=== PATIENT | female | born 2000 | race Caucasian/White ===

== ENCOUNTER 2025-03-28 11:48 | Outpatient (CLI) | payer OTHER, SELFPAY ==
[2025-03-28 14:30] LABS: HCG,Quantitative 22155 mIU/ml (0-5.42)
[2025-03-29 08:21] LABS: Progesterone 19.9 ng/mL (.)
== END 2025-03-28 23:59 | disposition home or self-care (01) ==
LOC: LAB 11:49
PROVIDERS: Visit Provider Obstetrics & Gynecology
DX: Z32.01 Encounter for pregnancy test, result positive (principal)
CPT/HCPCS: 84144; 84702

== ENCOUNTER 2025-03-28 18:33 | Emergency (ER) | payer OTHER, SELFPAY ==
--- NOTE | 2025-03-28 18:37 | US_ITS ---
PROCEDURE INFORMATION: Exam: US , Transvaginal and US Duplex Artery or Vein, Ovaries, Limited Exam date and time: 03/28/2025 6:58 PM Age: 24 years old Clinical indication: Pain; Other: Bleeding -- cramping; Gestational age or lmp: 6w2d; ; Additional info: 6 weeks bleeding and cramping LABS AND CLINICAL REPORTS: Last menstrual period start date: 02/12/2025 Gestational age (Established): 6 w 2 d Estimated due date (Established): 11/19/2025 TECHNIQUE: Imaging protocol: Real-time transvaginal obstetrical ultrasound of the maternal pelvis and a first trimester with image documentation. Transvaginal imaging was used for better evaluation of the fetus, adnexa, and/or cervix. Real-time duplex ultrasound scan of the arterial or venous flow of the ovaries with B-mode, color Doppler flow and spectral waveform analysis, Limited Duplex. Duplex exam was performed to evaluate for torsion and other vascular conditions. COMPARISON: No relevant prior studies available. FINDINGS: GESTATION: Gestation: Yolk sac measures 4.5 mm. heart rate: 121 bpm BIOMETRY: Gestational age (AUA): 6 w 2 d Estimated due date (AUA): 11/19/2025 [place] rump length (CRL): 4.79 mm. EGA (CRL) is 6 w 1 d MATERNAL: Right ovary/adnexa: Right ovary measures 2.32 cm x 1.48 cm x 2.28 cm. Right ovarian volume is 4.1 mL. The right ovary has normal color Doppler echoes. The right ovary has normal arterial spectral waveforms. Left ovary/adnexa: Left ovary measures 2.67 cm x 2.23 cm x 2.09 cm. Left ovarian volume is 6.52 mL. The left ovary has normal color Doppler echoes. The left ovary has normal arterial spectral waveforms. Left ovarian corpus luteum cyst documented. Intraperitoneal space: No intraperitoneal free fluid. IMPRESSION: Intrauterine at estimated gestational age of 6 weeks and 1 day with heart rate of 121 bpm.
--- NOTE | 2025-03-28 18:38 | ED_ITS ---
<Statement entered by Gabby Lambert DO - 03/28/25 23:47> I was consulted by the ABBEY, and we discussed the complexity of the problems being addressed. I approved the treatment and management plan for this patient's care in the emergency department, thus performing a substantive portion of the medical decision making. Gabby Lambert DO Discharge Plan Disposition Patient Disposition: Home, Self-Care Condition: Good Prescriptions Prescriptions: No Action cephalexin 500 mg capsule 500 mg PO TID 7 Days Qty: 21 0RF Referrals Follow up/Referrals: Provider,Referral, MD [Primary Care Provider] - See instructions Activity Restrictions/Add. Instructions Additional Instructions/Restrictions: As we discussed please follow-up with [facility]MENT [employer]ER as scheduled. If you have persistent new or worsening signs or symptoms follow-up sooner or return to the ER as needed. Clinical Impressions Clinical Impression: Bleeding in early Print Language Print Language: Kinyarwanda Discharge ED Provider: Gabby Lambert General Adult HPI General Chief complaint: Vaginal Bleeding Stated complaint: 6 weeks Antipartum Cramping Bleeding Time Seen by Provider: 03/28/25 18:38 History of Present Illness HPI narrative: Patient presents for abdominal cramping and vaginal bleeding. 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 She is scheduled for an ultrasound on Wednesday. However after seeing her FARM EQUIPMENT ASSEMBLER she began having some lower abdominal cramping and spotting. She denies any fever chills hemoptysis hematochezia melena nausea vomiting diarrhea dysuria hematuria. Related Data Previous Rx's ?Medication ?Instructions ?Recorded cephalexin 500 mg capsule 500 mg PO TID 7 days #21 caps 03/07/21 Allergies Allergy/AdvReac Type Severity Reaction Status Date / Time No Known Allergies Allergy Verified 03/07/21 08:55 [facility] Disclaimer: The information contained in this section may have been updated after the patient was seen, as this information can be updated by other users. Medical History (Updated 03/28/25 @ 20:03 by LIVAN Luna) Vaginal bleeding affecting early Social History Smoking Status: Never smoker alcohol intake: current alcohol intake frequency: holidays/special occasions only substance use type: marijuana current occupational status: unemployed Travel in the last 8 weeks?: None Have you lived/traveled outside US in past 30 days?: No Contact w/someone who lives/traveled outside US past 30 days?: No Exposure to someone with infectious disease in past 14 days?: No Do you have a fever (greater than 100.4 F or 38 C)?: No Have you tested positive for COVID-19?: No Exposed to someone with COVID-19 in past 14 days?: No Do you have a sore throat?: No Do you have a cough?: No Do you have any weakness?: No Do you have any diarrhea?: No Are you experiencing any unusual bleeding?: No Do you have any muscle aches/pain?: No Do you have any abdominal pain?: No Are you experiencing loss of taste or smell?: No Other Medical History Have you received the Pneumonia Vaccine: No ROS Obtained: Yes Systems reviewed as appropriate & no additional complaints except as documented Physical Exam General General appearance: alert and in no apparent distress Respiratory Respiratory exam: Present normal lung sounds bilaterally Cardiovascular Cardiovascular exam: Present regular rate Neurological Exam Neurological exam: Present alert and oriented X3 Medical Decision Making Medical Records Medical records reviewed: Yes I reviewed the patient's medical records. Screening: Per USPSTF and CDC recommendations, given the prevalence of disease in our region, it is our hospital?s policy to screen for HIV and viral Hepatitis for all patients aged 18 and over and those with ongoing risk factors. Artur Inquiry Pt receiving controlled substance: No Vital Signs: 03/28/25 18:49 03/28/25 19:00 03/28/25 20:22 Temperature 98.2 F 97.9 F Temperature Source Oral Temporal Artery Scan Pulse Rate 77 72 Pulse Rate [Right Radial] 107 H Respiratory Rate 16 20 Blood Pressure 119/79 119/79 Blood Pressure [Right Arm] 157/109 H Blood Pressure Mean [Right Arm] 125 Blood Pressure Source Automatic Cuff Blood Pressure Source [Right Arm] Automatic Cuff Blood Pressure Position Sitting Blood Pressure Position [Right Arm] Sitting 02 Sat by Pulse Oximetry 99 97 Oxygen Delivery Method Room Air Room Air Lab Data Lab results reviewed: Yes I reviewed the patient's lab results. Lab Results 03/28/25 18:47: WBC 11.6 H, RBC 4.74, Hgb 14.0, Hct 40.5, MCV 85.4, MCH 29.5, MCHC 34.6, RDW 11.4 L, Plt Count 311, MPV 8.8, Neut % (Auto) 51.9, Lymph % (Auto) 37.5, [place] % (Auto) 8.2, Eos % (Auto) 1.7, Baso % (Auto) 0.4, Neut # (Auto) 6.1, Lymph # (Auto) 4.4, [place] # (Auto) 1.0, Eos # (Auto) 0.2, Baso # (Auto) 0.1, Sodium 137, Potassium 3.7, Chloride 103, Carbon Dioxide 23, Anion Gap 14.7, BUN 7, Creatinine 0.60, Estimated Creat Clear 110, Estimated GFR 124, Est GFR ( Amer) 150, Glucose 93, Calcium 9.5, HCV Ab AMY w/Rflx PCR Qn Negative, HIV Ag/Ab Combo Qual Negative, Blood Type A Negative, Antibody Screen Negative 03/28/25 19:35: Urine Color Yellow, Urine Appearance Clear, Urine pH 6.0, Ur Specific [place] 1.020, Urine Protein Negative, Urine Glucose (UA) Negative, Urine Ketones Trace, Urine Blood Trace-i, Urine Nitrate Negative, Urine Bilirubin Negative, Urine Urobilinogen 0.2, Ur Leukocyte Esterase Negative, Urine WBC Occasional, Ur Squamous Epith Cells 3-5, Urine Bacteria 2+ 03/28/25 18:47 03/28/25 18:47 Orders (Tests/Meds): ED MEDICATIONS Discontinued Medications Generic Name Dose Route Start Last Admin Trade Name Freq PRN Reason Stop Dose Admin Rho Immune Globulin 300 mcg 03/28/25 20:02 03/28/25 20:17 Rho(D) Immune Globulin 1,500 Unit (300mcg) Syringe IM 03/28/25 20:03 300 mcg ONCE ONE Administration Sodium Chloride 10 ml 03/28/25 18:53 Sodium Chloride 0.9% 10ml Flush Syringe IV 04/27/25 18:52 NEEDED PRN Maintain IV Site ORDERS Category Date Time Status Type and Screen Stat BBK 03/28/25 18:47 Completed BMP [Basic Metabolic Panel] Stat Lab 03/28/25 18:47 Completed CBC w/Auto Diff [Complete Blood Count Auto Diff] Stat Lab 03/28/25 18:47 Completed HIV Combo Stat Lab 03/28/25 18:47 Completed Hepatitis C Ab Qual. W/ RFX Stat Lab 03/28/25 18:47 Completed UA [Urinalysis and Microscopic] Stat Lab 03/28/25 19:35 Completed Urine Culture Stat Micro 03/28/25 19:35 Received US OB transvaginal Stat Ultrasound 03/28/25 18:37 Completed Medical Decision Narrative: In summary patient is a 44-year-old female who presents to the emergency department for evaluation of lower abdominal cramping and spotting. Patient is hemodynamically stable upon arrival, afebrile. Patient is G1, P0 Ab0. Physical exam is remarkable for mild discomfort in the suprapubic area but there is no rebound or guarding or rigidity. Bowel sounds more normoactive.. Differential diagnosis includes spotting during versus threatened . Initial workup will be conducted with hematologic labs and transvaginal ultrasound urinalysis.. Initial interventions deferred for now as patient has no fever or systemic symptoms is not currently vomiting tolerating oral intake. Initial workup reviewed by me shows that her hematologic labs are nonactionable patient is a negative and transvaginal ultrasound shows viable intrauterine of approximately 6 weeks 1 day with a heart rate of 121. Given the intrauterine and her being a negative she was given RhoGAM. Patient is appropriate discharge with close follow-up with F[employer] EQU[employer]MENT ASSEMBLER as scheduled and if she has persistent new or worsening signs or symptoms follow-up PCP return to the ER as needed. Critical Care Critical Care Time Critical Care Time: Yes Attestation: On 03/28/25, the high probability of a clinically significant, sudden or life threatening deterioration of the following system(s) required my full and direct attention, intervention and personal management. The time I documented below is in addition to time spent performing reported procedures but includes the following listed in this critical care notation. Total Time Total Critical Care Time: 30
[2025-03-28 18:49] VITALS: BP 157/109; PULSE 107; RESP 16; TEMP 36.8; O2SAT 99; BMI 19.8
--- NOTE | 2025-03-28 18:53 | PC.NURSE ---
u/s called per radiology.
[2025-03-28 19:00] VITALS: BP 119/79; PULSE 77; O2SAT 97
[2025-03-28 19:00] LABS: Basophils # 0.1 K/mm3 (0-0.2); Basophils % 0.4 % (0.1-2.0); Eosinophils # 0.2 Kmm3 (0.0-0.4); Eosinophils % 1.7 % (0.1-12.0); Hematocrit 40.5 % (37.0-47.0); Immature Granulocytes # 0.03 10^3uL; Immature Granulocytes % 0.3 %; Lymphocytes # 4.4 K/mm3 (0.7-4.5); Lymphocytes % 37.5 % (10-50); Mean Corpuscular HGB Conc 34.6 g/dL (31.8-35.4); Mean Corpuscular Hemoglobin 29.5 pg (27.0-31.2); Mean Corpuscular Volume 85.4 fl (81-99); Mean Platelet Volume 8.8 fl (7.4-10.4); Monocytes % 8.2 % (1.7-9.3); Neutrophils # 6.1 K/mm3 (1.8-7.8); Neutrophils % 51.9 % (37.0-80.0); Nucleated Red Blood Cells # 0 10^3/uL; Nucleated Red Blood Cells % 0 %; Platelet Count 311 K/mm3 (142-424); Red Blood Count 4.74 M/mm3 (4.20-5.40); Red Cell Distribution Width 11.4 % (11.5-17.5); Red Cell Distribution Width-SD 35.4 fL; White Blood Count 11.6 K/mm3 (4.8-10.8)
[2025-03-28 19:11] LABS: Anion Gap 14.7 mEq/L (5-15); Blood Urea Nitrogen 7 mg/dl (7-17); Calcium 9.5 mg/dl (8.4-10.2); Carbon Dioxide 23 mmol/L (22.0-30.0); Chloride 103 mmol/L (98-107); Creatinine Clearance Estimated 110 mL/min (50-200); Estimated Glomerular Filt Rate 124 ml/min (>60); GFR (African American) 150 ML/MIN (>60); Glucose 93 mg/dl (74-100); Potassium 3.7 mmoL/L (3.5-5.1); Sodium 137 mmol/L (136-145)
[2025-03-28 19:41] LABS: Microscopic, Urine URINE MICROSCOPIC (MICROSCOPIC)
[2025-03-28 19:56] LABS: Appearance,Urine CLEAR (Clear); Bilirubin,Urine Negative (Negative); Blood, Urine TRACE-I (Negative); Color,Urine YELLOW (Yellow); Glucose,Urine (UA) Negative (Negative); Ketones,Urine TRACE (Negative); Leukocyte Esterase,Urine Negative (Negative); Nitrate,Urine Negative (Negative); Protein,Urine Negative (Negative); Urobilinogen,Urine 0.2 EU/dl (0.2)
[2025-03-28 19:59] LABS: HIV Combo NEGATIVE (Negative)
[2025-03-28 20:06] LABS: Hepatitis C Ab Qual. W/ RFX NEGATIVE (Negative)
[2025-03-28] MEDS: RHO(D) IMMUNE GLOBULIN 1,500 UNIT (300MCG) SYRINGE 300 MCG IM (20:17)
[2025-03-28 20:22] VITALS: BP 119/79; PULSE 72; RESP 20; TEMP 36.6; O2SAT 98
--- NOTE | 2025-03-28 20:22 | PC.NURSE ---
IV discontinued. Catheter tip intact. Bleeding controlled.
[2025-03-28 21:25] LABS: Bacteria,Urine 2+ /lpf; WBC,Urine Occasional #/hpf (0-3)
== END 2025-03-28 20:24 | disposition home or self-care (01) ==
PROVIDERS: Physician Assistant; Emergency Provider Emergency Medicine
DX: O20.9 Hemorrhage in early pregnancy, unspecified (principal); Z3A.01 Less than 8 weeks gestation of pregnancy
CPT/HCPCS: 76817; 80048; 81001; 85025; 86803; 86850; 87086; 87389; 96372; 99284; J2790

== ENCOUNTER 2025-07-02 13:00 | Outpatient (CLI) | payer OTHER, SELFPAY ==
--- NOTE | 2025-07-02 13:00 | US_ITS ---
PROCEDURE: US OB /MATERNAL DETAIL CLINICAL INDICATION: 20 week anatomy COMPARISON: US US OB TRANSVAGINAL from 03/28/2025 FINDINGS: Transabdominal sonographic images of the pelvis were obtained. From her established due date she is 20 weeks 0 days. Single viable intrauterine gestation. Cephalic position. Placenta: Posteriorplacenta grade 1. There is an average amount of fluid. The cervix appears satisfactory. Closed and measuring 2.73 cm in length. Complete survey performed and was unremarkable on the submitted images as in PACS. No discrete anomalies identified on survey imaging by technologist. Active fetus. Three-vessel cord with satisfactory umbilical cord insertion. 4- chamber heart noted. [place], aortic arch, LVOT, RVOT, three-vessel view appear normal. Survey of brain & ventricles Unremarkable. Cerebellum, thalamus, choroid plexus, cisterna magna appear normal. Face and neck survey unremarkable. Profile, nasion, lips and nose appeared normal. Diaphragm and chest views unremarkable. Abdomen: Both kidneys noted and unremarkable. Stomach and bladder noted and satisfactory. Spine: Survey of the spine satisfactory with no anomalies identified nor imaged. Cervical, thoracic, lower spine appear normal. Both arms and legs noted. Amniotic Fluid: Adequate. MVP 4.0 cm Measurements: Average ultrasound age 19weeks 1day. Estimated due date by ultrasound age 0111/25/2025. Estimated weight 298g BPD = 18weeks 0 days HC = 19weeks 1day AC = 19weeks 5days FL = 19weeks 5days Growth Percentile= 21 Heart Rate = 147bpm Cerebellum = 18weeks 5days Humerus = 19weeks 4days HC/AC is 1.14 FL/BPD is 0.8 FL/AC is 0.22 IMPRESSION: 1. Viable fetus in the cephalic presentation with a posterior placenta grade 1. 2. The fluid is within normal limits with an MVP 4.0 cm. 3. Anatomical scan appears normal. 4. biometry is consistent with the dates. Dictated by: Adrián Ross MD 07/02/2025 15:52 Adrián Ross MD in [facility] 07/02/2025 15:52
--- OUTSIDE RECORDS SUMMARY | 2025-07-02 13:07 | XMS_ITS | Clinical Summary ---
Author Organization [facility] Address [address] [place] [address] Phone Care Team Providers Care [facility] Nurse Staff Name Role Phone Unavailable Primary Care Provider Unavailabl e Allergies No known active allergies Medications naproxen (NAPROSYN) 500 mg Oral TabletIndication s:Pelvic pain Take 1 Tab by mouth 2 times daily as needed for Pain. 60 Tab 2 01/02/2021 Active Active Problems Problem Noted Date Diagnosed Date Menorrhagia with irregular cycle 08/04/2017 Overview (12/04/2020): Off meds Has been a little more regular Resolved Problems Problem Noted Date Diagnosed Date Resolved Date Acute intractable headache 12/04/2020 0 01/02/2021 Assessment & Plan (12/04/2020 2:44 PM EST): Normal exam Neg COVID Normal UA and neg Preg Will check labs, get updated eye exam, increase water intake Recommend alternating tylenol with ibuprofen for pain Immunizations Immunization Administration Dates Next Due DTaP 07/31/2005, 3,06/13/2002,11/24,2001 HPV 9 Valent 11/06/2016,06/10/2016 HPV Quadrivalent 04/24/2016 Hep B/HiB 01/30/2003,2001,2001 IPV 07/31/2005, 3,06/13/2002,09/23 Influenza Vaccine Quadrivalent 08/04/2017 LAST MANUFACTURED 2010-Pneum ococcal Conjugate 7 Valent 06/13/2002,02/28/2002,2001 MMR 07/31/2005,01/30/2003 Meningococcal Conjugate 08/04/2017,07/19/2013 Tdap 07/19/2013 Varicella 07/19/2013,08/22/2002 Medical History Medical History Date Comments Headache Family History Medical History Relation Name Comments No Known Problems Brother 1 No Known Problems Brother 2 No Known Problems Father No Known Problems Mother No Known Problems Sister 1 No Known Problems Sister 2 No Known Problems Sister 3 Relation Name Status Comments Brother 1 Alive Brother 2 Alive Father Alive Mother Alive Sister 1 Alive Sister 2 Alive Sister 3 Alive Social History Tobacco Use Types Packs/Day Years Used Date Smoking Tobacco: Never Smokeless Tobacco: Never Alcohol Use Standard Drinks/Week Comments No 0 (1 standard drink = 0.6 oz pur e alcohol) Overall Financial Resource Strain (CARDIA) Ans[place] r Date Recorded Difficulty of Paying Living Expenses Not hard at all 12/04/2020 PHQ-2 Answer Date Recorded PHQ-2 Total Score 0 12/04/2020 Hunger Vital Sign Answer Date Recorded Worried About Running Out of Food in the Last Ye ar Never true 12/04/2020 Ran Out of Food in the Last Year Never true 12/04/2020 PRAPARE - Transportation Answer Date Re corded Lack of Transportation (Medical) No 12/04/2020 Lack of Transportation (Non-Medical) No 12/04/2020 Comments No Sex and Gender Information Value Date Recorded Sex Assigned at Not on file Legal Sex Female 2:15 AM EDT Gender Identity Not on file Sexual Orientation Not on file Obstetrics History Last Filed Vital Signs Vital Sign Reading Time Taken Comments Blood Pressure 94/58 05/01/2021 9:10 AM EDT Pulse 62 05/01/2021 9:10 AM EDT Temperature 36.1 C (96.9 F) 05/01/2021 9:10 AM EDT Respiratory Rate 18 05/01/2021 9:10 AM EDT Oxygen Saturation 98% 05/01/2021 9:10 AM EDT Inhaled Oxygen Concentration - - Weight 43.1 kg (95 lb) 05/01/2021 9:10 AM EDT Height 154.9 cm (5' 1 ) 05/01/2021 9:10 AM EDT Body Mass Index 17.95 05/01/2021 9:10 AM EDT Plan of Treatment Health Maintenance Due Date Last Done Comments Annual Wellness Exam 2004 Meningococcal B Vaccine (1 of 2 - Standard) 2017 Cervical Cancer Screening 2022 Pap Smear 2022 DTaP/TDaP/Td (7 - Td or Tdap) 07/19/2023 07/19/2013, 07/31/2005, 01/30/2003, Additional history exists COVID-19 Vaccine ( season) 2024 Influenza Vaccine (#1) 2025 08/04/2017, 2016 Pneumococcal Vaccine 0-49 Aged Out 2001, 02/28/2002, 2001 No longer eligible based on patient's age to complete this topic Hepatitis B Vaccine Completed 01/30/2003, 01/30/2003, 2001, Additional history exists HPV Completed 11/06/2016, 01/2016, 04/24/2016 Goals Goal Patient Goal Type Associated Problems Recent Progress Patient-Stated? Author Maintain a healthy diet, exercise regularly and maintain an ideal body weight General No Agata Garnett APRN Insurance CHOICE CHOICE
== END 2025-07-02 23:59 ==
LOC: RAD 13:01
PROVIDERS: PCP Obstetrics & Gynecology; Visit Provider Obstetrics & Gynecology
DX: O20.9 Hemorrhage in early pregnancy, unspecified (principal); Z3A.20 20 weeks gestation of pregnancy
CPT/HCPCS: 76811

== ENCOUNTER 2025-08-30 11:08 | Outpatient (CLI) | payer OTHER, SELFPAY ==
--- OUTSIDE RECORDS SUMMARY | 2025-08-30 11:25 | XMS_ITS | Clinical Summary ---
Author Organization [facility] Address [address] [place] [address] Phone Care Team Providers Care Buyer Renter Name Role Phone Unavailable Primary Care Provider [...] on file Sexual Orientation Not on file Last Filed Vital Signs Vital Sign Reading [...] Last Done Comments Annual Wellness Exam 2004 Cervical Cancer Screening 2022 Pap Smear 2022 DTaP/TDaP/Td (7 - Td or Tdap) 07/19/2023 07/19/2013, 07/31/2005, 01/30/2003, Additional history exists COVID-19 Vaccine ( - 2024- season) 2025 Influenza Vaccine (#1) 2025 08/04/2017, 2016 Pneumococcal Vaccine 0-49 Aged Out 2001, 02/28/2002, 2001 No longer eligible based on patient's age to complete this topic Hepatitis B Vaccine Completed 01/30/2003, 01/30/2003, 2001, Additional history exists HPV Completed 11/06/2016, 01/2016, 04/24/2016 Meningococcal B Vaccine Aged Out No l onger eligible based on patient's age to complete this topic Goals Goal Patient Goal Type Associated Problems Recent Progress Patient-Stated? Author Maintain a healthy diet, exercise regularly and maintain an ideal body weight General No Agata Garnett APRN Insurance CHOICE CHOICE
[2025-08-30 12:22] LABS: Hematocrit 35.2 % (37.0-47.0); Hemoglobin 11.9 g/dL (12.2-16.2); Immature Granulocytes % 1.0 %; Mean Corpuscular HGB Conc 33.8 g/dL (31.8-35.4); Mean Corpuscular Hemoglobin 29.6 pg (27.0-31.2); Mean Corpuscular Volume 87.6 fl (81-99); Nucleated Red Blood Cells % 0 %; Platelet Count 260 K/mm3 (142-424); Red Blood Count 4.02 M/mm3 (4.20-5.40); Red Cell Distribution Width-SD 38.8 fL; White Blood Count 10.6 K/mm3 (4.8-10.8)
[2025-08-30 12:39] LABS: Glucose 1 Hour 83 mg/dL (74-100)
[2025-08-30] MEDS: RHO(D) IMMUNE GLOBULIN 1,500 UNIT (300MCG) SYRINGE 300 MCG IM (14:10)
[2025-08-30 14:20] VITALS: BP 135/74; PULSE 72; RESP 18; O2SAT 99
[2025-08-30 15:34] LABS: RPR W/RFX Titers Nonreactive (Nonreactive)
== END 2025-08-30 23:59 | disposition home or self-care (01) ==
LOC: LAB 11:09 → INF 14:05
PROVIDERS: PCP Nurse Practitioner; Visit Provider Obstetrics & Gynecology
DX: Z34.92 Encounter for supervision of normal pregnancy, unspecified, second trimester (principal)
CPT/HCPCS: 36415; 82947; 85025; 86592; 96372; J2790

== ENCOUNTER 2025-09-03 12:59 | Outpatient (CLI) | payer OTHER, SELFPAY ==
--- NOTE | 2025-09-03 13:00 | US_ITS ---
PROCEDURE: US OB BIOPHYSICAL PROFILE CLINICAL INDICATION: BPP and Growth COMPARISON: US US OB TRANSVAGINAL from 03/28/2025 US US OB /MATERNAL DETAIL from 07/02/2025 FINDINGS: Transabdominal sonographic images of the uterus were obtained. From her established due date she is 29weeks 0 days. The following parameters are obtained: Viable Fetus in the cephalic presentation with an anterior laterally wrapped placenta grade 1. Average ultrasound age is 26weeks 5days Estimated weight 975g, 2 lb 2 oz The cervix measures 2.96 cm in length. Measurements: heart Rate = 158bpm BPD = 26weeks 3days, <2 percentile HC = 26weeks 1day, < 2 percentile AC = 26weeks 4days, < 2 percentile FL = 27weeks 3days 5 percent HC/AC is 1.09 FL/BPD is 0.79 FL/AC is 0.23 <2 percentile Amniotic fluid index: 7.35cm MVP 3.51 cm Qualitative AFV:2 Breathing movements: 2 Gross Body Movements: 2 Tone: 2 Biophysical profile score: 8 Doppler evaluation of the umbilical artery: SD ratio: 3.4-3.5 (normal equals 2.92-4.19) Resistive index: 0.71 No obvious anomalies evident.Kidneys, profile, stomach, bladder, four-chamber heart, three-vessel cord appear normal. IMPRESSION: 1. Viable fetus in the cephalic presentation with an anterior laterally wrapped placenta grade 1. 2. The fluid is within normal limits with an amniotic fluid index 7.35 cm, MVP 3.51 cm. 3. Biophysical profile is 8/8 with good breathing movement and movement seen. 4. SD ratio is normal 3.4-3.5. 5. Fetus is currently globally small for gestational age. The abdominal circumference is less than the 2nd percentile and over 2 weeks behind. This is similarly seen in the head circumference and BPD. Suggest close follow-up. Consider a maternal medicine consult. 6. Limited anatomical scan appears normal. Dictated by: Adrián Ross MD 09/03/2025 15:38 Adrián Ross MD in [facility] 09/03/2025 15:38
== END 2025-09-03 23:59 | disposition home or self-care (01) ==
LOC: RAD 12:59
PROVIDERS: PCP Nurse Practitioner; Visit Provider Obstetrics & Gynecology
DX: O36.5930 Maternal care for other known or suspected poor fetal growth, third trimester, not applicable or unspecified (principal); Z3A.29 29 weeks gestation of pregnancy
CPT/HCPCS: 76816; 76819; 76820

== ENCOUNTER 2025-09-13 09:01 | Outpatient (CLI) | payer OTHER, SELFPAY ==
--- OUTSIDE RECORDS SUMMARY | 2025-09-07 06:58 | XMS_ITS | Encounter Summary ---
Author Organization [facility] Address [address] [place] [address] Care Team Providers Care Coat Examiner Name Role Phone Provider, No Known Primary Care Provider Unavail able Reason for Referral * Diagnostic Imaging (Routine) - Closed Specialty Diagnoses / Procedures Referred By Contac t Referred To Contact Radiology Diagnoses IUGR (intrauterine growth restriction) affecting care of mother, third trimester, fetus 1 , unspecified gestational age Procedures [facility] Diagnostic [place] Paty Flores DO [address] [place] [address] Phone: tel: fax: [facility] US PER DIAG CTR [address] [place] [address] Phone: tel: Referral ID Status Reason Start Date Expiration Date Visits Re quested Visits Authorized [id number] Closed 09/05/2025 12/05/2026 1 1 Reason for Visit * Diagnostic Imaging (Routine) - Closed Specialty Diagnoses / Procedures Referred By Contac t Referred To Contact Radiology Diagnoses IUGR (intrauterine growth restriction) affecting care of mother, third trimester, fetus 1 , unspecified gestational age Procedures [facility] Diagnostic [place] Paty Flores DO [address] [place] [address] Phone: tel: fax: [facility] US PER DIAG CTR [address] [address] Phone: tel: Referral ID Status Reason Start Date Expiration Date Visits Re quested Visits Authorized [id number] Closed 09/05/2025 12/05/2026 1 1 Encounter Details Date Type Department Care Team (Latest Contact Info) Description 09/07/2025 7:58 AM EDT - 09/07/2025 11:59 PM EDT Hospital Encounter [facility] US PER DIAG CTR [address] [place] [address] Paty Flores, DO [address] [facility] [address] [place] [id number] IUGR (intrauterine growth restriction) affecting care of [...] Care Team (Late st Contact Info) Description 09/21/2025 8:15 AM EST Office Visit [facility] MATERNAL MEDICINE [address] [place] [address] 09/21/2025 8:15 AM EST Appointment [facility] US PER DIAG CTR [address] [place] [address] 10/03/2025 9:15 AM EST Office Visit [facility] MATERNAL MEDICINE [address] [facility] [address] [place] [address] 10/03/2025 9:15 AM EST Appointment [facility] US PER DIAG CTR [address] [place] [address] 10/19/2025 8:15 AM EST Office Visit [facility] MATERNAL MEDICINE [address] [facility] [address] [place] [address] 10/19/2025 8:15 AM EST Appointment [facility] US PER DIAG CTR [address] [facility] [place] [address] documented as of this encounter Procedures Procedure Name Priority Date/Time Associated Diagnosis Comments [facility] Routine 09/07/2025 11:09 AM EDT IUGR (intrauterine growth restriction) affecting care of mother, third trimester, fetus 1 , unspecified gestational age documented in this encounter Results * [facility] (09/07/2025 11:09 AM EDT) Anatomical Region Laterality Modality Ultrasound 09/07/2025 8:18 AM EDT Narrative 09/07/2025 9:11 AM EDT PAT NAME: SHILPI ALATORRE MED REC#: [id number] DA: [id number] PAT GEND: F PAT TYPE: O EXAM CARLOS: [id number] REF PHYS PATY FLORES Comparison Studies There [...] EFW (oz) 5 oz EFW by: Hadlock ([id number]-WB-RZ-FL) Extended Tibia 47.0 mm 28w 4d 19% So Fibula 47.2 mm 29w 1d 40% So Foot 54.5 mm 8% Chitty Radius 38.3 mm 26w 5d 24% So Ulna 42.4 mm 27w 3d 2% So Cav. septi pel. tr 6.4 mm Sap Technical Architect 7.0 mm CM 4.6 mm 3% Nicolaides [...] normal IVC: normal 3-vessel view: Appears normal 9-kixwwp-dualvvu view: Appears normal Rt lung: Appears normal [...] with weekly UA Dopplers. Coding ======= Description: 12623-76 Detailed Ultrasound Description: 36369-08 BPP without NST Description: 58955-41 Doppler Umbilical Artery Body Designer: Shell Smith RDMS Physician: Marissa Hadley MD Electronically signed by: Marissa Hadley MD at: 09:11 Procedure Note Marissa Hadley MD - 09/07/2025 PAT NAME: SHILPI ALATORRE MED REC#: [id number] DA: [id number] PAT GEND: F PAT TYPE: O EXAM CARLOS: [id number] REF PHYS PATY FLORES Comparison Studies There are no relevant prior studies to which this study is beingcompared Patient Status Outpatient Indication ======== IUGR Maternal Assessment Rromjm274 cm Height (ft)5 ft Height (in)2 in Lpfobw02 kg Weight (lb)121 lb BMI22.03 kg/m Method ======= Transabdominal ultrasound examination. View: Adequate view ========= Whittaker . Number of fetuses: 1 Dating ====== Method of dating:based on stated CYNDI GA by prior uhpxgsyspr14 w + 4 d CYNDI by prior assessment:11/19/2025 Ultrasound examination on:09/07/2025 GA by U/S based upon:AC, BPD, Femur, HC GA by U/S27 w + 5 d CYNDI by U/S:12/02/2025 Assigned:based on stated CYNDI, selected on 09/07/2025 Assigned GA29 w + 4 d Assigned CYNDI:11/19/2025 sagcka370 d Biometry Standard BPD69.9 mm 28w 1d 6% Hadlock OFD93.2 mm 30w 0d 64% So HC258.5 mm 28w 1d 1% Hadlock Cerebellum tr33.9 mm 28w 4d 18% Hill AC222.2 mm 26w 5d <1% Hadlock Femur52.5 mm 28w 0d 5% Hadlock Bzkwzak17.3 mm 27w 2d 4% So HC / AC1.16 EFW1,060 g 27w 0d 2% Hadlock EFW (lb)2 lb EFW (oz)5 oz EFW by:Hadlock ([id number]-GL-FG-FL) Extended Tibia47.0 mm 28w 4d 19% So Fqhrec30.2 mm 29w 1d 40% So Foot54.5 mm 8% Chitty Kkpvqg43.3 mm 26w 5d 24% So Ulna42.4 mm 27w 3d 2% So Cav. septi pel. tr6.4 mm Vp7.0 mm CM4.6 mm 3% Nicolaides Nasal bone9.5 mm Head / Face / Neck Cephalic index0.75 11% Nicolaides Extremities / Bony Struc FL / BPD0.75 FL / HC0.20 FL / AC0.24 Other Structures IBM400 bpm General Evaluation Cardiac activity present. FHR [...] view:Appears normal SVC:normal IVC:normal 3-vessel view:Appears normal 1-sfiith-zlbeidw view:Appears normal Rt lung:Appears normal Lt lung:normal [...] weekly testing with weekly UADopplers. Coding ======= Description:64710-65 Detailed Ultrasound Description:27318-77 BPP without NST Description:67674-00 Doppler Umbilical Artery Body Designer: Shell Smith RDMS Physician: Marissa Hadley MD Electronically signed by: Marissa Hadley MD at: 09:11 us Paty Flores DO IMG US ORDERABLES Final Res ult documented in this encounter Visit Diagnoses Diagnosis IUGR (intrauterine growth restriction) affecting care of mother, third trimester, fetus 1 , unspecified gestational age documented in this encounter Care Teams Coat Examiner Relationship Specialty Start Date End Date Provider, [place] [address] PCP - General 09/05/25 documented as of this encounter
--- OUTSIDE RECORDS SUMMARY | 2025-09-07 07:00 | XMS_ITS | Encounter Summary ---
Author Organization [facility] Address [address] [place] [id number] Care Team Providers Care Concrete Tester Name Role Phone Provider, No Known Primary Care Provider Unavail able Reason for Referral * Diagnostic Imaging (Routine) - Authorized Specialty Diagnoses / Procedures Referred By Contac t Referred To Contact Radiology Diagnoses IUGR (intrauterine growth restriction) affecting care of mother, third trimester, fetus 1 Procedures [facility] Marissa Hadley MD [address] [address] Phone: tel: fax: Referral ID Status Reason Start Date Expiration Date V isits Requested Visits Authorized [id number] Authorized 09/07/2025 12/07/2026 1 1 Reason for Visit * Reason Comments IUGR Encounter Details Date Type Department Care Team (Late st Contact Info) Description 09/07/2025 8:00 AM EDT Office Visit [facility] MATERNAL MEDICINE 1700 [facility] [address] [place] [phone] Marissa Hadley MD 1700 [facility] [address] [place], [place] [phone] IUGR (intrauterine growth restriction) affecting care of [...] weekly assessment of BPP/SHAQUILLE/UA Dopplers Orders: - [facility]; Future 2. 29 weeks gestation [...] Description 09/21/2025 8:15 AM EST Office Visit [facility]NAL MEDICINE [address] [address] 09/21/2025 8:15 AM EST Appointment [facility] US PER DIAG CTR [address] [place] [address] 10/03/2025 9:15 AM EST Office Visit [facility] MATERNAL MEDICINE [address] [address] 10/03/2025 9:15 AM EST Appointment [facility] US PER DIAG [facility] [address] [place] [address] 10/19/2025 8:15 AM EST Office Visit [facility] MAT[facility]NAL MEDICINE [address] [address] 10/19/2025 8:15 AM EST Appointment [facility] US PER DIAG [facility] [address] [place] [address] Scheduled Orders Name Type Priority Associated Diagnoses Orde r Schedule [facility] Imaging Routine IUGR (intrauterine growth restriction) affecting care of mother, third trimester, fetus 1 Expected: 09/21/2025, Expires: 12/08/2026 documented as of this encounter Visit Diagnoses Diagnosis IUGR (intrauterine growth restriction) affecting care of mother, third trimester, fetus 1- Primary 29 weeks gestation of documented in this encounter Care Teams Concrete Tester Relationship Specialty Start Date End Date Provider, [place] [address] PCP - General 09/05/25 documented as of this encounter
--- OUTSIDE RECORDS SUMMARY | 2025-09-13 09:11 | XMS_ITS | Encounter Summary ---
Author Organization [facility] Address [address] [place] [address] Care Team Providers Care Lead Case Manager Name Role Phone Provider, No Known Primary Care Provider Unavail able Encounter Details Date Type Department Care Team (Latest Contact Info) Description 09/07/2025 Travel Social History Tobacco Use Types Packs/Day Years [...] on file documented as of this encounter Plan of Treatment Upcoming Encounters Date Type Department Care Team (Late st Contact Info) Description 09/21/2025 8:15 AM EST Office Visit [facility] MATERNAL MEDICINE [address] [address] 09/21/2025 8:15 AM EST Appointment [facility] [address] [place] [address] 10/03/2025 9:15 AM EST Office Visit [facility] 1700 [facility] [address] [place] [address] 10/03/2025 9:15 AM EST Appointment [facility] [address] [place] [address] 10/19/2025 8:15 AM EST Office Visit [facility] [address] [facility] [address] [place] [address] 10/19/2025 8:15 AM EST Appointment [facility] [address] [place] [address] documented as of this encounter Visit Diagnoses Not on filedocumented in this encounter Care Teams Lead Case Manager Relationship Specialty Start Date End Date Provider, [place] [address] PCP - General 09/05/25 documented as of this encounter
--- OUTSIDE RECORDS SUMMARY | 2025-09-13 09:11 | XMS_ITS | Clinical Summary ---
Author Organization [facility] Address [address] [place] [address] Care Team Providers Care Engine Lathe Operator Name Role Phone Provider, No Known Primary Care Provider Unavail able Allergies No known active allergies Medications Vit-Fe Fumarate-FA ( VITAMINS PO) 03/13/2025 Active Active Problems Problem Noted Date Diagnosed Date IUGR (intrauterine growth re striction) affecting care of mother, third trimester, fetus 1 09/07/2025 Assessment & Plan (09/07/2025 9:18 AM EDT): Poor growth is noted with overall EFW measuring at the 2nd percentile and AC <1st percentile. This is consistent with severe growth restriction. anatomy appears normal, there are no signs indicative/concerning for congenital infections. Pt is s/p low risk NIPT and all anatomy appears normal making is less concerning for possible genetic causes. Finally, there is normal amniotic fluid and very normal UA Dopplers indicative of a healthy placenta. Possible causes of suspected growth restriction (FGR) were reviewed and include ultrasound error, dating error, aneuploidy/genetic syndromes, congenital infections, uteroplacental insufficiency or a constitutionally small fetus. FGR is defined [...] testing with weekly assessment of BPP/SHAQUILLE/UA Dopplers Estimated Date of Delivery Comme nts Yes 11/19/2025 Date entered tyson or to episode creation Encounters Date Type Department Care Team Description 09/07/2025 8:00 AM EDT Office Visit [facility]ERNAL MEDICINE [address] [facility] [address] [place] [address] Marissa Hadley MD IUGR (intrauterine growth restriction) affecting care of mother, third trimester, fetus 1 (Primary Dx); 29 weeks gestation of 09/07/2025 7:58 AM EDT - 09/07/2025 11:59 PM EDT Hospital Encounter [facility] US PER DIAG CTR [address] [place] [address] Lula Flores DO IUGR (intrauterine growth restriction) affecting care of mother, third trimester, fetus 1; , unspecified gestational age Discharge Disposition: Home or Self Care 09/07/2025 Travel from Last 3 Months Social History Tobacco Use Types Packs/Day Years [...] Mass Index 22.03 09/07/2025 8:12 AM EDT Plan of Treatment Upcoming Encounters Date Type Department Care Team (Late st Contact Info) Description 09/21/2025 8:15 AM EST Office Visit [facility] MATERNAL MEDICINE [address] [place] [phone] 09/21/2025 8:15 AM EST Appointment [facility] US PER DIAG CTR [address] [place] [address] 10/03/2025 9:15 AM EST Office Visit [facility] MATERNAL MEDICINE [address] [place] [phone] 10/03/2025 9:15 AM EST Appointment [facility] US PER DIAG CTR [address] [place] [address] 10/19/2025 8:15 AM EST Office Visit [facility] MATERNAL MEDICINE [address] [phone] 10/19/2025 8:15 AM EST Appointment [facility] US PER DIAG CTR [address] [place] [address] Health Maintenance Due Date Last Done Comments Annual Gynecologic Pelvic an d Breast Exam 2001 PAP SMEAR 2022 INFLUENZA VACCINE 06/08/2025 08/24/2019, 08/04/2017 ANNUAL PHYSICAL 09/05/2025 HEPATITIS C SCREENING 09/05/2025 RSV Vaccine - Adults (1 - Ri sk 1-dose series) 09/24/2025 TDAP/TD VACCINES (3 - Td or Tdap) 08/30/2035 08/30/2025, 07/19/2013 Pneumococcal Vaccine 0-49 Aged Out 2001, 02/28/2002, 2001 No longer eligible based on patient's age to complete this topic HPV VACCINES Completed 11/06/2016, 06/10/2016, 04/24/2016 MENINGOCOCCAL B VACCINE Aged Out No l onger eligible based on patient's age to complete this topic Procedures Procedure Name Priority Date/Time Associated Diagnosis Comments [facility] Routine 09/07/2025 11:09 AM EDT IUGR (intrauterine growth restriction) affecting care of mother, third trimester, fetus 1 , unspecified gestational age from Last 3 Months Results * [facility] (09/07/2025 11:09 AM EDT) Anatomical Region Laterality Modality Ultrasound 09/07/2025 8:18 AM EDT Narrative 09/07/2025 9:11 AM EDT PAT NAME: SHILPI ALATORRE MED REC#: [id number] DA: 2000 PAT GEND: F PAT TYPE: O EXAM CARLOS: [id number] REF PHYS LULA FLORES Comparison Studies There [...] EFW (oz) 5 oz EFW by: Hadlock (LRU-GC-HH-FL) Extended Tibia 47.0 mm 28w 4d 19% So Fibula 47.2 mm 29w 1d 40% So Foot 54.5 mm 8% Chitty Radius 38.3 mm 26w 5d 24% So Ulna 42.4 mm 27w 3d 2% So Cav. septi pel. tr 6.4 mm Tearer 7.0 mm CM 4.6 mm 3% Nicolaides [...] normal IVC: normal 3-vessel view: Appears normal 6-bknnxq-lnvrdtf view: Appears normal Rt lung: Appears normal [...] with weekly UA Dopplers. Coding ======= Description: 10953-02 Detailed Ultrasound Description: 85227-49 BPP without NST Description: 75026-81 Doppler Umbilical Artery Mail Processing Clerk: Shell Smith RDMS Physician: Marissa Hadley MD Electronically signed by: Marissa Hadley MD at: 09:11 Procedure Note Marissa Hadley MD - 09/07/2025 PAT NAME: SHILPI ALATORRE MED REC#: [id number] DA: 2000 PAT GEND: F PAT TYPE: O EXAM CARLOS: [id number] REF PHYS LULA FLORES Comparison Studies There are no relevant prior studies to which this study is beingcompared Patient Status Outpatient Indication ======== IUGR Maternal Assessment Ymmygg852 cm Height (ft)5 ft Height (in)2 in Xtsruq50 kg Weight (lb)121 lb BMI22.03 kg/m Method ======= Transabdominal ultrasound examination. View: Adequate view ========= Whittaker . Number of fetuses: 1 Dating ====== Method of dating:based on stated CYNDI GA by prior [id number] w + 4 d CYNDI by prior assessment:11/19/2025 Ultrasound examination on:09/07/2025 GA by U/S based upon:AC, BPD, Femur, HC GA by U/S27 w + 5 d CYNDI by U/S:12/02/2025 Assigned:based on stated CYNDI, selected on 09/07/2025 Assigned GA29 w + 4 d Assigned CYNDI:11/19/2025 [id number] d Biometry Standard BPD69.9 mm 28w 1d 6% Hadlock OFD93.2 mm 30w 0d 64% So HC258.5 mm 28w 1d 1% Hadlock Cerebellum tr33.9 mm 28w 4d 18% Hill AC222.2 mm 26w 5d <1% Hadlock Femur52.5 mm 28w 0d 5% Hadlock Fszjupz77.3 mm 27w 2d 4% So HC / AC1.16 EFW1,060 g 27w 0d 2% Hadlock EFW (lb)2 lb EFW (oz)5 oz EFW by:Hadlock (YCE-IW-BN-FL) Extended Tibia47.0 mm 28w 4d 19% So Ofrwij51.2 mm 29w 1d 40% So Foot54.5 mm 8% Chitty Izgfvz01.3 mm 26w 5d 24% So Ulna42.4 mm 27w 3d 2% So Cav. septi pel. tr6.4 mm Vp7.0 mm CM4.6 mm 3% Nicolaides Nasal bone9.5 mm Head / Face / Neck Cephalic index0.75 11% Nicolaides Extremities / Bony Struc FL / BPD0.75 FL / HC0.20 FL / AC0.24 Other Structures DBW521 bpm General Evaluation Cardiac activity present. FHR [...] view:Appears normal SVC:normal IVC:normal 3-vessel view:Appears normal 0-wlhepc-nnauiyi view:Appears normal Rt lung:Appears normal Lt lung:normal [...] weekly testing with weekly UADopplers. Coding ======= Description:94870-87 Detailed Ultrasound Description:33839-51 BPP without NST Description:75457-42 Doppler Umbilical Artery Mail Processing Clerk: Shell Smith RDMS Physician: Marissa Hadley MD Electronically signed by: Marissa Hadley MD at: 09:11 us Lula Flores DO IMG US ORDERABLES Final Res ult from Last 3 Months Insurance [facility] Care Teams Engine Lathe Operator Relationship Specialty Start Date End Date Provider, No Known [facility] [place] [address] PCP - General 09/05/25
--- NOTE | 2025-09-13 09:15 | US_ITS ---
PROCEDURE: US OB BIOPHYSICAL PROFILE CLINICAL INDICATION: SGA COMPARISON: US US OB TRANSVAGINAL from 03/28/2025 US US OB /MATERNAL DETAIL from 07/02/2025 US US OB BIOPHYSICAL PROFILE from 09/03/2025 FINDINGS: Transabdominal sonographic images of the uterus were obtained. From her established due date she is 30weeks 3days. The following parameters are obtained: Viable Fetus in the cephalic presentation with a posterior placenta with an anterior wrap grade 2. Measurements: heart Rate = 161bpm Amniotic fluid index: 9.41cm, MVP 3.15 cm Qualitative AFV:2 Breathing movements: 2 Gross Body Movements: 2 Tone: 2 Biophysical profile score: 8 No obvious anomalies evident.Kidneys, stomach, bladder, four-chamber heart, three-vessel cord appear normal. IMPRESSION: 1. Viable fetus in the cephalic presentation with a posterior placenta with an anterior wrap grade 2. 2. The fluid is within normal limits with an amniotic fluid index 9.41 cm, MVP 3.15 cm. 3. Biophysical profile is 8/8 with good breathing movement and movement seen. 4. Limited anatomical scan appears normal. 5. Given the small size of the fetus at her last ultrasound, would suggest continued close follow-up and growth ultrasound at 33 weeks. Dictated by: Adrián Ross MD 09/13/2025 11:20 Adráin Ross MD in OV 09/13/2025 11:20
== END 2025-09-13 23:59 | disposition home or self-care (01) ==
LOC: RAD 09:01
PROVIDERS: PCP Nurse Practitioner; Visit Provider Obstetrics & Gynecology
DX: O36.5930 Maternal care for other known or suspected poor fetal growth, third trimester, not applicable or unspecified (principal); Z3A.30 30 weeks gestation of pregnancy
CPT/HCPCS: 76819

== ENCOUNTER 2025-09-28 13:21 | Outpatient (CLI) | payer OTHER, SELFPAY ==
--- OUTSIDE RECORDS SUMMARY | 2025-09-07 06:58 | XMS_ITS | Encounter Summary ---
[facility] Address [address] [place] [address] Care Team Providers Care Underground Mining Section Foreman Name Role Phone Provider, No Known Primary Care Provider Unavail able Reason for Referral * Diagnostic Imaging (Routine) - Closed Specialty Diagnoses / Procedures Referred By Contac t Referred To Contact Radiology Diagnoses IUGR (intrauterine growth restriction) affecting care of mother, third trimester, fetus 1 , unspecified gestational age Procedures [facility] [place] Paty Flores, [place] [address] Phone: tel: fax: [facility] [address] [place] [address] Phone: tel: Referral ID Status Reason Start Date Expiration Date Visits Re quested Visits Authorized [id number] Closed 09/05/2025 12/05/2026 1 1 Reason for Visit * Diagnostic Imaging (Routine) - Closed Specialty Diagnoses / Procedures Referred By Contac t Referred To Contact Radiology Diagnoses IUGR (intrauterine growth restriction) affecting care of mother, third trimester, fetus 1 , unspecified gestational age Procedures [facility] [place] Paty Flores DO [address] [place] [address] Phone: tel: fax: [facility] [address] [address] Phone: tel: Referral ID Status Reason Start Date Expiration Date Visits Re quested Visits Authorized [id number] Closed 09/05/2025 12/05/2026 1 1 Encounter Details Date Type Department Care Team (Latest Contact Info) Description 09/07/2025 7:58 AM EDT - 09/07/2025 11:59 PM EDT Hospital Encounter [facility] [address] [place] [id number] Paty Flores, DO [address] [facility] [address] [id number] IUGR (intrauterine growth restriction) affecting care of [...] Care Team (Late st Contact Info) Description 10/03/2025 9:15 AM EST Office Visit [facility] [address] [place] [address] 10/03/2025 9:15 AM EST Appointment [facility] [address] [place] [address] 10/19/2025 8:15 AM EST Office Visit [facility] [address] [facility] [address] [place] [address] 10/19/2025 8:15 AM EST Appointment [facility] [address] [place] [address] documented as of this encounter Procedures Procedure Name Priority Date/Time Associated Diagnosis Comments [facility] Routine 09/07/2025 11:09 AM EDT IUGR (intrauterine growth restriction) affecting care of mother, third trimester, fetus 1 , unspecified gestational age documented in this encounter Results * [facility] (09/07/2025 11:09 AM EDT) Anatomical Region Laterality Modality Ultrasound 09/07/2025 8:18 AM EDT Narrative 09/07/2025 9:11 AM EDT PAT NAME: SHILPI ALATORRE MED REC#: [id number] DA: [id number] PAT GEND: F PAT TYPE: O EXAM CARLOS: [id number] REF PHYS PATY FLORES Comparison Studies There [...] ====== Method of dating: based on stated CYNID GA by prior assessment 29 w + [...] EFW (oz) 5 oz EFW by: Hadlock ([id number]) Extended Tibia 47.0 mm 28w 4d 19% So Fibula 47.2 mm 29w 1d 40% So Foot 54.5 mm 8% Chitty Radius 38.3 mm 26w 5d 24% So Ulna 42.4 mm 27w 3d 2% So Cav. septi pel. tr 6.4 mm Senior C Software Engineer 7.0 mm CM 4.6 mm 3% Nicolaides [...] normal IVC: normal 3-vessel view: Appears normal 8-tavdiv-uxekltv view: Appears normal Rt lung: Appears normal [...] with weekly UA Dopplers. Coding ======= Description: 25822-22 Detailed Ultrasound Description: 75441-67 BPP without NST Description: 80055-79 Doppler Umbilical Artery Commercial Drone Pilot: Shell Smith RDMS Physician: Marissa Hadley MD Electronically signed by: Marissa Hadley MD at: 09:11 Procedure Note Marissa Hadley MD - 09/07/2025 PAT NAME: SHILPI ALATORRE MED REC#: [id number] DA: [id number] PAT GEND: F PAT TYPE: O EXAM CARLOS: [id number] REF PHYS PATY FLORES Comparison Studies There are no relevant prior studies to which this study is beingcompared Patient Status Outpatient Indication ======== IUGR Maternal Assessment Exqpbi638 cm Height (ft)5 ft Height (in)2 in Rvdful74 kg Weight (lb)121 lb BMI22.03 kg/m Method ======= Transabdominal ultrasound examination. View: Adequate view ========= Whittaker . Number of fetuses: 1 Dating ====== Method of dating:based on stated CYNDI GA by prior modznurunq59 w + 4 d CYNDI by prior assessment:11/19/2025 Ultrasound examination on:09/07/2025 GA by U/S based upon:AC, BPD, Femur, HC GA by U/S27 w + 5 d CYNDI by U/S:12/02/2025 Assigned:based on stated CYNDI, selected on 09/07/2025 Assigned GA29 w + 4 d Assigned CYNDI:11/19/2025 d Biometry Standard BPD69.9 mm 28w 1d 6% Hadlock OFD93.2 mm 30w 0d 64% So HC258.5 mm 28w 1d 1% Hadlock Cerebellum tr33.9 mm 28w 4d 18% Hill AC222.2 mm 26w 5d <1% Hadlock Femur52.5 mm 28w 0d 5% Hadlock Qrfaxbq45.3 mm 27w 2d 4% So HC / AC1.16 EFW1,060 g 27w 0d 2% Hadlock EFW (lb)2 lb EFW (oz)5 oz EFW by:Hadlock (RZA-YL-NQ-FL) Extended Tibia47.0 mm 28w 4d 19% So Wkbotg03.2 mm 29w 1d 40% So Foot54.5 mm 8% Chitty Fwdtfz45.3 mm 26w 5d 24% So Ulna42.4 mm 27w 3d 2% So Cav. septi pel. tr6.4 mm Vp7.0 mm CM4.6 mm 3% Nicolaides Nasal bone9.5 mm Head / Face / Neck Cephalic index0.75 11% Nicolaides Extremities / Bony Struc FL / BPD0.75 FL / HC0.20 FL / AC0.24 Other Structures FBN476 bpm General Evaluation Cardiac activity present. FHR [...] view:Appears normal SVC:normal IVC:normal 3-vessel view:Appears normal 6-sigdgj-tnxzlly view:Appears normal Rt lung:Appears normal Lt lung:normal [...] weekly testing with weekly UADopplers. Coding ======= Description:70046-64 Detailed Ultrasound Description:78582-87 BPP without NST Description:70394-69 Doppler Umbilical Artery Commercial Drone Pilot: Shell Smith RDMS Physician: Marissa Hadley MD Electronically signed by: Marissa Hadley MD at: 09:11 us Paty Flores DO IMG US ORDERABLES Final Res ult documented in this encounter Visit Diagnoses Diagnosis IUGR (intrauterine growth restriction) affecting care of mother, third trimester, fetus 1 , unspecified gestational age documented in this encounter Care Teams Underground Mining Section Foreman Relationship Specialty Start Date End Date Provider, [place] [address] PCP - General 09/05/25 documented as of this encounter
--- OUTSIDE RECORDS SUMMARY | 2025-09-07 07:00 | XMS_ITS | Encounter Summary ---
Author Organization [facility] Address [address] [place] [phone] Care Team Providers Care Electrician Third Name Role Phone Provider, No Known Primary Care Provider Unavail able Reason for Referral * Diagnostic Imaging (Routine) - Closed Specialty Diagnoses / Procedures Referred By Contac t Referred To Contact Radiology Diagnoses IUGR (intrauterine growth restriction) affecting care of mother, third trimester, fetus 1 Procedures [facility] Marissa Hadley MD [address] [facility] [address] [place] [address] Phone: tel: fax: Referral ID Status Reason Start Date Expiration Date Visits Re quested Visits Authorized [id number] Closed 09/07/2025 12/07/2026 1 1 Reason for Visit * Reason Comments IUGR Encounter Details Date Type Department Care Team (Late st Contact Info) Description 09/07/2025 8:00 AM EDT Office Visit [facility] 1700 [facility] [address] [place] [address] Marissa Hadley MD 1700 [facility] [address] [place], [place] [phone] IUGR (intrauterine growth restriction) affecting care of [...] Name: Shilpi Alatorre : 2000 Referring Provider: aPty Flores DO Chief Complaint IUGR Subjective History [...] weekly assessment of BPP/SHAQUILLE/UA Dopplers Orders: - [facility]; Future 2. 29 weeks gestation [...] Description 10/03/2025 9:15 AM EST Office Visit [facility] MATERNAL MEDICINE [address] [address] 10/03/2025 9:15 AM EST Appointment [facility] [address] [place] [address] 10/19/2025 8:15 AM EST Office Visit [facility] MATERNAL MEDICINE [address] [address] 10/19/2025 8:15 AM EST Appointment [facility] [address] [place] [address] documented as of this encounter Results * [facility] (09/21/2025 8:44 AM EST) Anatomical Region Laterality Modality Ultrasound 09/21/2025 8:30 AM EST Narrative 09/21/2025 9:21 AM EST PAT NAME: SHILPI ALATORRE MED REC#: [id number] DA: [id number] PAT GEND: F PAT TYPE: O EXAM CARLOS: [id number] REF PHYS SERGEY PATY Comparison Studies The findings of this study [...] EFW (oz) 1 oz EFW by: Hadlock (MKJ-KG-GV-FL) Extended Cav. septi pel. tr 6.3 mm [...] Normal Heart / Thorax 3-vessel view: Normal 3-cqxbqi-qebbqel view: normal Stomach: Appears normal Kidneys: Appears [...] Consultation / Office Visit Type: Consultation See [facility] for full consult note. Impression Single, [...] for growth assessment (PDC) Coding ======= Description: 98742-28 Follow Up Ultrasound Description: 28677-28 BPP without NST Description: 51173-97 Doppler Umbilical Artery Caster Helper: Zamzam Harris RDMS Physician: Napoleon Pak MD Electronically signed by: Napoleon Pak MD at: 09:22 Procedure Note Napoleon Pak MD - 09/21/2025 PAT NAME: SHILPI ALATORRE MED REC#: [id number] DA: 2000 PAT GEND: F PAT TYPE: O EXAM CARLOS: [id number] REF PHYS PATY FLORES Comparison Studies The findings of this study are compared to the prior ultrasound studydated 09/07/25 Patient Status Outpatient Indication ======== IUGR. Maternal Assessment Bcdjbl766 cm Height (ft)5 ft Height (in)2 in Wxepxh15 kg Weight (lb)126 lb BMI22.89 kg/m Method ======= Transabdominal ultrasound examination. View: Adequate view ========= Whittaker . Number of fetuses: 1 Dating ====== Method of dating:based on stated YCNDI GA by prior [id number] w + 4 d CYNDI by prior assessment:11/19/2025 Ultrasound examination on:09/21/2025 GA by U/S based upon:AC, BPD, Femur, HC GA by U/S29 w + 4 d CYNDI by U/S:12/03/2025 Previous dating:based on stated CYNDI, selected on 09/07/2025 Agreed CYNDI of previous datin11/19/2025 Assigned:based on stated CYNDI, selected on 09/21/2025 Assigned GA31 w + 4 d Assigned CYNDI:11/19/2025 ydxjmm570 d Biometry Standard BPD73.7 mm 29w 4d 3% Hadlock OFD96.3 mm 31w 1d 37% So HC271.4 mm 29w 4d <1% Hadlock Cerebellum tr37.7 mm 30w 6d 14% Hill AC245.2 mm 28w 5d 1% Hadlock Femur57.7 mm 30w 1d 8% Hadlock Rhfycqm19.1 mm 29w 2d 5% So HC / AC1.11 EFW1,384 g 29w 0d 3% Hadlock EFW (lb)3 lb EFW (oz)1 oz EFW by:Hadlock (SKI-NW-KS-FL) Extended Cav. septi pel. tr6.3 mm CM5.0 mm 4% Nicolaides Head / Face / Neck Cephalic index0.77 19% Nicolaides Extremities / Bony Struc FL / BPD0.78 FL / HC0.21 FL / AC0.24 Other Structures PNU042 bpm General Evaluation Cardiac activity present. FHR [...] LVOT view:Normal Heart / Thorax 3-vessel view:Normal 7-pgmjkq-btzgpqn view:normal Stomach:Appears normal Kidneys:Appears normal Bladder:Appears normal [...] Consultation / Office Visit Type: Consultation See [facility] for full consult note. Impression Single, [...] weeks for growth assessment (PDC) Coding ======= Description:70179-20 Follow Up Ultrasound Description:37468-65 BPP without NST Description:49973-97 Doppler Umbilical Artery Caster Helper: Zamzam Harris RDMS Physician: Napoleon Pak MD Electronically signed by: Napoleon Pak MD at: 09:22 us Marissa Hadley MD [facility] US ORDERABLES Edited Re sult - Final documented in this encounter Visit Diagnoses Diagnosis IUGR (intrauterine growth restriction) affecting care of mother, third trimester, fetus 1- Primary 29 weeks gestation of IUGR (intrauterine growth restriction) affecting care of mother, third trimester, fetus 1 documented in this encounter Care Teams Electrician Third Relationship Specialty Start Date End Date Provider, [place] [address] PCP - General 09/05/25 documented as of this encounter
--- OUTSIDE RECORDS SUMMARY | 2025-09-21 08:15 | XMS_ITS | Encounter Summary ---
Author Organization [facility] Address [address] [place] [phone] Care Team Providers Care Sales Development Specialist Name Role Phone Provider, No Known Primary Care Provider Unavail able Reason for Referral * Diagnostic Imaging (Routine) - Authorized Specialty Diagnoses / Procedures Referred By Contac t Referred To Contact Radiology Diagnoses IUGR (intrauterine growth restriction) affecting care of mother, third trimester, fetus 1 Procedures [facility] Napoleon Pak MD [address] [place] [address] Phone: tel: fax: Referral ID Status Reason Start Date Expiration Date V isits Requested Visits Authorized [id number] Authorized 09/21/2025 12/21/2026 3 3 Reason for Visit * Reason Comments IUGR Encounter Details Date Type Department Care Team (Late st Contact Info) Description 09/21/2025 8:15 AM EST Office Visit [facility] MATERNAL MEDICINE [address] [place] [phone] Napoleon Pak MD [address] [place] [address] IUGR (intrauterine growth restriction) affecting care of mother, third trimester, fetus 1 (Primary Dx); Placenta succenturiate lobe affecting fetus Social History Tobacco Use Types Packs/Day Years [...] Sign Reading Time Taken Comments Blood Pressure 133/81 09/21/2025 8:26 AM EST Pulse - - Temperature - - Respiratory Rate - - Oxygen Saturation - - Inhaled Oxygen Concentration - - Weight 57.2 kg (126 lb) 09/21/2025 8:26 AM EST Height - - Body Mass Index 22.68 09/07/2025 8:14 AM EDT documented in this encounter Progress Notes * Napoleon Pak MD - 09/21/2025 9:27 AM ESTAssociated Problem(s): Placenta succenturiate lobe affecting fetus - Discussed finding with patient today - Likely not contributing significantly to the above, but discussed need at time of delivery to ensure that all placental lobes are accounted for * Napoleon Pak MD - 09/21/2025 9:26 AM ESTAssociated Problem(s): IUGR (intrauterine growth restriction) affecting care of mother, third trimester, fetus 1 - US today with interval growth noted but consistent with prior growth assessment with EFW 3%, AC 1%, UA Dopplers WNL - Reviewed etiologies of FGR - Reports dating based on certain LMP c/w first trimester ultrasound - NIPS (Panorama) reviewed and low risk female - No sonographic evidence of infection - Could consider APLS testing as this meets OB criteria for screening and may impact future pregnancies - Reviewed increased risk for , section, and stillbirth - Reviewed movement awareness and when to be evaluated Recommendations: - Continue twice weekly NST's with weekly BPP/Doppler (your office) - Follow up in 2 weeks for growth assessment (PDC) - If continued interval growth appreciated, delivery would be indicated at 37w0d, though testing moving forward could alter than recommendation * Alise Bynum RN - 09/21/2025 8:15 AM EST Denies vaginal bleeding, leaking fluid, and contractions. Endorses normal movement. NIPT negative. Next OB follow-up appointment with Dr. Flores on 09/25/2025. * Napoleon Pak MD - 09/21/2025 8:15 AM EST Images from the original note were not included. Maternal Medicine Follow Up Note Date: 09/21/2025 Name: Shilpi Alatorre : 2000 CYNDI: Estimated Date of Delivery: 11/19/25 Referring Provider: Lula Flores DO Chief Complaint: IUGR Subjective History of Present Illness: Shilpi Alatorre is a 25 y.o. at 31w4d who presents today for follow up consultation given a that is complicated by severe FGR. Today, she is overall doing well and denies any vaginal bleeding, leakage of fluid, or regular contractions. She reports movement. ROS: Review of Systems Constitutional: Negative for chills and fever. Eyes: Negative for visual disturbance. Respiratory: Negative for cough and shortness of breath. Cardiovascular: Negative for chest pain. Gastrointestinal: Negative for abdominal pain, nausea and vomiting. Genitourinary: Negative for vaginal bleeding. Skin: Negative for rash. Neurological: Negative for headache. Psychiatric/Behavioral: The patient is not nervous/anxious. Objective Vital Signs: BP 133/81 Wt 57.2 kg (126 lb) Estimated body mass index is 22.68 kg/m?? as calculated from the following: Height as of 09/07/25: 158.8 cm (62.5 ). Weight as of this encounter: 57.2 kg (126 lb). Physical Exam Vitals and nursing note reviewed. Constitutional: General: She is not in acute distress. Appearance: Normal appearance. HENT: Head: Normocephalic. Pulmonary: Effort: Pulmonary effort is normal. No respiratory distress. Abdominal: Tenderness: There is no abdominal tenderness. Skin: General: Skin is warm and dry. Neurological: Mental Status: She is alert. Psychiatric: Mood and Affect: Mood normal. Behavior: Behavior normal. Ultrasound Impression: Single, viable intrauterine at 31w4d in cephalic [...] are appreciated within the limitations of ultrasound Assessment and Plan Shilpi Alatorre is a 25 y.o. at 31w4d with a that is complicated by the following: Diagnoses and all orders for this visit: 1. IUGR (intrauterine growth restriction) affecting care of mother, third trimester, fetus 1 (Primary) Assessment & Plan: - US today with interval growth noted but consistent with prior growth assessment with EFW 3%, AC 1%, UA Dopplers WNL - Reviewed etiologies of FGR - Reports dating based on certain LMP c/w first trimester ultrasound - NIPS (Panorama) reviewed and low risk female - No sonographic evidence of infection - Could consider APLS testing as this meets OB criteria for screening and may impact future pregnancies - Reviewed increased risk for , section, and stillbirth - Reviewed movement awareness and when to be evaluated Recommendations: - Continue twice weekly NST's with weekly BPP/Doppler (your office) - Follow up in 2 weeks for growth assessment (PDC) - If continued interval growth appreciated, delivery would be indicated at 37w0d, though testing moving forward could alter than recommendation Orders: - US [facility]; Standing 2. Placenta succenturiate lobe affecting fetus Assessment & Plan: - Discussed finding with patient today - Likely not contributing significantly to the above, but discussed need at time of delivery to ensure that all placental lobes are accounted for Follow Up: Return in about 2 weeks (around 10/05/2025) for growth ultrasound. I spent 27 minutes caring for the patient on the [...] other procedures such as amniocentesis or [facility]. Napoleon Pak MD, FACOG Maternal Medicine, [facility] documented in this encounter Plan of Treatment Upcoming Encounters Date Type Department Care Team (Late st Contact Info) Description 10/03/2025 9:15 AM EST Office Visit [facility] MATERNAL MEDICINE [address] [address] 10/03/2025 9:15 AM EST Appointment [facility] US PER DIAG CTR [address] [place] [address] 10/19/2025 8:15 AM EST Office Visit [facility] MATERNAL MEDICINE [address] [address] 10/19/2025 8:15 AM EST Appointment [facility] US PER DIAG CTR [address] [place] [address] Scheduled Orders Name Type Priority Associated Diagnoses Orde r Schedule [facility] Imaging Routine IUGR (intrauterine growth restriction) affecting care of mother, third trimester, fetus 1 Every 2 Weeks for 3 Occurrences starting 09/21/2025 until 09/21/2026 documented as of this encounter Visit Diagnoses Diagnosis IUGR (intrauterine growth restriction) affecting care of mother, third trimester, fetus 1- Primary Placenta succenturiate lobe affecting fetus Fetus or affected by other forms of other and unspecified morphological and functional abnormalities of placenta documented in this encounter Care Teams Sales Development Specialist Relationship Specialty Start Date End Date Provider, [place] [address] PCP - General 09/05/25 documented as of this encounter
--- OUTSIDE RECORDS SUMMARY | 2025-09-21 08:15 | XMS_ITS | Encounter Summary ---
Author Organization [facility] Address [address] [place] [phone] Care Team Providers Care Bond Underwriter Name Role Phone Provider, No Known Primary Care Provider Unavail able Reason for Referral * Diagnostic Imaging (Routine) - Closed Specialty Diagnoses / Procedures Referred By Contac t Referred To Contact Radiology Diagnoses IUGR (intrauterine growth restriction) affecting care of mother, third trimester, fetus 1 Procedures [facility] Marissa Hadley MD [address] [place] [address] Phone: tel: fax: Referral ID Status Reason Start Date Expiration Date Visits Re quested Visits Authorized [id number] Closed 09/07/2025 12/07/2026 1 1 Reason for Visit * Diagnostic Imaging (Routine) - Closed Specialty Diagnoses / Procedures Referred By Contac t Referred To Contact Radiology Diagnoses IUGR (intrauterine growth restriction) affecting care of mother, third trimester, fetus 1 Procedures [facility] [place] Marissa Hadley MD [address] [place] [address] Phone: tel: fax: Referral ID Status Reason Start Date Expiration Date Visits Re quested Visits Authorized [id number] Closed 09/07/2025 12/07/2026 1 1 Encounter Details Date Type Department Care Team (Late st Contact Info) Description 09/21/2025 8:15 AM EST - 09/21/2025 11:59 PM EST Hospital Encounter [facility] PER DI[facility] [address] [place] [phone] Marissa Hadley MD [address] [facility] [address] [place] [address] IUGR (intrauterine growth restriction) affecting care of [...] Description 10/03/2025 9:15 AM EST Office Visit [facility] MATERNAL MEDICINE [address] [address] 10/03/2025 9:15 AM EST Appointment [facility] PER DI[facility] [address] [place] [address] 10/19/2025 8:15 AM EST Office Visit [facility] MATERNAL MEDICINE [address] [address] 10/19/2025 8:15 AM EST Appointment [facility] PER DI[facility] [address] [place] [address] documented as of this encounter Procedures Procedure Name Priority Date/Time Associated Diagnosis Comments [facility] Routine 09/21/2025 8:44 AM EST IUGR (intrauterine growth restriction) affecting care of mother, third trimester, fetus 1 documented in this encounter Results * [facility] (09/21/2025 8:44 AM EST) Anatomical Region Laterality Modality Ultrasound 09/21/2025 8:30 AM EST Narrative 09/21/2025 9:21 AM EST PAT NAME: SHILPI ALATORRE MED REC#: [id number] DA: [id number] PAT GEND: F PAT TYPE: O EXAM CARLOS: [id number] REF PHYS PATY RINCON Comparison Studies The [...] EFW (oz) 1 oz EFW by: Hadlock (VSX-IC-UN-FL) Extended Cav. septi pel. tr 6.3 mm [...] Normal Heart / Thorax 3-vessel view: Normal 3-zummjx-oxyjlcx view: normal Stomach: Appears normal Kidneys: Appears [...] Consultation / Office Visit Type: Consultation See [facility] for full consult note. Impression [...] for growth assessment (PDC) Coding ======= Description: 61015-11 Follow Up Ultrasound Description: 23097-49 BPP without NST Description: 62788-14 Doppler Umbilical Artery Winding Department Supervisor: Zamzam Harris RDMS Physician: Napoleon Pak MD Electronically signed by: Napoleon Pak MD at: 09:22 Procedure Note Napoleon Pak MD - 09/21/2025 PAT NAME: SHILPI ALATORRE [facility] REC#: [id number] DA: [id number] PAT GEND: F PAT TYPE: O EXAM CARLOS: [id number] REF PHYS PATY RINCON Comparison Studies The findings of this study are compared to the prior ultrasound studydated 09/07/25 Patient Status Outpatient Indication ======== IUGR. Maternal Assessment Nctvjh321 cm Height (ft)5 ft Height (in)2 in Biktap59 kg Weight (lb)126 lb BMI22.89 kg/m Method ======= Transabdominal ultrasound examination. View: Adequate view ========= Whittaker . Number of fetuses: 1 Dating ====== Method of dating:based on stated CYNDI GA by prior qtlkrdkdus18 w + 4 d CYNDI by prior assessment:11/19/2025 Ultrasound examination on:09/21/2025 GA by U/S based upon:AC, BPD, Femur, HC GA by U/S29 w + 4 d CYNDI by U/S:12/03/2025 Previous dating:based on stated CYNDI, selected on 09/07/2025 Agreed CYNDI of previous datin11/19/2025 Assigned:based on stated CYNDI, selected on 09/21/2025 Assigned GA31 w + 4 d Assigned CYNDI:11/19/2025 sjzyxu030 d Biometry Standard BPD73.7 mm 29w 4d 3% Hadlock OFD96.3 mm 31w 1d 37% So HC271.4 mm 29w 4d <1% Hadlock Cerebellum tr37.7 mm 30w 6d 14% Hill AC245.2 mm 28w 5d 1% Hadlock Femur57.7 mm 30w 1d 8% Hadlock Fkebpam02.1 mm 29w 2d 5% So HC / AC1.11 EFW1,384 g 29w 0d 3% Hadlock EFW (lb)3 lb EFW (oz)1 oz EFW by:Hadlock (DZY-KJ-WE-FL) Extended Cav. septi pel. tr6.3 mm CM5.0 mm 4% Nicolaides Head / Face / Neck Cephalic index0.77 19% Nicolaides Extremities / Bony Struc FL / BPD0.78 FL / HC0.21 FL / AC0.24 Other Structures JNH617 bpm General Evaluation Cardiac activity present. FHR [...] LVOT view:Normal Heart / Thorax 3-vessel view:Normal 8-ublovq-dvlmnoi view:normal Stomach:Appears normal Kidneys:Appears normal Bladder:Appears normal [...] weeks for growth assessment (PDC) Coding ======= Description:78392-11 Follow Up Ultrasound Description:49464-66 BPP without NST Description:58337-60 Doppler Umbilical Artery Winding Department Supervisor: Zamzam Harris RDMS Physician: Napoleon Pak MD Electronically signed by: Napoleon Pak MD at: 09:22 us Marissa Hadley MD IMG US ORDERABLES Edited Re sult - Final documented in this encounter Visit Diagnoses Diagnosis IUGR (intrauterine growth restriction) affecting care of mother, third trimester, fetus 1 documented in this encounter Care Teams Bond Underwriter Relationship Specialty Start Date End Date Provider, [place] [address] PCP - General 09/05/25 documented as of this encounter
--- NOTE | 2025-09-28 13:00 | US_ITS ---
PROCEDURE: US OB BIOPHYSICAL PROFILE CLINICAL INDICATION: SGA COMPARISON: US US OB TRANSVAGINAL from 03/28/2025 US US OB /MATERNAL DETAIL from 07/02/2025 US US OB BIOPHYSICAL PROFILE from 09/03/2025 US US OB BIOPHYSICAL PROFILE from 09/13/2025 FINDINGS: Transabdominal sonographic images of the uterus were obtained. From her established due date she is 32weeks 4days. The following parameters are obtained: Viable Fetus in the cephalic presentation with a posterior placenta with an anterior accessory lobe grade 2. Cervix measures 2.90 cm in length. Measurements: heart Rate = visualized but rate not documented. Amniotic fluid index: 7.23cm, MVP 4.68 cm Qualitative AFV:2 Breathing movements: 2 Gross Body Movements: 2 Tone: 2 Biophysical profile score: 8 Doppler evaluation of the umbilical artery: SD ratio: 2.54-2.89 Resistive index: 0.65 No obvious anomalies evident.Stomach, bladder, four-chamber heart, three-vessel cord appear normal. IMPRESSION: 1. Viable fetus in the cephalic presentation with a posterior placenta that has an anterior accessory lobe grade 2. 2. The fluid is within normal limits with an amniotic fluid index 7.23 cm, MVP 4.68 cm. 3. Biophysical profile is 8/8 with good breathing movement and movement seen. 4. SD ratio is normal 2.54-2.89. 5. Limited anatomical scan appears normal. Dictated by: Adrián Ross MD 09/29/2025 08:22 Adrián Ross MD in OV 09/29/2025 08:22
--- OUTSIDE RECORDS SUMMARY | 2025-09-28 13:27 | XMS_ITS | Clinical Summary ---
Author Organization [facility] Address [address] [place] [address] Care Team Providers Care Medical Anthropologist Name Role Phone Provider, No Known Primary Care Provider Unavail able Allergies No known active allergies Medications Vit-Fe Fumarate-FA ( VITAMINS PO) 03/13/2025 Active Active Problems Problem Noted Date Diagnosed Date Placenta succenturiate lobe affecting fetus 09/08 Assessment & Plan (09/21/2025 9:27 AM EST): - Discussed finding with patient today - Likely not contributing significantly to the above, but discussed need at time of delivery to ensure that all placental lobes are accounted for IUGR (intrauterine growth re striction) affecting care of mother, third trimester, fetus 1 09/07/2025 Assessment & Plan (09/21/2025 9:28 AM EST): - US today with interval growth noted [...] testing moving forward could alter than recommendation Assessment & Plan (09/07/2025 9:18 AM EDT): [...] Encounters Date Type Department Care Team Description 09/21/2025 8:15 AM EST - 09/21/2025 11:59 PM EST Hospital Encounter [facility] US PER DIAG [facility] [address] [place] [phone] Marissa Hadley MD IUGR (intrauterine growth restriction) affecting care of mother, third trimester, fetus 1 Discharge Disposition: Home or Self Care 09/21/2025 8:15 AM EST Office Visit [facility]NAL MEDICINE [address] [facility] [address] [place] [phone] Napoleon Pak MD IUGR (intrauterine growth restriction) affecting care of mother, third trimester, fetus 1 (Primary Dx); Placenta succenturiate lobe affecting fetus 09/21/2025 Travel 09/07/2025 8:00 AM EDT Office Visit [facility] MATERNAL MEDICINE [address] [facility] [address] [place] [phone] Marissa Hadley MD IUGR (intrauterine growth restriction) affecting care of mother, third trimester, fetus 1 (Primary Dx); 29 weeks gestation of 09/07/2025 7:58 AM EDT - 09/07/2025 11:59 PM EDT Hospital Encounter [facility] US PER DIAG [facility] [address] [place] [address] Paty Flores DO IUGR (intrauterine growth restriction) affecting [...] (126 lb) 09/21/2025 8:26 AM EST Height 158.8 cm (5' 2.5 ) 09/07/2025 8:14 AM EDT Body Mass Index 22.68 09/07/2025 8:14 AM EDT Plan of Treatment Upcoming Encounters Date Type Department Care Team (Late st Contact Info) Description 10/03/2025 9:15 AM EST Office Visit [facility] MATERNAL MEDICINE [address] [facility] [address] [place] [address] 10/03/2025 9:15 AM EST Appointment [facility] US PER DIAG CTR [address] [place] [address] 10/19/2025 8:15 AM EST Office Visit [facility] MATERNAL MEDICINE [address] [place] [address] 10/19/2025 8:15 AM EST Appointment [facility] US PER DIAG CTR [address] [place] [address] Health Maintenance Due Date Last Done Comments [...] Procedure Name Priority Date/Time Associated Diagnosis Comments [facility] Routine 09/21/2025 8:44 AM EST IUGR (intrauterine growth restriction) affecting care of mother, third trimester, fetus 1 [facility] Routine 09/07/2025 11:09 AM EDT IUGR (intrauterine growth restriction) affecting care of mother, third trimester, fetus 1 , unspecified gestational age from Last 3 Months Results * [facility] [place] (09/21/2025 8:44 AM EST) Only the most recent of2 resultswithin the time period is included. Anatomical Region Laterality Modality Ultrasound 09/21/2025 8:30 AM EST Narrative 09/21/2025 9:21 AM EST PAT NAME: SHILPI ALATORRE [facility] REC#: [id number] DA: 2000 PAT GEND: F PAT TYPE: O EXAM CARLOS: [id number] REF PHYS PATY FLORES Comparison Studies The [...] EFW (oz) 1 oz EFW by: Hadlock (CZP-OV-HR-FL) Extended Cav. septi pel. tr 6.3 mm [...] Normal Heart / Thorax 3-vessel view: Normal 1-xoiqnv-rybluvr view: normal Stomach: Appears normal Kidneys: Appears [...] for growth assessment (PDC) Coding ======= Description: 33722-85 Follow Up Ultrasound Description: 66993-37 BPP without NST Description: 92222-78 Doppler Umbilical Artery Cream Hauler: Zamzam Harris RDMS Physician: Napoleon Pak MD Electronically signed by: Napoleon Pak MD at: 09:22 Procedure Note Napoleon Pak MD - 09/21/2025 PAT NAME: SHILPI ALATORRE [facility] REC#: [id number] DA: [id number] PAT GEND: F PAT TYPE: O EXAM CARLOS: [id number] REF PHYS PATY FLORES Comparison Studies The findings of this study are compared to the prior ultrasound studydated 09/07/25 Patient Status Outpatient Indication ======== IUGR. Maternal Assessment Rcpiwn908 cm Height (ft)5 ft Height (in)2 in Wlryqc11 kg Weight (lb)126 lb BMI22.89 kg/m Method ======= Transabdominal ultrasound examination. View: Adequate view ========= Whittaker . Number of fetuses: 1 Dating ====== Method of dating:based on stated CYNDI GA by prior kbvpkaysbw90 w + 4 d CYNDI by prior [...] Hadlock Femur57.7 mm 30w 1d 8% Hadlock Nwysfef57.1 mm 29w 2d 5% So HC / AC1.11 EFW1,384 g 29w 0d 3% Hadlock EFW (lb)3 lb EFW (oz)1 oz EFW by:Hadlock (AOB-AS-IJ-FL) Extended Cav. septi pel. tr6.3 mm CM5.0 mm 4% Nicolaides Head / Face / Neck Cephalic index0.77 19% Nicolaides Extremities / Bony Struc FL / BPD0.78 FL / HC0.21 FL / AC0.24 Other Structures GIZ090 bpm General Evaluation Cardiac activity present. FHR [...] LVOT view:Normal Heart / Thorax 3-vessel view:Normal 9-tkgqac-pnrmiol view:normal Stomach:Appears normal Kidneys:Appears normal Bladder:Appears normal [...] weeks for growth assessment (PDC) Coding ======= Description:51421-46 Follow Up Ultrasound Description:49988-69 BPP without NST Description:13165-29 Doppler Umbilical Artery Cream Hauler: Zamzam Harris RDMS Physician: Napoleon Pak MD Electronically signed by: Napoleon Pak MD at: 09:22 us Marissa Hadley MD [facility] US ORDERABLES Edited Re sult - Final from Last 3 Months Insurance [facility] Care Teams Medical Anthropologist Relationship Specialty Start Date End Date Provider, No Known [facility] [place] [address] PCP - General 09/05/25
--- OUTSIDE RECORDS SUMMARY | 2025-09-28 13:27 | XMS_ITS | Encounter Summary ---
Author Organization [facility] Address [address] [place] [address] Care Team Providers Care Ichthyologist Name Role Phone Provider, No Known Primary [...] Description 10/03/2025 9:15 AM EST Office Visit [facility] MATERNAL MEDICINE [address] [address] 10/03/2025 9:15 AM EST Appointment [facility] US PER DIAG CTR [address] [place] [address] 10/19/2025 8:15 AM EST Office Visit [facility] MATERNAL MEDICINE [address] [phone] 10/19/2025 8:15 AM EST Appointment [facility] US PER DIAG CTR [address] [place] [address] documented as of this encounter Visit Diagnoses Not on filedocumented in this encounter Care Teams Ichthyologist Relationship Specialty Start Date End Date Provider, [place] [address] PCP - General 09/05/25 documented as of this encounter
--- OUTSIDE RECORDS SUMMARY | 2025-09-28 13:27 | XMS_ITS | Clinical Summary ---
Author Organization [facility] Address [address] [place] [address] Phone Care Team Providers Care Sales Agent Financial Report Service Name Role Phone Unavailable Primary Care Provider [...] 3,06/13/2002,09/23 Influenza Vaccine Quadrivalent 08/04/2017 LAST MANUFACTURED 2011-Pneum ococcal Conjugate 7 Valent 06/13/2002,02/28/2002,2001 MMR 07/31/2005,01/30/2003 [...] 07/31/2005, 01/30/2003, Additional history exists COVID-19 Vaccine (2024- season) 2025 Influenza Vaccine (#1) 2025 08/04/2017, [...]
--- OUTSIDE RECORDS SUMMARY | 2025-09-28 13:27 | XMS_ITS | Encounter Summary ---
[facility] Organization [facility] Address [address] [place] [address] Care Team Providers Care Sales Representative Womens Health Name Role Phone Provider, No Known Primary Care Provider Unavail able Encounter Details Date Type Department Care Team (Latest Contact Info) Description 09/21/2025 Travel Social History Tobacco Use Types Packs/Day [...] Description 10/03/2025 9:15 AM EST Office Visit [facility] MATERNAL MEDICINE [address] [phone] 10/03/2025 9:15 AM EST Appointment [facility] US PER DIAG CTR [address] [place] [address] 10/19/2025 8:15 AM EST Office Visit [facility] MATERNAL MEDICINE [address] [phone] 10/19/2025 8:15 AM EST Appointment [facility] US PER DIAG [facility] [address] [place] [address] documented as of this encounter Visit Diagnoses Not on filedocumented in this encounter Care Teams Sales Representative Womens Health Relationship Specialty Start Date End Date Provider, [place] [address] PCP - General 09/05/25 documented as of this encounter
== END 2025-09-28 23:59 | disposition home or self-care (01) ==
LOC: RAD 13:21
PROVIDERS: PCP Nurse Practitioner; Visit Provider Obstetrics & Gynecology
DX: O43.193 Other malformation of placenta, third trimester (principal); O36.5930 Maternal care for other known or suspected poor fetal growth, third trimester, not applicable or unspecified; Z3A.32 32 weeks gestation of pregnancy
CPT/HCPCS: 76819; 76820

== ENCOUNTER 2025-10-12 12:47 | Outpatient (CLI) | payer OTHER, SELFPAY ==
--- OUTSIDE RECORDS SUMMARY | 2025-09-07 06:58 | XMS_ITS | Encounter Summary ---
[facility] Address [address] [place] [address] Care Team Providers Care Helpdesk Administrator Name Role Phone Provider, No Known Primary Care Provider Unavail able Reason for Referral * Diagnostic Imaging (Routine) - Closed Specialty Diagnoses / Procedures Referred By Contac t Referred To Contact Radiology Diagnoses IUGR (intrauterine growth restriction) affecting care of mother, third trimester, fetus 1 , unspecified gestational age Procedures On license of [facility] Diagnostic Debary Paty Flores, [place] [address] Phone: tel: fax: [facility] US PER DIAG [facility] [address] [place] [address] Phone: tel: Referral ID Status Reason Start Date Expiration Date Visits Re quested Visits Authorized [id number] Closed 09/05/2025 12/05/2026 1 1 Reason for Visit * Diagnostic Imaging (Routine) - Closed Specialty Diagnoses / Procedures Referred By Contac t Referred To Contact Radiology Diagnoses IUGR (intrauterine growth restriction) affecting care of mother, third trimester, fetus 1 , unspecified gestational age Procedures [facility] Diagnostic [place] Paty Flores DO [address] [place], [place] [address] Phone: tel: fax: [facility] US PER DIAG [facility] [address] [place] [address] Phone: tel: Referral ID Status Reason Start Date Expiration Date Visits Re quested Visits Authorized [id number] Closed 09/05/2025 12/05/2026 1 1 Encounter Details Date Type Department Care Team (Latest Contact Info) Description 09/07/2025 7:58 AM EDT - 09/07/2025 11:59 PM EDT Hospital Encounter [facility] DI[facility] [address] [address] Paty Flores, DO [address] [facility] [address] [place] [id number] IUGR (intrauterine growth restriction) affecting care of mother, third trimester, fetus 1; , unspecified gestational age Discharge Disposition: Home or Self Care Social History Tobacco Use Types Packs/Day Years Used Date Smoking Tobacco: Never Smokeless Tobacco: Never Alcohol Use Standard Drinks/Week Comments Not Currently 0 (1 standard drink = 0.6 oz pur e alcohol) Estimated Date of Delivery Comme nts Yes 11/19/2025 Date entered tyson or to episode creation Sex and Gender Information Value Date Recorded Sex Assigned at Not on file Legal Sex Female 8:12 AM EDT Gender Identity Not on file Sexual Orientation Not on file documented as of this encounter Medications at Time of Discharge Medication Sig Dispense Quantity Refills Last Filled Start D ate End Date Vit-Fe Fumarate-FA ( VITAMINS PO) 03/13/2025 documented as of this encounter Plan of Treatment Upcoming Encounters Date Type Department Care Team (Late st Contact Info) Description 10/19/2025 8:15 AM EST Office Visit [facility] MATERNAL MEDICINE [address] [place] [address] 10/19/2025 8:15 AM EST Appointment [facility] US PER DIAG [facility] [address] [place] [address] 10/26/2025 8:45 AM EST Office Visit [facility] [address] [facility] [address] [place] [address] 10/26/2025 8:45 AM EST Appointment [facility] US PER DI[facility] [address] [place] [address] documented as of this encounter Procedures Procedure Name Priority Date/Time Associated Diagnosis Comments [facility] Routine 09/07/2025 11:09 AM EDT IUGR (intrauterine growth restriction) affecting care of mother, third trimester, fetus 1 , unspecified gestational age documented in this encounter Results * [facility] (09/07/2025 11:09 AM EDT) Anatomical Region Laterality Modality Ultrasound 09/07/2025 8:18 AM EDT Narrative 09/07/2025 9:11 AM EDT PAT NAME: SHILPI ALATORRE MED REC#: [id number] DA: [id number] PAT GEND: F PAT TYPE: O EXAM CARLOS: [id number] REF PHYS PATY FLORES Comparison Studies There are no relevant prior studies to which this study is being compared Patient Status Outpatient Indication ======== IUGR Maternal Assessment Height 158 cm Height (ft) 5 ft Height (in) 2 in Weight 55 kg Weight (lb) 121 lb BMI 22.03 kg/m Method ======= Transabdominal ultrasound examination. View: Adequate view ========= Whittaker . Number of fetuses: 1 Dating ====== Method of dating: based on stated CYNDI GA by prior assessment 29 w + 4 d CYNDI by prior assessment: 11/19/2025 Ultrasound examination on: 09/07/2025 GA by U/S based upon: AC, BPD, Femur, HC GA by U/S 27 w + 5 d CYNDI by U/S: 12/02/2025 Assigned: based on stated CYNDI, selected on 09/07/2025 Assigned GA 29 w + 4 d Assigned CYNDI: 11/19/2025 length 280 d Biometry Standard BPD 69.9 mm 28w 1d 6% Hadlock OFD 93.2 mm 30w 0d 64% So HC 258.5 mm 28w 1d 1% Hadlock Cerebellum tr 33.9 mm 28w 4d 18% Hill AC 222.2 mm 26w 5d <1% Hadlock Femur 52.5 mm 28w 0d 5% Hadlock Humerus 46.3 mm 27w 2d 4% So HC / AC 1.16 EFW 1,060 g 27w 0d 2% Hadlock EFW (lb) 2 lb EFW (oz) 5 oz EFW by: Hadlock ([id number]) Extended Tibia 47.0 mm 28w 4d 19% So Fibula 47.2 mm 29w 1d 40% So Foot 54.5 mm 8% Chitty Radius 38.3 mm 26w 5d 24% So Ulna 42.4 mm 27w 3d 2% So Cav. septi pel. tr 6.4 mm Product Representative 7.0 mm CM 4.6 mm 3% Nicolaides Nasal bone 9.5 mm Head / Face / Neck Cephalic index 0.75 11% Nicolaides Extremities / Bony Struc FL / BPD 0.75 FL / HC 0.20 FL / AC 0.24 Other Structures FHR 148 bpm General Evaluation Cardiac activity present. FHR 148 bpm. movements present. Presentation cephalic. Placenta Placental site: posterior with anterior accessory lobe. Umbilical cord Cord vessels: 3 vessel cord. Insertion site: placental insertion: normal. Amniotic fluid Amount of AF: normal. MVP 4.1 cm. SHAQUILLE 11.5 cm. Q1 2.6 cm, Q2 1.5 cm, Q3 3.4 cm, Q4 4.1 cm. Anatomy Cranium: Appears normal Midline falx: Appears normal Cavum septi pellucidi: Appears normal Cerebellum: Appears normal Cisterna magna: Appears normal Head / Neck Rt lateral ventricle: Appears normal Lt lateral ventricle: Appears normal Rt choroid plexus: Appears normal Lt choroid plexus: Appears normal Vermis: Appears normal Neck: Appears normal Lips: Appear normal Profile: Appears normal Nose: Appears normal Face Nose: Nasal bone present Palate: Appears normal Orbits: Appears normal Lens: Normal 4-chamber view: Appears normal RVOT view: Appears normal LVOT view: Appears normal Heart / Thorax Aortic arch view: Appears normal Ductal arch view: Appears normal SVC: normal IVC: normal 3-vessel view: Appears normal 4-hsalud-xqgrave view: Appears normal Rt lung: Appears normal Lt lung: normal Diaphragm: Appears normal Diaphragm: Intact Cord insertion: Appears normal Stomach: Appears normal Bladder: Appears normal Abdomen Rt kidney: normal Lt kidney: normal Liver: normal Small bowel: normal Large bowel: normal Cervical spine: Appears normal Thoracic spine: Appears normal Lumbar spine: Appears normal Sacral spine: Appears normal Arms: Appears normal Legs: Appears normal Rt upper arm: Appears normal Rt forearm: Appears normal Rt hand: Appears normal Lt upper arm: Appears normal Lt forearm: Appears normal Lt hand: Appears normal Rt upper leg: Appears normal Rt lower leg: Appears normal Rt foot: Appears normal Lt upper leg: Appears normal Lt lower leg: Appears normal Lt foot: Appears normal Gender: female Wants to know gender: yes Doppler Arterial Umbilical A PI 0.89 32% Jessica Umbilical A RI 0.59 23% Jessica Umbilical A PS 44.11 cm/s 45% Ebbing Umbilical A ED 17.89 cm/s Umbilical A TAmax 30.06 cm/s 55% Ebbing Umbilical A MD 16.44 cm/s Umbilical A S / D 2.46 22% Jessica Umbilical A HR 157 bpm Biophysical Profile 2: breathing movements 2: Gross body movements 2: tone 2: Amniotic fluid volume 8/8 Biophysical profile score Interpretation: normal Maternal Structures Uterus / Cervix Cervix: Visualized Approach: Transabdominal Ovaries / Tubes / Adnexa Rt ovary: Visualized Lt ovary: Visualized Impression Shilpi presents for a anatomic survey and growth assessment. On today's exam, SIUP is noted in cephalic presentation with biometry demonstrating lagging growth. EFW overall measures at the 2nd percentile. AC measures <1st percentile. There is a normal amount of amniotic fluid. Placental is primarily posterior but there is a smaller anterior succenturiate lobe that is connected on the left lateral side. BPP is 8/8. UA Dopplers are normal. Normal appearing anatomy is visualized. No structural abnormalities are identified and no soft markers highly suggestive of aneuploidy are seen. No calcifications concerning for infection are noted. Recommendation Follow-up scheduled in 2wks. Recommend starting twice weekly testing with weekly UA Dopplers. Coding ======= Description: 80328-41 Detailed Ultrasound Description: 06930-39 BPP without NST Description: 01639-74 Doppler Umbilical Artery Enterprise Systems Architect: Shell Smith RDMS Physician: Marissa Hadley MD Electronically signed by: Marissa Hadley MD at: 09:11 Procedure Note Marissa Hadley MD - 09/07/2025 PAT NAME: SHILPI ALATORRE MED REC#: [id number] DA: [id number] PAT GEND: F PAT TYPE: O EXAM CARLOS: [id number] REF PHYS PATY FLORES Comparison Studies There are no relevant prior studies to which this study is beingcompared Patient Status Outpatient Indication ======== IUGR Maternal Assessment Tlxxlj708 cm Height (ft)5 ft Height (in)2 in Jboxtn35 kg Weight (lb)121 lb BMI22.03 kg/m Method ======= Transabdominal ultrasound examination. View: Adequate view ========= Whittaker . Number of fetuses: 1 Dating ====== Method of dating:based on stated CYNDI GA by prior [id number] w + 4 d CYNDI by prior assessment:11/19/2025 Ultrasound examination on:09/07/2025 GA by U/S based upon:AC, BPD, Femur, HC GA by U/S27 w + 5 d CYNDI by U/S:12/02/2025 Assigned:based on stated CYNDI, selected on 09/07/2025 Assigned GA29 w + 4 d Assigned CYNDI:11/19/2025 [id number] d Biometry Standard BPD69.9 mm 28w 1d 6% Hadlock OFD93.2 mm 30w 0d 64% So HC258.5 mm 28w 1d 1% Hadlock Cerebellum tr33.9 mm 28w 4d 18% Hill AC222.2 mm 26w 5d <1% Hadlock Femur52.5 mm 28w 0d 5% Hadlock Uwhapbf15.3 mm 27w 2d 4% So HC / AC1.16 EFW1,060 g 27w 0d 2% Hadlock EFW (lb)2 lb EFW (oz)5 oz EFW by:Hadlock (KLP-CS-OV-FL) Extended Tibia47.0 mm 28w 4d 19% So Rpbjrp98.2 mm 29w 1d 40% So Foot54.5 mm 8% Chitty Ixdzvq04.3 mm 26w 5d 24% So Ulna42.4 mm 27w 3d 2% So Cav. septi pel. tr6.4 mm Vp7.0 mm CM4.6 mm 3% Nicolaides Nasal bone9.5 mm Head / Face / Neck Cephalic index0.75 11% Nicolaides Extremities / Bony Struc FL / BPD0.75 FL / HC0.20 FL / AC0.24 Other Structures OZW433 bpm General Evaluation Cardiac activity present. FHR 148 bpm. movements present. Presentation cephalic. Placenta Placental site: posterior with anterior accessory lobe. Umbilical cord Cord vessels: 3 vessel cord. Insertion site: placentalinsertion: normal. Amniotic fluid Amount of AF: normal. MVP 4.1 cm. SHAQUILLE 11.5 cm. Q1 2.6 cm,Q2 1.5 cm, Q3 3.4 cm, Q4 4.1 cm. Anatomy Cranium:Appears normal Midline falx:Appears normal Cavum septi pellucidi:Appears normal Cerebellum:Appears normal Cisterna magna:Appears normal Head / Neck Rt lateral ventricle:Appears normal Lt lateral ventricle:Appears normal Rt choroid plexus:Appears normal Lt choroid plexus:Appears normal Vermis:Appears normal Neck:Appears normal Lips:Appear normal Profile:Appears normal Nose:Appears normal Face Nose:Nasal bone present Palate:Appears normal Orbits:Appears normal Lens:Normal 4-chamber view:Appears normal RVOT view:Appears normal LVOT view:Appears normal Heart / Thorax Aortic arch view:Appears normal Ductal arch view:Appears normal SVC:normal IVC:normal 3-vessel view:Appears normal 9-jpzpzi-ffsprwd view:Appears normal Rt lung:Appears normal Lt lung:normal Diaphragm:Appears normal Diaphragm:Intact Cord insertion:Appears normal Stomach:Appears normal Bladder:Appears normal Abdomen Rt kidney:normal Lt kidney:normal Liver:normal Small bowel:normal Large bowel:normal Cervical spine:Appears normal Thoracic spine:Appears normal Lumbar spine:Appears normal Sacral spine:Appears normal Arms:Appears normal Legs:Appears normal Rt upper arm:Appears normal Rt forearm:Appears normal Rt hand:Appears normal Lt upper arm:Appears normal Lt forearm:Appears normal Lt hand:Appears normal Rt upper leg:Appears normal Rt lower leg:Appears normal Rt foot:Appears normal Lt upper leg:Appears normal Lt lower leg:Appears normal Lt foot:Appears normal Gender:female Wants to know gender:yes Doppler Arterial Umbilical A PI0.89 32% Jessica Umbilical A RI0.59 23% Jessica Umbilical A PS44.11 cm/s 45% Ebbing Umbilical A ED17.89 cm/s Umbilical A TAmax30.06 cm/s 55% Ebbing Umbilical A MD16.44 cm/s Umbilical A S / D2.46 22% Jessica Umbilical A HR157 bpm Biophysical Profile 2: breathing movements 2: Gross body movements 2: tone 2: Amniotic fluid volume 8/8 Biophysical profile score Interpretation: normal Maternal Structures Uterus / Cervix Cervix:Visualized Approach:Transabdominal Ovaries / Tubes / Adnexa Rt ovary:Visualized Lt ovary:Visualized Impression Shilpi presents for a anatomic survey and growth assessment. On today's exam, SIUP is noted in cephalic presentation with biometrydemonstrating lagging growth. EFW overall measures at the 2nd percentile.AC measures <1st percentile. There is a normal amount of amniotic fluid. Placental isprimarily posterior but there is a smaller anterior succenturiate lobethat is connected on the left lateral side. BPP is 8/8. UA Dopplers are normal. Normal appearing anatomy is visualized. No structural abnormalities areidentified and no soft markers highly suggestive of aneuploidy areseen. No calcifications concerning for infection are noted. Recommendation Follow-up scheduled in 2wks. Recommend starting twice weekly testing with weekly UADopplers. Coding ======= Description:58401-10 Detailed Ultrasound Description:66944-47 BPP without NST Description:58675-58 Doppler Umbilical Artery Enterprise Systems Architect: Shell Smith RDMS Physician: Marissa Hadley MD Electronically signed by: Marissa Hadley MD at: 09:11 us Paty Flores DO IMG US ORDERABLES Final Res ult documented in this encounter Visit Diagnoses Diagnosis IUGR (intrauterine growth restriction) affecting care of mother, third trimester, fetus 1 , unspecified gestational age documented in this encounter Care Teams Helpdesk Administrator Relationship Specialty Start Date End Date Provider, [place] [address] PCP - General 09/05/25 documented as of this encounter
--- OUTSIDE RECORDS SUMMARY | 2025-09-07 07:00 | XMS_ITS | Encounter Summary ---
Author Organization [facility] Address [address] [place] [phone] Care Team Providers Care Marbleizing Machine Tender Name Role Phone Provider, No Known Primary Care Provider Unavail able Reason for Referral * Diagnostic Imaging (Routine) - Closed Specialty Diagnoses / Procedures Referred By Contac t Referred To Contact Radiology Diagnoses IUGR (intrauterine growth restriction) affecting care of mother, third trimester, fetus 1 Procedures [facility] Marissa Hadley MD 1700 [facility] [address] [place] [address] Phone: tel: fax: Referral ID Status Reason Start Date Expiration Date Visits Re quested Visits Authorized [id number] Closed 09/07/2025 12/07/2026 1 1 Reason for Visit * Reason Comments IUGR Encounter Details Date Type Department Care Team (Late st Contact Info) Description 09/07/2025 8:00 AM EDT Office Visit [facility] MATERNAL MEDICINE 1700 [facility] [address] [place] [address] Marissa Hadley MD 1700 [facility] [address] [place], [place] [phone] IUGR (intrauterine growth restriction) affecting care of [...] weekly assessment of BPP/SHAQUILLE/UA Dopplers Orders: - [facility]; Future 2. 29 weeks [...] Description 10/19/2025 8:15 AM EST Office Visit [facility] MATERNAL MEDICINE [address] [address] 10/19/2025 8:15 AM EST Appointment [facility] [address] [place] [address] 10/26/2025 8:45 AM EST Office Visit [facility] MATERNAL MEDICINE [address] [address] 10/26/2025 8:45 AM EST Appointment [facility] [address] [place] [address] documented as of this encounter Results * [facility] (09/21/2025 8:44 AM EST) Anatomical Region Laterality Modality Ultrasound 09/21/2025 8:30 AM EST Narrative 09/21/2025 9:21 AM EST PAT NAME: SHILPI ALATORRE MED REC#: [id number] DA: [id number] PAT GEND: F PAT TYPE: O EXAM CARLOS: [id number] REF PHYS SERGEY PATY Comparison Studies The [...] EFW (oz) 1 oz EFW by: Hadlock (MJZ-FD-QK-FL) Extended Cav. septi pel. tr 6.3 mm [...] Normal Heart / Thorax 3-vessel view: Normal 9-kzuvns-zdcitwb view: normal Stomach: Appears normal Kidneys: Appears [...] Consultation / Office Visit Type: Consultation See [facility] for full consult note. Impression Single, viable [...] for growth assessment (PDC) Coding ======= Description: 78985-72 Follow Up Ultrasound Description: 48346-21 BPP without NST Description: 60811-84 Doppler Umbilical Artery Compliance Administrator: Zamzam Harris RDMS Physician: Napoleon Pak MD Electronically signed by: Napoleon Pak MD at: 09:22 Procedure Note Napoleon Pak MD - 09/21/2025 PAT NAME: SHILPI ALATORRE MED REC#: [id number] DA: 2000 PAT GEND: F PAT TYPE: O EXAM CARLOS: [id number] REF PHYS PATY FLORES Comparison Studies The findings of this study are compared to the prior ultrasound studydated 09/07/25 Patient Status Outpatient Indication ======== IUGR. Maternal Assessment Bqayzj948 cm Height (ft)5 ft Height (in)2 in Juywho35 kg Weight (lb)126 lb BMI22.89 kg/m Method ======= Transabdominal ultrasound examination. View: Adequate view ========= Whittaker . Number of fetuses: 1 Dating ====== Method of dating:based on stated CYNDI GA by prior heytggnmng79 w + 4 d CYNDI by prior assessment:11/19/2025 Ultrasound examination on:09/21/2025 GA by U/S based upon:AC, BPD, Femur, HC GA by U/S29 w + 4 d CYNDI by U/S:12/03/2025 Previous dating:based on stated CYNDI, selected on 09/07/2025 Agreed CYNDI of previous datin11/19/2025 Assigned:based on stated CYNDI, selected on 09/21/2025 Assigned GA31 w + 4 d Assigned CYNDI:11/19/2025 d Biometry Standard BPD73.7 mm 29w 4d 3% Hadlock OFD96.3 mm 31w 1d 37% So HC271.4 mm 29w 4d <1% Hadlock Cerebellum tr37.7 mm 30w 6d 14% Hill AC245.2 mm 28w 5d 1% Hadlock Femur57.7 mm 30w 1d 8% Hadlock Zuwtwrn94.1 mm 29w 2d 5% So HC / AC1.11 EFW1,384 g 29w 0d 3% Hadlock EFW (lb)3 lb EFW (oz)1 oz EFW by:Hadlock (TQO-UO-IG-FL) Extended Cav. septi pel. tr6.3 mm CM5.0 mm 4% Nicolaides Head / Face / Neck Cephalic index0.77 19% Nicolaides Extremities / Bony Struc FL / BPD0.78 FL / HC0.21 FL / AC0.24 Other Structures SCC160 bpm General Evaluation Cardiac activity present. FHR [...] LVOT view:Normal Heart / Thorax 3-vessel view:Normal 9-udnuzf-cycpleb view:normal Stomach:Appears normal Kidneys:Appears normal Bladder:Appears normal [...] Consultation / Office Visit Type: Consultation See [facility] for full consult note. Impression Single, viable [...] weeks for growth assessment (PDC) Coding ======= Description:35324-09 Follow Up Ultrasound Description:84630-03 BPP without NST Description:35588-87 Doppler Umbilical Artery Compliance Administrator: Zamzam Harris RDMS Physician: Napoleon Pak MD Electronically signed by: Napoleon Pak MD at: 09:22 us Marissa Hadley MD [facility] US ORDERABLES Edited Re sult - Final documented in this encounter Visit Diagnoses Diagnosis IUGR (intrauterine growth restriction) affecting care of mother, third trimester, fetus 1- Primary 29 weeks gestation of IUGR (intrauterine growth restriction) affecting care of mother, third trimester, fetus 1 documented in this encounter Care Teams Marbleizing Machine Tender Relationship Specialty Start Date End Date Provider, [place] [address] PCP - General 09/05/25 documented as of this encounter
--- OUTSIDE RECORDS SUMMARY | 2025-09-21 08:15 | XMS_ITS | Encounter Summary ---
Author Organization [facility] Address [address] [place] [phone] Care Team Providers Care Bead Machine Operator Name Role Phone Provider, No Known Primary Care Provider Unavail able Reason for Referral * Diagnostic Imaging (Routine) - Authorized Specialty Diagnoses / Procedures Referred By Contac t Referred To Contact Radiology Diagnoses IUGR (intrauterine growth restriction) affecting care of mother, third trimester, fetus 1 Procedures [facility] Napoleon Pak MD [address] [place] [address] Phone: tel: fax: Referral ID Status Reason Start Date Expiration Date V isits Requested Visits Authorized [id number] Authorized 09/21/2025 12/21/2026 3 3 Reason for Visit * Reason Comments IUGR Encounter Details Date Type Department Care Team (Late st Contact Info) Description 09/21/2025 8:15 AM EST Office Visit [facility] MATERNAL MEDICINE [address] [place] [phone] Napoleon Pak MD [address] [place] [address] IUGR (intrauterine growth restriction) affecting care of [...] [facility]. Napoleon Pak MD, FACOG Maternal Medicine, [facility] documented in this encounter Plan of Treatment Upcoming Encounters Date Type Department Care Team (Late st Contact Info) Description 10/19/2025 8:15 AM EST Office Visit [facility] MATERNAL MEDICINE [address] [place] [phone] 10/19/2025 8:15 AM EST Appointment [facility] US PER DIAG CTR [address] [place] [address] 10/26/2025 8:45 AM EST Office Visit [facility] MATERNAL MEDICINE [address] [place] [phone] 10/26/2025 8:45 AM EST Appointment [facility] US PER DIAG CTR [address] [place] [address] Scheduled Orders Name Type Priority Associated Diagnoses Orde r Schedule [facility] Diagnostic [place] Imaging Routine IUGR (intrauterine growth restriction) affecting care of mother, third trimester, fetus 1 Every 2 Weeks for 3 Occurrences starting 09/21/2025 until 09/21/2026, 2 completed documented as of this encounter Results * [facility] Diagnostic [place] (10/10/2025 8:33 AM EST) Anatomical Region Laterality Modality Ultrasound 10/10/2025 8:11 AM EST Narrative 10/10/2025 8:35 AM EST PAT NAME: SHILPI ALATORRE [facility] REC#: [id number] DA: [id number] PAT GEND: F PAT TYPE: O EXAM CARLOS: [id number] REF PHYS PATY FLORES Comparison Studies The [...] here in 1 week. Coding ====== Description: 03185-08 BPP without NST Description: 68651-63 Doppler Umbilical Artery Clean Room Technician: Mine Pope RDMS Physician: Aman Otero MD, FACOG Electronically signed by: Aman Otero MD, FACOG at: 08:35 Procedure Note Dani Otero MD - 10/10/2025 PAT NAME: SHILPI ALATORRE MED REC#: [id number] DA: [id number] PAT GEND: F PAT TYPE: O EXAM CARLOS: [id number] REF PHYS SERGEY PATY Comparison Studies The findings of this study are compared to the prior ultrasound studydated Patient Status Outpatient Indication ======== IUGR. Maternal Assessment Fvbxpb451 cm Height (ft)5 ft Height (in)2 in Nygcmq34 kg Weight (lb)130 lb BMI23.62 kg/m Method ======= Transabdominal ultrasound examination. View: Good view ========= Whittaker . Number of fetuses: 1 Dating ====== Method of dating:based on stated CYNDI GA by prior xhikwhxbdj84 w + 2 d CYNDI by prior assessment:11/19/2025 Previous dating:based on stated CYNDI, selected on 09/21/2025 Agreed CYNDI of previous datin11/19/2025 Assigned:based on stated CYNDI, selected on 10/10/2025 Assigned GA34 w + 2 d Assigned CYNDI:11/19/2025 etjlky948 d General Evaluation Cardiac activity present. FHR [...] Amniotic fluid volume 8/8 Biophysical profile score Doppler Arterial Umbilical A [...] scheduled here in 1 week. Coding ====== Description:76004-24 BPP without NST Description:31383-29 Doppler Umbilical Artery Clean Room Technician: Mine Pope RDMS Physician: Aman Otero MD, FACOG Electronically signed by: Aman Otero MD, FACOG at: 08:35 us Napoleon Pak MD IMG US ORDERABLES Final Res ult * US [facility] (10/03/2025 9:37 AM EST) Anatomical Region Laterality Modality Ultrasound 10/03/2025 9:10 AM EST Narrative 10/03/2025 10:25 AM EST PAT NAME: SHILPI ALATORRE MED REC#: [id number] DA: 2000 PAT GEND: F PAT TYPE: O EXAM CARLOS: [id number] REF PHYS PATY FLORES Comparison Studies The [...] EFW (oz) 6 oz EFW by: Hadlock (RJP-LF-EN-FL) Extended Cav. septi pel. tr 6.2 mm Va 5.0 mm Base Loader 3.5 mm CM 6.7 mm 31% Nicolaides [...] Normal Heart / Thorax 3-vessel view: Normal 8-hionhp-hajmzfw view: normal Cord insertion: Normal Stomach: Appears [...] NST in your office. Coding ======= Description: 76430-02 Follow Up Ultrasound Description: 32727-29 BPP with NST Description: 64580-45 Doppler Umbilical Artery Clean Room Technician: Reba Richardson RDMS Physician: Nabil Robles MD, FACOG Electronically signed by: Nabil Robles MD, FACOG at: 10:25 Procedure Note Nabil Robles MD - 10/03/2025 PAT NAME: SHILPI ALATORRE MED REC#: [id number] DA: [id number] PAT GEND: F PAT TYPE: O EXAM CARLOS: [id number] REF PHYS PATY FLORES Comparison Studies The findings of this study are compared to the prior ultrasound studydated Patient Status Outpatient Indication ======== IUGR. Maternal Assessment Dwkxdw035 cm Height (ft)5 ft Height (in)2 in Tqiryu06 kg Weight (lb)128 lb BMI23.23 kg/m Method ======= Transabdominal ultrasound examination. View: Good view ========= Whittaker . Number of fetuses: 1 Dating ====== GA by prior sfxgebkqty40 w + 2 d CYNDI by prior [...] GA33 w + 2 d Assigned CYNDI:11/19/2025 onqwik008 d Biometry Standard BPD75.3 mm 30w 1d <1% Hadlock OFD95.4 mm 30w 6d 5% So HC272.1 mm 29w 5d <1% Hadlock Cerebellum tr42.8 mm 33w 4d 37% Hill AC257.0 mm 29w 6d <1% Hadlock Femur59.4 mm 31w 0d 2% Hadlock Fbqqfcz32.6 mm 31w 1d 11% So HC / AC1.06 EFW1,534 g 29w 6d <1% Hadlock EFW (lb)3 lb EFW (oz)6 oz EFW by:Hadlock (LSD-RA-FD-FL) Extended Cav. septi pel. tr6.2 mm Va5.0 mm Vp3.5 mm CM6.7 mm 31% Nicolaides Head / Face / Neck Cephalic index0.79 36% Nicolaides Extremities / Bony Struc FL / BPD0.79 FL / HC0.22 FL / AC0.23 Other Structures LRP736 bpm General Evaluation Cardiac activity present. FHR [...] LVOT view:Normal Heart / Thorax 3-vessel view:Normal 9-gvfzsi-ghgrvdv view:normal Cord insertion:Normal Stomach:Appears normal Kidneys:Appears normal Bladder:Appears normal Gender:female Wants to know gender:yes Maternal Structures Uterus / Cervix Cervical gswerx54.7 mm Doppler Arterial Umbilical A PI1.02 76% [...] Weekly NST in your office. Coding ======= Description:23012-70 Follow Up Ultrasound Description:57781-56 BPP with NST Description:43227-53 Doppler Umbilical Artery Clean Room Technician: Reba Richardson RDMS Physician: Nabil Robles MD, FACOG Electronically signed by: Nabil Robles MD, FACOG at: 10:25 us Napoleon Pak MD [facility] [place] ORDERABLES Final Res ult documented in [...] 1 documented in this encounter Care Teams Bead Machine Operator Relationship Specialty Start Date End Date Provider, No Known [facility] [place] [address] PCP - General 09/05/25 documented as of this encounter
--- OUTSIDE RECORDS SUMMARY | 2025-09-21 08:15 | XMS_ITS | Encounter Summary ---
Author Organization [facility] Address [address] [place] [phone] Care Team Providers Care Acid Purifier Name Role Phone Provider, No Known Primary Care Provider Unavail able Reason for Referral * Diagnostic Imaging (Routine) - Closed Specialty Diagnoses / Procedures Referred By Contac t Referred To Contact Radiology Diagnoses IUGR (intrauterine growth restriction) affecting care of mother, third trimester, fetus 1 Procedures [facility] Marissa Hadley MD [address] [place] [address] Phone: tel: fax: Referral ID Status Reason Start Date Expiration Date Visits Re quested Visits Authorized [id number] Closed 09/07/2025 12/07/2026 1 1 Reason for Visit * Diagnostic Imaging (Routine) - Closed Specialty Diagnoses / Procedures Referred By Contac t Referred To Contact Radiology Diagnoses IUGR (intrauterine growth restriction) affecting care of mother, third trimester, fetus 1 Procedures [facility] [place] Marissa Hadley MD [address] [place] [address] Phone: tel: fax: Referral ID Status Reason Start Date Expiration Date Visits Re quested Visits Authorized [id number] Closed 09/07/2025 12/07/2026 1 1 Encounter Details Date Type Department Care Team (Late st Contact Info) Description 09/21/2025 8:15 AM EST - 09/21/2025 11:59 PM EST Hospital Encounter [facility] [address] [place] [address] Marissa Hadley MD [address] [facility] [address] [place] [address] IUGR (intrauterine growth restriction) affecting care of [...] Description 10/19/2025 8:15 AM EST Office Visit [facility] MATERNAL MEDICINE [address] [phone] 10/19/2025 8:15 AM EST Appointment [facility] [address] [place] [address] 10/26/2025 8:45 AM EST Office Visit [facility] MEDICINE [address] [phone] 10/26/2025 8:45 AM EST Appointment [facility] [address] [place] [address] documented as of this encounter Procedures Procedure Name Priority Date/Time Associated Diagnosis Comments [facility] Routine 09/21/2025 8:44 AM EST IUGR (intrauterine growth restriction) affecting care of mother, third trimester, fetus 1 documented in this encounter Results * [facility] (09/21/2025 8:44 AM EST) Anatomical Region Laterality Modality Ultrasound 09/21/2025 8:30 AM EST Narrative 09/21/2025 9:21 AM EST PAT NAME: SHILPI ALATORRE MED REC#: [id number] DA: [id number] PAT GEND: F PAT TYPE: O EXAM CARLOS: [id number] REF PHYS PATY RINCON Comparison Studies The [...] EFW (oz) 1 oz EFW by: Hadlock (TYN-BM-MW-FL) Extended Cav. septi pel. tr 6.3 mm [...] Normal Heart / Thorax 3-vessel view: Normal 5-kugchy-tlyxxgs view: normal Stomach: Appears normal Kidneys: Appears [...] / Office Visit Type: Consultation See [facility] for full consult note. Impression Single, viable [...] for growth assessment (PDC) Coding ======= Description: 86192-75 Follow Up Ultrasound Description: 37041-92 BPP without NST Description: 75874-55 Doppler Umbilical Artery Studio Grip: Zamzam Harris RDMS Physician: Napoleon Pak MD Electronically signed by: Napoleon Pak MD at: 09:22 Procedure Note Napoleon Pak MD - 09/21/2025 PAT NAME: SHILPI ALATORRE [facility] REC#: [id number] DA: [id number] PAT GEND: F PAT TYPE: O EXAM CARLOS: [id number] REF PHYS PATY RINCON Comparison Studies The findings of this study are compared to the prior ultrasound studydated 09/07/25 Patient Status Outpatient Indication ======== IUGR. Maternal Assessment Qbmzpf944 cm Height (ft)5 ft Height (in)2 in Iwehwy41 kg Weight (lb)126 lb BMI22.89 kg/m Method ======= Transabdominal ultrasound examination. View: Adequate view ========= Whittaker . Number of fetuses: 1 Dating ====== Method of dating:based on stated CYNDI GA by prior simvfbidqg54 w + 4 d CYNDI by prior assessment:11/19/2025 Ultrasound examination on:09/21/2025 GA by U/S based upon:AC, BPD, Femur, HC GA by U/S29 w + 4 d CYNDI by U/S:12/03/2025 Previous dating:based on stated CYNDI, selected on 09/07/2025 Agreed CYNDI of previous datin11/19/2025 Assigned:based on stated CYNDI, selected on 09/21/2025 Assigned GA31 w + 4 d Assigned CYNDI:11/19/2025 qaqxnf172 d Biometry Standard BPD73.7 mm 29w 4d 3% Hadlock OFD96.3 mm 31w 1d 37% So HC271.4 mm 29w 4d <1% Hadlock Cerebellum tr37.7 mm 30w 6d 14% Hill AC245.2 mm 28w 5d 1% Hadlock Femur57.7 mm 30w 1d 8% Hadlock Yiabpab02.1 mm 29w 2d 5% So HC / AC1.11 EFW1,384 g 29w 0d 3% Hadlock EFW (lb)3 lb EFW (oz)1 oz EFW by:Hadlock (GAU-PF-VV-FL) Extended Cav. septi pel. tr6.3 mm CM5.0 mm 4% Nicolaides Head / Face / Neck Cephalic index0.77 19% Nicolaides Extremities / Bony Struc FL / BPD0.78 FL / HC0.21 FL / AC0.24 Other Structures UFF885 bpm General Evaluation Cardiac activity present. FHR [...] LVOT view:Normal Heart / Thorax 3-vessel view:Normal 9-isdvqh-yggjabx view:normal Stomach:Appears normal Kidneys:Appears normal Bladder:Appears normal [...] Consultation / Office Visit Type: Consultation See Epic for full consult note. Impression Single, viable [...] weeks for growth assessment (PDC) Coding ======= Description:98817-96 Follow Up Ultrasound Description:38017-64 BPP without NST Description:94762-87 Doppler Umbilical Artery Studio Grip: Zamzam Harris RDMS Physician: Napoleon Pak MD Electronically signed by: Napoleon Pak MD at: 09:22 us Marissa Hadley MD IMG US ORDERABLES Edited Re sult - Final documented in this encounter Visit Diagnoses Diagnosis IUGR (intrauterine growth restriction) affecting care of mother, third trimester, fetus 1 documented in this encounter Care Teams Acid Purifier Relationship Specialty Start Date End Date Provider, [place] [address] PCP - General 09/05/25 documented as of this encounter
--- OUTSIDE RECORDS SUMMARY | 2025-10-03 08:47 | XMS_ITS | Encounter Summary ---
Author Organization [facility] Address [address] [place] [id number] Care Team Providers Care Vocational Rehab Consultant Name Role Phone Provider, No Known Primary Care Provider Unavail able Reason for Referral * Diagnostic Imaging (Routine) - Authorized Specialty Diagnoses / Procedures Referred By Contac t Referred To Contact Radiology Diagnoses IUGR (intrauterine growth restriction) affecting care of mother, third trimester, fetus 1 Procedures US [facility] Napoleon Pak MD [address] [place] [address] Phone: tel: fax: Referral ID Status Reason Start Date Expiration Date V isits Requested Visits Authorized [id number] Authorized 09/21/2025 12/21/2026 3 3 Reason for Visit * Diagnostic Imaging (Routine) - Authorized Specialty Diagnoses / Procedures Referred By Contac t Referred To Contact Radiology Diagnoses IUGR (intrauterine growth restriction) affecting care of mother, third trimester, fetus 1 Procedures US [facility] Napoleon Pak MD [address] [place] [address] Phone: tel: fax: Referral ID Status Reason Start Date Expiration Date V isits Requested Visits Authorized [id number] Authorized 09/21/2025 12/21/2026 3 3 Encounter Details Date Type Department Care Team (Late st Contact Info) Description 10/03/2025 8:47 AM EST - 10/03/2025 11:59 PM EST Hospital Encounter [facility] US PER DIAG CTR [address] [place] [address] Napoleon Pak MD 1700 [facility] [address] [place], [place] [id number] IUGR (intrauterine growth restriction) affecting care of [...] [facility] [address] [facility] [address] 10/19/2025 8:15 AM EST Appointment [facility] US PER DIAG CTR [address] [place] [address] 10/26/2025 8:45 AM EST Office Visit [facility] MEDICINE [address] [address] 10/26/2025 8:45 AM EST Appointment [facility] US PER DIAG CTR [address] [place] [address] documented as of this encounter Procedures Procedure Name Priority Date/Time Associated Diagnosis Comments [facility] Routine 10/03/2025 9:37 AM EST IUGR (intrauterine growth restriction) affecting care of mother, third trimester, fetus 1 documented in this encounter Results * [facility] (10/03/2025 9:37 AM EST) Anatomical Region Laterality Modality Ultrasound 10/03/2025 9:10 AM EST Narrative 10/03/2025 10:25 AM EST PAT NAME: SHILPI ALATORRE [facility] REC#: [id number] DA: [id number] PAT GEND: F PAT TYPE: O EXAM CARLOS: [id number] REF PHYS PATY RINCON Comparison Studies The [...] EFW (oz) 6 oz EFW by: Hadlock (KDY-KJ-NW-FL) Extended Cav. septi pel. tr 6.2 mm Va 5.0 mm Architecture Internship 3.5 mm CM 6.7 mm 31% Nicolaides [...] Normal Heart / Thorax 3-vessel view: Normal 5-xfkgii-svpvxvv view: normal Cord insertion: Normal Stomach: Appears [...] NST in your office. Coding ======= Description: 91338-69 Follow Up Ultrasound Description: 78309-09 BPP with NST Description: 72950-77 Doppler Umbilical Artery Tank Setter Helper: Reba Richardson RDMS Physician: Nabil Robles MD, FACOG Electronically signed by: Nabil Robles MD, FACOG at: 10:25 Procedure Note Nabil Robles MD - 10/03/2025 PAT NAME: SHILPI ALATORRE MED REC#: [id number] DA: 2000 PAT GEND: F PAT TYPE: O EXAM CARLOS: [id number] REF PHYS PATY RINCON Comparison Studies The findings of this study are compared to the prior ultrasound studydated Patient Status Outpatient Indication ======== IUGR. Maternal Assessment Ojjjue315 cm Height (ft)5 ft Height (in)2 in Pgngyv42 kg Weight (lb)128 lb BMI23.23 kg/m Method ======= Transabdominal ultrasound examination. View: Good view ========= Whittaker . Number of fetuses: 1 Dating ====== GA by prior xcdfeqjlxw62 w + 2 d CYNDI by prior [...] Hadlock Femur59.4 mm 31w 0d 2% Hadlock Crkfbmp09.6 mm 31w 1d 11% So HC / AC1.06 EFW1,534 g 29w 6d <1% Hadlock EFW (lb)3 lb EFW (oz)6 oz EFW by:Hadlock (NYU-NU-XJ-FL) Extended Cav. septi pel. tr6.2 mm Va5.0 mm Vp3.5 mm CM6.7 mm 31% Nicolaides Head / Face / Neck Cephalic index0.79 36% Nicolaides Extremities / Bony Struc FL / BPD0.79 FL / HC0.22 FL / AC0.23 Other Structures QTE704 bpm General Evaluation Cardiac activity present. FHR [...] LVOT view:Normal Heart / Thorax 3-vessel view:Normal 6-rtandk-aservqg view:normal Cord insertion:Normal Stomach:Appears normal Kidneys:Appears normal Bladder:Appears normal Gender:female Wants to know gender:yes Maternal Structures Uterus / Cervix Cervical ghhlaq03.7 mm Doppler Arterial Umbilical A PI1.02 76% [...] Weekly NST in your office. Coding ======= Description:54309-79 Follow Up Ultrasound Description:78265-62 BPP with NST Description:78360-00 Doppler Umbilical Artery Tank Setter Helper: Reba Richardson RDMS Physician: Nabil Robles MD, FACOG Electronically signed by: Nabil Robles MD, FACOG at: 10:25 us Napoleon Pak MD IMG US ORDERABLES Final Res ult documented in this encounter Visit Diagnoses Diagnosis IUGR (intrauterine growth restriction) affecting care of mother, third trimester, fetus 1 documented in this encounter Care Teams Vocational Rehab Consultant Relationship Specialty Start Date End Date Provider, [place] [address] PCP - General 09/05/25 documented as of this encounter
--- OUTSIDE RECORDS SUMMARY | 2025-10-03 09:15 | XMS_ITS | Encounter Summary ---
Author Organization [facility] Address [address] [place] [address] Care Team Providers Care Road Freight Firer Name Role Phone Provider, No Known Primary Care Provider Unavail able Encounter Details Date Type Department Care Team (Late st Contact Info) Description 10/03/2025 9:15 AM EST Office Visit [facility] MATERNAL MEDICINE [address] [place] [phone] Nabil Robles MD 1700 [facility] [address] [place] [address] IUGR (intrauterine growth restriction) affecting care of [...] Test Patient: Shilpi Alatorre : 2000 CSN: [id number] Date: 10/03/2025 Estimated Date of Delivery: 11/19/25 [...] NSTs in your office. Orders: - Cancel: [facility]; Future Follow Up 1 week [...] CVS. Nabil Robles MD, FACOG Maternal Medicine, [facility] documented in this encounter Plan of Treatment Upcoming Encounters Date Type Department Care Team (Late st Contact Info) Description 10/19/2025 8:15 AM EST Office Visit [facility]ERNAL MEDICINE 1700 [facility] [address] [place] [phone] 10/19/2025 8:15 AM EST Appointment [facility] US PER DIAG CTR [address] [place] [address] 10/26/2025 8:45 AM EST Office Visit [facility] MEDICINE [address] [phone] 10/26/2025 8:45 AM EST Appointment [facility] US PER DIAG CTR [address] [place] [address] documented as of this encounter Visit Diagnoses Diagnosis IUGR (intrauterine growth restriction) affecting care of mother, third trimester, fetus 1- Primary documented in this encounter Care Teams Road Freight Firer Relationship Specialty Start Date End Date Provider, [place] [address] PCP - General 09/05/25 documented as of this encounter
--- OUTSIDE RECORDS SUMMARY | 2025-10-10 07:59 | XMS_ITS | Encounter Summary ---
Author Organization [facility] Address [address] [place] [phone] Care Team Providers Care Auto Glass Installer Name Role Phone Provider, No Known Primary Care Provider Unavail able Reason for Referral * Diagnostic Imaging (Routine) - Authorized Specialty Diagnoses / Procedures Referred By Contac t Referred To Contact Radiology Diagnoses IUGR (intrauterine growth restriction) affecting care of mother, third trimester, fetus 1 Procedures [facility] Napoleon Pak MD [address] [place] [address] Phone: tel: fax: Referral ID Status Reason Start Date Expiration Date V isits Requested Visits Authorized [id number] Authorized 09/21/2025 12/21/2026 3 3 Reason for Visit * Diagnostic Imaging (Routine) - Authorized Specialty Diagnoses / Procedures Referred By Contac t Referred To Contact Radiology Diagnoses IUGR (intrauterine growth restriction) affecting care of mother, third trimester, fetus 1 Procedures [facility] Napoleon Pak MD [address] [place] [address] Phone: tel: fax: Referral ID Status Reason Start Date Expiration Date V isits Requested Visits Authorized [id number] Authorized 09/21/2025 12/21/2026 3 3 Encounter Details Date Type Department Care Team (Latest Contact Info) Description 10/10/2025 7:59 AM EST - 10/10/2025 11:59 PM EST Hospital Encounter [facility] PER DIAG CTR [address] [place] [address] IUGR (intrauterine growth restriction) affecting care of [...] Description 10/19/2025 8:15 AM EST Office Visit [facility] [address] [phone] 10/19/2025 8:15 AM EST Appointment [facility] US PER DIAG CTR [address] [place] [address] 10/26/2025 8:45 AM EST Office Visit [facility] MAT[facility] MEDICINE [address] [phone] 10/26/2025 8:45 AM EST Appointment [facility] PER DIAG CTR [address] [place] [address] documented as of this encounter Procedures Procedure Name Priority Date/Time Associated Diagnosis Comments [facility] Routine 10/10/2025 8:33 AM EST IUGR (intrauterine growth restriction) affecting care of mother, third trimester, fetus 1 documented in this encounter Results * [facility] (10/10/2025 8:33 AM EST) Anatomical Region Laterality Modality Ultrasound 10/10/2025 8:11 AM EST Narrative 10/10/2025 8:35 AM EST PAT NAME: SHILPI ALATORRE MED REC#: [id number] DA: [id number] PAT GEND: F PAT TYPE: O EXAM CARLOS: [id number] REF PHYS PATY RINCON Comparison Studies The [...] here in 1 week. Coding ====== Description: 56415-75 BPP without NST Description: 57846-62 Doppler Umbilical Artery Craft Manager: Mine Pope RDMS Physician: Aman Otero MD, FACOG Electronically signed by: Aman Otero MD, FACOG at: 08:35 Procedure Note Dani Otero MD - 10/10/2025 PAT NAME: SHILPI ALATORRE MED REC#: [id number] DA: [id number] PAT GEND: F PAT TYPE: O EXAM CARLOS: [id number] REF PHYS RADHA RINCONLEY Comparison Studies The findings of this study are compared to the prior ultrasound studydated Patient Status Outpatient Indication ======== IUGR. Maternal Assessment Ydqewt582 cm Height (ft)5 ft Height (in)2 in Fhqgux44 kg Weight (lb)130 lb BMI23.62 kg/m Method ======= Transabdominal ultrasound examination. View: Good view ========= Whittaker . Number of fetuses: 1 Dating ====== Method of dating:based on stated CYNDI GA by prior agvcunevrn58 w + 2 d CYNDI by prior assessment:11/19/2025 Previous dating:based on stated CYNDI, selected on 09/21/2025 Agreed CYNID of previous datin11/19/2025 Assigned:based on stated CYDNI, selected on 10/10/2025 Assigned GA34 w + [...] movements 2: tone 2: Amniotic fluid volume 8 Biophysical profile score Doppler Arterial Umbilical A [...] scheduled here in 1 week. Coding ====== Description:66819-32 BPP without NST Description:12625-95 Doppler Umbilical Artery Craft Manager: Mine Pope RDMS Physician: Aman Otero MD, FACOG Electronically signed by: Aman Otero MD, FACOG at: 08:35 us Napoleon Pak MD IMG US ORDERABLES Final Res ult documented in this encounter Visit Diagnoses Diagnosis IUGR (intrauterine growth restriction) affecting care of mother, third trimester, fetus 1 documented in this encounter Care Teams Auto Glass Installer Relationship Specialty Start Date End Date Provider, [place] [address] PCP - General 09/05/25 documented as of this encounter
--- OUTSIDE RECORDS SUMMARY | 2025-10-10 08:15 | XMS_ITS | Encounter Summary ---
Author Organization [facility] Address [address] [place] [address] Care Team Providers Care Log Deckman Name Role Phone Provider, No Known Primary Care Provider Unavail able Reason for Referral * Diagnostic Imaging (Routine) - Authorized Specialty Diagnoses / Procedures Referred By Contac t Referred To Contact Radiology Diagnoses IUGR (intrauterine growth restriction) affecting care of mother, third trimester, fetus 1 Placenta succenturiate lobe affecting fetus 34 weeks gestation of Procedures [facility] Dani Otero MD [facility] [facility] [address] [place] [address] Phone: tel: fax: Referral ID Status Reason Start Date Expiration Date V isits Requested Visits Authorized [id number] Authorized 10/10/2025 01/09/2027 1 1 Reason for Visit * Reason Comments IUGR Encounter Details Date Type Department Care Team (Late st Contact Info) Description 10/10/2025 8:15 AM EST Office Visit [facility] MATERNAL MEDICINE 1700 [facility] [address] [place] [phone] Dani Otero MD [address] [facility] [address] [place] [address] IUGR (intrauterine growth restriction) affecting care of [...] Description 10/19/2025 8:15 AM EST Office Visit [facility] MATERNAL MEDICINE [address] [place] [address] 10/19/2025 8:15 AM EST Appointment [facility] DI[facility] [address] [place] [address] 10/26/2025 8:45 AM EST Office Visit [facility] MATERNAL MEDICINE [address] [place] [address] 10/26/2025 8:45 AM EST Appointment [facility] [address] [place] [address] Scheduled Orders Name Type Priority Associated Diagnoses Orde r Schedule [facility] Diagnostic Center Imaging Routine IUGR [...] of documented in this encounter Care Teams Log Deckman Relationship Specialty Start Date End Date Provider, [place] [address] PCP - General 09/05/25 documented as of this encounter
--- OUTSIDE RECORDS SUMMARY | 2025-10-12 12:50 | XMS_ITS | Encounter Summary ---
Author Organization [facility] Address [address] [place] [address] Care Team Providers Care Stacker Tender Name Role Phone Provider, No Known Primary Care Provider Unavail able Encounter Details Date Type Department Care Team (Latest Contact Info) Description 10/10/2025 Travel Social History Tobacco Use Types Packs/Day [...] Description 10/19/2025 8:15 AM EST Office Visit [facility] MATERNAL MEDICINE [address] [phone] 10/19/2025 8:15 AM EST Appointment [facility] DI[facility] [address] [place] [address] 10/26/2025 8:45 AM EST Office Visit [facility] MATERNAL MEDICINE [address] [address] 10/26/2025 8:45 AM EST Appointment [facility] [address] [place] [address] documented as of this encounter Visit Diagnoses Not on filedocumented in this encounter Care Teams Stacker Tender Relationship Specialty Start Date End Date Provider, [place] [address] PCP - General 09/05/25 documented as of this encounter
--- OUTSIDE RECORDS SUMMARY | 2025-10-12 12:50 | XMS_ITS | Encounter Summary ---
[facility] Address [address] [place] [address] Care Team Providers Care Miller Apprentice Name Role Phone Provider, No Known Primary Care Provider Unavail able Encounter Details Date Type Department Care Team (Latest Contact Info) Description 10/03/2025 Travel Social History Tobacco Use Types Packs/Day [...] 10/19/2025 8:15 AM EST Office Visit [facility] MATERNAL MEDICINE [address] [phone] 10/19/2025 8:15 AM EST Appointment [facility] PER DI[facility] [address] [place] [address] 10/26/2025 8:45 AM EST Office Visit [facility] MATERNAL MEDICINE [address] [address] 10/26/2025 8:45 AM EST Appointment [facility] [address] [place] [address] documented as of this encounter Visit Diagnoses Not on filedocumented in this encounter Care Teams Miller Apprentice Relationship Specialty Start Date End Date Provider, [place] [address] PCP - General 09/05/25 documented as of this encounter
--- OUTSIDE RECORDS SUMMARY | 2025-10-12 12:50 | XMS_ITS | Clinical Summary ---
Author Organization [facility] Address [address] [place] [address] Phone Care Team Providers Care Layout Designer Name Role Phone Unavailable Primary Care Provider [...]
--- OUTSIDE RECORDS SUMMARY | 2025-10-12 12:50 | XMS_ITS | Clinical Summary ---
Author Organization [facility] Address [address] [place] [address] Care Team Providers Care Guide Changer Name Role Phone Provider, No Known Primary Care Provider Unavail able Allergies No known active allergies Medications Vit-Fe Fumarate-FA ( VITAMINS PO) 03/13/2025 Active Active Problems Problem Noted Date Diagnosed Date 10/10/2025 Placenta succenturiate lobe affecting fetus 09/08 Assessment & Plan (09/21/2025 9:27 AM EST): - Discussed finding with patient today - Likely not contributing significantly to the above, but discussed need at time of delivery to ensure that all placental lobes are accounted for IUGR (intrauterine growth re striction) affecting care of mother, third trimester, fetus 1 09/07/2025 Assessment & Plan (10/03/2025 10:22 AM EST): Patient presents for follow-up growth ultrasound secondary [...] recommend continued weekly NSTs in your office. Assessment & Plan (09/21/2025 9:28 AM EST): [...] Encounters Date Type Department Care Team Description 10/10/2025 8:15 AM EST Office Visit [facility] MATERNAL MEDICINE [address] [facility] [address] [place] [phone] Dani Otero MD IUGR (intrauterine growth restriction) affecting care of mother, third trimester, fetus 1 (Primary Dx); Placenta succenturiate lobe affecting fetus; 34 weeks gestation of 10/10/2025 7:59 AM EST - 10/10/2025 11:59 PM EST Hospital Encounter [facility] US PER DIAG CTR [address] [place] [address] IUGR (intrauterine growth restriction) affecting care of mother, third trimester, fetus 1 Discharge Disposition: Home or Self Care 10/10/2025 Travel 10/03/2025 9:15 AM EST Office Visit [facility] MATERNAL MEDICINE [address] [facility] [address] [place] [phone] Nabil Robles MD IUGR (intrauterine growth restriction) affecting care of mother, third trimester, fetus 1 (Primary Dx) 10/03/2025 8:47 AM EST - 10/03/2025 11:59 PM EST Hospital Encounter [facility] PER DIAG [facility] [address] [place] [address] Napoleon Pak MD IUGR (intrauterine growth restriction) affecting care of mother, third trimester, fetus 1 Discharge Disposition: Home or Self Care 10/03/2025 Travel 09/21/2025 8:15 AM EST - 09/21/2025 11:59 PM EST Hospital Encounter [facility] PER DIAG [facility] [address] [place] [address] Marissa Hdaley MD IUGR (intrauterine growth restriction) affecting care of mother, third trimester, fetus 1 Discharge Disposition: Home or Self Care 09/21/2025 8:15 AM EST Office Visit [facility] MATERNAL MEDICINE [address] [facility] [address] [place] [phone] Napoleon Pak MD IUGR (intrauterine growth restriction) affecting care of mother, third trimester, fetus 1 (Primary Dx); Placenta succenturiate lobe affecting fetus 09/21/2025 Travel 09/07/2025 8:00 AM EDT Office Visit [facility] MATERNAL MEDICINE [address] [facility] [address] [place] [address] Marissa Hadley MD IUGR (intrauterine growth restriction) affecting care of mother, third trimester, fetus 1 (Primary Dx); 29 weeks gestation of 09/07/2025 7:58 AM EDT - 09/07/2025 11:59 PM EDT Hospital Encounter [facility] PER DIAG [facility] [address] [place] [address] Paty Flores DO IUGR (intrauterine growth restriction) affecting care of mother, third trimester, fetus 1; , unspecified gestational age Discharge Disposition: Home or Self Care 09/07/2025 Travel from Last 3 Months Family History Medical History Relation Name Comments No Known Problems Father No Known Problems Mother Relation Name Status Comments Father Alive Mother Alive Social History Tobacco Use Types Packs/Day [...] oz) 10/10/2025 8:03 A M EST Height 158.8 cm (5' 2.5 ) 09/07/2025 8:14 AM EDT Body Mass Index 23.51 09/07/2025 8:14 AM EDT Plan of Treatment Upcoming Encounters Date Type Department Care Team (Late st Contact Info) Description 10/19/2025 8:15 AM EST Office Visit [facility] MATERNAL MEDICINE [address] [place] [address] 10/19/2025 8:15 AM EST Appointment [facility] PER [facility] [address] [place] [address] 10/26/2025 8:45 AM EST Office Visit [facility] MATERNAL MEDICINE [address] [place] [phone] 10/26/2025 8:45 AM EST Appointment [facility] [address] [place] [address] Health Maintenance Due Date Last [...] Procedure Name Priority Date/Time Associated Diagnosis Comments [facility] Routine 10/10/2025 8:33 AM EST IUGR (intrauterine growth restriction) affecting care of mother, third trimester, fetus 1 [facility] Routine 10/03/2025 9:37 AM EST IUGR (intrauterine growth restriction) affecting care of mother, third trimester, fetus 1 [facility] Routine 09/21/2025 8:44 AM EST IUGR (intrauterine growth restriction) affecting care of mother, third trimester, fetus 1 [facility] Routine 09/07/2025 11:09 AM EDT IUGR (intrauterine growth restriction) affecting care of mother, third trimester, fetus 1 , unspecified gestational age from Last 3 Months Results * [facility] (10/10/2025 8:33 AM EST) Only the most recent of4 resultswithin the time period is included. Anatomical Region Laterality Modality Ultrasound 10/10/2025 8:11 AM EST Narrative 10/10/2025 8:35 AM EST PAT NAME: SHILPI ALATORRE MED REC#: [id number] DA: [id number] PAT GEND: F PAT TYPE: O EXAM CARLOS: [id number] REF PHYS PATY FLORES Comparison Studies The [...] here in 1 week. Coding ====== Description: 69343-06 BPP without NST Description: 03742-02 Doppler Umbilical Artery Eeo Officer: Mine Pope RDMS Physician: Aman Oteor MD, FACOG Electronically signed by: Aman Otero MD, FACOG at: 08:35 Procedure Note Dani Otero MD - 10/10/2025 PAT NAME: SHILPI ALATORRE MED REC#: [id number] DA: 2000 PAT GEND: F PAT TYPE: O EXAM CARLOS: [id number] REF PATY CHOI Comparison Studies The findings of this study are compared to the prior ultrasound studydated Patient Status Outpatient Indication ======== IUGR. Maternal Assessment Vwavkf015 cm Height (ft)5 ft Height (in)2 in Yfevat85 kg Weight (lb)130 lb BMI23.62 kg/m Method ======= Transabdominal ultrasound examination. View: Good view ========= Wihttaker . Number of fetuses: 1 Dating ====== Method of dating:based on stated CYNDI GA by prior [id number] w + 2 d CYNDI by prior assessment:11/19/2025 Previous dating:based on stated CYNDI, selected on 09/21/2025 Agreed CYNDI of previous datin11/19/2025 Assigned:based on stated CYNDI, selected on 10/10/2025 Assigned [id number] w + 2 d Assigned CYNDI:11/19/2025 [id number] d General Evaluation Cardiac activity present. FHR [...] scheduled here in 1 week. Coding ====== Description:90279-41 BPP without NST Description:93210-31 Doppler Umbilical Artery Eeo Officer: Mine Pope RDTN Physician: Aman Otero MD, FACOG Electronically signed by: Aman Otero MD, FACOG at: 08:35 us Napoleon Pak MD IMG US ORDERABLES Final Res ult from Last 3 Months Insurance [facility] Care Teams Guide Changer Relationship Specialty Start Date End Date Provider, [place] [address] PCP - General 09/05/25
--- OUTSIDE RECORDS SUMMARY | 2025-10-12 12:50 | XMS_ITS | Encounter Summary ---
Author Organization [facility] Address [address] [place] [address] Care Team Providers Care Flat Folding Machine Operator Name Role Phone Provider, No [...] Description 10/19/2025 8:15 AM EST Office Visit [facility] MATERNAL MEDICINE [address] [address] 10/19/2025 8:15 AM EST Appointment [facility] PER DIAG [facility] [address] [place] [address] 10/26/2025 8:45 AM EST Office Visit [facility] MATERNAL MEDICINE [address] [address] 10/26/2025 8:45 AM EST Appointment [facility] PER [facility] [address] [place] [address] documented as of this encounter Visit Diagnoses Not on filedocumented in this encounter Care Teams Flat Folding Machine Operator Relationship Specialty Start Date End Date Provider, [place] [address] PCP - General 09/05/25 documented as of this encounter
--- OUTSIDE RECORDS SUMMARY | 2025-10-12 12:51 | XMS_ITS | Encounter Summary ---
Author Organization [facility] Address [address] [place] [address] Care Team Providers Care Sprinkler Repair Technician Name Role Phone Provider, No Known Primary [...] Description 10/19/2025 8:15 AM EST Office Visit [facility] MATERNAL MEDICINE [address] [address] 10/19/2025 8:15 AM EST Appointment [facility] PER DI[facility] [address] [place] [address] 10/26/2025 8:45 AM EST Office Visit [facility] MATERNAL MEDICINE [address] [address] 10/26/2025 8:45 AM EST Appointment [facility] [address] [place] [address] documented as of this encounter Visit Diagnoses Not on filedocumented in this encounter Care Teams Sprinkler Repair Technician Relationship Specialty Start Date End Date Provider, [place] [address] PCP - General 09/05/25 documented as of this encounter
--- NOTE | 2025-10-12 13:00 | US_ITS ---
PROCEDURE: US OB BIOPHYSICAL PROFILE CLINICAL INDICATION: SGA COMPARISON: US US OB TRANSVAGINAL from 03/28/2025 US US OB /MATERNAL DETAIL from 07/02/2025 US US OB BIOPHYSICAL PROFILE from 09/03/2025 US US OB BIOPHYSICAL PROFILE from 09/13/2025 US US OB BIOPHYSICAL PROFILE from 09/28/2025 FINDINGS: Transabdominal sonographic images of the uterus were obtained. From her established due date she is 34weeks 4days. The following parameters are obtained: Viable Fetus in the cephalic presentation with an anterior/posterior wraps placenta grade 1-2. The cervix measures 2.2 cm in length Measurements: heart Rate = 153bpm Amniotic fluid index: 10.27cm, MVP 4.12 cm Qualitative AFV:2 Breathing movements: 2 Gross Body Movements: 2 Tone: 2 Biophysical profile score: 8 Doppler evaluation of the umbilical artery: SD ratio: 2.22-2.69 Resistive index: 0.63 No obvious anomalies evident.Kidneys, profile, stomach, bladder, four-chamber heart, three-vessel cord appear normal. IMPRESSION: 1. Viable fetus in the cephalic presentation with an anterior/posteriorly wrapped placenta grade 1-2. 2. The fluid is within normal limits with an amniotic fluid index 10.27 cm, MVP 4.12 cm. 3. Biophysical profile is 8/8 with good breathing movement and movement seen. 4. SD ratio is normal 2.22-2.69. 5. Limited anatomical scan appears normal. 6. If growth scan has not been done recently elsewhere, would suggest a growth ultrasound. Continued close follow-up is suggested. Dictated by: Adrián Ross MD 10/13/2025 06:40 Adrián Ross MD in OV 10/13/2025 06:40
== END 2025-10-12 23:59 | disposition home or self-care (01) ==
LOC: RAD 12:47
PROVIDERS: PCP Nurse Practitioner; Visit Provider Obstetrics & Gynecology
DX: O36.5930 Maternal care for other known or suspected poor fetal growth, third trimester, not applicable or unspecified (principal); Z3A.34 34 weeks gestation of pregnancy
CPT/HCPCS: 76819; 76820

== ENCOUNTER 2025-10-16 13:16 | Outpatient (CLI) | payer OTHER, SELFPAY | END 2025-10-16 23:59 | disposition home or self-care (01) | LOC: LAB.DROPOF 10-18 13:16 | PROVIDERS: PCP Nurse Practitioner; Visit Provider Obstetrics & Gynecology | DX: O36.5930 Maternal care for other known or suspected poor fetal growth, third trimester, not applicable or unspecified (principal); Z3A.00 Weeks of gestation of pregnancy not specified | CPT/HCPCS: 86403 ==

== ENCOUNTER 2025-10-19 13:26 | Outpatient (CLI) | payer OTHER, SELFPAY ==
--- NOTE | 2025-10-19 13:30 | US_ITS ---
PROCEDURE: US OB BIOPHYSICAL PROFILE CLINICAL INDICATION: BPP, [place], [place], SD Ratio COMPARISON: US US OB TRANSVAGINAL from 03/28/2025 US US OB /MATERNAL DETAIL from 07/02/2025 US US OB BIOPHYSICAL PROFILE from 09/03/2025 US US OB BIOPHYSICAL PROFILE from 09/13/2025 US OB BIOPHYSICAL PROFILE from 09/28/2025 US US OB BIOPHYSICAL PROFILE from 10/12/2025 FINDINGS: Transabdominal sonographic images of the uterus were obtained. From her established due date she is 35weeks 4days. The following parameters are obtained: Viable Fetus in the cephalic presentation with an anterior with a posterior laterally wrapped placenta grade 2. Average ultrasound age is 32weeks 2days Estimated weight 1,868g, 4 lb 2 oz Measurements: heart Rate = 163bpm BPD = 32weeks 2days, <2 percentile HC = 32weeks 0 days, <2 percentile AC = 31weeks 0 days, <2 percentile FL = 33weeks 5days, 6 percentile HC/AC is 1.08 FL/BPD is 0.81 FL/AC is 0.24 <2 percentile Amniotic fluid index: 9.17cm, MVP 3.55 cm Qualitative AFV:2 Breathing movements: 2 Gross Body Movements: 2 Tone: 2 Biophysical profile score: 8 Doppler evaluation of the umbilical artery: SD ratio: 2.9-3.3 Resistive index: 0.69 No obvious anomalies evident.Kidneys, profile, stomach, bladder, four-chamber heart, three-vessel cord appear normal. IMPRESSION: 1. Viable fetus in the cephalic presentation with anterior laterally lap posterior placenta grade 2. 2. The fluid is within normal limits with an amniotic fluid index 9.17 cm, MVP 3.55 cm. 3. Biophysical profile is 8/8 with good breathing movement and movement seen. 4. SD ratio is normal 2.9-3.3. 5. Fetus continues to be extremely small for gestational age less than the 2nd percentile. The fetus continues to be symmetrically small with the abdominal circumference 4 weeks behind. 6. Limited anatomical scan appears normal. Dictated by: Adrián Ross MD 10/20/2025 11:48 Adrián Ross MD in OV 10/20/2025 11:48
== END 2025-10-19 23:59 | disposition home or self-care (01) ==
LOC: RAD 13:26
PROVIDERS: PCP Nurse Practitioner; Visit Provider Obstetrics & Gynecology
DX: O36.5930 Maternal care for other known or suspected poor fetal growth, third trimester, not applicable or unspecified (principal); Z3A.35 35 weeks gestation of pregnancy
CPT/HCPCS: 76816; 76819; 76820

== ENCOUNTER 2025-10-23 12:49 | Outpatient (CLI) | payer OTHER, SELFPAY ==
--- OUTSIDE RECORDS SUMMARY | 2025-09-07 06:58 | XMS_ITS | Encounter Summary ---
[facility] Address [address] [place] [address] Care Team Providers Care Rn Case Mgr Name Role Phone Provider, No Known Primary Care Provider Unavail able Reason for Referral * Diagnostic Imaging (Routine) - Closed Specialty Diagnoses / Procedures Referred By Contac t Referred To Contact Radiology Diagnoses IUGR (intrauterine growth restriction) affecting care of mother, third trimester, fetus 1 , unspecified gestational age Procedures [facility] Diagnostic [place] Paty Flores, [place] [address] Phone: tel: fax: [facility] US PER DIAG CTR [address] [place] [address] Phone: tel: Referral ID Status Reason Start Date Expiration Date Visits Re quested Visits Authorized [id number] Closed 09/05/2025 12/05/2026 1 1 Reason for Visit * Diagnostic Imaging (Routine) - Closed Specialty Diagnoses / Procedures Referred By Contac t Referred To Contact Radiology Diagnoses IUGR (intrauterine growth restriction) affecting care of mother, third trimester, fetus 1 , unspecified gestational age Procedures [facility] Diagnostic [place] Paty Flores DO [address] [place], [place] [address] Phone: tel: fax: [facility] US PER DIAG CTR [address] [place] [address] Phone: tel: Referral ID Status Reason Start Date Expiration Date Visits Re quested Visits Authorized [id number] Closed 09/05/2025 12/05/2026 1 1 Encounter Details Date Type Department Care Team (Latest Contact Info) Description 09/07/2025 7:58 AM EDT - 09/07/2025 11:59 PM EDT Hospital Encounter [facility] US PER DIAG CTR [address] [place] [address] Paty Flores, DO [address] [place] [facility] [address] [id number] IUGR (intrauterine growth restriction) affecting care of [...] Description 10/26/2025 8:45 AM EST Office Visit [facility] [address] [facility] [address] [place] [address] 10/26/2025 8:45 AM EST Appointment [facility] US PER DIAG CTR [address] [place] [address] documented as of this encounter Procedures Procedure Name Priority Date/Time Associated Diagnosis Comments [facility] Routine 09/07/2025 11:09 AM EDT IUGR (intrauterine growth restriction) affecting care of mother, third trimester, fetus 1 , unspecified gestational age documented in this encounter Results * [facility] (09/07/2025 11:09 AM EDT) Anatomical Region Laterality Modality Ultrasound 09/07/2025 8:18 AM EDT Narrative 09/07/2025 9:11 AM EDT PAT NAME: SHILPI ALATORRE MED REC#: [id number] DA: [id number] PAT GEND: F PAT TYPE: O EXAM CARLOS: [id number] REF PHYS PATY FLORES Comparison Studies There [...] EFW (oz) 5 oz EFW by: Hadlock (RNU-HJ-GR-FL) Extended Tibia 47.0 mm 28w 4d 19% So Fibula 47.2 mm 29w 1d 40% So Foot 54.5 mm 8% Chitty Radius 38.3 mm 26w 5d 24% So Ulna 42.4 mm 27w 3d 2% So Cav. septi pel. tr 6.4 mm Project Manager/Design Manager 7.0 mm CM 4.6 mm 3% Nicolaides [...] normal IVC: normal 3-vessel view: Appears normal 0-fqochj-lsqysne view: Appears normal Rt lung: Appears normal [...] with weekly UA Dopplers. Coding ======= Description: 96845-38 Detailed Ultrasound Description: 79996-15 BPP without NST Description: 15403-01 Doppler Umbilical Artery Burlapper: Shell Smith RDMS Physician: Marissa Hadley MD Electronically signed by: Marissa Hadley MD at: 09:11 Procedure Note Marissa Hadley MD - 09/07/2025 PAT NAME: SHILPI ALATORRE MED REC#: [id number] DA: 2000 PAT GEND: F PAT TYPE: O EXAM CARLOS: [id number] REF PHYS PATY FLORES Comparison Studies There are no relevant prior studies to which this study is beingcompared Patient Status Outpatient Indication ======== IUGR Maternal Assessment Fvxjfu127 cm Height (ft)5 ft Height (in)2 in Tellqz30 kg Weight (lb)121 lb BMI22.03 kg/m Method ======= Transabdominal ultrasound examination. View: Adequate view ========= Whittaker . Number of fetuses: 1 Dating ====== Method of dating:based on stated CYNDI GA by prior sobxrknkpa14 w + 4 d CYNDI by prior assessment:11/19/2025 Ultrasound examination on:09/07/2025 GA by U/S based upon:AC, BPD, Femur, HC GA by U/S27 w + 5 d CYNDI by U/S:12/02/2025 Assigned:based on stated CYNDI, selected on 09/07/2025 Assigned GA29 w + 4 d Assigned CYNDI:11/19/2025 avdvgy313 d Biometry Standard BPD69.9 mm 28w 1d 6% Hadlock OFD93.2 mm 30w 0d 64% So HC258.5 mm 28w 1d 1% Hadlock Cerebellum tr33.9 mm 28w 4d 18% Hill AC222.2 mm 26w 5d <1% Hadlock Femur52.5 mm 28w 0d 5% Hadlock Rnzrtgw84.3 mm 27w 2d 4% So HC / AC1.16 EFW1,060 g 27w 0d 2% Hadlock EFW (lb)2 lb EFW (oz)5 oz EFW by:Hadlock (QDY-IM-WO-FL) Extended Tibia47.0 mm 28w 4d 19% So Ckeznc89.2 mm 29w 1d 40% So Foot54.5 mm 8% Chitty Vqdsmw96.3 mm 26w 5d 24% So Ulna42.4 mm 27w 3d 2% So Cav. septi pel. tr6.4 mm Vp7.0 mm CM4.6 mm 3% Nicolaides Nasal bone9.5 mm Head / Face / Neck Cephalic index0.75 11% Nicolaides Extremities / Bony Struc FL / BPD0.75 FL / HC0.20 FL / AC0.24 Other Structures DXT435 bpm General Evaluation Cardiac activity present. FHR [...] view:Appears normal SVC:normal IVC:normal 3-vessel view:Appears normal 0-spigsf-xxkpeqo view:Appears normal Rt lung:Appears normal Lt lung:normal [...] weekly testing with weekly UADopplers. Coding ======= Description:34452-57 Detailed Ultrasound Description:71542-33 BPP without NST Description:77167-13 Doppler Umbilical Artery Burlapper: Shell Smith RDMS Physician: Marissa Hadley MD Electronically signed by: Marissa Hadley MD at: 09:11 us Paty Flores DO IMG US ORDERABLES Final Res ult documented in this encounter Visit Diagnoses Diagnosis IUGR (intrauterine growth restriction) affecting care of mother, third trimester, fetus 1 , unspecified gestational age documented in this encounter Care Teams Rn Case Mgr Relationship Specialty Start Date End Date Provider, [place] [address] PCP - General 09/05/25 documented as of this encounter
--- OUTSIDE RECORDS SUMMARY | 2025-09-07 07:00 | XMS_ITS | Encounter Summary ---
Author Organization [facility] Address [address] [place] [id number] Care Team Providers Care Orchestra Leader Name Role Phone Provider, No Known Primary Care Provider Unavail able Reason for Referral * Diagnostic Imaging (Routine) - Closed Specialty Diagnoses / Procedures Referred By Contac t Referred To Contact Radiology Diagnoses IUGR (intrauterine growth restriction) affecting care of mother, third trimester, fetus 1 Procedures [facility] Marissa Hadley MD 1700 [facility] [address] [place] [address] Phone: tel: fax: Referral ID Status Reason Start Date Expiration Date Visits Re quested Visits Authorized [id number] Closed 09/07/2025 12/07/2026 1 1 Reason for Visit * Reason Comments IUGR Encounter Details Date Type Department Care Team (Late st Contact Info) Description 09/07/2025 8:00 AM EDT Office Visit [facility] MEDICINE 1700 [facility] [address] [place] [address] Marissa Hadley MD 1700 [facility] [address] [place], [place] [id number] IUGR (intrauterine growth restriction) affecting care of mother, third trimester, fetus 1 (Primary Dx); 29 weeks gestation of Social History Tobacco Use Types Packs/Day Years Used Date Smoking Tobacco: Never Smokeless Tobacco: Never Tobacco Cessation:Counseling Given: Not Answered Alcohol Use Standard Drinks/Week Comments Not Currently [...] on file documented as of this encounter Last Filed Vital Signs Vital Sign Reading Time Taken Comments Blood Pressure 121/80 09/07/2025 8:12 AM EDT Pulse - - Temperature - - Respiratory Rate - - Oxygen Saturation - - Inhaled Oxygen Concentration - - Weight 55.5 kg (122 lb 6.4 oz) 09/07/2025 8:12 A M EDT Height 158.8 cm (5' 2.5 ) 09/07/2025 8:14 AM EDT Body Mass Index 22.03 09/07/2025 8:12 AM EDT documented in this encounter Progress Notes * Marissa Hadley MD - 09/07/2025 9:18 AM EDTAssociated Problem(s): IUGR (intrauterine growth restriction) affecting care of mother, third trimester, fetus 1 Poor growth is noted with overall EFW measuring at the 2nd percentile and AC <1st percentile. This is consistent with severe growth restriction. anatomy appears normal, there are no signs indicative/concerning for congenital infections. Pt is s/p low risk NIPT and all anatomy appearsnormal making is less concerning for possible genetic causes. Finally, there is normal amniotic fluid and very normal UA Dopplers indicative of a healthy placenta. Possible causes of suspected growth restriction (FGR) were reviewed and include ultrasound error, dating error, aneuploidy/genetic syndromes, congenital infections, uteroplacental insufficiencyor a constitutionally small fetus. FGR is defined as overall growth OR abdominal circumference < 10th%ile. Management includes serial assessment including testing (ie NST) and serial assessment of amniotic fluid and UA Dopplers. In the setting of severe growth restriction (ie < 3rd%ile AC or overall growth), we recommend twice weekly testing and weekly evaluation of UA Dopplers/SHAQUILLE. Delivery timing is based on growth, maternal condition and testing. - Follow-up scheduled in 2wks - Recommend starting twice weekly testing with weekly assessment of BPP/SHAQUILLE/UA Dopplers * Alise Bynum RN - 09/07/2025 8:00 AM EDT Denies vaginal bleeding, leaking fluid, and contractions. Endorses normal movement. NIPT low risk. Next OB follow-up appointment with Dr. Flores on 09/14/2025. * Marissa Hadley MD - 09/07/2025 8:00 AM EDT Images from the original note were not included. Maternal/ Medicine Consult Note Name: Shilpi Alatorre : 2000 Referring Provider: Paty Flores DO Chief Complaint IUGR Subjective History of Present Illness: Shilpi Alatorre is a 25 y.o. 29w4d who presents today for a anatomic survey and growth assessment. She is s/p low risk NIPT. Pt denies LOF/VB/ctx's. +FM. CYNDI: Estimated Date of Delivery: 11/19/25 ROS: As noted in HPI. Past Medical History: Diagnosis Date Tilted uterus and uterine spasms, pt did PT History reviewed. No pertinent surgical history. OB History 1 Para 0 Term 0 0 AB 0 Living 0 SAB 0 IAB 0 Ectopic 0 Molar 0 Multiple 0 Live Births 0 Objective Vital Signs BP 121/80 Ht 158.8 cm (62.5 ) Wt 55.5 kg (122 lb 6.4 oz) Estimated body mass index is 22.03 kg/m?? as calculated from the following: Height as of this encounter: 158.8 cm (62.5 ). Weight as of this encounter: 55.5 kg (122 lb 6.4 oz). Physical Exam Constitutional: Appearance: Normal appearance. She is normal weight. HENT: Head: Normocephalic and atraumatic. Cardiovascular: Rate and Rhythm: Normal rate. Pulmonary: Effort: Pulmonary effort is normal. Musculoskeletal: General: Normal range of motion. Cervical back: Normal range of motion and neck supple. Neurological: General: No focal deficit present. Mental Status: She is alert and oriented to person, place, and time. Psychiatric: Mood and Affect: Mood normal. Behavior: Behavior normal. Thought Content: Thought content normal. Judgment: Judgment normal. Ultrasound Impression: Vtx, EFW 2nd%, AC <1st%, nl SHAQUILLE, posterior placenta with anterior/left lateral lobe, nl anatomy,BPP 8/8, UA Dopplers nl. Assessment and Plan Diagnoses and all orders for this visit: 1. IUGR (intrauterine growth restriction) affecting care of mother, third trimester, fetus 1 (Primary) Assessment & Plan: Poor growth is noted with overall EFW measuring at the 2nd percentile and AC <1st percentile. This is consistent with severe growth restriction. anatomy appears normal, there are no signs indicative/concerning for congenital infections. Pt is s/p low risk NIPT and all anatomy appearsnormal making is less concerning for possible genetic causes. Finally, there is normal amniotic fluid and very normal UA Dopplers indicative of a healthy placenta. Possible causes of suspected growth restriction (FGR) were reviewed and include ultrasound error, dating error, aneuploidy/genetic syndromes, congenital infections, uteroplacental insufficiencyor a constitutionally small fetus. FGR is defined as overall growth OR abdominal circumference < 10th%ile. Management includes serial assessment including testing (ie NST) and serial assessment of amniotic fluid and UA Dopplers. In the setting of severe growth restriction (ie < 3rd%ile AC or overall growth), we recommend twice weekly testing and weekly evaluation of UA Dopplers/SHAQUILLE. Delivery timing is based on growth, maternal condition and testing. - Follow-up scheduled in 2wks - Recommend starting twice weekly testing with weekly assessment of BPP/SHAQUILLE/UA Dopplers Orders: - [facility]; Future 2. 29 weeks gestation of Follow Up Return in about 2 weeks (around 09/21/2025). I spent 15 minutes caring for the patient on the day of service. This included: obtaining or reviewing a separately obtained medical history, reviewing patient records, performing a medically appropriate exam and/or evaluation, counseling or educating the patient/family/caregiver, ordering medications, labs, and/or procedures and documenting such in the medical record. This does not include time spent on review and interpretation of other tests such as ultrasound or the performance of other procedures such as amniocentesis or CVS. Marissa Hadley MD 09/07/2025 documented in this encounter Plan of Treatment Upcoming Encounters Date Type Department Care Team (Late st Contact Info) Description 10/26/2025 8:45 AM EST Office Visit [facility]ERNAL MEDICINE 1700 [facility] [address] [place] [address] 10/26/2025 8:45 AM EST Appointment [facility] PER DIAG [facility] [address] [place] [address] documented as of this encounter Results * [facility] (09/21/2025 8:44 AM EST) Anatomical Region Laterality Modality Ultrasound 09/21/2025 8:30 AM EST Narrative 09/21/2025 9:21 AM EST PAT NAME: SHILPI ALATORRE MED REC#: [id number] DA: [id number] PAT GEND: F PAT TYPE: O EXAM CARLOS: [id number] REF PHYS PATY FLORES Comparison Studies The findings of this study are compared to the prior ultrasound study dated 09/07/25 Patient Status Outpatient Indication ======== IUGR. Maternal Assessment Height 158 cm Height (ft) 5 ft Height (in) 2 in Weight 57 kg Weight (lb) 126 lb BMI 22.89 kg/m Method ======= Transabdominal ultrasound examination. View: Adequate view ========= Whittaker . Number of fetuses: 1 Dating ====== Method of dating: based on stated CYNDI GA by prior assessment 31 w + 4 d CYNDI by prior assessment: 11/19/2025 Ultrasound examination on: 09/21/2025 GA by U/S based upon: AC, BPD, Femur, HC GA by U/S 29 w + 4 d CYNDI by U/S: 12/03/2025 Previous dating: based on stated CYNDI, selected on 09/07/2025 Agreed CYNDI of previous datin11/19/2025 Assigned: based on stated CYNDI, selected on 09/21/2025 Assigned GA 31 w + 4 d Assigned CYNDI: 11/19/2025 length 280 d Biometry Standard BPD 73.7 mm 29w 4d 3% Hadlock OFD 96.3 mm 31w 1d 37% So HC 271.4 mm 29w 4d <1% Hadlock Cerebellum tr 37.7 mm 30w 6d 14% Hill AC 245.2 mm 28w 5d 1% Hadlock Femur 57.7 mm 30w 1d 8% Hadlock Humerus 50.1 mm 29w 2d 5% So HC / AC 1.11 EFW 1,384 g 29w 0d 3% Hadlock EFW (lb) 3 lb EFW (oz) 1 oz EFW by: Hadlock ([id number]-FL) Extended Cav. septi pel. tr 6.3 mm CM 5.0 mm 4% Nicolaides Head / Face / Neck Cephalic index 0.77 19% Nicolaides Extremities / Bony Struc FL / BPD 0.78 FL / HC 0.21 FL / AC 0.24 Other Structures FHR 160 bpm General Evaluation Cardiac activity present. FHR 160 bpm. movements present. Presentation cephalic. Placenta Placental site: posterior with anterior succenturiate lobe. Umbilical cord Cord vessels: 3 vessel cord. Amniotic fluid Amount of AF: normal. MVP 3.2 cm. SHAQUILLE 10.9 cm. Q1 2.4 cm, Q2 2.9 cm, Q3 2.5 cm, Q4 3.2 cm. Anatomy Cranium: Normal Cavum septi pellucidi: Normal Cerebellum: Normal Cisterna magna: Normal Head / Neck Rt lateral ventricle: Normal Lt lateral ventricle: Normal Lips: Normal Profile: Normal Nose: Normal 4-chamber view: Appears normal RVOT view: Normal LVOT view: Normal Heart / Thorax 3-vessel view: Normal 6-kcuxlo-nfholdm view: normal Stomach: Appears normal Kidneys: Appears normal Bladder: Appears normal Gender: female Wants to know gender: yes Doppler Arterial Umbilical A PI 1.14 86% Jessica Umbilical A RI 0.70 84% Jessica Umbilical A PS -57.33 cm/s Umbilical A ED -18.37 cm/s Umbilical A TAmax -36.24 cm/s Umbilical A MD -18.21 cm/s Umbilical A S / D 3.33 80% Jessica Umbilical A HR 146 bpm Biophysical Profile 2: breathing movements 2: Gross body movements 2: tone 2: Amniotic fluid volume 06/15 Biophysical profile score Consultation / Office Visit Type: Consultation See [facility] for full consult note. Impression Single, viable intrauterine at 31w4d in cephalic lie The placenta is posterior, with an anterior succenturiate lobe size is consistent with severe growth restriction for the established CYNDI (EFW 3%, AC 1%) with interval growth noted The amniotic fluid volume is normal The UA Doppler studies are normal and without increased evidence of placental resistance The visualized portions of the anatomy (see table) appear normal The BPP is reassuring (06/15) No additional abnormalities are appreciated within the limitations of ultrasound Recommendation Continue twice weekly NST's and once weekly BPP/Doppler studies (your office) Follow up in 2 weeks for growth assessment (PDC) Coding ======= Description: 43232-14 Follow Up Ultrasound Description: 16015-42 BPP without NST Description: 09556-02 Doppler Umbilical Artery Floral Specialist: Zamzam Harris RDMS Physician: Napoleon Pak MD Electronically signed by: Napoleon Pak MD at: 09:22 Procedure Note Napoleon Pak MD - 09/21/2025 PAT NAME: SHILPI ALATORRE MED REC#: [id number] DA: 2000 PAT GEND: F PAT TYPE: O EXAM CARLOS: [id number] REF PHYS PATY FLORES Comparison Studies The findings of this study are compared to the prior ultrasound studydated 09/07/25 Patient Status Outpatient Indication ======== IUGR. Maternal Assessment Nqlldk302 cm Height (ft)5 ft Height (in)2 in Pnsvqj40 kg Weight (lb)126 lb BMI22.89 kg/m Method ======= Transabdominal ultrasound examination. View: Adequate view ========= Whittaker . Number of fetuses: 1 Dating ====== Method of dating:based on stated CYNDI GA by prior [id number] w + 4 d CYNDI by prior assessment:11/19/2025 Ultrasound examination on:09/21/2025 GA by U/S based upon:AC, BPD, Femur, HC GA by U/S29 w + 4 d CYNDI by U/S:12/03/2025 Previous dating:based on stated CYNDI, selected on 09/07/2025 Agreed CYNDI of previous datin11/19/2025 Assigned:based on stated CYNDI, selected on 09/21/2025 Assigned GA31 w + 4 d Assigned CYNDI:11/19/2025 [id number] d Biometry Standard BPD73.7 mm 29w 4d 3% Hadlock OFD96.3 mm 31w 1d 37% So HC271.4 mm 29w 4d <1% Hadlock Cerebellum tr37.7 mm 30w 6d 14% Hill AC245.2 mm 28w 5d 1% Hadlock Femur57.7 mm 30w 1d 8% Hadlock Byttzse41.1 mm 29w 2d 5% So HC / AC1.11 EFW1,384 g 29w 0d 3% Hadlock EFW (lb)3 lb EFW (oz)1 oz EFW by:Hadlock (UDK-SI-BF-FL) Extended Cav. septi pel. tr6.3 mm CM5.0 mm 4% Nicolaides Head / Face / Neck Cephalic index0.77 19% Nicolaides Extremities / Bony Struc FL / BPD0.78 FL / HC0.21 FL / AC0.24 Other Structures PFD018 bpm General Evaluation Cardiac activity present. FHR 160 bpm. movements present. Presentation cephalic. Placenta Placental site: posterior with anterior succenturiate lobe. Umbilical cord Cord vessels: 3 vessel cord. Amniotic fluid Amount of AF: normal. MVP 3.2 cm. SHAQUILLE 10.9 cm. Q1 2.4 cm,Q2 2.9 cm, Q3 2.5 cm, Q4 3.2 cm. Anatomy Cranium:Normal Cavum septi pellucidi:Normal Cerebellum:Normal Cisterna magna:Normal Head / Neck Rt lateral ventricle:Normal Lt lateral ventricle:Normal Lips:Normal Profile:Normal Nose:Normal 4-chamber view:Appears normal RVOT view:Normal LVOT view:Normal Heart / Thorax 3-vessel view:Normal 4-kjybva-giativf view:normal Stomach:Appears normal Kidneys:Appears normal Bladder:Appears normal Gender:female Wants to know gender:yes Doppler Arterial Umbilical A PI1.14 86% Jessica Umbilical A RI0.70 84% Jessica Umbilical A PS-57.33 cm/s Umbilical A ED-18.37 cm/s Umbilical A TAmax-36.24 cm/s Umbilical A MD-18.21 cm/s Umbilical A S / D3.33 80% Jessica Umbilical A HR146 bpm Biophysical Profile 2: breathing movements 2: Gross body movements 2: tone 2: Amniotic fluid volume 06/15 Biophysical profile score Consultation / Office Visit Type: Consultation See [facility] for full consult note. Impression Single, viable intrauterine at 31w4d in cephalic lie The placenta is posterior, with an anterior succenturiate lobe size is consistent with severe growth restriction for theestablished CYNDI (EFW 3%, AC 1%) with interval growth noted The amniotic fluid volume is normal The UA Doppler studies are normal and without increased evidence ofplacental resistance The visualized portions of the anatomy (see table) appear normal The BPP is reassuring (8/8) No additional abnormalities are appreciated within the limitations ofultrasound Recommendation Continue twice weekly NST's and once weekly BPP/Doppler studies (youroffice) Follow up in 2 weeks for growth assessment (PDC) Coding ======= Description:89530-60 Follow Up Ultrasound Description:35958-44 BPP without NST Description:21540-10 Doppler Umbilical Artery Floral Specialist: Zamzam Harris RDMS Physician: Napoleon Pak MD Electronically signed by: Napoleon Pak MD at: 09:22 us Marissa Hadley MD IMG US ORDERABLES Edited Re sult - Final documented in this encounter Visit Diagnoses Diagnosis IUGR (intrauterine growth restriction) affecting care of mother, third trimester, fetus 1- Primary 29 weeks gestation of IUGR (intrauterine growth restriction) affecting care of mother, third trimester, fetus 1 documented in this encounter Care Teams Orchestra Leader Relationship Specialty Start Date End Date Provider, [place] [address] PCP - General 09/05/25 documented as of this encounter
--- OUTSIDE RECORDS SUMMARY | 2025-09-21 08:15 | XMS_ITS | Encounter Summary ---
Author Organization [facility] Address [address] [place] [id number] Care Team Providers Care Dog License Officer Supervisor Name Role Phone Provider, No Known Primary Care Provider Unavail able Reason for Referral * Diagnostic Imaging (Routine) - Closed Specialty Diagnoses / Procedures Referred By Contac t Referred To Contact Radiology Diagnoses IUGR (intrauterine growth restriction) affecting care of mother, third trimester, fetus 1 Procedures [facility] Marissa Hadley MD [address] [place] [address] Phone: tel: fax: Referral ID Status Reason Start Date Expiration Date Visits Re quested Visits Authorized [id number] Closed 09/07/2025 12/07/2026 1 1 Reason for Visit * Diagnostic Imaging (Routine) - Closed Specialty Diagnoses / Procedures Referred By Contac t Referred To Contact Radiology Diagnoses IUGR (intrauterine growth restriction) affecting care of mother, third trimester, fetus 1 Procedures [facility] Marissa Hadley MD [address] [place] [address] Phone: tel: fax: Referral ID Status Reason Start Date Expiration Date Visits Re quested Visits Authorized [id number] Closed 09/07/2025 12/07/2026 1 1 Encounter Details Date Type Department Care Team (Late st Contact Info) Description 09/21/2025 8:15 AM EST - 09/21/2025 11:59 PM EST Hospital Encounter [facility] US PER DIAG CTR [address] [place] [address] Marissa Hadley MD [address] [facility] [address] [place] [address] IUGR (intrauterine growth restriction) affecting care of mother, third trimester, fetus 1 Discharge Disposition: Home or Self Care Social [...] Description 10/26/2025 8:45 AM EST Office Visit [facility] MATERNAL MEDICINE [address] [facility] [address] [place] [address] 10/26/2025 8:45 AM EST Appointment [facility] US PER DIAG CTR [address] [place] [address] documented as of this encounter Procedures Procedure Name Priority Date/Time Associated Diagnosis Comments [facility] Routine 09/21/2025 8:44 AM EST IUGR (intrauterine growth restriction) affecting care of mother, third trimester, fetus 1 documented in this encounter Results * [facility] (09/21/2025 8:44 AM EST) Anatomical Region Laterality Modality Ultrasound 09/21/2025 8:30 AM EST Narrative 09/21/2025 9:21 AM EST PAT NAME: SHILPI ALATORRE MED REC#: [id number] DA: 2000 PAT GEND: F PAT TYPE: O EXAM CARLOS: [id number] REF PHYS PATY RINCNO Comparison Studies The findings of this study [...] EFW (oz) 1 oz EFW by: Hadlock (DCL-RH-NX-FL) Extended Cav. septi pel. tr 6.3 mm [...] Normal Heart / Thorax 3-vessel view: Normal 4-bzxtrn-tlbkikw view: normal Stomach: Appears normal Kidneys: Appears [...] Consultation / Office Visit Type: Consultation See [facility] for full consult note. Impression Single, [...] for growth assessment (PDC) Coding ======= Description: 67818-76 Follow Up Ultrasound Description: 44602-59 BPP without NST Description: 56931-73 Doppler Umbilical Artery Ship Engineer: Zamzam Harris RDMS Physician: Napoleon Pak MD Electronically signed by: Napoleon Pak MD at: 09:22 Procedure Note Napoleon Pak MD - 09/21/2025 PAT NAME: SHILPI ALATORRE MED REC#: [id number] DA: 2000 PAT GEND: F PAT TYPE: O EXAM CARLOS: [id number] REF PHYS PATY RINCON Comparison Studies The findings of this study are compared to the prior ultrasound studydated 09/07/25 Patient Status Outpatient Indication ======== IUGR. Maternal Assessment Hiqvlf300 cm Height (ft)5 ft Height (in)2 in Ymnxzl17 kg Weight (lb)126 lb BMI22.89 kg/m Method ======= Transabdominal ultrasound examination. View: Adequate view ========= Whittaker . Number of fetuses: 1 Dating ====== Method of dating:based on stated CYNDI GA by prior [id number] w + 4 d CYNDI by prior assessment:11/19/2025 Ultrasound examination on:09/21/2025 GA by U/S based upon:AC, BPD, Femur, HC GA by U/S29 w + 4 d CYNDI by U/S:12/03/2025 Previous dating:based on stated CYNDI, selected on 09/07/2025 Agreed CYNDI of previous datin11/19/2025 Assigned:based on stated CYNDI, selected on 09/21/2025 Assigned GA31 w + 4 d Assigned CYNDI:11/19/2025 uoqbhh592 d Biometry Standard BPD73.7 mm 29w 4d 3% Hadlock OFD96.3 mm 31w 1d 37% So HC271.4 mm 29w 4d <1% Hadlock Cerebellum tr37.7 mm 30w 6d 14% Hill AC245.2 mm 28w 5d 1% Hadlock Femur57.7 mm 30w 1d 8% Hadlock Kgchlne51.1 mm 29w 2d 5% So HC / AC1.11 EFW1,384 g 29w 0d 3% Hadlock EFW (lb)3 lb EFW (oz)1 oz EFW by:Hadlock (FKY-ST-FW-FL) Extended Cav. septi pel. tr6.3 mm CM5.0 mm 4% Nicolaides Head / Face / Neck Cephalic index0.77 19% Nicolaides Extremities / Bony Struc FL / BPD0.78 FL / HC0.21 FL / AC0.24 Other Structures BAL433 bpm General Evaluation Cardiac activity present. FHR [...] LVOT view:Normal Heart / Thorax 3-vessel view:Normal 3-rqmfxb-kwlccoo view:normal Stomach:Appears normal Kidneys:Appears normal Bladder:Appears normal [...] Consultation / Office Visit Type: Consultation See [facility] for full consult note. Impression Single, [...] weeks for growth assessment (PDC) Coding ======= Description:89332-22 Follow Up Ultrasound Description:78268-08 BPP without NST Description:56688-03 Doppler Umbilical Artery Ship Engineer: Zamzam Harris RDMS Physician: Napoleon Pak MD Electronically signed by: Napoleon Pak MD at: 09:22 us Marissa Hadley MD [facility] US ORDERABLES Edited Re sult - Final documented in this encounter Visit Diagnoses Diagnosis IUGR (intrauterine growth restriction) affecting care of mother, third trimester, fetus 1 documented in this encounter Care Teams Dog License Officer Supervisor Relationship Specialty Start Date End Date Provider, [place] [address] PCP - General 09/05/25 documented as of this encounter
--- OUTSIDE RECORDS SUMMARY | 2025-09-21 08:15 | XMS_ITS | Encounter Summary ---
Author Organization [facility] Address [address] [place] [phone] Care Team Providers Care Agronomy Professor Name Role Phone Provider, No Known Primary Care Provider Unavail able Reason for Referral * Diagnostic Imaging (Routine) - Authorized Specialty Diagnoses / Procedures Referred By Contac t Referred To Contact Radiology Diagnoses IUGR (intrauterine growth restriction) affecting care of mother, third trimester, fetus 1 Procedures Formerly [facility] Napoleon Pak MD [address] [place] [address] Phone: tel: fax: Referral ID Status Reason Start Date Expiration Date V isits Requested Visits Authorized [id number] Authorized 09/21/2025 12/21/2026 3 3 Reason for Visit * Reason Comments IUGR Encounter Details Date Type Department Care Team (Late st Contact Info) Description 09/21/2025 8:15 AM EST Office Visit [facility] MATERNAL MEDICINE [address] [place] [phone] Napoleon Pak MD [address] [place] [address] IUGR (intrauterine growth restriction) affecting care of [...] [facility]. Napoleon Pak MD, FACOG Maternal Medicine, [facility] [place] documented in this encounter Plan of Treatment Upcoming Encounters Date Type Department Care Team (Late st Contact Info) Description 10/26/2025 8:45 AM EST Office Visit [facility] [address] [facility] [address] [place] [address] 10/26/2025 8:45 AM EST Appointment [facility] [address] [place] [address] Scheduled Orders Name Type Priority Associated Diagnoses Orde r Schedule [facility] [place] Imaging Routine IUGR (intrauterine growth restriction) affecting care of mother, third trimester, fetus 1 Every 2 Weeks for 3 Occurrences starting 09/21/2025 until 09/21/2026, 2 completed documented as of this encounter Results * [facility] (10/10/2025 8:33 AM EST) Anatomical Region Laterality Modality Ultrasound 10/10/2025 8:11 AM EST Narrative 10/10/2025 8:35 AM EST PAT NAME: SHILPI ALATORRE MED REC#: [id number] DA: [id number] PAT GEND: F PAT TYPE: O EXAM CARLOS: [id number] REF PHYS PATY FLORES Comparison Studies The [...] here in 1 week. Coding ====== Description: 09680-76 BPP without NST Description: 03310-40 Doppler Umbilical Artery Chore Worker: Mine Pope RDMS Physician: Aman Otero MD, FACOG Electronically signed by: Aman Otero MD, FACOG at: 08:35 Procedure Note Dani Otero MD - 10/10/2025 PAT NAME: SHILPI ALATORRE MED REC#: [id number] DA: [id number] PAT GEND: F PAT TYPE: O EXAM CARLOS: [id number] REF PHYS PATY FLORES Comparison Studies The findings of this study are compared to the prior ultrasound studydated Patient Status Outpatient Indication ======== IUGR. Maternal Assessment Lsbicp079 cm Height (ft)5 ft Height (in)2 in Clqhei07 kg Weight (lb)130 lb BMI23.62 kg/m Method ======= Transabdominal ultrasound examination. View: Good view ========= Whittaker . Number of fetuses: 1 Dating ====== Method of dating:based on stated CYNDI GA by prior [id number] w + 2 d CYNDI by prior [...] scheduled here in 1 week. Coding ====== Description:30970-37 BPP without NST Description:86467-78 Doppler Umbilical Artery Chore Worker: Mine Pope RDMS Physician: Aman Otero MD, FACOG Electronically signed by: Aman Otero MD, FACOG at: 08:35 us Napoleon Pak MD IMG US ORDERABLES Final Res ult * US [facility] [place] (10/03/2025 9:37 AM EST) Anatomical Region Laterality Modality Ultrasound 10/03/2025 9:10 AM EST Narrative 10/03/2025 10:25 AM EST PAT NAME: SHILPI ALATORRE [facility] REC#: [id number] DA: [id number] PAT GEND: F PAT TYPE: O EXAM CARLOS: [id number] REF PHYS PATY FLORES Comparison Studies The [...] EFW (oz) 6 oz EFW by: Hadlock (GXB-ON-OI-FL) Extended Cav. septi pel. tr 6.2 mm Va 5.0 mm Pathology Manager 3.5 mm CM 6.7 mm 31% Nicolaides [...] Normal Heart / Thorax 3-vessel view: Normal 5-tzvdrz-trjscty view: normal Cord insertion: Normal Stomach: Appears [...] NST in your office. Coding ======= Description: 96504-15 Follow Up Ultrasound Description: 11207-36 BPP with NST Description: 05048-46 Doppler Umbilical Artery Chore Worker: Reba Richardson RDMS Physician: Nabil Robles MD, FACOG Electronically signed by: Nabil Robles MD, FACOG at: 10:25 Procedure Note Nabil Robles MD - 10/03/2025 PAT NAME: SHILPI ALATORRE MED REC#: [id number] DA: [id number] PAT GEND: F PAT TYPE: O EXAM CARLOS: [id number] REF PHYS RADHA FLORESLEY Comparison Studies The findings of this study are compared to the prior ultrasound studydated Patient Status Outpatient Indication ======== IUGR. Maternal Assessment Txhpvi462 cm Height (ft)5 ft Height (in)2 in Ypifte67 kg Weight (lb)128 lb BMI23.23 kg/m Method ======= Transabdominal ultrasound examination. View: Good view ========= Whittaker . Number of fetuses: 1 Dating ====== GA by prior yndqxhpicp17 w + 2 d CYNDI by prior [...] GA33 w + 2 d Assigned CYNDI:11/19/2025 dfmgoa991 d Biometry Standard BPD75.3 mm 30w 1d <1% Hadlock OFD95.4 mm 30w 6d 5% So HC272.1 mm 29w 5d <1% Hadlock Cerebellum tr42.8 mm 33w 4d 37% Hill AC257.0 mm 29w 6d <1% Hadlock Femur59.4 mm 31w 0d 2% Hadlock Qauflkm29.6 mm 31w 1d 11% So HC / AC1.06 EFW1,534 g 29w 6d <1% Hadlock EFW (lb)3 lb EFW (oz)6 oz EFW by:Hadlock (BDO-WO-VY-FL) Extended Cav. septi pel. tr6.2 mm Va5.0 mm Vp3.5 mm CM6.7 mm 31% Nicolaides Head / Face / Neck Cephalic index0.79 36% Nicolaides Extremities / Bony Struc FL / BPD0.79 FL / HC0.22 FL / AC0.23 Other Structures ENX740 bpm General Evaluation Cardiac activity present. FHR [...] LVOT view:Normal Heart / Thorax 3-vessel view:Normal 7-gdnvdc-casdmhr view:normal Cord insertion:Normal Stomach:Appears normal Kidneys:Appears normal Bladder:Appears normal Gender:female Wants to know gender:yes Maternal Structures Uterus / Cervix Cervical djyctw21.7 mm Doppler Arterial Umbilical A PI1.02 76% [...] Weekly NST in your office. Coding ======= Description:53643-14 Follow Up Ultrasound Description:80473-39 BPP with NST Description:00179-33 Doppler Umbilical Artery Chore Worker: Reba Richardson RDMS Physician: Nabil Robels MD, FACOG Electronically signed by: Nabil Robles [...] 1 documented in this encounter Care Teams Agronomy Professor Relationship Specialty Start Date End Date Provider, No Known [facility] [place] [address] PCP - General 09/05/25 documented as of this encounter
--- OUTSIDE RECORDS SUMMARY | 2025-10-03 08:47 | XMS_ITS | Encounter Summary ---
Author Organization [facility] Address [address] [place] [phone] Care Team Providers Care Beamster Name Role Phone Provider, No Known Primary Care Provider Unavail able Reason for Referral * Diagnostic Imaging (Routine) - Authorized Specialty Diagnoses / Procedures Referred By Contac t Referred To Contact Radiology Diagnoses IUGR (intrauterine growth restriction) affecting care of mother, third trimester, fetus 1 Procedures US [facility] Napoleon Pak MD [address] [place] [address] Phone: tel: fax: Referral ID Status Reason Start Date Expiration Date V isits Requested Visits Authorized [id number] Authorized 09/21/2025 12/21/2026 3 3 Reason for Visit * Diagnostic Imaging (Routine) - Authorized Specialty Diagnoses / Procedures Referred By Contac t Referred To Contact Radiology Diagnoses IUGR (intrauterine growth restriction) affecting care of mother, third trimester, fetus 1 Procedures US [facility] Napoleon Pak MD [address] [place] [address] Phone: tel: fax: Referral ID Status Reason Start Date Expiration Date V isits Requested Visits Authorized [id number] Authorized 09/21/2025 12/21/2026 3 3 Encounter Details Date Type Department Care Team (Late st Contact Info) Description 10/03/2025 8:47 AM EST - 10/03/2025 11:59 PM EST Hospital Encounter [facility] US PER DIAG CTR [address] [place] [address] Napoleon Pak MD 1700 [facility] [address] [place] [address] IUGR (intrauterine growth restriction) affecting care of [...] Description 10/26/2025 8:45 AM EST Office Visit [facility] [address] [facility] [address] [place] [address] 10/26/2025 8:45 AM EST Appointment [facility] US PER DIAG CTR [address] [place] [address] documented as of this encounter Procedures Procedure Name Priority Date/Time Associated Diagnosis Comments [facility] Routine 10/03/2025 9:37 AM EST IUGR (intrauterine growth restriction) affecting care of mother, third trimester, fetus 1 documented in this encounter Results * [facility] (10/03/2025 9:37 AM EST) Anatomical Region Laterality Modality Ultrasound 10/03/2025 9:10 AM EST Narrative 10/03/2025 10:25 AM EST PAT NAME: SHILPI ALATORRE MED REC#: [id number] DA: 2000 PAT GEND: F PAT TYPE: O EXAM CARLOS: [id number] REF PHYS PATY RINCON Comparison Studies The [...] EFW (oz) 6 oz EFW by: Hadlock (YUE-GY-CP-FL) Extended Cav. septi pel. tr 6.2 mm Va 5.0 mm Boot Turner 3.5 mm CM 6.7 mm 31% Nicolaides [...] Normal Heart / Thorax 3-vessel view: Normal 3-ddjkpu-qoyvahy view: normal Cord insertion: Normal Stomach: Appears [...] NST in your office. Coding ======= Description: 16910-54 Follow Up Ultrasound Description: 94713-93 BPP with NST Description: 15111-47 Doppler Umbilical Artery Field Marketing Director: Reba Richardson RDMS Physician: Nabil Robles MD, FACOG Electronically signed by: Nabil Robles MD, FACOG at: 10:25 Procedure Note Nabil Robles MD - 10/03/2025 PAT NAME: SHILPI ALATORRE MED REC#: [id number] DA: [id number] PAT GEND: F PAT TYPE: O EXAM CARLOS: [id number] REF PHYS PATY RINCON Comparison Studies The findings of this study are compared to the prior ultrasound studydated Patient Status Outpatient Indication ======== IUGR. Maternal Assessment Qybtuz296 cm Height (ft)5 ft Height (in)2 in Jyulvt61 kg Weight (lb)128 lb BMI23.23 kg/m Method ======= Transabdominal ultrasound examination. View: Good view ========= Whittaker . Number of fetuses: 1 Dating ====== GA by prior gmbzppgyoo35 w + 2 d CYNDI by prior [...] Hadlock Femur59.4 mm 31w 0d 2% Hadlock Izkxzgw43.6 mm 31w 1d 11% So HC / AC1.06 EFW1,534 g 29w 6d <1% Hadlock EFW (lb)3 lb EFW (oz)6 oz EFW by:Hadlock (VXZ-GK-XB-FL) Extended Cav. septi pel. tr6.2 mm Va5.0 mm Vp3.5 mm CM6.7 mm 31% Nicolaides Head / Face / Neck Cephalic index0.79 36% Nicolaides Extremities / Bony Struc FL / BPD0.79 FL / HC0.22 FL / AC0.23 Other Structures BET381 bpm General Evaluation Cardiac activity present. FHR [...] LVOT view:Normal Heart / Thorax 3-vessel view:Normal 6-nvhhlw-pffmveo view:normal Cord insertion:Normal Stomach:Appears normal Kidneys:Appears normal Bladder:Appears normal Gender:female Wants to know gender:yes Maternal Structures Uterus / Cervix Cervical bwzuyk44.7 mm Doppler Arterial Umbilical A PI1.02 76% [...] Weekly NST in your office. Coding ======= Description:36562-03 Follow Up Ultrasound Description:33928-38 BPP with NST Description:60709-59 Doppler Umbilical Artery Field Marketing Director: Reba Richardson RDMS Physician: Nabil Robles MD, FACOG Electronically signed by: Nabil Robles MD, FACOG at: 10:25 us Napoleon Pak MD IMG US ORDERABLES Final Res ult documented in this encounter Visit Diagnoses Diagnosis IUGR (intrauterine growth restriction) affecting care of mother, third trimester, fetus 1 documented in this encounter Care Teams Beamster Relationship Specialty Start Date End Date Provider, No Known [place] [id number] PCP - General 09/05/25 documented as of this encounter
--- OUTSIDE RECORDS SUMMARY | 2025-10-03 09:15 | XMS_ITS | Encounter Summary ---
Author Organization [facility] Address [address] [place] [address] Care Team Providers Care Weaver Tire Cord Name Role Phone Provider, No Known Primary Care Provider Unavail able Encounter Details Date Type Department Care Team (Late st Contact Info) Description 10/03/2025 9:15 AM EST Office Visit [facility] [address] [place] [phone] Nabil Robles MD [address] [facility] [address] [place] [address] IUGR (intrauterine growth restriction) affecting care of [...] Test Patient: Shilpi Alatorre : 2000 CSN: [id number] Date: 10/03/2025 Estimated Date of Delivery: 11/19/25 [...] NSTs in your office. Orders: - Cancel: [facility]; Future Follow Up 1 week [...] CVS. Nabil Robles MD, FACOG Maternal Medicine, [facility] documented in this encounter Plan of Treatment Upcoming Encounters Date Type Department Care Team (Late st Contact Info) Description 10/26/2025 8:45 AM EST Office Visit [facility] [address] [facility] [address] [place] [phone] 10/26/2025 8:45 AM EST Appointment [facility] US PER DIAG CTR [address] [place] [phone] documented as of this encounter Visit Diagnoses Diagnosis IUGR (intrauterine growth restriction) affecting care of mother, third trimester, fetus 1- Primary documented in this encounter Care Teams Weaver Tire Cord Relationship Specialty Start Date End Date Provider, No Known [facility] [place] [address] PCP - General 09/05/25 documented as of this encounter
--- OUTSIDE RECORDS SUMMARY | 2025-10-10 07:59 | XMS_ITS | Encounter Summary ---
Author Organization [facility] Address [address] [place] [phone] Care Team Providers Care Sludge Filtration Attendant Name Role Phone Provider, No Known Primary Care Provider Unavail able Reason for Referral * Diagnostic Imaging (Routine) - Authorized Specialty Diagnoses / Procedures Referred By Contac t Referred To Contact Radiology Diagnoses IUGR (intrauterine growth restriction) affecting care of mother, third trimester, fetus 1 Procedures US [facility] Napoleon Pak MD [address] [place] [address] Phone: tel: fax: Referral ID Status Reason Start Date Expiration Date V isits Requested Visits Authorized [id number] Authorized 09/21/2025 12/21/2026 3 3 Reason for Visit * Diagnostic Imaging (Routine) - Authorized Specialty Diagnoses / Procedures Referred By Contac t Referred To Contact Radiology Diagnoses IUGR (intrauterine growth restriction) affecting care of mother, third trimester, fetus 1 Procedures [facility] Napoleon Pak MD [address] [place] [address] Phone: tel: fax: Referral ID Status Reason Start Date Expiration Date V isits Requested Visits Authorized [id number] Authorized 09/21/2025 12/21/2026 3 3 Encounter Details Date Type Department Care Team (Late st Contact Info) Description 10/10/2025 7:59 AM EST - 10/10/2025 11:59 PM EST Hospital Encounter [facility] US PER DIAG CTR [address] [place] [address] Napoleon Pak MD 1700 [facility] [address] [place] [address] IUGR (intrauterine growth restriction) affecting care of [...] Description 10/26/2025 8:45 AM EST Office Visit [facility] [facility] [address] [place] [address] 10/26/2025 8:45 AM EST Appointment [facility] US PER DIAG CTR [address] [place] [address] documented as of this encounter Procedures Procedure Name Priority Date/Time Associated Diagnosis Comments [facility] Routine 10/10/2025 8:33 AM EST IUGR (intrauterine growth restriction) affecting care of mother, third trimester, fetus 1 documented in this encounter Results * [facility] (10/10/2025 8:33 AM EST) Anatomical Region Laterality Modality Ultrasound 10/10/2025 8:11 AM EST Narrative 10/10/2025 8:35 AM EST PAT NAME: SHILPI ALATORRE MED REC#: [id number] DA: 2000 PAT GEND: F PAT TYPE: O EXAM CARLOS: [id number] REF PHYS PATY RINCON Comparison Studies The [...] here in 1 week. Coding ====== Description: 82542-72 BPP without NST Description: 22727-18 Doppler Umbilical Artery Plant And Equipment Worker: Mine Pope RDMS Physician: Aman Otero MD, FACOG Electronically signed by: Aman Otero MD, FACOG at: 08:35 Procedure Note Dani Otero MD - 10/10/2025 PAT NAME: SHILPI ALATORRE MED REC#: [id number] DA: [id number] PAT GEND: F PAT TYPE: O EXAM CARLOS: [id number] REF PHYS SERGEY PATY Comparison Studies The findings of this study are compared to the prior ultrasound studydated Patient Status Outpatient Indication ======== IUGR. Maternal Assessment Fgbtrf625 cm Height (ft)5 ft Height (in)2 in Iqreyo26 kg Weight (lb)130 lb BMI23.62 kg/m Method ======= Transabdominal ultrasound examination. View: Good view ========= [place]aker . Number of fetuses: 1 Dating ====== Method of dating:based on stated CYNDI GA by prior wekswpwfrs53 w + 2 d CYNDI by prior assessment:11/19/2025 Previous dating:based on stated CYNDI, selected on 09/21/2025 Agreed CYNDI of previous datin11/19/2025 Assigned:based on stated CYNDI, selected on 10/10/2025 Assigned GA34 w + 2 d Assigned CYNDI:11/19/2025 [id number] d General Evaluation Cardiac activity present. FHR [...] scheduled here in 1 week. Coding ====== Description:07447-59 BPP without NST Description:85024-21 Doppler Umbilical Artery Plant And Equipment Worker: Mine Pope RDMS Physician: Aman Otero MD, FACOG Electronically signed by: Aman Otero MD, FACOG at: 08:35 us Napoleon Pak MD [facility] [place] [place] US ORDERABLES Final Res ult documented in this encounter Visit Diagnoses Diagnosis IUGR (intrauterine growth restriction) affecting care of mother, third trimester, fetus 1 documented in this encounter Care Teams Sludge Filtration Attendant Relationship Specialty Start Date End Date Provider, [place] [address] PCP - General 09/05/25 documented as of this encounter
--- OUTSIDE RECORDS SUMMARY | 2025-10-10 08:15 | XMS_ITS | Encounter Summary ---
Author Organization [facility] Address [address] [place] [address] Care Team Providers Care [employer] Forces Weapons Sergeant Name Role Phone Provider, No Known Primary Care Provider Unavail able Reason for Referral * Diagnostic Imaging (Routine) - Authorized Specialty Diagnoses / Procedures Referred By Contac t Referred To Contact Radiology Diagnoses IUGR (intrauterine growth restriction) affecting care of mother, third trimester, fetus 1 Placenta succenturiate lobe affecting fetus 34 weeks gestation of Procedures [facility] Dani Otero MD [address] [facility] [address] [place] [address] Phone: tel: fax: Referral ID Status Reason Start Date Expiration Date V isits Requested Visits Authorized [id number] Authorized 10/10/2025 01/09/2027 1 1 Reason for Visit * Reason Comments IUGR Encounter Details Date Type Department Care Team (Late st Contact Info) Description 10/10/2025 8:15 AM EST Office Visit [facility] MATERNAL MEDICINE [address] [facility] [address] [place] [phone] Dani Otero MD [address] [facility] [address] [place] [address] IUGR (intrauterine growth restriction) affecting care of mother, third trimester, fetus 1 (Primary Dx); Placenta succenturiate lobe affecting fetus; 34 weeks gestation of Social History Tobacco Use [...] Sign Reading Time Taken Comments Blood Pressure 134/75 10/10/2025 8:03 AM EST Pulse - - Temperature - - Respiratory Rate - - Oxygen Saturation - - Inhaled Oxygen Concentration - - Weight 59.2 kg (130 lb 9.6 oz) 10/10/2025 8:03 A M EST Height - - Body Mass Index 23.51 09/07/2025 8:14 AM EDT documented in this encounter Progress Notes * Alise Bynum RN - 10/10/2025 8:15 AM EST Denies vaginal bleeding, leaking fluid, and contractions. Endorses normal movement. NIPT negative. Next OB follow-up appointment with Dr. Flores on 10/16/2025. * Dani Otero MD - 10/10/2025 8:15 AM EST Documentation of the ultrasound findings, images, and interpretations will be available in the patient's Viewpoint report which is located in the imaging tab in chart review. documented in this encounter Plan of Treatment Upcoming Encounters Date Type Department Care Team (Late st Contact Info) Description 10/26/2025 8:45 AM EST Office Visit [facility] MEDIC[facility] [address] [place] [address] 10/26/2025 8:45 AM EST Appointment [facility] US PER DIAG CTR [address] [place] [address] Scheduled Orders Name Type Priority Associated Diagnoses Orde r Schedule [facility] Imaging Routine IUGR (intrauterine growth restriction) affecting care of mother, third trimester, fetus 1 Placenta succenturiate lobe affecting fetus 34 weeks gestation of Expected: 10/17/2025, Expires: 01/08/2027 documented as of this encounter Visit Diagnoses Diagnosis IUGR (intrauterine growth restriction) affecting care of mother, third trimester, fetus 1- Primary Placenta succenturiate lobe affecting fetus Fetus or affected by other forms of other and unspecified morphological and functional abnormalities of placenta 34 weeks gestation of documented in this encounter Care Teams Special Forces Weapons Sergeant Relationship Specialty Start Date End Date Provider, [place] [address] PCP - General 09/05/25 documented as of this encounter
--- OUTSIDE RECORDS SUMMARY | 2025-10-23 12:51 | XMS_ITS | Clinical Summary ---
Author Organization [facility] Address [address] [place] [address] Care Team Providers Care Insurance Consultant Name Role Phone Provider, No Known [...] Encounters Date Type Department Care Team Description 10/18/2025 Telephone [facility] [address] [place] [address] Dani Otero MD 10/10/2025 8:15 AM EST Office Visit [facility] [address] [facility] [address] [place] [address] Dani Otero MD IUGR (intrauterine growth restriction) affecting care of mother, third trimester, fetus 1 (Primary Dx); Placenta succenturiate lobe affecting fetus; 34 weeks gestation of 10/10/2025 7:59 AM EST - 10/10/2025 11:59 PM EST Hospital Encounter [facility] US PER DIAG CTR [address] [place] [address] Napoleon Pak MD IUGR (intrauterine growth restriction) affecting care of mother, third trimester, fetus 1 Discharge Disposition: Home or Self Care 10/10/2025 Travel 10/03/2025 9:15 AM EST Office Visit [facility] MATERNAL MEDICINE [address] [facility] [address] [place] [address] Nabil Robles MD IUGR (intrauterine growth restriction) affecting care of mother, third trimester, fetus 1 (Primary Dx) 10/03/2025 8:47 AM EST - 10/03/2025 11:59 PM EST Hospital Encounter [facility] US PER DIAG CTR [address] [place] [address] Napoleon Pak MD IUGR (intrauterine growth restriction) affecting care of mother, third trimester, fetus 1 Discharge Disposition: Home or Self Care 10/03/2025 Travel 09/21/2025 8:15 AM EST - 09/21/2025 11:59 PM EST Hospital Encounter [facility] US PER DIAG CTR [address] [place] [address] Marissa Hadley MD IUGR (intrauterine growth restriction) affecting care of mother, third trimester, fetus 1 Discharge Disposition: Home or Self Care 09/21/2025 8:15 AM EST Office Visit [facility] MATERNAL MEDICINE [address] [facility] [address] [place] [address] Napoleon Pak MD IUGR (intrauterine growth restriction) affecting care of mother, third trimester, fetus 1 (Primary Dx); Placenta succenturiate lobe affecting fetus 09/21/2025 Travel 09/07/2025 8:00 AM EDT Office Visit [facility] MATERNAL MEDICINE [address] [facility] [address] [place] [address] Marissa Hadley MD IUGR (intrauterine growth restriction) affecting care of mother, third trimester, fetus 1 (Primary Dx); 29 weeks gestation of 09/07/2025 7:58 AM EDT - 09/07/2025 11:59 PM EDT Hospital Encounter [facility] US PER DIAG CTR [address] [place] [address] Paty Flores DO IUGR (intrauterine [...] Description 10/26/2025 8:45 AM EST Office Visit [facility]INE [address] [place] [address] 10/26/2025 8:45 AM EST Appointment [facility] US PER DIAG CTR [address] [place] [address] Health Maintenance Due Date Last [...] Priority Date/Time Associated Diagnosis Comments [facility] Routine 10/10/2025 8:33 AM EST IUGR (intrauterine growth restriction) affecting care of mother, third trimester, fetus 1 [facility] Routine 10/03/2025 9:37 AM EST IUGR (intrauterine growth restriction) affecting care of mother, third trimester, fetus 1 [facility] Routine 09/21/2025 8:44 AM EST IUGR (intrauterine growth restriction) affecting care of mother, third trimester, fetus 1 [facility] Routine 09/07/2025 11:09 AM EDT IUGR (intrauterine growth restriction) affecting care of mother, third trimester, fetus 1 , unspecified gestational age from Last 3 Months Results * [facility] (10/10/2025 8:33 AM EST) Only the most recent of4 resultswithin the time period is included. Anatomical Region Laterality Modality Ultrasound 10/10/2025 8:11 AM EST Narrative 10/10/2025 8:35 AM EST PAT NAME: SHILPI ALATORRE MED REC#: [id number] DA: 2000 PAT GEND: F PAT TYPE: O EXAM CARLOS: [id number] REF PHYS PATY FLORES Comparison Studies The [...] here in 1 week. Coding ====== Description: 34698-24 BPP without NST Description: 75127-31 Doppler Umbilical Artery Systems Administration Analyst: Mine Pope RDMS Physician: Aman Otero MD, FACOG Electronically signed by: Aman Otero MD, FACOG at: 08:35 Procedure Note Dani Otero MD - 10/10/2025 PAT NAME: SHILPI ALATORRE MED REC#: [id number] DA: [id number] PAT GEND: F PAT TYPE: O EXAM CARLOS: [id number] REF PHYS PATY FLORES Comparison Studies The findings of this study are compared to the prior ultrasound studydated Patient Status Outpatient Indication ======== IUGR. Maternal Assessment Kyvccu072 cm Height (ft)5 ft Height (in)2 in Iykgya27 kg Weight (lb)130 lb BMI23.62 kg/m Method ======= Transabdominal ultrasound examination. View: Good view ========= Whittaker . Number of fetuses: 1 Dating ====== Method of dating:based on stated CYNDI GA by prior [id number] w + 2 d CYNDI by prior assessment:11/19/2025 Previous dating:based on stated CYNDI, selected on 09/21/2025 Agreed CYNDI of previous datin11/19/2025 Assigned:based on stated CYNDI, selected on 10/10/2025 Assigned [id number] w + 2 d Assigned CYNDI:11/19/2025 [id number] d General Evaluation Cardiac activity present. FHR [...] scheduled here in 1 week. Coding ====== Description:46244-32 BPP without NST Description:74956-25 Doppler Umbilical Artery Systems Administration Analyst: Mine Pope RDMS Physician: Aman Otero MD, FACOG Electronically signed by: Aman Otero MD, FACOG at: 08:35 us Napoleon Pak MD [facility] US ORDERABLES Final Res ult from Last 3 Months Insurance [facility] PLAN [facility] Care Teams Insurance Consultant Relationship Specialty Start Date End Date Provider, No Known [facility] [place] [address] PCP - General 09/05/25
--- OUTSIDE RECORDS SUMMARY | 2025-10-23 12:51 | XMS_ITS | Encounter Summary ---
Author Organization [facility] Address [address] [place] [address] Care Team Providers Care Master Technician Name Role Phone Provider, No Known [...] Description 10/26/2025 8:45 AM EST Office Visit [facility]NAL MEDICINE [address] [place] [address] 10/26/2025 8:45 AM EST Appointment [facility] US PER DIAG CTR [address] [place] [address] documented as of this encounter Visit Diagnoses Not on filedocumented in this encounter Care Teams Master Technician Relationship Specialty Start Date End Date Provider, No Known [facility] [place] [address] PCP - General 09/05/25 documented as of this encounter
--- OUTSIDE RECORDS SUMMARY | 2025-10-23 12:52 | XMS_ITS | Encounter Summary ---
Author Organization [facility] Address [address] [place] [address] Care Team Providers Care Switch Inspector Name Role Phone Provider, No Known Primary Care Provider Unavail able Encounter Details Date Type Department Care Team (Late st Contact Info) Description 10/18/[address] [facility] MATERNAL MEDICINE [address] [facility] [address] [place] [phone] Dani Otero MD [address] [facility] [address] [place] [address] Social History Tobacco Use Types Packs/Day Years [...] on file documented as of this encounter Miscellaneous Notes * Telephone Encounter - Tequila Medina - 10/18/2025 11:41 AM EST Pt cannot make it tomorrow due to weather. She is going to have scan with local OB tomorrow and seeus next week as planned. documented in this encounter Plan of Treatment Upcoming Encounters Date Type Department Care Team (Late st Contact Info) Description 10/26/2025 8:45 AM EST Office Visit [facility] MATERNAL MEDICINE [address] [place] [address] 10/26/2025 8:45 AM EST Appointment [facility] US PER DIAG CTR [address] [place] [address] documented as of this encounter Visit Diagnoses Not on filedocumented in this encounter Care Teams Switch Inspector Relationship Specialty Start Date End Date Provider, [place] [address] PCP - General 09/05/25 documented as of this encounter
--- OUTSIDE RECORDS SUMMARY | 2025-10-23 12:52 | XMS_ITS | Encounter Summary ---
Author Organization [facility] Address [address] [place] [address] Care Team Providers Care Visual Presentation Manager Name Role Phone Provider, No Known [...] Description 10/26/2025 8:45 AM EST Office Visit [facility] MEDICINE [address] [facility] [address] [place] [address] 10/26/2025 8:45 AM EST Appointment [facility] US PER DIAG CTR [address] [place] [address] documented as of this encounter Visit Diagnoses Not on filedocumented in this encounter Care Teams Visual Presentation Manager Relationship Specialty Start Date End Date Provider, No Known [facility] [place] [address] PCP - General 09/05/25 documented as of this encounter
--- OUTSIDE RECORDS SUMMARY | 2025-10-23 12:52 | XMS_ITS | Clinical Summary ---
Author Organization [facility] Address [address] [place] [address] Phone Care Team Providers Care Yarder Name Role Phone Unavailable Primary Care Provider [...]
--- OUTSIDE RECORDS SUMMARY | 2025-10-23 12:52 | XMS_ITS | Encounter Summary ---
Author Organization [facility] Address [address] [place] [address] Care Team Providers Care Flow Machine Operator Name Role Phone Provider, No [...] Description 10/26/2025 8:45 AM EST Office Visit [facility] MATERNAL MEDICINE [address] [place] [address] 10/26/2025 8:45 AM EST Appointment [facility] US PER DIAG CTR [address] [place] [address] documented as of this encounter Visit Diagnoses Not on filedocumented in this encounter Care Teams Flow Machine Operator Relationship Specialty Start Date End Date Provider, No Known [facility] [place] [address] PCP - General 09/05/25 documented as of this encounter
--- OUTSIDE RECORDS SUMMARY | 2025-10-23 12:52 | XMS_ITS | Encounter Summary ---
Author Organization [facility] Address [address] [place] [address] Care Team Providers Care Earring Maker Name Role Phone Provider, No Known Primary [...] Description 10/26/2025 8:45 AM EST Office Visit [facility] MAT[facility]NAL MEDICINE [address] [place] [address] 10/26/2025 8:45 AM EST [facility]ointment [facility] [address] [place] [address] documented as of this encounter Visit Diagnoses Not on filedocumented in this encounter Care Teams Earring Maker Relationship Specialty Start Date End Date Provider, No Known [facility] [place] [address] PCP - General 09/05/25 documented as of this encounter
[2025-10-23 13:08] VITALS: BP 131/84; PULSE 92; RESP 18; TEMP 36.7; O2SAT 98; BMI 24.7
== END 2025-10-23 13:43 | disposition home or self-care (01) ==
LOC: OBOUT 12:50 → OB 12:50
PROVIDERS: PCP Nurse Practitioner; Visit Provider Obstetrics & Gynecology
DX: Z34.03 Encounter for supervision of normal first pregnancy, third trimester (principal); Z3A.36 36 weeks gestation of pregnancy
CPT/HCPCS: 99212

== ENCOUNTER 2025-10-24 16:34 | Outpatient (CLI) | payer OTHER, SELFPAY ==
--- OUTSIDE RECORDS SUMMARY | 2025-09-07 06:58 | XMS_ITS | Encounter Summary ---
[facility] Address [address] [place] [address] Care Team Providers Care Water Filterer Helper Name Role Phone Provider, No Known Primary Care Provider Unavail able Reason for Referral * Diagnostic Imaging (Routine) - Closed Specialty Diagnoses / Procedures Referred By Contac t Referred To Contact Radiology Diagnoses IUGR (intrauterine growth restriction) affecting care of mother, third trimester, fetus 1 , unspecified gestational age Procedures [facility] Diagnostic [place] Paty Flores, [place] [address] Phone: tel: fax: [facility] US PER DIAG CTR [address] [place] [address] Phone: tel: Referral ID Status Reason Start Date Expiration Date Visits Re quested Visits Authorized [id number] Closed 09/05/2025 12/05/2026 1 1 Reason for Visit * Diagnostic Imaging (Routine) - Closed Specialty Diagnoses / Procedures Referred By Contac t Referred To Contact Radiology Diagnoses IUGR (intrauterine growth restriction) affecting care of mother, third trimester, fetus 1 , unspecified gestational age Procedures [facility] Diagnostic [place] Paty Flores DO [address] [place], [place] [address] Phone: tel: fax: [facility] US PER DIAG CTR [address] [place] [address] Phone: tel: Referral ID Status Reason Start Date Expiration Date Visits Re quested Visits Authorized [id number] Closed 09/05/2025 12/05/2026 1 1 Encounter Details Date Type Department Care Team (Latest Contact Info) Description 09/07/2025 7:58 AM EDT - 09/07/2025 11:59 PM EDT Hospital Encounter [facility] US PER DIAG CTR [address] [place] [address] Paty Flores, DO [address] [place] [facility] [address] [phone] IUGR (intrauterine growth restriction) affecting care of [...] Care Team (Late st Contact Info) Description 10/26/2025 8:45 AM EST Office Visit [facility] [address] [facility] [address] [place] [address] 10/26/2025 8:45 AM EST Appointment [facility] US PER DIAG CTR [address] [place] [address] documented as of this encounter Procedures Procedure Name Priority Date/Time Associated Diagnosis Comments [facility] Routine 09/07/2025 11:09 AM EDT IUGR (intrauterine growth restriction) affecting care of mother, third trimester, fetus 1 , unspecified gestational age documented in this encounter Results * [facility] (09/07/2025 11:09 AM EDT) Anatomical Region Laterality Modality Ultrasound 09/07/2025 8:18 AM EDT Narrative 09/07/2025 9:11 AM EDT PAT NAME: SHILPI ALATORRE MED REC#: [id number] DA: [id number] PAT GEND: F PAT TYPE: O EXAM CARLOS: [id number] REF PHYS PATY FLORES Comparison Studies There [...] EFW (oz) 5 oz EFW by: Hadlock (RMW-ZD-QP-FL) Extended Tibia 47.0 mm 28w 4d 19% So Fibula 47.2 mm 29w 1d 40% So Foot 54.5 mm 8% Chitty Radius 38.3 mm 26w 5d 24% Os Ulna 42.4 mm 27w 3d 2% So Cav. septi pel. tr 6.4 mm Management Sme 7.0 mm CM 4.6 mm 3% Nicolaides [...] normal IVC: normal 3-vessel view: Appears normal 0-vpurmz-fpsvwal view: Appears normal Rt lung: Appears normal [...] with weekly UA Dopplers. Coding ======= Description: 49651-99 Detailed Ultrasound Description: 62336-84 BPP without NST Description: 92703-44 Doppler Umbilical Artery Check Clerk: Shell Smith RDMS Physician: Marissa Hadley MD Electronically signed by: Marissa Hadley MD at: 09:11 Procedure Note Marissa Hadley MD - 09/07/2025 PAT NAME: SHILPI ALATORRE MED REC#: [id number] DA: 2000 PAT GEND: F PAT TYPE: O EXAM CARLOS: [id number] REF PHYS PATY FLORES Comparison Studies There are no relevant prior studies to which this study is beingcompared Patient Status Outpatient Indication ======== IUGR Maternal Assessment Pgjapi701 cm Height (ft)5 ft Height (in)2 in Dsxpdz51 kg Weight (lb)121 lb BMI22.03 kg/m Method ======= Transabdominal ultrasound examination. View: Adequate view ========= Whittaker . Number of fetuses: 1 Dating ====== Method of dating:based on stated CYNDI GA by prior gnruhrjfby16 w + 4 d CYNDI by prior assessment:11/19/2025 Ultrasound examination on:09/07/2025 GA by U/S based upon:AC, BPD, Femur, HC GA by U/S27 w + 5 d CYNDI by U/S:12/02/2025 Assigned:based on stated CYNDI, selected on 09/07/2025 Assigned GA29 w + 4 d Assigned CYNDI:11/19/2025 edtwva608 d Biometry Standard BPD69.9 mm 28w 1d 6% Hadlock OFD93.2 mm 30w 0d 64% So HC258.5 mm 28w 1d 1% Hadlock Cerebellum tr33.9 mm 28w 4d 18% Hill AC222.2 mm 26w 5d <1% Hadlock Femur52.5 mm 28w 0d 5% Hadlock Hyqmhsz93.3 mm 27w 2d 4% So HC / AC1.16 EFW1,060 g 27w 0d 2% Hadlock EFW (lb)2 lb EFW (oz)5 oz EFW by:Hadlock (DXE-NI-NP-FL) Extended Tibia47.0 mm 28w 4d 19% So Qldcrm82.2 mm 29w 1d 40% So Foot54.5 mm 8% Chitty Qyqtmn44.3 mm 26w 5d 24% So Ulna42.4 mm 27w 3d 2% So Cav. septi pel. tr6.4 mm Vp7.0 mm CM4.6 mm 3% Nicolaides Nasal bone9.5 mm Head / Face / Neck Cephalic index0.75 11% Nicolaides Extremities / Bony Struc FL / BPD0.75 FL / HC0.20 FL / AC0.24 Other Structures TDZ333 bpm General Evaluation Cardiac activity present. FHR [...] view:Appears normal SVC:normal IVC:normal 3-vessel view:Appears normal 3-wtimbk-zqzzhcv view:Appears normal Rt lung:Appears normal Lt lung:normal [...] weekly testing with weekly UADopplers. Coding ======= Description:42051-15 Detailed Ultrasound Description:97462-84 BPP without NST Description:93262-92 Doppler Umbilical Artery Check Clerk: Shell Smith RDMS Physician: Marissa Hadley MD Electronically signed by: Marissa Hadley MD at: 09:11 us Paty Flores DO IMG US ORDERABLES Final Res ult documented in this encounter Visit Diagnoses Diagnosis IUGR (intrauterine growth restriction) affecting care of mother, third trimester, fetus 1 , unspecified gestational age documented in this encounter Care Teams Water Filterer Helper Relationship Specialty Start Date End Date Provider, [place] [address] PCP - General 09/05/25 documented as of this encounter
--- OUTSIDE RECORDS SUMMARY | 2025-09-07 07:00 | XMS_ITS | Encounter Summary ---
Author Organization [facility] Address [address] [place] [address] Care Team Providers Care General Manager Food Name Role Phone Provider, No Known Primary Care Provider Unavail able Reason for Referral * Diagnostic Imaging (Routine) - Closed Specialty Diagnoses / Procedures Referred By Contac t Referred To Contact Radiology Diagnoses IUGR (intrauterine growth restriction) affecting care of mother, third trimester, fetus 1 Procedures [facility] Marissa Hadley MD 1700 [facility] [address] [place] [address] Phone: tel: fax: Referral ID Status Reason Start Date Expiration Date Visits Re quested Visits Authorized [id number] Closed 09/07/2025 12/07/2026 1 1 Reason for Visit * Reason Comments IUGR Encounter Details Date Type Department Care Team (Late st Contact Info) Description 09/07/2025 8:00 AM EDT Office Visit [facility] MATERNAL MEDICINE 1700 [facility] [address] [place] [address] Marissa Hadley MD 1700 [facility] [address] [place], [place] [address] IUGR (intrauterine growth restriction) affecting care of [...] weekly assessment of BPP/SHAQUILLE/UA Dopplers Orders: - [facility]; Future 2. 29 weeks [...] Description 10/26/2025 8:45 AM EST Office Visit [facility] MATERNAL MEDICINE 1700 [facility] [address] [place] [address] 10/26/2025 8:45 AM EST Appointment [facility] [address] [place] [address] documented as of this encounter Results * [facility] (09/21/2025 8:44 AM EST) Anatomical Region Laterality Modality Ultrasound 09/21/2025 8:30 AM EST Narrative 09/21/2025 9:21 AM EST PAT NAME: SHILPI ALATORRE MED REC#: [id number] DA: [id number] PAT GEND: F PAT TYPE: O EXAM CARLOS: [id number] REF PHYS PATY FLORES Comparison Studies The [...] EFW (oz) 1 oz EFW by: Hadlock (WQD-OC-KL-FL) Extended Cav. septi pel. tr 6.3 mm [...] Normal Heart / Thorax 3-vessel view: Normal 2-jerbaa-qnkadad view: normal Stomach: Appears normal Kidneys: Appears [...] Consultation / Office Visit Type: Consultation See [facility] for full consult note. Impression Single, [...] for growth assessment (PDC) Coding ======= Description: 49326-89 Follow Up Ultrasound Description: 28242-48 BPP without NST Description: 19121-28 Doppler Umbilical Artery Tool Hardener: Zamzam Harris RDMS Physician: Napoleon Pak MD Electronically signed by: Napoleon Pak MD at: 09:22 Procedure Note Napoleon Pak MD - 09/21/2025 PAT NAME: SHILPI ALATORRE MED REC#: [id number] DA: 2000 PAT GEND: F PAT TYPE: O EXAM CARLOS: [id number] REF PHYS PATY FLORES Comparison Studies The findings of this study are compared to the prior ultrasound studydated 09/07/25 Patient Status Outpatient Indication ======== IUGR. Maternal Assessment Ebnota807 cm Height (ft)5 ft Height (in)2 in Lsdjny01 kg Weight (lb)126 lb BMI22.89 kg/m Method ======= Transabdominal ultrasound examination. View: Adequate view ========= Whittaker . Number of fetuses: 1 Dating ====== Method of dating:based on stated CYNDI GA by prior chufvdwwuj82 w + 4 d CYNDI by prior assessment:11/19/2025 Ultrasound examination on:09/21/2025 GA by U/S based upon:AC, BPD, Femur, HC GA by U/S29 w + 4 d CYNDI by U/S:12/03/2025 Previous dating:based on stated CYNDI, selected on 09/07/2025 Agreed CYNDI of previous datin11/19/2025 Assigned:based on stated CYNDI, selected on 09/21/2025 Assigned GA31 w + 4 d Assigned CYNDI:11/19/2025 idpzgl076 d Biometry Standard BPD73.7 mm 29w 4d 3% Hadlock OFD96.3 mm 31w 1d 37% So HC271.4 mm 29w 4d <1% Hadlock Cerebellum tr37.7 mm 30w 6d 14% Hill AC245.2 mm 28w 5d 1% Hadlock Femur57.7 mm 30w 1d 8% Hadlock Afmbsuk25.1 mm 29w 2d 5% So HC / AC1.11 EFW1,384 g 29w 0d 3% Hadlock EFW (lb)3 lb EFW (oz)1 oz EFW by:Hadlock (CKI-NH-EH-FL) Extended Cav. septi pel. tr6.3 mm CM5.0 mm 4% Nicolaides Head / Face / Neck Cephalic index0.77 19% Nicolaides Extremities / Bony Struc FL / BPD0.78 FL / HC0.21 FL / AC0.24 Other Structures YOJ610 bpm General Evaluation Cardiac activity present. FHR [...] LVOT view:Normal Heart / Thorax 3-vessel view:Normal 4-nifjjp-bierqbf view:normal Stomach:Appears normal Kidneys:Appears normal Bladder:Appears normal [...] Consultation / Office Visit Type: Consultation See [facility] for full consult note. Impression Single, [...] weeks for growth assessment (PDC) Coding ======= Description:01773-70 Follow Up Ultrasound Description:74778-92 BPP without NST Description:30994-39 Doppler Umbilical Artery Tool Hardener: Zamzam Harris RDMS Physician: Napoleon Pak MD [...] 1 documented in this encounter Care Teams General Manager Food Relationship Specialty Start Date End Date Provider, [place] [address] PCP - General 09/05/25 documented as of this encounter
--- OUTSIDE RECORDS SUMMARY | 2025-09-21 08:15 | XMS_ITS | Encounter Summary ---
Author Organization [facility] Address [address] [place] [id number] Care Team Providers Care Right Of Way Agent Name Role Phone Provider, No Known Primary Care Provider Unavail able Reason for Referral * Diagnostic Imaging (Routine) - Authorized Specialty Diagnoses / Procedures Referred By Contac t Referred To Contact Radiology Diagnoses IUGR (intrauterine growth restriction) affecting care of mother, third trimester, fetus 1 Procedures [facility] Napoleon Pak MD [address] [place] [address] Phone: tel: fax: Referral ID Status Reason Start Date Expiration Date V isits Requested Visits Authorized [id number] Authorized 09/21/2025 12/21/2026 3 3 Reason for Visit * Reason Comments IUGR Encounter Details Date Type Department Care Team (Late st Contact Info) Description 09/21/2025 8:15 AM EST Office Visit [facility] MATERNAL MEDICINE [address] [place] [phone] Napoleon Pak MD [address] [place] [address] IUGR (intrauterine growth restriction) affecting care of [...] [facility]. Napoleon Pak MD, FACOG Maternal Medicine, [facility] [place] documented in this encounter Plan of Treatment Upcoming Encounters Date Type Department Care Team (Late st Contact Info) Description 10/26/2025 8:45 AM EST Office Visit [facility] MATERNAL MEDICINE [address] [facility] [address] [place] [address] 10/26/2025 8:45 AM EST Appointment [facility] US PER DIAG CTR [address] [place] [address] Scheduled Orders Name Type Priority Associated Diagnoses Orde r Schedule [facility] [place] Imaging Routine IUGR (intrauterine growth restriction) affecting care of mother, third trimester, fetus 1 Every 2 Weeks for 3 Occurrences starting 09/21/2025 until 09/21/2026, 2 completed documented as of this encounter Results * [facility] (10/10/2025 8:33 AM EST) Anatomical Region Laterality Modality Ultrasound 10/10/2025 8:11 AM EST Narrative 10/10/2025 8:35 AM EST PAT NAME: SHILPI ALATORRE MED REC#: [id number] DA: [id number] PAT GEND: F PAT TYPE: O EXAM CARLOS: [id number] REF PHYS PATY FLORES Comparison Studies The [...] here in 1 week. Coding ====== Description: 75825-06 BPP without NST Description: 00147-24 Doppler Umbilical Artery Meeting Specialist: Mine Pope RDMS Physician: Aman Otero MD, FACOG Electronically signed by: Aman Otero MD, FACOG at: 08:35 Procedure Note Dani Otero MD - 10/10/2025 PAT NAME: SHILPI ALATORRE MED REC#: [id number] DA: [id number] PAT GEND: F PAT TYPE: O EXAM CARLOS: [id number] REF PHYS PATY FLORES Comparison Studies The findings of this study are compared to the prior ultrasound studydated Patient Status Outpatient Indication ======== IUGR. Maternal Assessment Acrdks264 cm Height (ft)5 ft Height (in)2 in Ehnixs65 kg Weight (lb)130 lb BMI23.62 kg/m Method ======= Transabdominal ultrasound examination. View: Good view ========= Whittaker . Number of fetuses: 1 Dating ====== Method of dating:based on stated CYNDI GA by prior w + 2 d CYNDI by prior assessment:11/19/2025 Previous dating:based on stated CYNDI, selected on 09/21/2025 Agreed CYNDI of previous datin11/19/2025 Assigned:based on stated CYNDI, selected on 10/10/2025 Assigned GA34 w + 2 d Assigned CYNDI:11/19/2025 d General Evaluation Cardiac activity present. FHR [...] scheduled here in 1 week. Coding ====== Description:35359-79 BPP without NST Description:24791-24 Doppler Umbilical Artery Meeting Specialist: Mine Pope RDMS Physician: Aman Otero MD, FACOG Electronically signed by: Aman Otero MD, FACOG at: 08:35 us Napoleon Pak MD IMG US ORDERABLES Final Res ult * US [facility] [place] (10/03/2025 9:37 AM EST) Anatomical Region Laterality Modality Ultrasound 10/03/2025 9:10 AM EST Narrative 10/03/2025 10:25 AM EST PAT NAME: SHILPI ALATORRE [facility] REC#: [id number] DA: [id number] PAT GEND: F PAT TYPE: O EXAM CARLOS: [id number] REF PHYS PATY FLORES Comparison Studies The [...] EFW (oz) 6 oz EFW by: Hadlock (GSK-GK-SE-FL) Extended Cav. septi pel. tr 6.2 mm Va 5.0 mm Learning Specialist 3.5 mm CM 6.7 mm 31% Nicolaides [...] Normal Heart / Thorax 3-vessel view: Normal 6-ckwauo-nlirjkx view: normal Cord insertion: Normal Stomach: Appears [...] NST in your office. Coding ======= Description: 67700-64 Follow Up Ultrasound Description: 29051-59 BPP with NST Description: 27576-34 Doppler Umbilical Artery Meeting Specialist: Reba Richardson RDMS Physician: Nabil Robles MD, FACOG Electronically signed by: Nabil Robles MD, FACOG at: 10:25 Procedure Note Nabil Robles MD - 10/03/2025 PAT NAME: SHILPI ALATORRE MED REC#: [id number] DA: [id number] PAT GEND: F PAT TYPE: O EXAM CARLOS: [id number] REF PHYS RADHA FLORESLEY Comparison Studies The findings of this study are compared to the prior ultrasound studydated Patient Status Outpatient Indication ======== IUGR. Maternal Assessment Nbvwkp942 cm Height (ft)5 ft Height (in)2 in Vijgxt54 kg Weight (lb)128 lb BMI23.23 kg/m Method ======= Transabdominal ultrasound examination. View: Good view ========= Whittaker . Number of fetuses: 1 Dating ====== GA by prior gikrpjgtgw46 w + 2 d CYNDI by prior [...] GA33 w + 2 d Assigned CYNDI:11/19/2025 [id number] d Biometry Standard BPD75.3 mm 30w 1d <1% Hadlock OFD95.4 mm 30w 6d 5% So HC272.1 mm 29w 5d <1% Hadlock Cerebellum tr42.8 mm 33w 4d 37% Hill AC257.0 mm 29w 6d <1% Hadlock Femur59.4 mm 31w 0d 2% Hadlock Zeymrwt56.6 mm 31w 1d 11% So HC / AC1.06 EFW1,534 g 29w 6d <1% Hadlock EFW (lb)3 lb EFW (oz)6 oz EFW by:Hadlock (CVP-VW-FM-FL) Extended Cav. septi pel. tr6.2 mm Va5.0 mm Vp3.5 mm CM6.7 mm 31% Nicolaides Head / Face / Neck Cephalic index0.79 36% Nicolaides Extremities / Bony Struc FL / BPD0.79 FL / HC0.22 FL / AC0.23 Other Structures HFB832 bpm General Evaluation Cardiac activity present. FHR [...] LVOT view:Normal Heart / Thorax 3-vessel view:Normal 3-umpjiv-zpqzkjc view:normal Cord insertion:Normal Stomach:Appears normal Kidneys:Appears normal Bladder:Appears normal Gender:female Wants to know gender:yes Maternal Structures Uterus / Cervix Cervical xupfcr23.7 mm Doppler Arterial Umbilical A PI1.02 76% Jessica Umbilical A RI0.65 73% Jessica Umbilical A PS50.45 cm/s 60% Ebbing Umbilical A ED18.19 cm/s Umbilical A TAmax33.55 cm/s 59% Ebbing Umbilical A MD18.12 cm/s Umbilical A S / D2.90 67% Jessica Umbilical A HR146 bpm Biophysical Profile 2: breathing movements 2: Gross body movements 2: tone 2: Amniotic fluid volume NST: reactive /10 Biophysical profile score Consultation / Office Visit Office note to follow Impression Today's exam reveals a SIUP in cephalic presentation with biometryinconsistent with dates, EFW <1%ile and AC<1%ile, 150 gms of intervalgrowth noted. Limited anatomic survey appears normal. The SHAQUILLE, UA dopplers and BPP are normal. Recommendation Follow up here in 1 week. Weekly NST in your office. Coding ======= Description:14778-07 Follow Up Ultrasound Description:11277-61 BPP with NST Description:45543-19 Doppler Umbilical Artery Meeting Specialist: Reba Richardson RDMS Physician: Nabil Robles MD, FACOG Electronically signed by: Nabil Robles MD, FACOG at: 10:25 Napoleon Pak MD IMG US ORDERABLES Final [...] 1 documented in this encounter Care Teams Right Of Way Agent Relationship Specialty Start Date End Date Provider, No Known [place] [address] PCP - General 09/05/25 documented as of this encounter
--- OUTSIDE RECORDS SUMMARY | 2025-09-21 08:15 | XMS_ITS | Encounter Summary ---
Author Organization [facility] Address [address] [place] [phone] Care Team Providers Care Production Tester Name Role Phone Provider, No Known Primary Care Provider Unavail able Reason for Referral * Diagnostic Imaging (Routine) - Closed Specialty Diagnoses / Procedures Referred By Contac t Referred To Contact Radiology Diagnoses IUGR (intrauterine growth restriction) affecting care of mother, third trimester, fetus 1 Procedures [facility] Marissa Hadley MD [address] [place] [address] Phone: tel: fax: Referral ID Status Reason Start Date Expiration Date Visits Re quested Visits Authorized [id number] Closed 09/07/2025 12/07/2026 1 1 Reason for Visit * Diagnostic Imaging (Routine) - Closed Specialty Diagnoses / Procedures Referred By Contac t Referred To Contact Radiology Diagnoses IUGR (intrauterine growth restriction) affecting care of mother, third trimester, fetus 1 Procedures [facility] [place] Marissa Hadley MD [address] [place] [address] Phone: tel: fax: Referral ID Status Reason Start Date Expiration Date Visits Re quested Visits Authorized [id number] Closed 09/07/2025 12/07/2026 1 1 Encounter Details Date Type Department Care Team (Late st Contact Info) Description 09/21/2025 8:15 AM EST - 09/21/2025 11:59 PM EST Hospital Encounter [facility] [address] [place] [address] Marissa Hadley MD [address] [facility] [address] [place] [address] IUGR (intrauterine growth restriction) affecting care of [...] Description 10/26/2025 8:45 AM EST Office Visit [facility]ICINE [address] [facility] [address] [place] [address] 10/26/2025 8:45 AM EST Appointment [facility] [address] [place] [address] documented as of this encounter Procedures Procedure Name Priority Date/Time Associated Diagnosis Comments [facility] Routine 09/21/2025 8:44 AM EST IUGR (intrauterine growth restriction) affecting care of mother, third trimester, fetus 1 documented in this encounter Results * [facility] (09/21/2025 8:44 AM EST) Anatomical Region Laterality Modality Ultrasound 09/21/2025 8:30 AM EST Narrative 09/21/2025 9:21 AM EST PAT NAME: SHILPI ALATORRE MED REC#: [id number] DA: 2000 PAT GEND: F PAT TYPE: O EXAM CARLOS: [id number] REF PHYS PATY RINCON Comparison Studies The [...] EFW (oz) 1 oz EFW by: Hadlock (CLI-CN-BO-FL) Extended Cav. septi pel. tr 6.3 mm [...] Normal Heart / Thorax 3-vessel view: Normal 3-yhkibf-rdwuhzb view: normal Stomach: Appears normal Kidneys: Appears [...] Consultation / Office Visit Type: Consultation See [facility] for full consult note. Impression Single, viable [...] for growth assessment (PDC) Coding ======= Description: 53431-55 Follow Up Ultrasound Description: 22662-56 BPP without NST Description: 05026-24 Doppler Umbilical Artery Cigar Brander: Zamzam Harris RDMS Physician: Napoleon Pak MD Electronically signed by: Napoleon Pak MD at: 09:22 Procedure Note Napoleon Pak MD - 09/21/2025 PAT NAME: SHILPI ALATORRE MED REC#: [id number] DA: 2000 PAT GEND: F PAT TYPE: O EXAM CARLOS: [id number] REF PHYS PATY RINCON Comparison Studies The findings of this study are compared to the prior ultrasound studydated 09/07/25 Patient Status Outpatient Indication ======== IUGR. Maternal Assessment Szzqzv177 cm Height (ft)5 ft Height (in)2 in Neidiy93 kg Weight (lb)126 lb BMI22.89 kg/m Method ======= Transabdominal ultrasound examination. View: Adequate view ========= Whittaker . Number of fetuses: 1 Dating ====== Method of dating:based on stated CYNDI GA by prior w + 4 d CYNDI by prior assessment:11/19/2025 Ultrasound examination on:09/21/2025 GA by U/S based upon:AC, BPD, Femur, HC GA by U/S29 w + 4 d CYNDI by U/S:12/03/2025 Previous dating:based on stated CYNDI, selected on 09/07/2025 Agreed CYNDI of previous datin11/19/2025 Assigned:based on stated CYNDI, selected on 09/21/2025 Assigned GA31 w + 4 d Assigned CYNDI:11/19/2025 gzjpam307 d Biometry Standard BPD73.7 mm 29w 4d 3% Hadlock OFD96.3 mm 31w 1d 37% So HC271.4 mm 29w 4d <1% Hadlock Cerebellum tr37.7 mm 30w 6d 14% Hill AC245.2 mm 28w 5d 1% Hadlock Femur57.7 mm 30w 1d 8% Hadlock Fuchpja01.1 mm 29w 2d 5% So HC / AC1.11 EFW1,384 g 29w 0d 3% Hadlock EFW (lb)3 lb EFW (oz)1 oz EFW by:Hadlock (HEV-EU-LC-FL) Extended Cav. septi pel. tr6.3 mm CM5.0 mm 4% Nicolaides Head / Face / Neck Cephalic index0.77 19% Nicolaides Extremities / Bony Struc FL / BPD0.78 FL / HC0.21 FL / AC0.24 Other Structures BAN952 bpm General Evaluation Cardiac activity present. FHR [...] LVOT view:Normal Heart / Thorax 3-vessel view:Normal 8-yfyjne-hvnanqx view:normal Stomach:Appears normal Kidneys:Appears normal Bladder:Appears normal [...] Consultation / Office Visit Type: Consultation See [facility] for full consult note. Impression Single, viable [...] weeks for growth assessment (PDC) Coding ======= Description:77439-07 Follow Up Ultrasound Description:46449-78 BPP without NST Description:15831-85 Doppler Umbilical Artery Cigar Brander: Zamzam Harris RDMS Physician: Napoleon Pak MD Electronically signed by: Napoleon Pak MD at: 09:22 us Marissa Hadley MD [facility] US ORDERABLES Edited Re sult - Final documented in this encounter Visit Diagnoses Diagnosis IUGR (intrauterine growth restriction) affecting care of mother, third trimester, fetus 1 documented in this encounter Care Teams Production Tester Relationship Specialty Start Date End Date Provider, [place] [address] PCP - General 09/05/25 documented as of this encounter
--- OUTSIDE RECORDS SUMMARY | 2025-10-03 08:47 | XMS_ITS | Encounter Summary ---
Author Organization [facility] Address [address] [place] [phone] Care Team Providers Care Coverstitch Elastic Attacher Name Role Phone Provider, No Known Primary Care Provider Unavail able Reason for Referral * Diagnostic Imaging (Routine) - Authorized Specialty Diagnoses / Procedures Referred By Contac t Referred To Contact Radiology Diagnoses IUGR (intrauterine growth restriction) affecting care of mother, third trimester, fetus 1 Procedures US [facility] Napoleon Pak MD [address] [place] [address] Phone: tel: fax: Referral ID Status Reason Start Date Expiration Date V isits Requested Visits Authorized [id number] Authorized 09/21/2025 12/21/2026 3 3 Reason for Visit * Diagnostic Imaging (Routine) - Authorized Specialty Diagnoses / Procedures Referred By Contac t Referred To Contact Radiology Diagnoses IUGR (intrauterine growth restriction) affecting care of mother, third trimester, fetus 1 Procedures [facility] Napoleon Pak MD [address] [place] [address] Phone: tel: fax: Referral ID Status Reason Start Date Expiration Date V isits Requested Visits Authorized [id number] Authorized 09/21/2025 12/21/2026 3 3 Encounter Details Date Type Department Care Team (Late st Contact Info) Description 10/03/2025 8:47 AM EST - 10/03/2025 11:59 PM EST Hospital Encounter [facility] US PER DIAG CTR [address] [place] [address] Napoleon Pak MD [address] [facility] [address] [place] [address] IUGR (intrauterine growth restriction) affecting care of [...] Description 10/26/2025 8:45 AM EST Office Visit [facility] [address] [facility] [address] [place] [address] 10/26/2025 8:45 AM EST Appointment [facility] US PER DIAG CTR [address] [place] [address] documented as of this encounter Procedures Procedure Name Priority Date/Time Associated Diagnosis Comments [facility] Routine 10/03/2025 9:37 AM EST IUGR (intrauterine growth restriction) affecting care of mother, third trimester, fetus 1 documented in this encounter Results * [facility] (10/03/2025 9:37 AM EST) Anatomical Region Laterality Modality Ultrasound 10/03/2025 9:10 AM EST Narrative 10/03/2025 10:25 AM EST PAT NAME: SHILPI ALATORRE MED REC#: [id number] DA: 2000 PAT GEND: F PAT TYPE: O EXAM CARLOS: [id number] REF PHYS PATY RINCON Comparison Studies The [...] EFW (oz) 6 oz EFW by: Hadlock (JNY-HZ-TS-FL) Extended Cav. septi pel. tr 6.2 mm Va 5.0 mm Grain Cleaner 3.5 mm CM 6.7 mm 31% Nicolaides [...] Normal Heart / Thorax 3-vessel view: Normal 3-wbrqdq-hbtuwiv view: normal Cord insertion: Normal Stomach: Appears [...] NST in your office. Coding ======= Description: 63126-74 Follow Up Ultrasound Description: 68774-16 BPP with NST Description: 62914-95 Doppler Umbilical Artery Director Voice: Reba Richardson RDMS Physician: Nabil Robles MD, FACOG Electronically signed by: Nabil Robles MD, FACOG at: 10:25 Procedure Note Nabil Robles MD - 10/03/2025 PAT NAME: SHILPI ALATORRE MED REC#: [id number] DA: [id number] PAT GEND: F PAT TYPE: O EXAM CARLOS: [id number] REF PHYS PATY RINCON Comparison Studies The findings of this study are compared to the prior ultrasound studydated Patient Status Outpatient Indication ======== IUGR. Maternal Assessment Dbfqza833 cm Height (ft)5 ft Height (in)2 in Byxlbe08 kg Weight (lb)128 lb BMI23.23 kg/m Method ======= Transabdominal ultrasound examination. View: Good view ========= Whittaker . Number of fetuses: 1 Dating ====== GA by prior dlmdsxqybn73 w + 2 d CYNDI by prior [...] GA33 w + 2 d Assigned CYNDI:11/19/2025 thlifx839 d Biometry Standard BPD75.3 mm 30w 1d <1% Hadlock OFD95.4 mm 30w 6d 5% So HC272.1 mm 29w 5d <1% Hadlock Cerebellum tr42.8 mm 33w 4d 37% Hill AC257.0 mm 29w 6d <1% Hadlock Femur59.4 mm 31w 0d 2% Hadlock Mritwsq08.6 mm 31w 1d 11% So HC / AC1.06 EFW1,534 g 29w 6d <1% Hadlock EFW (lb)3 lb EFW (oz)6 oz EFW by:Hadlock (WQM-GZ-MG-FL) Extended Cav. septi pel. tr6.2 mm Va5.0 mm Vp3.5 mm CM6.7 mm 31% Nicolaides Head / Face / Neck Cephalic index0.79 36% Nicolaides Extremities / Bony Struc FL / BPD0.79 FL / HC0.22 FL / AC0.23 Other Structures DYC733 bpm General Evaluation Cardiac activity present. FHR [...] LVOT view:Normal Heart / Thorax 3-vessel view:Normal 9-pwqwxe-mguduwh view:normal Cord insertion:Normal Stomach:Appears normal Kidneys:Appears normal Bladder:Appears normal Gender:female Wants to know gender:yes Maternal Structures Uterus / Cervix Cervical kozkrc76.7 mm Doppler Arterial Umbilical A PI1.02 76% [...] Weekly NST in your office. Coding ======= Description:25183-39 Follow Up Ultrasound Description:20111-67 BPP with NST Description:39666-02 Doppler Umbilical Artery Director Voice: Reba Richardson RDMS Physician: Nabil Robles MD, FACOG Electronically signed by: Nabil Robles MD, FACOG at: 10:25 us Napoleon Pak MD IMG US ORDERABLES Final Res ult documented in this encounter Visit Diagnoses Diagnosis IUGR (intrauterine growth restriction) affecting care of mother, third trimester, fetus 1 documented in this encounter Care Teams Coverstitch Elastic Attacher Relationship Specialty Start Date End Date Provider, No Known [place] [id number] PCP - General 09/05/25 documented as of this encounter
--- OUTSIDE RECORDS SUMMARY | 2025-10-03 09:15 | XMS_ITS | Encounter Summary ---
Author Organization [facility] Address [address] [place] [address] Care Team Providers Care Aerophysics Engineer Name Role Phone Provider, No Known Primary Care Provider Unavail able Encounter Details Date Type Department Care Team (Late st Contact Info) Description 10/03/2025 9:15 AM EST Office Visit [facility] [address] [place] [phone] Nabil Robles MD [address] [facility] [address] [place] [address] IUGR (intrauterine growth restriction) affecting care of mother, third trimester, fetus 1 (Primary Dx) Social History Tobacco Use Types Packs/Day Years [...] Sign Reading Time Taken Comments Blood Pressure 111/72 10/03/2025 8:58 AM EST Pulse - - Temperature - - Respiratory Rate - - Oxygen Saturation - - Inhaled Oxygen Concentration - - Weight 58.5 kg (129 lb) 10/03/2025 8:58 AM EST Height - - Body Mass Index 23.22 09/07/2025 8:14 AM EDT documented in this encounter Progress Notes * Nabil Robles MD - 10/03/2025 9:26 AM ESTAssociated Problem(s): IUGR (intrauterine growth restriction) affecting care of mother, third trimester, fetus 1 Patient presents for follow-up growth ultrasound secondary to IUGR. Last ultrasound showed overall growth at the 3rd percentile and AC at the 1st percentile. Today's ultrasound shows continued IUGR with EFW<1%ile and AC<1%ile, there was some interval growth noted 150 gms. Given somewhat poor interval growth patient was added on for NST and was reactive and reassuring. SHAQUILLE, BPP, UA dopplers are reassuring. We discussed strict return precautions regarding decreased movement. Plan for follow up SHAQUILLE, BPP, UA dopplers here next week out of abundance of cautions, recommend continued weekly NSTs in your office. * Georgie Redding RN - 10/03/2025 9:15 AM EST F/U with Dr. Flores 10/09/25. NIPT negative. Reports +FM. Denies contractions, cramping, leaking of fluid, vaginal bleeding. * Nabil Robles MD - 10/03/2025 9:15 AM EST Images from the original note were not included. Maternal/ Medicine Consult Note Date: 10/03/2025 Name: Shilpi Alatorre : 2000 Referring Provider: Lula Flores DO Chief Complaint IUGR Subjective History of Present Illness: Shilpi Alatorre is a 25 y.o. 33w2d who presents today for IUGR CYNDI: Estimated Date of Delivery: 11/19/25 ROS: Otherwise Noted in HPI Current Outpatient Medications: Vit-Fe Fumarate-FA ( VITAMINS PO), , Disp: , Rfl: Objective Vital Signs BP 111/72 Wt 58.5 kg (129 lb) Estimated body mass index is 23.22 kg/m?? as calculated from the following: Height as of 09/07/25: 158.8 cm (62.5 ). Weight as of this encounter: 58.5 kg (129 lb). Ultrasound Impression: See Viewpoint Non Stress Test Patient: Shilpi Alatorre : 2000 CSN: [id number] Date: 10/03/2025 Estimated Date of Delivery: 11/19/25 Gestational Age: 33w2d Indication for NST intrauterine growth restriction Time On 9:49 am Time Off 10:13 am Interpretation Baseline FHR 145 beats per minute Variability Moderate (6-25bpm) Accelerations Yes Decelerations Absent Category 1 Assessment and Plan Shilpi Alatorre is a 25 y.o. 33w2d who presents today for IUGR Diagnoses and all orders for this visit: 1. IUGR (intrauterine growth restriction) affecting care of mother, third trimester, fetus 1 (Primary) Assessment & Plan: Patient presents for follow-up growth ultrasound secondary to IUGR. Last ultrasound showed overall growth at the 3rd percentile and AC at the 1st percentile. Today's ultrasound shows continued IUGR with EFW<1%ile and AC<1%ile, there was some interval growth noted 150 gms. Given somewhat poor interval growth patient was added on for NST and was reactive and reassuring. SHAQUILLE, BPP, UA dopplers are reassuring. We discussed strict return precautions regarding decreased movement. Plan for follow up SHAQUILLE, BPP, UA dopplers here next week out of abundance of cautions, recommend continued weekly NSTs in your office. Orders: - Cancel: [facility]; Future Follow Up 1 week I spent 10 minutes caring for the patient on the [...] other procedures such as amniocentesis or CVS. Nabil Robles MD, FACOG Maternal Medicine, [facility] documented in this encounter Plan of Treatment Upcoming Encounters Date Type Department Care Team (Late st Contact Info) Description 10/26/2025 8:45 AM EST Office Visit [facility] [address] [facility] [address] [place] [phone] 10/26/2025 8:45 AM EST Appointment [facility] US PER DIAG CTR [address] [place] [phone] documented as of this encounter Visit Diagnoses Diagnosis IUGR (intrauterine growth restriction) affecting care of mother, third trimester, fetus 1- Primary documented in this encounter Care Teams Aerophysics Engineer Relationship Specialty Start Date End Date Provider, No Known [place] [address] PCP - General 09/05/25 documented as of this encounter
--- OUTSIDE RECORDS SUMMARY | 2025-10-10 07:59 | XMS_ITS | Encounter Summary ---
Author Organization [facility] Address [address] [place] [phone] Care Team Providers Care Audience Coordinator Name Role Phone Provider, No Known Primary Care Provider Unavail able Reason for Referral * Diagnostic Imaging (Routine) - Authorized Specialty Diagnoses / Procedures Referred By Contac t Referred To Contact Radiology Diagnoses IUGR (intrauterine growth restriction) affecting care of mother, third trimester, fetus 1 Procedures US [facility] Napoleon Pak MD [address] [place] [address] Phone: tel: fax: Referral ID Status Reason Start Date Expiration Date V isits Requested Visits Authorized [id number] Authorized 09/21/2025 12/21/2026 3 3 Reason for Visit * Diagnostic Imaging (Routine) - Authorized Specialty Diagnoses / Procedures Referred By Contac t Referred To Contact Radiology Diagnoses IUGR (intrauterine growth restriction) affecting care of mother, third trimester, fetus 1 Procedures US [facility] Napoleon Pak MD [address] [place] [address] Phone: tel: fax: Referral ID Status Reason Start Date Expiration Date V isits Requested Visits Authorized [id number] Authorized 09/21/2025 12/21/2026 3 3 Encounter Details Date Type Department Care Team (Late st Contact Info) Description 10/10/2025 7:59 AM EST - 10/10/2025 11:59 PM EST Hospital Encounter [facility] US PER DIAG CTR [address] [place] [address] Napoleon Pak MD [address] [facility] [address] [place] [address] IUGR (intrauterine growth restriction) affecting care of [...] 8:45 AM EST Office Visit [facility] [address] [place] [address] 10/26/2025 8:45 AM EST Appointment [facility] US PER DIAG CTR [address] [place] [address] documented as of this encounter Procedures Procedure Name Priority Date/Time Associated Diagnosis Comments [facility] Routine 10/10/2025 8:33 AM EST IUGR (intrauterine growth restriction) affecting care of mother, third trimester, fetus 1 documented in this encounter Results * [facility] (10/10/2025 8:33 AM EST) Anatomical Region Laterality Modality Ultrasound 10/10/2025 8:11 AM EST Narrative 10/10/2025 8:35 AM EST PAT NAME: SHILPI ALATORRE MED REC#: [id number] DA: 2000 PAT GEND: F PAT TYPE: O EXAM CARLOS: [id number] REF PHYS PATY RINCON Comparison Studies The [...] here in 1 week. Coding ====== Description: 84598-68 BPP without NST Description: 12163-00 Doppler Umbilical Artery Operations Clerk: Mine Pope RDMS Physician: Aman Otero MD, FACOG Electronically signed by: Aman Otero MD, FACOG at: 08:35 Procedure Note Dani Otero MD - 10/10/2025 PAT NAME: SHILPI ALATORRE MED REC#: [id number] DA: [id number] PAT GEND: F PAT TYPE: O EXAM CARLOS: [id number] REF PHYS SERGEY PATY Comparison Studies The findings of this study are compared to the prior ultrasound studydated Patient Status Outpatient Indication ======== IUGR. Maternal Assessment Nwtsvx814 cm Height (ft)5 ft Height (in)2 in Kovvcc14 kg Weight (lb)130 lb BMI23.62 kg/m Method ======= Transabdominal ultrasound examination. View: Good view ========= Wh[place]aker . Number of fetuses: 1 Dating ====== Method of dating:based on stated CYNDI GA by prior [id number] w + 2 d CYNDI by prior [...] scheduled here in 1 week. Coding ====== Description:51818-62 BPP without NST Description:90609-85 Doppler Umbilical Artery Operations Clerk: Mine Pope RDMS Physician: Aman Otero MD, FACOG Electronically signed by: Aman Otero MD, FACOG at: 08:35 us Napoleon Pak MD [facility] US ORDERABLES Final Res ult documented in this encounter Visit Diagnoses Diagnosis IUGR (intrauterine growth restriction) affecting care of mother, third trimester, fetus 1 documented in this encounter Care Teams Audience Coordinator Relationship Specialty Start Date End Date Provider, [place] [address] PCP - General 09/05/25 documented as of this encounter
--- OUTSIDE RECORDS SUMMARY | 2025-10-10 08:15 | XMS_ITS | Encounter Summary ---
Author Organization [facility] Address [address] [place] [address] Care Team Providers Care Court Deputy Name Role Phone Provider, No Known Primary Care Provider Unavail able Reason for Referral * Diagnostic Imaging (Routine) - Authorized Specialty Diagnoses / Procedures Referred By Contac t Referred To Contact Radiology Diagnoses IUGR (intrauterine growth restriction) affecting care of mother, third trimester, fetus 1 Placenta succenturiate lobe affecting fetus 34 weeks gestation of Procedures [facility] Dani Otero MD [facility] [facility] [address] [place] [address] Phone: tel: fax: Referral ID Status Reason Start Date Expiration Date V isits Requested Visits Authorized [id number] Authorized 10/10/2025 01/09/2027 1 1 Reason for Visit * Reason Comments IUGR Encounter Details Date Type Department Care Team (Late st Contact Info) Description 10/10/2025 8:15 AM EST Office Visit [facility] MATERNAL MEDICINE [address]00 [facility] [address] [place] [phone] Dani Otero MD [address] [facility] [address] [place] [phone] IUGR (intrauterine growth restriction) affecting care of [...] Description 10/26/2025 8:45 AM EST Office Visit [facility] MATERNAL MEDICINE [address] [place] [address] 10/26/2025 8:45 AM EST Appointment [facility] US PER DIAG CTR [address] [place] [address] Scheduled Orders Name Type Priority Associated Diagnoses Orde r Schedule [facility] Imaging Routine IUGR (intrauterine growth [...] of documented in this encounter Care Teams Court Deputy Relationship Specialty Start Date End Date Provider, [place] [address] PCP - General 09/05/25 documented as of this encounter
[2025-10-24 16:57] LABS: Microscopic, Urine URINE MICROSCOPIC (MICROSCOPIC)
[2025-10-24 17:00] LABS: Bilirubin,Urine Negative (Negative); Color,Urine YELLOW (Yellow); Glucose,Urine (UA) Negative (Negative); Ketones,Urine Negative (Negative); Leukocyte Esterase,Urine 1+ (Negative); PH,Urine 6.5 (5.0-8.5); Protein,Urine Negative (Negative); Specific Gravity, Urine 1.020 (1.005-1.030); Urobilinogen,Urine 1.0 EU/dl (0.2)
[2025-10-24 17:15] VITALS: BP 133/80; PULSE 81; RESP 18; TEMP 36.8; O2SAT 99; BMI 24.7
--- OUTSIDE RECORDS SUMMARY | 2025-10-24 17:18 | XMS_ITS | Encounter Summary ---
Author Organization [facility] Address [address] [place] [address] Care Team Providers Care Lease Analyst Name Role Phone Provider, No Known Primary [...] Description 10/26/2025 8:45 AM EST Office Visit [facility] MAT[facility]NAL MEDICINE [address] [place] [address] 10/26/2025 8:45 AM EST Appointment [facility] US PER DIAG CTR [address] [place] [address] documented as of this encounter Visit Diagnoses Not on filedocumented in this encounter Care Teams Lease Analyst Relationship Specialty Start Date End Date Provider, No Known [facility] [place] [address] PCP - General 09/05/25 documented as of this encounter
--- OUTSIDE RECORDS SUMMARY | 2025-10-24 17:18 | XMS_ITS | Encounter Summary ---
Author Organization [facility] Address [address] [place] [address] Care Team Providers Care Enterprise Engineer Name Role Phone Provider, No Known [...] 8:45 AM EST Office Visit [facility] MATERNAL MEDICINE [address] [place] [address] 10/26/2025 8:45 AM EST Appointment [facility] US PER DIAG CTR [address] [place] [address] documented as of this encounter Visit Diagnoses Not on filedocumented in this encounter Care Teams Enterprise Engineer Relationship Specialty Start Date End Date Provider, No Known [facility] [place] [address] PCP - General 09/05/25 documented as of this encounter
--- OUTSIDE RECORDS SUMMARY | 2025-10-24 17:18 | XMS_ITS | Encounter Summary ---
Author Organization [facility] Address [address] [place] [address] Care Team Providers Care Deposit Refund Clerk Name Role Phone Provider, No Known Primary Care Provider Unavail able Encounter Details Date Type Department Care Team (Late st Contact Info) Description 10/18/2025 Telephone [facility] MATERNAL MEDICINE [address] [facility] [address] [place] [phone] Dani Otero MD [address] [facility] [address] [place] [address] Social History Tobacco Use Types Packs/Day Years [...] Description 10/26/2025 8:45 AM EST Office Visit [facility] MATERNAL MEDICINE [address] [place] [address] 10/26/2025 8:45 AM EST Appointment [facility] US PER DIAG CTR [address] [place] [address] documented as of this encounter Visit Diagnoses Not on filedocumented in this encounter Care Teams Deposit Refund Clerk Relationship Specialty Start Date End Date Provider, [place] [address] PCP - General 09/05/25 documented as of this encounter
--- OUTSIDE RECORDS SUMMARY | 2025-10-24 17:18 | XMS_ITS | Encounter Summary ---
Author Organization [facility] Address [address] [place] [address] Care Team Providers Care Pad Extraction Tender Name Role Phone Provider, No Known [...] Description 10/26/2025 8:45 AM EST Office Visit [facility] [address] [facility] [address] [place] [address] 10/26/2025 8:45 AM EST Appointment [facility] US PER DIAG CTR [address] [place] [address] documented as of this encounter Visit Diagnoses Not on filedocumented in this encounter Care Teams Pad Extraction Tender Relationship Specialty Start Date End Date Provider, No Known [facility] [place] [address] PCP - General 09/05/25 documented as of this encounter
--- OUTSIDE RECORDS SUMMARY | 2025-10-24 17:18 | XMS_ITS | Clinical Summary ---
Author Organization [facility] Address [address] [place] [address] Phone Care Team Providers Care Land Leasing Examiner Name Role Phone Unavailable Primary Care Provider [...]
--- OUTSIDE RECORDS SUMMARY | 2025-10-24 17:18 | XMS_ITS | Clinical Summary ---
Author Organization [facility] Address [address] [place] [address] Care Team Providers Care Rn Sane Name Role Phone Provider, No Known Primary [...] Type Department Care Team Description 10/18/2025 Telephone [facility]NAL MEDICINE [address] [facility] [address] [place] [address] Dani Otero MD 10/10/2025 8:15 AM EST Office Visit [facility]NAL MEDICINE [address] [facility] [address] [place] [address] Dani Otero MD IUGR (intrauterine growth restriction) affecting care of mother, third trimester, fetus 1 (Primary Dx); Placenta succenturiate lobe affecting fetus; 34 weeks gestation of 10/10/2025 7:59 AM EST - 10/10/2025 11:59 PM EST Hospital Encounter [facility] US PER DIAG CTR [address] [place] [address] Napoleon Pak MD IUGR (intrauterine growth restriction) affecting care of mother, third trimester, fetus 1 Discharge Disposition: Home or Self Care 10/10/2025 Travel 10/03/2025 9:15 AM EST Office Visit [facility] MATERNAL MEDICINE [address] [facility] [address] [place] [address] Nabil Robles MD IUGR (intrauterine growth restriction) affecting care of mother, third trimester, fetus 1 (Primary Dx) 10/03/2025 8:47 AM EST - 10/03/2025 11:59 PM EST Hospital Encounter [facility] US PER DIAG CTR [address] [place] [address] Napoleon Pak MD IUGR (intrauterine growth restriction) affecting care of mother, third trimester, fetus 1 Discharge Disposition: Home or Self Care 10/03/2025 Travel 09/21/2025 8:15 AM EST - 09/21/2025 11:59 PM EST Hospital Encounter [facility] US PER DIAG CTR [address] [place] [address] Marissa Hadley MD IUGR (intrauterine growth restriction) affecting care of mother, third trimester, fetus 1 Discharge Disposition: Home or Self Care 09/21/2025 8:15 AM EST Office Visit [facility] MATERNAL MEDICINE [address] [facility] [address] [place] [address] Napoleon Pak MD IUGR (intrauterine growth restriction) affecting care of mother, third trimester, fetus 1 (Primary Dx); Placenta succenturiate lobe affecting fetus 09/21/2025 Travel 09/07/2025 8:00 AM EDT Office Visit [facility] MATERNAL MEDICINE [address] [facility] [address] [place] [address] Marissa Hadley MD IUGR (intrauterine growth restriction) affecting care of mother, third trimester, fetus 1 (Primary Dx); 29 weeks gestation of 09/07/2025 7:58 AM EDT - 09/07/2025 11:59 PM EDT Hospital Encounter [facility] US PER DIAG CTR [address] [place] [address] Paty Flores DO IUGR (intrauterine [...] 10/26/2025 8:45 AM EST Office Visit [facility]NAL MEDICINE [address] [facility] [facility] [address] [place] [address] 10/26/2025 8:45 AM EST Appointment [facility] US PER DIAG CTR [address] [place] [address] Health Maintenance Due Date Last [...] Procedure Name Priority Date/Time Associated Diagnosis Comments COUNTS INCLUDE 234 BEDS AT [facility] Routine 10/10/2025 8:33 AM EST IUGR (intrauterine growth restriction) affecting care of mother, third trimester, fetus 1 [facility] Routine 10/03/2025 9:37 AM EST IUGR (intrauterine growth restriction) affecting care of mother, third trimester, fetus 1 [facility] Routine 09/21/2025 8:44 AM EST IUGR (intrauterine growth restriction) affecting care of mother, third trimester, fetus 1 COUNTS INCLUDE 234 BEDS AT [facility] Routine 09/07/2025 11:09 AM EDT IUGR (intrauterine growth restriction) affecting care of mother, third trimester, fetus 1 , unspecified gestational age from Last 3 Months Results * [facility] (10/10/2025 8:33 AM EST) Only the most recent of4 resultswithin the time period is included. Anatomical Region Laterality Modality Ultrasound 10/10/2025 8:11 AM EST Narrative 10/10/2025 8:35 AM EST PAT NAME: SHILPI ALATORRE MED REC#: [id number] DA: 2000 PAT GEND: F PAT TYPE: O EXAM CARLOS: [id number] REF PHYS PATY FLORES Comparison Studies The [...] here in 1 week. Coding ====== Description: 41941-05 BPP without NST Description: 93845-13 Doppler Umbilical Artery Biscuit Machine Operator: Mine Pope RDMS Physician: Aman Otero MD, FACOG Electronically signed by: Aman Otero MD, FACOG at: 08:35 Procedure Note Dani Otero MD - 10/10/2025 PAT NAME: SHILPI ALATORRE MED REC#: [id number] DA: [id number] PAT GEND: F PAT TYPE: O EXAM CARLOS: [id number] REF PHYS PATY FLORES Comparison Studies The findings of this study are compared to the prior ultrasound studydated Patient Status Outpatient Indication ======== IUGR. Maternal Assessment [id number] cm Height (ft)5 ft Height (in)2 in Xhxwnq17 kg Weight (lb)130 lb BMI23.62 kg/m Method ======= Transabdominal ultrasound examination. View: Good view ========= Whittaker . Number of fetuses: 1 Dating ====== Method of dating:based on stated CYNDI GA by prior [id number] w + 2 d CYNDI by prior assessment:11/19/2025 Previous dating:based on stated CYNDI, selected on 09/21/2025 Agreed CYNDI of previous datin11/19/2025 Assigned:based on stated CYNDI, selected on 10/10/2025 Assigned GA34 w + 2 d Assigned CYNDI:11/19/2025 [id number] d General Evaluation Cardiac activity present. FHR [...] scheduled here in 1 week. Coding ====== Description:47858-67 BPP without NST Description:55445-65 Doppler Umbilical Artery Biscuit Machine Operator: Mine Pope RDMS Physician: Aman Otero MD, FACOG Electronically signed by: Aman Otero MD, FACOG at: 08:35 us Napoleon Pak MD [facility] US ORDERABLES Final Res ult from Last 3 Months Insurance [facility] Care Teams Rn Sane Relationship Specialty Start Date End Date Provider, No Known [facility] [place] [address] PCP - General 09/05/25
[2025-10-24 17:19] LABS: Bacteria,Urine 3+ /lpf
--- OUTSIDE RECORDS SUMMARY | 2025-10-24 17:19 | XMS_ITS | Encounter Summary ---
Author Organization [facility] Address [address] [place] [address] Care Team Providers Care Supervisor Blueprinting And Photocopy Name Role Phone Provider, No Known Primary [...] Description 10/26/2025 8:45 AM EST Office Visit [facility]INE [address] [place] [address] 10/26/2025 8:45 AM EST Appointment [facility] US PER DIAG CTR [address] [place] [address] documented as of this encounter Visit Diagnoses Not on filedocumented in this encounter Care Teams Supervisor Blueprinting And Photocopy Relationship Specialty Start Date End Date Provider, No Known [facility] [place] [address] PCP - General 09/05/25 documented as of this encounter
== END 2025-10-24 17:58 | disposition home or self-care (01) ==
LOC: OBOUT 16:37 → OB 16:38
PROVIDERS: PCP Nurse Practitioner; Visit Provider Obstetrics & Gynecology
DX: O36.8130 Decreased fetal movements, third trimester, not applicable or unspecified (principal); O99.891 Other specified diseases and conditions complicating pregnancy; R10.20 Pelvic and perineal pain unspecified side; Z3A.36 36 weeks gestation of pregnancy
CPT/HCPCS: 81001; 87086; 99212

== ENCOUNTER 2025-10-26 14:26 | Outpatient (CLI) | payer OTHER, SELFPAY ==
--- OUTSIDE RECORDS SUMMARY | 2025-09-07 06:58 | XMS_ITS | Encounter Summary ---
[facility] Address [address] [place] [address] Care Team Providers Care Comp Field Case Manager Name Role Phone Provider, No Known Primary Care Provider Unavail able Reason for Referral * Diagnostic Imaging (Routine) - Closed Specialty Diagnoses / Procedures Referred By Contac t Referred To Contact Radiology Diagnoses IUGR (intrauterine growth restriction) affecting care of mother, third trimester, fetus 1 , unspecified gestational age Procedures [facility] [place] Lula Flores, [place] [address] Phone: tel: fax: [facility] [address] [place] [address] Phone: tel: Referral ID Status Reason Start Date Expiration Date Visits Re quested Visits Authorized [id number] Closed 09/05/2025 12/05/2026 1 1 Reason for Visit * Diagnostic Imaging (Routine) - Closed Specialty Diagnoses / Procedures Referred By Contac t Referred To Contact Radiology Diagnoses IUGR (intrauterine growth restriction) affecting care of mother, third trimester, fetus 1 , unspecified gestational age Procedures [facility] [place] Lula Flores DO [address] [place], [place] [address] Phone: tel: fax: [facility] [address] [place] [address] Phone: tel: Referral ID Status Reason Start Date Expiration Date Visits Re quested Visits Authorized [id number] Closed 09/05/2025 12/05/2026 1 1 Encounter Details Date Type Department Care Team (Latest Contact Info) Description 09/07/2025 7:58 AM EDT - 09/07/2025 11:59 PM EDT Hospital Encounter [facility] [address] [place] [address] Lula Flores, [address] [facility] [address] [phone] IUGR (intrauterine growth restriction) affecting care of [...] Procedure Name Priority Date/Time Associated Diagnosis Comments [facility] Routine 09/07/2025 11:09 AM EDT IUGR (intrauterine growth restriction) affecting care of mother, third trimester, fetus 1 , unspecified gestational age documented in this encounter Results * [facility] (09/07/2025 11:09 AM EDT) Anatomical Region Laterality Modality Ultrasound 09/07/2025 8:18 AM EDT Narrative 09/07/2025 9:11 AM EDT PAT NAME: SHILPI ALATORRE MED REC#: [id number] DA: 2000 PAT GEND: F PAT TYPE: O EXAM CARLOS: [id number] REF PHYS LULA FLORES Comparison Studies There [...] EFW (oz) 5 oz EFW by: Hadlock ([id number]-FL) Extended Tibia 47.0 mm 28w 4d 19% So Fibula 47.2 mm 29w 1d 40% So Foot 54.5 mm 8% Chitty Radius 38.3 mm 26w 5d 24% So Ulna 42.4 mm 27w 3d 2% So Cav. septi pel. tr 6.4 mm Federal Mediator 7.0 mm CM 4.6 mm 3% Nicolaides [...] normal IVC: normal 3-vessel view: Appears normal 2-osxqfl-qeomtdv view: Appears normal Rt lung: Appears normal [...] with weekly UA Dopplers. Coding ======= Description: 68047-37 Detailed Ultrasound Description: 53535-86 BPP without NST Description: 70301-24 Doppler [facility] Supervisor: Shell Smith RDMS Physician: Marissa Hadley MD Electronically signed by: Marissa Hadley MD at: 09:11 Procedure Note Marissa Hadley MD - 09/07/2025 PAT NAME: SHILPI ALATORRE MED REC#: [id number] DA: 2000 PAT GEND: F PAT TYPE: O EXAM CARLOS: [id number] REF PHYS LULA FLORES Comparison Studies There are no relevant prior studies to which this study is beingcompared Patient Status Outpatient Indication ======== IUGR Maternal Assessment Gepmik257 cm Height (ft)5 ft Height (in)2 in Hedace03 kg Weight (lb)121 lb BMI22.03 kg/m Method ======= Transabdominal ultrasound examination. View: Adequate view ========= Whittaker . Number of fetuses: 1 Dating ====== Method of dating:based on stated CYNDI GA by prior xltpnomnob23 w + 4 d CYNDI by prior assessment:11/19/2025 Ultrasound examination on:09/07/2025 GA by U/S based upon:AC, BPD, Femur, HC GA by U/S27 w + 5 d CYNDI by U/S:12/02/2025 Assigned:based on stated CYNDI, selected on 09/07/2025 Assigned GA29 w + 4 d Assigned CYNDI:11/19/2025 [id number] d Biometry Standard BPD69.9 mm 28w 1d 6% Hadlock OFD93.2 mm 30w 0d 64% So HC258.5 mm 28w 1d 1% Hadlock Cerebellum tr33.9 mm 28w 4d 18% Hill AC222.2 mm 26w 5d <1% Hadlock Femur52.5 mm 28w 0d 5% Hadlock Pfkkbce95.3 mm 27w 2d 4% So HC / AC1.16 EFW1,060 g 27w 0d 2% Hadlock EFW (lb)2 lb EFW (oz)5 oz EFW by:Hadlock (CFY-QF-VP-FL) Extended Tibia47.0 mm 28w 4d 19% So Bkvbfy98.2 mm 29w 1d 40% So Foot54.5 mm 8% Chitty Fjrnbr47.3 mm 26w 5d 24% So Ulna42.4 mm 27w 3d 2% So Cav. septi pel. tr6.4 mm Vp7.0 mm CM4.6 mm 3% Nicolaides Nasal bone9.5 mm Head / Face / Neck Cephalic index0.75 11% Nicolaides Extremities / Bony Struc FL / BPD0.75 FL / HC0.20 FL / AC0.24 Other Structures XEW759 bpm General Evaluation Cardiac activity present. FHR [...] view:Appears normal SVC:normal IVC:normal 3-vessel view:Appears normal 9-vikvlo-jvaugwz view:Appears normal Rt lung:Appears normal Lt lung:normal [...] weekly testing with weekly UADopplers. Coding ======= Description:99454-16 Detailed Ultrasound Description:43349-52 BPP without NST Description:10418-05 Doppler [facility] Supervisor: Shell Smith RDMS Physician: Marissa Hadley MD Electronically signed by: Marissa Hadley MD at: 09:11 us Lula Flores DO IMG US ORDERABLES Final Res ult documented in this encounter Visit Diagnoses Diagnosis IUGR (intrauterine growth restriction) affecting care of mother, third trimester, fetus 1 , unspecified gestational age documented in this encounter Care Teams Comp Field Case Manager Relationship Specialty Start Date End Date Provider, [place] [address] PCP - General 09/05/25 documented as of this encounter
--- OUTSIDE RECORDS SUMMARY | 2025-09-07 07:00 | XMS_ITS | Encounter Summary ---
Author Organization [facility] Address [address] [place] [phone] Care Team Providers Care Cutting Machine Offbearer Name Role Phone Provider, No Known Primary Care Provider Unavail able Reason for Referral * Diagnostic Imaging (Routine) - Closed Specialty Diagnoses / Procedures Referred By Contac t Referred To Contact Radiology Diagnoses IUGR (intrauterine growth restriction) affecting care of mother, third trimester, fetus 1 Procedures [facility] Marissa Hadley MD 1700 [facility] [address] [place] [address] Phone: tel: fax: Referral ID Status Reason Start Date Expiration Date Visits Re quested Visits Authorized [id number] Closed 09/07/2025 12/07/2026 1 1 Reason for Visit * Reason Comments IUGR Encounter Details Date Type Department Care Team (Late st Contact Info) Description 09/07/2025 8:00 AM EDT Office Visit [facility] MATERNAL MEDICINE 1700 [facility] [address] [place] [address] Marissa Hadley MD 1700 [facility] [address] [place], [place] [phone] IUGR (intrauterine growth restriction) affecting care of [...] documented as of this encounter Results * [facility] (09/21/2025 8:44 AM EST) Anatomical Region Laterality Modality Ultrasound 09/21/2025 8:30 AM EST Narrative 09/21/2025 9:21 AM EST PAT NAME: SHILPI ALATORRE MED REC#: [id number] DA: [id number] PAT GEND: F PAT TYPE: O EXAM CARLOS: [id number] REF PHYS LULA FLORES Comparison Studies The [...] EFW (oz) 1 oz EFW by: Hadlock (BWZ-VG-MX-FL) Extended Cav. septi pel. tr 6.3 mm [...] Normal Heart / Thorax 3-vessel view: Normal 2-vfqsqh-lnqrqbs view: normal Stomach: Appears normal Kidneys: Appears [...] Consultation / Office Visit Type: Consultation See [facility] for full consult note. Impression [...] for growth assessment (PDC) Coding ======= Description: 66376-11 Follow Up Ultrasound Description: 98235-85 BPP without NST Description: 49296-65 Doppler Umbilical Artery Storekeeper Engineering: Zamzam Harris RDMS Physician: Napoleon Pak MD Electronically signed by: Napoleon Pak MD at: 09:22 Procedure Note Napoleon Pak MD - 09/21/2025 PAT NAME: SHILPI ALATORRE MED REC#: [id number] DA: 2000 PAT GEND: F PAT TYPE: O EXAM CARLOS: [id number] REF PHYS LULA FLORES Comparison Studies The findings of this study are compared to the prior ultrasound studydated 09/07/25 Patient Status Outpatient Indication ======== IUGR. Maternal Assessment Tbvrbc816 cm Height (ft)5 ft Height (in)2 in Ksgrij15 kg Weight (lb)126 lb BMI22.89 kg/m Method ======= Transabdominal ultrasound examination. View: Adequate view ========= Whittaker . Number of fetuses: 1 Dating ====== Method of dating:based on stated CYNDI GA by prior odhfpkjbqm51 w + 4 d CYNDI by prior assessment:11/19/2025 Ultrasound examination on:09/21/2025 GA by U/S based upon:AC, BPD, Femur, HC GA by U/S29 w + 4 d CYNDI by U/S:12/03/2025 Previous dating:based on stated CYNDI, selected on 09/07/2025 Agreed CYNDI of previous datin11/19/2025 Assigned:based on stated CYNDI, selected on 09/21/2025 Assigned GA31 w + 4 d Assigned CYNDI:11/19/2025 grpecf509 d Biometry Standard BPD73.7 mm 29w 4d 3% Hadlock OFD96.3 mm 31w 1d 37% So HC271.4 mm 29w 4d <1% Hadlock Cerebellum tr37.7 mm 30w 6d 14% Hill AC245.2 mm 28w 5d 1% Hadlock Femur57.7 mm 30w 1d 8% Hadlock Jmhzjrf89.1 mm 29w 2d 5% So HC / AC1.11 EFW1,384 g 29w 0d 3% Hadlock EFW (lb)3 lb EFW (oz)1 oz EFW by:Hadlock (LUC-VB-DF-FL) Extended Cav. septi pel. tr6.3 mm CM5.0 mm 4% Nicolaides Head / Face / Neck Cephalic index0.77 19% Nicolaides Extremities / Bony Struc FL / BPD0.78 FL / HC0.21 FL / AC0.24 Other Structures HDF137 bpm General Evaluation Cardiac activity present. FHR [...] LVOT view:Normal Heart / Thorax 3-vessel view:Normal 0-ubazdy-zlydhhc view:normal Stomach:Appears normal Kidneys:Appears normal Bladder:Appears normal [...] Consultation / Office Visit Type: Consultation See [facility] for full consult note. Impression [...] weeks for growth assessment (PDC) Coding ======= Description:03084-47 Follow Up Ultrasound Description:13722-78 BPP without NST Description:17847-22 Doppler Umbilical Artery Storekeeper Engineering: Zamzam Harris RDMS Physician: Napoleon Pak MD [...] 1 documented in this encounter Care Teams Cutting Machine Offbearer Relationship Specialty Start Date End Date Provider, [place] [address] PCP - General 09/05/25 documented as of this encounter
--- OUTSIDE RECORDS SUMMARY | 2025-09-21 08:15 | XMS_ITS | Encounter Summary ---
Author Organization [facility] Address [address] [place] [id number] Care Team Providers Care Program Coordinator Name Role Phone Provider, No Known Primary Care Provider Unavail able Reason for Referral * Diagnostic Imaging (Routine) - Closed Specialty Diagnoses / Procedures Referred By Contac t Referred To Contact Radiology Diagnoses IUGR (intrauterine growth restriction) affecting care of mother, third trimester, fetus 1 Procedures [facility] Marissa Hadley MD [address] [place] [address] Phone: tel: fax: Referral ID Status Reason Start Date Expiration Date Visits Re quested Visits Authorized [id number] Closed 09/07/2025 12/07/2026 1 1 Reason for Visit * Diagnostic Imaging (Routine) - Closed Specialty Diagnoses / Procedures Referred By Contac t Referred To Contact Radiology Diagnoses IUGR (intrauterine growth restriction) affecting care of mother, third trimester, fetus 1 Procedures [facility] [place] Marissa Hadley MD [address] [place] [address] Phone: tel: fax: Referral ID Status Reason Start Date Expiration Date Visits Re quested Visits Authorized [id number] Closed 09/07/2025 12/07/2026 1 1 Encounter Details Date Type Department Care Team (Late st Contact Info) Description 09/21/2025 8:15 AM EST - 09/21/2025 11:59 PM EST Hospital Encounter [facility] [address] [place] [address] Marissa Hadley MD [address] [place] [address] IUGR (intrauterine growth restriction) affecting care of [...] Associated Diagnosis Comments [facility] Routine 09/21/2025 8:44 AM EST IUGR (intrauterine growth restriction) affecting care of mother, third trimester, fetus 1 documented in this encounter Results * [facility] (09/21/2025 8:44 AM EST) Anatomical Region Laterality Modality Ultrasound 09/21/2025 8:30 AM EST Narrative 09/21/2025 9:21 AM EST PAT NAME: SHILPI ALATORRE MED REC#: [id number] DA: [id number] PAT GEND: F PAT TYPE: O EXAM CARLOS: [id number] REF PHYS PATY RINCON Comparison Studies The [...] EFW (oz) 1 oz EFW by: Hadlock ([id number]-MT-[id number]-FL) Extended Cav. septi pel. tr 6.3 mm [...] Normal Heart / Thorax 3-vessel view: Normal 4-rhlwxy-nsyaufo view: normal Stomach: Appears normal Kidneys: Appears [...] Consultation / Office Visit Type: Consultation See [facility] for full consult note. Impression Single, [...] for growth assessment (PDC) Coding ======= Description: 91237-17 Follow Up Ultrasound Description: 75075-36 BPP without NST Description: 35989-26 Doppler Umbilical Artery Carbon Paper Machine Operator: Zamzam Harris RDMS Physician: Napoleon Pak MD Electronically signed by: Napoleon Pak MD at: 09:22 Procedure Note Napoleon Pak MD - 09/21/2025 PAT NAME: SHILPI ALATORRE MED REC#: [id number] DA: [id number] PAT GEND: F PAT TYPE: O EXAM CARLOS: [id number] REF PHYS PATY RINCON Comparison Studies The findings of this study are compared to the prior ultrasound studydated 09/07/25 Patient Status Outpatient Indication ======== IUGR. Maternal Assessment Ezjwvk603 cm Height (ft)5 ft Height (in)2 in Wufgrr53 kg Weight (lb)126 lb BMI22.89 kg/m Method ======= Transabdominal ultrasound examination. View: Adequate view ========= Whittaker . Number of fetuses: 1 Dating ====== Method of dating:based on stated CYNDI GA by prior [id number] w + 4 d CYNDI by prior assessment:11/19/2025 Ultrasound examination on:09/21/2025 GA by U/S based upon:AC, BPD, Femur, HC GA by U/S29 w + 4 d CYNDI by U/S:12/03/2025 Previous dating:based on stated CYNDI, selected on 09/07/2025 Agreed CYNDI of previous datin11/19/2025 Assigned:based on stated CYNDI, selected on 09/21/2025 Assigned GA31 w + 4 d Assigned CYNDI:11/19/2025 [id number] d Biometry Standard BPD73.7 mm 29w 4d 3% Hadlock OFD96.3 mm 31w 1d 37% So HC271.4 mm 29w 4d <1% Hadlock Cerebellum tr37.7 mm 30w 6d 14% Hill AC245.2 mm 28w 5d 1% Hadlock Femur57.7 mm 30w 1d 8% Hadlock Tnfdpfs25.1 mm 29w 2d 5% So HC / AC1.11 EFW1,384 g 29w 0d 3% Hadlock EFW (lb)3 lb EFW (oz)1 oz EFW by:Hadlock (VKF-QM-BL-FL) Extended Cav. septi pel. tr6.3 mm CM5.0 mm 4% Nicolaides Head / Face / Neck Cephalic index0.77 19% Nicolaides Extremities / Bony Struc FL / BPD0.78 FL / HC0.21 FL / AC0.24 Other Structures BWW448 bpm General Evaluation Cardiac activity present. FHR [...] LVOT view:Normal Heart / Thorax 3-vessel view:Normal 3-egndmq-oaooyxh view:normal Stomach:Appears normal Kidneys:Appears normal Bladder:Appears normal [...] Consultation / Office Visit Type: Consultation See [facility] for full consult note. Impression Single, [...] weeks for growth assessment (PDC) Coding ======= Description:75382-59 Follow Up Ultrasound Description:05122-44 BPP without NST Description:38269-63 Doppler Umbilical Artery Carbon Paper Machine Operator: Zamzam Harris RDMS Physician: Napoleon Pak MD Electronically signed by: Napoleon Pak MD at: 09:22 us Marissa Hadley MD IMG US ORDERABLES Edited Re sult - Final documented in this encounter Visit Diagnoses Diagnosis IUGR (intrauterine growth restriction) affecting care of mother, third trimester, fetus 1 documented in this encounter Care Teams Program Coordinator Relationship Specialty Start Date End Date Provider, No Known [facility] [place] [place] [address] PCP - General 09/05/25 documented as of this encounter
--- OUTSIDE RECORDS SUMMARY | 2025-09-21 08:15 | XMS_ITS | Encounter Summary ---
Author Organization [facility] Address [address] [place] [id number] Care Team Providers Care Director [place] Name Role Phone Provider, No Known Primary Care Provider Unavail able Reason for Referral * Diagnostic Imaging (Routine) - Authorized Specialty Diagnoses / Procedures Referred By Contac t Referred To Contact Radiology Diagnoses IUGR (intrauterine growth restriction) affecting care of mother, third trimester, fetus 1 Procedures [facility] Napoleon Pak MD [address] [place] [address] Phone: tel: fax: Referral ID Status Reason Start Date Expiration Date V isits Requested Visits Authorized [id number] Authorized 09/21/2025 12/21/2026 3 3 Reason for Visit * Reason Comments IUGR Encounter Details Date Type Department Care Team (Late st Contact Info) Description 09/21/2025 8:15 AM EST Office Visit [facility] [address] [place] [phone] Napoleon Pak MD [address] [place] [address] IUGR (intrauterine growth restriction) affecting care of [...] Estimated Date of Delivery: 11/19/25 Referring Provider: Paty Flores DO Chief Complaint: IUGR Subjective History [...] [facility]. Napoleon Pak MD, FACOG Maternal Medicine, [facility] [place] documented in this encounter Plan of Treatment Scheduled Orders Name Type Priority Associated Diagnoses Orde r Schedule [facility] [place] Imaging Routine IUGR (intrauterine growth restriction) affecting care of mother, third trimester, fetus 1 Every 2 Weeks for 3 Occurrences starting 09/21/2025 until 09/21/2026, 2 completed documented as of this encounter Results * [facility] (10/10/2025 8:33 AM EST) Anatomical Region Laterality Modality Ultrasound 10/10/2025 8:11 AM EST Narrative 10/10/2025 8:35 AM EST PAT NAME: SHILPI ALATORRE [facility] REC#: [id number] DA: [id number] PAT GEND: F PAT TYPE: O EXAM CARLOS: [id number] REF PHYS PATY FLORES Comparison Studies The findings of this study are compared to the prior ultrasound study dated Patient Status Outpatient Indication ======== IUGR. Maternal Assessment Height 158 cm Height (ft) 5 ft Height (in) 2 in Weight 59 kg Weight (lb) 130 lb BMI 23.62 kg/m Method ======= Transabdominal ultrasound examination. View: Good view ========= Whittaker . Number of fetuses: 1 Dating ====== Method of dating: based on stated CYNDI GA by prior assessment 34 w + 2 d CYNDI by prior assessment: 11/19/2025 Previous dating: based on stated CYNDI, selected on 09/21/2025 Agreed CYNDI of previous datin11/19/2025 Assigned: based on stated CYNDI, selected on 10/10/2025 Assigned GA 34 w + 2 d Assigned CYNDI: 11/19/2025 length 280 d General Evaluation Cardiac activity present. FHR 138 bpm. movements present. Presentation cephalic. Placenta Placental site: left lateral. Amniotic fluid Amount of AF: normal. MVP 4.5 cm. SHAQUILLE 13.0 cm. Q1 3.1 cm, Q2 3.0 cm, Q3 4.5 cm, Q4 2.4 cm. Anatomy 4-chamber view: Normal Heart / Thorax 4-chamber view: patent foramen ovale Stomach: Normal Bladder: Normal Gender: female Wants to know gender: yes Biophysical Profile 2: breathing movements 2: Gross body movements 2: tone 2: Amniotic fluid volume 06/15 Biophysical profile score Doppler Arterial Umbilical A PI 1.15 92% Jessica Umbilical A RI 0.70 91% Jessica Umbilical A PS 42.34 cm/s 20% Ebbing Umbilical A ED 12.71 cm/s Umbilical A TAmax 26.55 cm/s 14% Ebbing Umbilical A MD 12.25 cm/s Umbilical A S / D 3.29 87% Jessica Umbilical A HR 140 bpm Impression ========= testing is reassuring. Amniotic fluid volume is normal. Umbilical artery S/D ratio is normal. Patient counseled re movement. Recommendation Continue testing. We recommend repeat evaluation for growth and Doppler exam in 1 week. Follow up appointment scheduled here in 1 week. Coding ====== Description: 54163-57 BPP without NST Description: 43777-43 Doppler Umbilical Artery Tv Host: Mine Pope RDMS Physician: Aman Otero MD, FACOG Electronically signed by: Aman Otero MD, FACOG at: 08:35 Procedure Note Dani Otero MD - 10/10/2025 PAT NAME: SHILPI ALATORRE MED REC#: [id number] DA: 2000 PAT GEND: F PAT TYPE: O EXAM CARLOS: [id number] REF PHYS PATY FLORES Comparison Studies The findings of this study are compared to the prior ultrasound studydated Patient Status Outpatient Indication ======== IUGR. Maternal Assessment Wogwbr438 cm Height (ft)5 ft Height (in)2 in Djlamg19 kg Weight (lb)130 lb BMI23.62 kg/m Method ======= Transabdominal ultrasound examination. View: Good view ========= Whittaker . Number of fetuses: 1 Dating ====== Method of dating:based on stated CYNDI GA by prior [id number] w + 2 d CYNDI by prior assessment:11/19/2025 Previous dating:based on stated CYNDI, selected on 09/21/2025 Agreed CYNDI of previous datin11/19/2025 Assigned:based on stated CYNDI, selected on 10/10/2025 Assigned GA34 w + 2 d Assigned CYNDI:11/19/2025 [id number] d General Evaluation Cardiac activity present. FHR 138 bpm. movements present. Presentation cephalic. Placenta Placental site: left lateral. Amniotic fluid Amount of AF: normal. MVP 4.5 cm. SHAQUILLE 13.0 cm. Q1 3.1 cm,Q2 3.0 cm, Q3 4.5 cm, Q4 2.4 cm. Anatomy 4-chamber view:Normal Heart / Thorax 4-chamber view:patent foramen ovale Stomach:Normal Bladder:Normal Gender:female Wants to know gender:yes Biophysical Profile 2: breathing movements 2: Gross body movements 2: tone 2: Amniotic fluid volume 06/15 Biophysical profile score Doppler Arterial Umbilical A PI1.15 92% Jessica Umbilical A RI0.70 91% Jessica Umbilical A PS42.34 cm/s 20% Ebbing Umbilical A ED12.71 cm/s Umbilical A TAmax26.55 cm/s 14% Ebbing Umbilical A MD12.25 cm/s Umbilical A S / D3.29 87% Jessica Umbilical A HR140 bpm Impression ========= testing is reassuring. Amniotic fluid volume is normal. Umbilical artery S/D ratio is normal. Patient counseled re movement. Recommendation Continue testing. We recommend repeat evaluation for growth and Doppler exam in 1week. Follow up appointment scheduled here in 1 week. Coding ====== Description:06583-44 BPP without NST Description:27137-48 Doppler Umbilical Artery Tv Host: Mine Pope RDMS Physician: Aman Otero MD, FACOG Electronically signed by: Aman Otero MD, FACOG at: 08:35 Napoleon Pak MD IMG US ORDERABLES Final Res ult * [facility] (10/03/2025 9:37 AM EST) Anatomical Region Laterality Modality Ultrasound 10/03/2025 9:10 AM EST Narrative 10/03/2025 10:25 AM EST PAT NAME: SHILPI ALATORRE MED REC#: [id number] DA: 2000 PAT GEND: F PAT TYPE: O EXAM CARLOS: [id number] REF PHYS PATY FLORES Comparison Studies The findings of this study are compared to the prior ultrasound study dated Patient Status Outpatient Indication ======== IUGR. Maternal Assessment Height 158 cm Height (ft) 5 ft Height (in) 2 in Weight 58 kg Weight (lb) 128 lb BMI 23.23 kg/m Method ======= Transabdominal ultrasound examination. View: Good view ========= Whittaker . Number of fetuses: 1 Dating ====== GA by prior assessment 33 w + 2 d CYNDI by prior assessment: 11/19/2025 Ultrasound examination on: 10/03/2025 GA by U/S based upon: AC, BPD, Femur, HC GA by U/S 30 w + 1 d CYNDI by U/S: 12/11/2025 Method of dating: Restore dating from previous exam Previous dating: based on stated CYNDI, selected on 09/21/2025 Agreed CYNDI of previous datin11/19/2025 Assigned: based on stated CYNDI, selected on 09/21/2025 Assigned GA 33 w + 2 d Assigned CYNDI: 11/19/2025 length 280 d Biometry Standard BPD 75.3 mm 30w 1d <1% Hadlock OFD 95.4 mm 30w 6d 5% So HC 272.1 mm 29w 5d <1% Hadlock Cerebellum tr 42.8 mm 33w 4d 37% Hill AC 257.0 mm 29w 6d <1% Hadlock Femur 59.4 mm 31w 0d 2% Hadlock Humerus 53.6 mm 31w 1d 11% So HC / AC 1.06 EFW 1,534 g 29w 6d <1% Hadlock EFW (lb) 3 lb EFW (oz) 6 oz EFW by: Hadlock ([id number]-EV-[id number]-FL) Extended Cav. septi pel. tr 6.2 mm Va 5.0 mm Surveillance Systems Engineer 3.5 mm CM 6.7 mm 31% Nicolaides Head / Face / Neck Cephalic index 0.79 36% Nicolaides Extremities / Bony Struc FL / BPD 0.79 FL / HC 0.22 FL / AC 0.23 Other Structures FHR 148 bpm General Evaluation Cardiac activity present. FHR 148 bpm. movements present. Presentation cephalic. Placenta Placental site: left lateral. Umbilical cord Cord vessels: 3 vessel cord. Insertion site: normal insertion. Amniotic fluid Amount of AF: normal. MVP 4.2 cm. SHAQUILLE 11.4 cm. Q1 4.2 cm, Q2 1.8 cm, Q3 2.4 cm, Q4 3.0 cm. Anatomy Cranium: Normal Cavum septi pellucidi: Normal Cerebellum: Normal Cisterna magna: Normal Head / Neck Rt lateral ventricle: Normal Lt lateral ventricle: Normal Lips: Normal Profile: suboptimal Nose: Normal 4-chamber view: Appears normal RVOT view: Normal LVOT view: Normal Heart / Thorax 3-vessel view: Normal 0-piyjfe-ixhafrg view: normal Cord insertion: Normal Stomach: Appears normal Kidneys: Appears normal Bladder: Appears normal Gender: female Wants to know gender: yes Maternal Structures Uterus / Cervix Cervical length 35.7 mm Doppler Arterial Umbilical A PI 1.02 76% Jessica Umbilical A RI 0.65 73% Jessica Umbilical A PS 50.45 cm/s 60% Ebbing Umbilical A ED 18.19 cm/s Umbilical A TAmax 33.55 cm/s 59% Ebbing Umbilical A MD 18.12 cm/s Umbilical A S / D 2.90 67% Jessica Umbilical A HR 146 bpm Biophysical Profile 2: breathing movements 2: Gross body movements 2: tone 2: Amniotic fluid volume NST: reactive 10/10 Biophysical profile score Consultation / Office Visit Office note to follow Impression Today's exam reveals a SIUP in cephalic presentation with biometry inconsistent with dates, EFW <1%ile and AC<1%ile, 150 gms of interval growth noted. Limited anatomic survey appears normal. The SHAQUILLE, UA dopplers and BPP are normal. Recommendation Follow up here in 1 week. Weekly NST in your office. Coding ======= Description: 18222-21 Follow Up Ultrasound Description: 54468-21 BPP with NST Description: 96133-40 Doppler Umbilical Artery Tv Host: Reba Richardson RDMS Physician: Nabil Robles MD, FACOG Electronically signed by: Nabil Robles MD, FACOG at: 10:25 Procedure Note Nabil Robles MD - 10/03/2025 PAT NAME: SHILPI ALATORRE MED REC#: [id number] DA: [id number] PAT GEND: F PAT TYPE: O EXAM CARLOS: [id number] REF PHYS RADHA FLORESLEY Comparison Studies The findings of this study are compared to the prior ultrasound studydated Patient Status Outpatient Indication ======== IUGR. Maternal Assessment Cmweff304 cm Height (ft)5 ft Height (in)2 in Idjvik97 kg Weight (lb)128 lb BMI23.23 kg/m Method ======= Transabdominal ultrasound examination. View: Good view ========= Whittaker . Number of fetuses: 1 Dating ====== GA by prior aealtrborm80 w + 2 d CYNDI by prior assessment:11/19/2025 Ultrasound examination on:10/03/2025 GA by U/S based upon:AC, BPD, Femur, HC GA by U/S30 w + 1 d CYNDI by U/S:12/11/2025 Method of dating:Restore dating from previous exam Previous dating:based on stated CYNDI, selected on 09/21/2025 Agreed CYNDI of previous datin11/19/2025 Assigned:based on stated CYNDI, selected on 09/21/2025 Assigned GA33 w + 2 d Assigned CYNDI:11/19/2025 ofulnk270 d Biometry Standard BPD75.3 mm 30w 1d <1% Hadlock OFD95.4 mm 30w 6d 5% So HC272.1 mm 29w 5d <1% Hadlock Cerebellum tr42.8 mm 33w 4d 37% Hill AC257.0 mm 29w 6d <1% Hadlock Femur59.4 mm 31w 0d 2% Hadlock Uprstoe00.6 mm 31w 1d 11% So HC / AC1.06 EFW1,534 g 29w 6d <1% Hadlock EFW (lb)3 lb EFW (oz)6 oz EFW by:Hadlock (GPP-MP-EA-FL) Extended Cav. septi pel. tr6.2 mm Va5.0 mm Vp3.5 mm CM6.7 mm 31% Nicolaides Head / Face / Neck Cephalic index0.79 36% Nicolaides Extremities / Bony Struc FL / BPD0.79 FL / HC0.22 FL / AC0.23 Other Structures UJV560 bpm General Evaluation Cardiac activity present. FHR 148 bpm. movements present. Presentation cephalic. Placenta Placental site: left lateral. Umbilical cord Cord vessels: 3 vessel cord. Insertion site: normalinsertion. Amniotic fluid Amount of AF: normal. MVP 4.2 cm. SHAQUILLE 11.4 cm. Q1 4.2 cm,Q2 1.8 cm, Q3 2.4 cm, Q4 3.0 cm. Anatomy Cranium:Normal Cavum septi pellucidi:Normal Cerebellum:Normal Cisterna magna:Normal Head / Neck Rt lateral ventricle:Normal Lt lateral ventricle:Normal Lips:Normal Profile:suboptimal Nose:Normal 4-chamber view:Appears normal RVOT view:Normal LVOT view:Normal Heart / Thorax 3-vessel view:Normal 5-prqdou-erzbfjs view:normal Cord insertion:Normal Stomach:Appears normal Kidneys:Appears normal Bladder:Appears normal Gender:female Wants to know gender:yes Maternal Structures Uterus / Cervix Cervical .7 mm Doppler Arterial Umbilical A PI1.02 76% Jessica Umbilical A RI0.65 73% Jessica Umbilical A PS50.45 cm/s 60% Ebbing Umbilical A ED18.19 cm/s Umbilical A TAmax33.55 cm/s 59% Ebbing Umbilical A MD18.12 cm/s Umbilical A S / D2.90 67% Jessica Umbilical A HR146 bpm Biophysical Profile 2: breathing movements 2: Gross body movements 2: tone 2: Amniotic fluid volume NST: reactive 08/17 Biophysical profile score Consultation / Office Visit Office note to follow Impression Today's exam reveals a SIUP in cephalic presentation with biometryinconsistent with dates, EFW <1%ile and AC<1%ile, 150 gms of intervalgrowth noted. Limited anatomic survey appears normal. The SHAQUILLE, UA dopplers and BPP are normal. Recommendation Follow up here in 1 week. Weekly NST in your office. Coding ======= Description:40614-14 Follow Up Ultrasound Description:04401-73 BPP with NST Description:72774-53 Doppler Umbilical Artery Tv Host: Reba Richardson RDMS Physician: Nabil Robles MD, FACOG Electronically signed by: Nabil Robles MD, FACOG at: 10:25 us Napoleon Pak MD IMG US ORDERABLES Final Res ult documented in this encounter Visit Diagnoses Diagnosis IUGR (intrauterine growth restriction) affecting care of mother, third trimester, fetus 1- Primary Placenta succenturiate lobe affecting fetus Fetus or affected by other forms of other and unspecified morphological and functional abnormalities of placenta IUGR (intrauterine growth restriction) affecting care of mother, third trimester, fetus 1 IUGR (intrauterine growth restriction) affecting care of mother, third trimester, fetus 1 documented in this encounter Care Teams Director [place] Relationship Specialty Start Date End Date Provider, No Known [facility] [place] [address] PCP - General 09/05/25 documented as of this encounter
--- OUTSIDE RECORDS SUMMARY | 2025-10-03 08:47 | XMS_ITS | Encounter Summary ---
Author Organization [facility] Address [address] [place] [phone] Care Team Providers Care Tack Driller Name Role Phone Provider, No Known Primary Care Provider Unavail able Reason for Referral * Diagnostic Imaging (Routine) - Authorized Specialty Diagnoses / Procedures Referred By Contac t Referred To Contact Radiology Diagnoses IUGR (intrauterine growth restriction) affecting care of mother, third trimester, fetus 1 Procedures US [facility] Napoleon Pak MD [address] [place] [address] Phone: tel: fax: Referral ID Status Reason Start Date Expiration Date V isits Requested Visits Authorized [id number] Authorized 09/21/2025 12/21/2026 3 3 Reason for Visit * Diagnostic Imaging (Routine) - Authorized Specialty Diagnoses / Procedures Referred By Contac t Referred To Contact Radiology Diagnoses IUGR (intrauterine growth restriction) affecting care of mother, third trimester, fetus 1 Procedures US [facility] Napoleon Pak MD [address] [place] [address] Phone: tel: fax: Referral ID Status Reason Start Date Expiration Date V isits Requested Visits Authorized [id number] Authorized 09/21/2025 12/21/2026 3 3 Encounter Details Date Type Department Care Team (Late st Contact Info) Description 10/03/2025 8:47 AM EST - 10/03/2025 11:59 PM EST Hospital Encounter [facility] US PER DIAG CTR [address] [place] [phone] Napoleon Pak MD 1700 [facility] [address] [place] [address] IUGR (intrauterine growth restriction) affecting care of [...] Procedure Name Priority Date/Time Associated Diagnosis Comments [facility] Routine 10/03/2025 9:37 AM EST IUGR (intrauterine growth restriction) affecting care of mother, third trimester, fetus 1 documented in this encounter Results * Pending sale to [facility] (10/03/2025 9:37 AM EST) Anatomical Region Laterality Modality Ultrasound 10/03/2025 9:10 AM EST Narrative 10/03/2025 10:25 AM EST PAT NAME: SHILPI ALATORRE MED REC#: [id number] DA: 2000 PAT GEND: F PAT TYPE: O EXAM CARLOS: [id number] REF PHYS PATY RINCON Comparison Studies The [...] EFW (oz) 6 oz EFW by: Hadlock ([id number]) Extended Cav. septi pel. tr 6.2 mm Va 5.0 mm De Icer Finisher 3.5 mm CM 6.7 mm 31% [...] Normal Heart / Thorax 3-vessel view: Normal 5-xzabfv-xcrrjpj view: normal Cord insertion: Normal Stomach: Appears [...] NST in your office. Coding ======= Description: 31286-56 Follow Up Ultrasound Description: 40266-16 BPP with NST Description: 81306-21 Doppler Umbilical Artery Sales Effectiveness Manager: Reba Richardson RDMS Physician: Nabil Robles MD, FACOG Electronically signed by: Nabil Robles MD, FACOG at: 10:25 Procedure Note Nabil Robles MD - 10/03/2025 PAT NAME: SHILPI ALATORRE MED REC#: [id number] DA: 2000 PAT GEND: F PAT TYPE: O EXAM CARLOS: [id number] REF PHYS PATY RINCON Comparison Studies The findings of this study are compared to the prior ultrasound studydated Patient Status Outpatient Indication ======== IUGR. Maternal Assessment Upojyr172 cm Height (ft)5 ft Height (in)2 in Spvmzc62 kg Weight (lb)128 lb BMI23.23 kg/m Method ======= Transabdominal ultrasound examination. View: Good view ========= Whittaker . Number of fetuses: 1 Dating ====== GA by prior ynnvyfipyw26 w + 2 d CYNDI by prior [...] GA33 w + 2 d Assigned CYNDI:11/19/2025 hufxqx294 d Biometry Standard BPD75.3 mm 30w 1d <1% Hadlock OFD95.4 mm 30w 6d 5% So HC272.1 mm 29w 5d <1% Hadlock Cerebellum tr42.8 mm 33w 4d 37% Hill AC257.0 mm 29w 6d <1% Hadlock Femur59.4 mm 31w 0d 2% Hadlock Zyhecwr24.6 mm 31w 1d 11% So HC / AC1.06 EFW1,534 g 29w 6d <1% Hadlock EFW (lb)3 lb EFW (oz)6 oz EFW by:Hadlock ([id number]-FL) Extended Cav. septi pel. tr6.2 mm Va5.0 mm Vp3.5 mm CM6.7 mm 31% Nicolaides Head / Face / Neck Cephalic index0.79 36% Nicolaides Extremities / Bony Struc FL / BPD0.79 FL / HC0.22 FL / AC0.23 Other Structures DEM796 bpm General Evaluation Cardiac activity present. FHR [...] LVOT view:Normal Heart / Thorax 3-vessel view:Normal 9-werauo-sbyuumn view:normal Cord insertion:Normal Stomach:Appears normal Kidneys:Appears normal [...] Weekly NST in your office. Coding ======= Description:61384-62 Follow Up Ultrasound Description:87364-39 BPP with NST Description:67258-83 Doppler Umbilical Artery Sales Effectiveness Manager: Reba Richardson RDMS Physician: Nabil Robles MD, FACOG Electronically signed by: Nabil Robles MD, FACOG at: 10:25 us Napoleon Pak MD IMG US ORDERABLES Final Res ult documented in this encounter Visit Diagnoses Diagnosis IUGR (intrauterine growth restriction) affecting care of mother, third trimester, fetus 1 documented in this encounter Care Teams Tack Driller Relationship Specialty Start Date End Date Provider, No Known [facility] [place] [address] PCP - General 09/05/25 documented as of this encounter
--- OUTSIDE RECORDS SUMMARY | 2025-10-03 09:15 | XMS_ITS | Encounter Summary ---
Author Organization [facility] Address [address] [place] [address] Care Team Providers Care Business Mail Entry Clerk Name Role Phone Provider, No Known Primary Care Provider Unavail able Encounter Details Date Type Department Care Team (Late st Contact Info) Description 10/03/2025 9:15 AM EST Office Visit [facility] MATERNAL MEDICINE [address] [place] [phone] Nabil Robles MD [address] [facility] [address] [place] [address] IUGR (intrauterine growth restriction) affecting care of [...] Test Patient: Shilpi Alatorre : 2000 CSN: [id number] Date: 10/03/2025 Estimated Date of Delivery: 11/19/25 [...] NSTs in your office. Orders: - Cancel: [facility]; Future Follow Up 1 week [...] CVS. Nabil Robles MD, FACOG Maternal Medicine, [facility] documented in this encounter Plan of Treatment Not on file documented as of this encounter Visit Diagnoses Diagnosis IUGR (intrauterine growth restriction) affecting care of mother, third trimester, fetus 1- Primary documented in this encounter Care Teams Business Mail Entry Clerk Relationship Specialty Start Date End Date Provider, No Known [facility] [place] [address] PCP - General 09/05/25 documented as of this encounter
--- OUTSIDE RECORDS SUMMARY | 2025-10-10 07:59 | XMS_ITS | Encounter Summary ---
Author Organization [facility] Address [address] [place] [address] Care Team Providers Care Health Sciences Manager Name Role Phone Provider, No Known Primary Care Provider Unavail able Reason for Referral * Diagnostic Imaging (Routine) - Authorized Specialty Diagnoses / Procedures Referred By Contac t Referred To Contact Radiology Diagnoses IUGR (intrauterine growth restriction) affecting care of mother, third trimester, fetus 1 Procedures US [facility] Napoleon Pak MD [address] [place] [address] Phone: tel: fax: Referral ID Status Reason Start Date Expiration Date V isits Requested Visits Authorized [id number] Authorized 09/21/2025 12/21/2026 3 3 Reason for Visit * Diagnostic Imaging (Routine) - Authorized Specialty Diagnoses / Procedures Referred By Contac t Referred To Contact Radiology Diagnoses IUGR (intrauterine growth restriction) affecting care of mother, third trimester, fetus 1 Procedures US [facility] Napoleon Pak MD [address] [place] [address] Phone: tel: fax: Referral ID Status Reason Start Date Expiration Date V isits Requested Visits Authorized [id number] Authorized 09/21/2025 12/21/2026 3 3 Encounter Details Date Type Department Care Team (Late st Contact Info) Description 10/10/2025 7:59 AM EST - 10/10/2025 11:59 PM EST Hospital Encounter [facility] US PER DIAG CTR [address] [place] [id number] Napoleon Pak MD 1700 [facility] [address] [place] [address] IUGR (intrauterine growth restriction) affecting care of [...] Procedure Name Priority Date/Time Associated Diagnosis Comments [facility] Routine 10/10/2025 8:33 AM EST IUGR (intrauterine growth restriction) affecting care of mother, third trimester, fetus 1 documented in this encounter Results * [facility] (10/10/2025 8:33 AM EST) Anatomical Region Laterality Modality Ultrasound 10/10/2025 8:11 AM EST Narrative 10/10/2025 8:35 AM EST PAT NAME: SHILPI ALATORRE MED REC#: [id number] DA: 2000 PAT GEND: F PAT TYPE: O EXAM CARLOS: [id number] REF PHYS PATY RINCON Comparison Studies The [...] here in 1 week. Coding ====== Description: 71874-96 BPP without NST Description: 05391-78 Doppler Umbilical Artery Retail Maintenance Technician: Mine Pope RDSC Physician: Aman Otero MD, FACOG Electronically signed by: Aman Otero MD, FACOG at: 08:35 Procedure Note Dani Otero MD - 10/10/2025 PAT NAME: SHILPI ALATORRE MED REC#: [id number] DA: [id number] PAT GEND: F PAT TYPE: O EXAM CARLOS: [id number] REF PHYS PATY RINCON Comparison Studies The findings of this study are compared to the prior ultrasound studydated Patient Status Outpatient Indication ======== IUGR. Maternal Assessment Sasskt074 cm Height (ft)5 ft Height (in)2 in Qtpqwf62 kg Weight (lb)130 lb BMI23.62 kg/m Method ======= Transabdominal ultrasound examination. View: Good view ========= Whittaker . Number of fetuses: 1 Dating ====== Method of dating:based on stated CYNDI GA by prior [id number] w + 2 d CYNDI by prior assessment:11/19/2025 Previous dating:based on stated CYNDI, selected on 09/21/2025 Agreed CYNDI of previous datin11/19/2025 Assigned:based on stated CYNDI, selected on 10/10/2025 Assigned GA34 w + 2 d Assigned CYNDI:11/19/2025 [id number] d General Evaluation Cardiac activity present. FHR [...] scheduled here in 1 week. Coding ====== Description:13222-28 BPP without NST Description:12988-05 Doppler Umbilical Artery Retail Maintenance Technician: Mine Pope RDMS Physician: Aman Otero MD, FACOG Electronically signed by: Aman Otero MD, FACOG at: 08:35 Napoleon Pak MD IMG US ORDERABLES Final Res ult documented in this encounter Visit Diagnoses Diagnosis IUGR (intrauterine growth restriction) affecting care of mother, third trimester, fetus 1 documented in this encounter Care Teams Health Sciences Manager Relationship Specialty Start Date End Date Provider, [place] [address] PCP - General 09/05/25 documented as of this encounter
--- OUTSIDE RECORDS SUMMARY | 2025-10-10 08:15 | XMS_ITS | Encounter Summary ---
Author Organization [facility] Address [address] [place] [id number] Care Team Providers Care Fisher Lampara Net Name Role Phone Provider, No Known Primary Care Provider Unavail able Reason for Referral * Diagnostic Imaging (Routine) - Authorized Specialty Diagnoses / Procedures Referred By Contac t Referred To Contact Radiology Diagnoses IUGR (intrauterine growth restriction) affecting care of mother, third trimester, fetus 1 Placenta succenturiate lobe affecting fetus 34 weeks gestation of Procedures [facility] Dani Otero MD [facility] [address] [place] [address] Phone: tel: fax: Referral ID Status Reason Start Date Expiration Date V isits Requested Visits Authorized [id number] Authorized 10/10/2025 01/09/2027 1 1 Reason for Visit * Reason Comments IUGR Encounter Details Date Type Department Care Team (Late st Contact Info) Description 10/10/2025 8:15 AM EST Office Visit [facility] MATERNAL MEDICINE 17[address] [facility] [address] [place] [phone] Dani Otero MD [address] [facility] [address] [place] [address] IUGR (intrauterine growth restriction) affecting care of [...] Type Priority Associated Diagnoses Orde r Schedule [facility] Center Imaging Routine IUGR (intrauterine [...] of documented in this encounter Care Teams Fisher Lampara Net Relationship Specialty Start Date End Date Provider, [place] [address] PCP - General 09/05/25 documented as of this encounter
--- OUTSIDE RECORDS SUMMARY | 2025-10-26 14:29 | XMS_ITS | Encounter Summary ---
Author Organization [facility] Address [address] [place] [address] Care Team Providers Care Nuisance Wildlife Specialist Name Role Phone Provider, No Known Primary Care Provider Unavail able Encounter Details Date Type Department Care Team (Late st Contact Info) Description 10/18/2025 Telephone [facility] MATERNAL MEDICINE [address] [facility] [address] [place] [phone] Dani Otero MD [address] [facility] [address] [place] [address] Social History Tobacco Use Types Packs/Day Years [...] on filedocumented in this encounter Care Teams Nuisance Wildlife Specialist Relationship Specialty Start Date End Date Provider, [place] [address] PCP - General 09/05/25 documented as of this encounter
--- OUTSIDE RECORDS SUMMARY | 2025-10-26 14:29 | XMS_ITS | Clinical Summary ---
Author Organization [facility] Address [address] [place] [address] Phone Care Team Providers Care Magnetic Tape Winder Name Role Phone Unavailable Primary Care Provider [...]
--- OUTSIDE RECORDS SUMMARY | 2025-10-26 14:29 | XMS_ITS | Encounter Summary ---
Author Organization [facility] Address [address] [place] [address] Care Team Providers Care Compliance Specialist Name Role Phone Provider, No Known [...] on filedocumented in this encounter Care Teams Compliance Specialist Relationship Specialty Start Date End Date Provider, [place] [address] PCP - General 09/05/25 documented as of this encounter
--- OUTSIDE RECORDS SUMMARY | 2025-10-26 14:29 | XMS_ITS | Clinical Summary ---
Author Organization [facility] Address [address] [place] [address] Care Team Providers Care Driver Recruiter Name Role Phone Provider, No Known Primary [...] Type Department Care Team Description 10/18/2025 Telephone [facility] [address] [facility] [address] [place] [address] Dani Otero MD 10/10/2025 8:15 AM EST Office Visit [facility] [address] [facility] [address] [place] [address] Dani Otero MD IUGR (intrauterine growth restriction) affecting care of mother, third trimester, fetus 1 (Primary Dx); Placenta succenturiate lobe affecting fetus; 34 weeks gestation of 10/10/2025 7:59 AM EST - 10/10/2025 11:59 PM EST Hospital Encounter [facility] US PER DIAG CTR [address] [place] [address] Napoleon Pak MD IUGR (intrauterine growth restriction) affecting care of mother, third trimester, fetus 1 Discharge Disposition: Home or Self Care 10/10/2025 Travel 10/03/2025 9:15 AM EST Office Visit [facility] MATERNAL MEDICINE [address] [facility] [address] [place] [address] Nabil Robles MD IUGR (intrauterine growth restriction) affecting care of mother, third trimester, fetus 1 (Primary Dx) 10/03/2025 8:47 AM EST - 10/03/2025 11:59 PM EST Hospital Encounter [facility] US PER DI[facility] [address] [place] [id number] Napoleon Pak MD IUGR (intrauterine growth restriction) affecting care of mother, third trimester, fetus 1 Discharge Disposition: Home or Self Care 10/03/2025 Travel 09/21/2025 8:15 AM EST - 09/21/2025 11:59 PM EST Hospital Encounter [facility] PER [facility] [address] [place] [address] Marissa Hadley MD IUGR (intrauterine growth restriction) affecting care of mother, third trimester, fetus 1 Discharge Disposition: Home or Self Care 09/21/2025 8:15 AM EST Office Visit [facility] MATERNAL MEDICINE [address] [facility] [address] [place] [address] Napoleon Pak MD IUGR (intrauterine growth restriction) affecting care of mother, third trimester, fetus 1 (Primary Dx); Placenta succenturiate lobe affecting fetus 09/21/2025 Travel 09/07/2025 8:00 AM EDT Office Visit [facility]NAL MEDICINE [address] [facility] [address] [place] [address] Marissa Hadley MD IUGR (intrauterine growth restriction) affecting care of mother, third trimester, fetus 1 (Primary Dx); 29 weeks gestation of 09/07/2025 7:58 AM EDT - 09/07/2025 11:59 PM EDT Hospital Encounter [facility] PER [facility] [address] [place] [address] Paty Flores DO IUGR (intrauterine [...] 09/07/2025 8:14 AM EDT Plan of Treatment Health Maintenance [...] Comments [facility] Routine 10/10/2025 8:33 AM EST IUGR (intrauterine growth restriction) affecting care of mother, third trimester, fetus 1 [facility] Routine 10/03/2025 9:37 AM EST IUGR (intrauterine growth restriction) affecting care of mother, third trimester, fetus 1 [facility] Routine 09/21/2025 8:44 AM EST IUGR (intrauterine growth restriction) affecting care of mother, third trimester, fetus 1 [facility] Routine 09/07/2025 11:09 AM EDT IUGR (intrauterine growth restriction) affecting care of mother, third trimester, fetus 1 , unspecified gestational age from Last 3 Months Results * Count includes the [facility] (10/10/2025 8:33 AM EST) Only the most recent of4 resultswithin the time period is included. Anatomical Region Laterality Modality Ultrasound 10/10/2025 8:11 AM EST Narrative 10/10/2025 8:35 AM EST PAT NAME: SHILPI ALATORRE MED REC#: [id number] DA: [id number] PAT GEND: F PAT TYPE: O EXAM CARLOS: [id number] REF PHYS PATY FLORES Comparison Studies The [...] here in 1 week. Coding ====== Description: 85292-37 BPP without NST Description: 52671-45 Doppler Umbilical Artery Oil Field Worker: Mine Pope RDMS Physician: Aman Otero MD, FACOG Electronically signed by: Aman Otero MD, FACOG at: 08:35 Procedure Note Dani Otero MD - 10/10/2025 PAT NAME: SHILPI ALATORRE MED REC#: [id number] DA: [id number] PAT GEND: F PAT TYPE: O EXAM CARLOS: [id number] REF PHYS PATY FLORES Comparison Studies The findings of this study are compared to the prior ultrasound studydated Patient Status Outpatient Indication ======== IUGR. Maternal Assessment [id number] cm Height (ft)5 ft Height (in)2 in Vstmeg03 kg Weight (lb)130 lb BMI23.62 kg/m Method ======= Transabdominal ultrasound examination. View: Good view ========= Whittaker . Number of fetuses: 1 Dating ====== Method of dating:based on stated CYNDI GA by prior [id number] w + 2 d CYNDI by prior [...] scheduled here in 1 week. Coding ====== Description:42974-65 BPP without NST Description:32960-83 Doppler Umbilical Artery Oil Field Worker: Mine Pope RDMS Physician: Amna Otero MD, FACOG Electronically signed by: Aman Otero MD, FACOG at: 08:35 Napoleon Pak MD [facility] [place] Final Res ult from Last 3 Months Insurance [facility] [place] [facility] Care Teams Driver Recruiter Relationship Specialty Start Date End Date Provider, No Known [facility] [place] [address] PCP - General 09/05/25
--- NOTE | 2025-10-26 14:30 | US_ITS ---
PROCEDURE: US OB BIOPHYSICAL PROFILE CLINICAL INDICATION: BPP COMPARISON: Multiple exams were available for comparison FINDINGS: Transabdominal sonographic images of the uterus were obtained. From her established due date she is 36weeks 4days. The following parameters are obtained: Viable Fetus in the cephalic presentation with an anterior/posterior wrapped placenta grade 2. Measurements: heart Rate = 130bpm Amniotic fluid index: 11.03cm, MVP 4.95 cm Qualitative AFV:2 Breathing movements: 2 Gross Body Movements: 2 Tone: 2 Biophysical profile score: 8 No obvious anomalies evident.Kidneys, stomach, bladder, four-chamber heart, three-vessel cord appear normal. IMPRESSION: 1. Viable fetus in the cephalic presentation with an anterior/posteriorly wrapped placenta grade 2. 2. The fluid is within normal limits with an amniotic fluid index 11.03 cm, MVP 4.95 cm. 3. Biophysical profile is 8/8 with good breathing movement and movement seen. 4. Limited anatomical scan appears normal. Dictated by: Adrián Ross MD 10/27/2025 12:57 Adrián Ross MD in OV 10/27/2025 12:57
--- OUTSIDE RECORDS SUMMARY | 2025-10-26 14:30 | XMS_ITS | Encounter Summary ---
Author Organization [facility] Address [address] [place] [address] Care Team Providers Care Set Decorator Name Role Phone Provider, No Known Primary [...] on filedocumented in this encounter Care Teams Set Decorator Relationship Specialty Start Date End Date Provider, [place] [address] PCP - General 09/05/25 documented as of this encounter
--- OUTSIDE RECORDS SUMMARY | 2025-10-26 14:30 | XMS_ITS | Encounter Summary ---
Author Organization [facility] Address [address] [place] [address] Care Team Providers Care Employment Service Specialist Name Role Phone Provider, No Known [...] on filedocumented in this encounter Care Teams Employment Service Specialist Relationship Specialty Start Date End Date Provider, [place] [address] PCP - General 09/05/25 documented as of this encounter
--- OUTSIDE RECORDS SUMMARY | 2025-10-26 14:30 | XMS_ITS | Encounter Summary ---
Author Organization [facility] Address [address] [place] [address] Care Team Providers Care Olericulturist Name Role Phone Provider, No Known Primary [...] on filedocumented in this encounter Care Teams Olericulturist Relationship Specialty Start Date End Date Provider, [place] [address] PCP - General 09/05/25 documented as of this encounter
== END 2025-10-26 23:59 | disposition home or self-care (01) ==
LOC: RAD 14:26
PROVIDERS: PCP Nurse Practitioner; Visit Provider Obstetrics & Gynecology
DX: O36.5930 Maternal care for other known or suspected poor fetal growth, third trimester, not applicable or unspecified (principal); Z3A.36 36 weeks gestation of pregnancy
CPT/HCPCS: 76819

== ENCOUNTER 2025-10-29 19:08 | Inpatient (IN) | payer OTHER, SELFPAY ==
--- OUTSIDE RECORDS SUMMARY | 2025-09-07 06:58 | XMS_ITS | Encounter Summary ---
[facility] Address [address] [place] [address] Care Team Providers Care Lead Solutions Architect Name Role Phone Provider, No Known Primary Care Provider Unavail able Reason for Referral * Diagnostic Imaging (Routine) - Closed Specialty Diagnoses / Procedures Referred By Contac t Referred To Contact Radiology Diagnoses IUGR (intrauterine growth restriction) affecting care of mother, third trimester, fetus 1 , unspecified gestational age Procedures [facility] Diagnostic [place] Lula Flores, [place] [address] Phone: tel: fax: [facility] US PER DIAG CTR [address] [place] [address] Phone: tel: Referral ID Status Reason Start Date Expiration Date Visits Re quested Visits Authorized [id number] Closed 09/05/2025 12/05/2026 1 1 Reason for Visit * Diagnostic Imaging (Routine) - Closed Specialty Diagnoses / Procedures Referred By Contac t Referred To Contact Radiology Diagnoses IUGR (intrauterine growth restriction) affecting care of mother, third trimester, fetus 1 , unspecified gestational age Procedures [facility] Diagnostic [place] Lula Flores DO [address] [place], [place] [address] Phone: tel: fax: [facility] US PER DIAG CTR [address] [place] [address] Phone: tel: Referral ID Status Reason Start Date Expiration Date Visits Re quested Visits Authorized [id number] Closed 09/05/2025 12/05/2026 1 1 Encounter Details Date Type Department Care Team (Latest Contact Info) Description 09/07/2025 7:58 AM EDT - 09/07/2025 11:59 PM EDT Hospital Encounter [facility] US PER DIAG CTR [address] [place] [address] Lula Flores, [address] [place] [facility] [address] [id number] IUGR (intrauterine growth restriction) affecting care of [...] as of this encounter Plan of Treatment Not on file documented as of this encounter Procedures Procedure Name Priority Date/Time Associated Diagnosis Comments [facility] Routine 09/07/2025 11:09 AM EDT IUGR (intrauterine growth restriction) affecting care of mother, third trimester, fetus 1 , unspecified gestational age documented in this encounter Results * [facility] (09/07/2025 11:09 AM EDT) Anatomical Region Laterality Modality Ultrasound 09/07/2025 8:18 AM EDT Narrative 09/07/2025 9:11 AM EDT PAT NAME: SHILPI ALATORRE MED REC#: [id number] DA: 2000 PAT GEND: F PAT TYPE: O EXAM CARLOS: [id number] REF PHYS LULA FLORES Comparison Studies There are no relevant [...] EFW (oz) 5 oz EFW by: Hadlock (GRA-BU-XG-FL) Extended Tibia 47.0 mm 28w 4d 19% So Fibula 47.2 mm 29w 1d 40% So Foot 54.5 mm 8% Chitty Radius 38.3 mm 26w 5d 24% So Ulna 42.4 mm 27w 3d 2% So Cav. septi pel. tr 6.4 mm Power Reactor Operator 7.0 mm CM 4.6 mm 3% Nicolaides [...] normal IVC: normal 3-vessel view: Appears normal 6-oilgtv-uazrwde view: Appears normal Rt lung: Appears normal [...] with weekly UA Dopplers. Coding ======= Description: 92701-03 Detailed Ultrasound Description: 82005-08 BPP without NST Description: 21564-68 Doppler Umbilical Artery Asian Studies Program Chair: Shell Smith RDMS Physician: Marissa Hadley MD Electronically signed by: Marissa Hadley MD at: 09:11 Procedure Note Marissa Hadley MD - 09/07/2025 PAT NAME: SHILPI ALATORRE MED REC#: [id number] DA: 2000 PAT GEND: F PAT TYPE: O EXAM CARLOS: [id number] REF PHYS LULA FLORES Comparison Studies There are no relevant prior studies to which this study is beingcompared Patient Status Outpatient Indication ======== IUGR Maternal Assessment Qrprry918 cm Height (ft)5 ft Height (in)2 in Wyxyvc32 kg Weight (lb)121 lb BMI22.03 kg/m Method ======= Transabdominal ultrasound examination. View: Adequate view ========= Whittaker . Number of fetuses: 1 Dating ====== Method of dating:based on stated CYNDI GA by prior itzdrqredr65 w + 4 d CYNDI by prior assessment:11/19/2025 Ultrasound examination on:09/07/2025 GA by U/S based upon:AC, BPD, Femur, HC GA by U/S27 w + 5 d CYNDI by U/S:12/02/2025 Assigned:based on stated CYNDI, selected on 09/07/2025 Assigned GA29 w + 4 d Assigned CYNDI:11/19/2025 [id number] d Biometry Standard BPD69.9 mm 28w 1d 6% Hadlock OFD93.2 mm 30w 0d 64% So HC258.5 mm 28w 1d 1% Hadlock Cerebellum tr33.9 mm 28w 4d 18% Hill AC222.2 mm 26w 5d <1% Hadlock Femur52.5 mm 28w 0d 5% Hadlock Rdwhoys05.3 mm 27w 2d 4% So HC / AC1.16 EFW1,060 g 27w 0d 2% Hadlock EFW (lb)2 lb EFW (oz)5 oz EFW by:Hadlock (JSH-CD-PY-FL) Extended Tibia47.0 mm 28w 4d 19% So Ctwwqb39.2 mm 29w 1d 40% So Foot54.5 mm 8% Chitty Cgqlek65.3 mm 26w 5d 24% So Ulna42.4 mm 27w 3d 2% So Cav. septi pel. tr6.4 mm Vp7.0 mm CM4.6 mm 3% Nicolaides Nasal bone9.5 mm Head / Face / Neck Cephalic index0.75 11% Nicolaides Extremities / Bony Struc FL / BPD0.75 FL / HC0.20 FL / AC0.24 Other Structures OYQ052 bpm General Evaluation Cardiac activity present. FHR [...] view:Appears normal SVC:normal IVC:normal 3-vessel view:Appears normal 1-yutwun-unnaimz view:Appears normal Rt lung:Appears normal Lt lung:normal [...] weekly testing with weekly UADopplers. Coding ======= Description:69539-90 Detailed Ultrasound Description:37839-58 BPP without NST Description:39765-49 Doppler Umbilical Artery Asian Studies Program Chair: Shell Smith RDMS Physician: Marissa Hadley MD Electronically signed by: Marissa Hadley MD at: 09:11 us Lula Flores DO IMG US ORDERABLES Final Res ult documented in this encounter Visit Diagnoses Diagnosis IUGR (intrauterine growth restriction) affecting care of mother, third trimester, fetus 1 , unspecified gestational age documented in this encounter Care Teams Lead Solutions Architect Relationship Specialty Start Date End Date Provider, [place] [address] PCP - General 09/05/25 documented as of this encounter
--- OUTSIDE RECORDS SUMMARY | 2025-09-07 07:00 | XMS_ITS | Encounter Summary ---
Author Organization [facility] Address [address] [place] [id number] Care Team Providers Care Towel Folder Name Role Phone Provider, No Known Primary Care Provider Unavail able Reason for Referral * Diagnostic Imaging (Routine) - Closed Specialty Diagnoses / Procedures Referred By Contac t Referred To Contact Radiology Diagnoses IUGR (intrauterine growth restriction) affecting care of mother, third trimester, fetus 1 Procedures Replaced by [facility] Marissa Hadley MD 1700 [facility] [address] [place] [address] Phone: tel: fax: Referral ID Status Reason Start Date Expiration Date Visits Re quested Visits Authorized [id number] Closed 09/07/2025 12/07/2026 1 1 Reason for Visit * Reason Comments IUGR Encounter Details Date Type Department Care Team (Late st Contact Info) Description 09/07/2025 8:00 AM EDT Office Visit [facility] MATERNAL MEDICINE 1700 [facility] [address] [place] [address] Marissa Hadley MD 1700 [facility] [address] [place], [place] [id number] IUGR (intrauterine growth restriction) affecting care of [...] Name: Shilpi Alatorre : 2000 Referring Provider: Lula Flores DO Chief Complaint IUGR Subjective History [...] weekly assessment of BPP/SHAQUILLE/UA Dopplers Orders: - Replaced by [facility]; Future 2. 29 weeks gestation [...] documented in this encounter Plan of Treatment Not on file documented as of this encounter Results * Replaced by [facility] (09/21/2025 8:44 AM EST) Anatomical Region Laterality Modality Ultrasound 09/21/2025 8:30 AM EST Narrative 09/21/2025 9:21 AM EST PAT NAME: SHILPI ALATORRE MED REC#: [id number] DA: [id number] PAT GEND: F PAT TYPE: O EXAM CARLOS: [id number] REF PHYS LULA FLORES Comparison Studies The findings of this [...] Hadlock Humerus 50.1 mm 29w 2d 5% Os HC / AC 1.11 EFW 1,384 g 29w 0d 3% Hadlock EFW (lb) 3 lb EFW (oz) 1 oz EFW by: Hadlock (OGG-GD-FB-FL) Extended Cav. septi pel. tr 6.3 mm [...] Normal Heart / Thorax 3-vessel view: Normal 9-anuiac-sxwonwh view: normal Stomach: Appears normal Kidneys: Appears [...] Consultation / Office Visit Type: Consultation See [facility] for full consult note. Impression Single, [...] for growth assessment (PDC) Coding ======= Description: 38947-00 Follow Up Ultrasound Description: 02380-19 BPP without NST Description: 50775-27 Doppler Umbilical Artery Sail Cutter: Zamzam Harris RDMS Physician: Napoleon Pak MD Electronically signed by: Napoleon Pak MD at: 09:22 Procedure Note Napoleon Pak MD - 09/21/2025 PAT NAME: SHILPI ALATORRE MED REC#: [id number] DA: 2000 PAT GEND: F PAT TYPE: O EXAM CARLOS: [id number] REF PHYS LULA FLORES Comparison Studies The findings of this study are compared to the prior ultrasound studydated 09/07/25 Patient Status Outpatient Indication ======== IUGR. Maternal Assessment Nflnxd222 cm Height (ft)5 ft Height (in)2 in Bozvcn01 kg Weight (lb)126 lb BMI22.89 kg/m Method ======= Transabdominal ultrasound examination. View: Adequate view ========= Whittaker . Number of fetuses: 1 Dating ====== Method of dating:based on stated CYNDI GA by prior [id number] w + 4 d CYNDI by prior assessment:11/19/2025 Ultrasound examination on:09/21/2025 GA by U/S based upon:AC, BPD, Femur, HC GA by U/S29 w + 4 d CYNDI by U/S:12/03/2025 Previous dating:based on stated CYNDI, selected on 09/07/2025 Agreed CYNDI of previous datin11/19/2025 Assigned:based on stated CYNDI, selected on 09/21/2025 Assigned GA31 w + 4 d Assigned CYNDI:11/19/2025 [id number] d Biometry Standard BPD73.7 mm 29w 4d 3% Hadlock OFD96.3 mm 31w 1d 37% So HC271.4 mm 29w 4d <1% Hadlock Cerebellum tr37.7 mm 30w 6d 14% Hill AC245.2 mm 28w 5d 1% Hadlock Femur57.7 mm 30w 1d 8% Hadlock Zqppnmi66.1 mm 29w 2d 5% So HC / AC1.11 EFW1,384 g 29w 0d 3% Hadlock EFW (lb)3 lb EFW (oz)1 oz EFW by:Hadlock (BEA-HL-QH-FL) Extended Cav. septi pel. tr6.3 mm CM5.0 mm 4% Nicolaides Head / Face / Neck Cephalic index0.77 19% Nicolaides Extremities / Bony Struc FL / BPD0.78 FL / HC0.21 FL / AC0.24 Other Structures GHA229 bpm General Evaluation Cardiac activity present. FHR [...] LVOT view:Normal Heart / Thorax 3-vessel view:Normal 4-ivjjdj-agmbwio view:normal Stomach:Appears normal Kidneys:Appears normal Bladder:Appears normal [...] Amniotic fluid volume 8/8 Biophysical profile score Consultation / Office Visit Type: Consultation See [facility] for full consult note. Impression Single, [...] weeks for growth assessment (PDC) Coding ======= Description:49846-69 Follow Up Ultrasound Description:04818-68 BPP without NST Description:25362-17 Doppler Umbilical Artery Sail Cutter: Zamzam Harris RDMS Physician: Napoleon Pak MD [...] 1 documented in this encounter Care Teams Towel Folder Relationship Specialty Start Date End Date Provider, [place] [address] PCP - General 09/05/25 documented as of this encounter
--- OUTSIDE RECORDS SUMMARY | 2025-09-21 08:15 | XMS_ITS | Encounter Summary ---
Author Organization [facility] Address [address] [place] [phone] Care Team Providers Care Railway Station Manager Name Role Phone Provider, No Known Primary Care Provider Unavail able Reason for Referral * Diagnostic Imaging (Routine) - Closed Specialty Diagnoses / Procedures Referred By Contac t Referred To Contact Radiology Diagnoses IUGR (intrauterine growth restriction) affecting care of mother, third trimester, fetus 1 Procedures [facility] Marissa Hadley MD [address] [place] [address] Phone: tel: fax: Referral ID Status Reason Start Date Expiration Date Visits Re quested Visits Authorized [id number] Closed 09/07/2025 12/07/2026 1 1 Reason for Visit * Diagnostic Imaging (Routine) - Closed Specialty Diagnoses / Procedures Referred By Contac t Referred To Contact Radiology Diagnoses IUGR (intrauterine growth restriction) affecting care of mother, third trimester, fetus 1 Procedures [facility] [place] Marissa Hadley MD [address] [place] [address] Phone: tel: fax: Referral ID Status Reason Start Date Expiration Date Visits Re quested Visits Authorized [id number] Closed 09/07/2025 12/07/2026 1 1 Encounter Details Date Type Department Care Team (Late st Contact Info) Description 09/21/2025 8:15 AM EST - 09/21/2025 11:59 PM EST Hospital Encounter [facility] US PER DIAG CTR [address] [place] [address] Marissa Hadley MD [address] [place] [address] IUGR (intrauterine growth restriction) affecting care of [...] Procedure Name Priority Date/Time Associated Diagnosis Comments [facility] Routine 09/21/2025 8:44 AM EST IUGR (intrauterine growth restriction) affecting care of mother, third trimester, fetus 1 documented in this encounter Results * [facility] (09/21/2025 8:44 AM EST) Anatomical Region Laterality Modality Ultrasound 09/21/2025 8:30 AM EST Narrative 09/21/2025 9:21 AM EST PAT NAME: SHILPI ALATORRE MED REC#: [id number] DA: [id number] PAT GEND: F PAT TYPE: O EXAM CARLOS: [id number] REF PHYS PATY RINCON Comparison Studies The [...] EFW (oz) 1 oz EFW by: Hadlock (DWV-JU-WI-FL) Extended Cav. septi pel. tr 6.3 mm [...] Normal Heart / Thorax 3-vessel view: Normal 0-lwidre-dijssmw view: normal Stomach: Appears normal Kidneys: Appears [...] Consultation / Office Visit Type: Consultation See [facility] for full consult note. Impression Single, viable [...] for growth assessment (PDC) Coding ======= Description: 33910-33 Follow Up Ultrasound Description: 09908-88 BPP without NST Description: 76047-84 Doppler Umbilical Artery Stock Handler: Zamzam Harris RDMS Physician: Napoleon Pak MD Electronically signed by: Napoleon Pak MD at: 09:22 Procedure Note Napoleon Pak MD - 09/21/2025 PAT NAME: SHILPI ALATORRE MED REC#: [id number] DA: [id number] PAT GEND: F PAT TYPE: O EXAM CARLOS: [id number] REF PHYS PATY RINCON Comparison Studies The findings of this study are compared to the prior ultrasound studydated 09/07/25 Patient Status Outpatient Indication ======== IUGR. Maternal Assessment Uytirv301 cm Height (ft)5 ft Height (in)2 in Ugqblu80 kg Weight (lb)126 lb BMI22.89 kg/m Method ======= Transabdominal ultrasound examination. View: Adequate view ========= Whittaker . Number of fetuses: 1 Dating ====== Method of dating:based on stated CYNDI GA by prior uwyvmgqjas24 w + 4 d CYNDI by prior assessment:11/19/2025 Ultrasound examination on:09/21/2025 GA by U/S based upon:AC, BPD, Femur, HC GA by U/S29 w + 4 d CYNDI by U/S:12/03/2025 Previous dating:based on stated CYNDI, selected on 09/07/2025 Agreed CYNDI of previous datin11/19/2025 Assigned:based on stated CYNDI, selected on 09/21/2025 Assigned GA31 w + 4 d Assigned CYNDI:11/19/2025 eguaoq212 d Biometry Standard BPD73.7 mm 29w 4d 3% Hadlock OFD96.3 mm 31w 1d 37% So HC271.4 mm 29w 4d <1% Hadlock Cerebellum tr37.7 mm 30w 6d 14% Hill AC245.2 mm 28w 5d 1% Hadlock Femur57.7 mm 30w 1d 8% Hadlock Clnykfk04.1 mm 29w 2d 5% So HC / AC1.11 EFW1,384 g 29w 0d 3% Hadlock EFW (lb)3 lb EFW (oz)1 oz EFW by:Hadlock (DMZ-YE-GC-FL) Extended Cav. septi pel. tr6.3 mm CM5.0 mm 4% Nicolaides Head / Face / Neck Cephalic index0.77 19% Nicolaides Extremities / Bony Struc FL / BPD0.78 FL / HC0.21 FL / AC0.24 Other Structures AED856 bpm General Evaluation Cardiac activity present. FHR [...] LVOT view:Normal Heart / Thorax 3-vessel view:Normal 0-niawve-foidhgm view:normal Stomach:Appears normal Kidneys:Appears normal Bladder:Appears normal [...] Consultation / Office Visit Type: Consultation See [facility] for full consult note. Impression Single, viable [...] weeks for growth assessment (PDC) Coding ======= Description:28361-54 Follow Up Ultrasound Description:76284-45 BPP without NST Description:93698-04 Doppler Umbilical Artery Stock Handler: Zamzam Harris RDMS Physician: Napoleon Pak MD Electronically signed by: Napoleon Pak MD at: 09:22 us Marissa Hadley MD IMG US ORDERABLES Edited Re sult - Final documented in this encounter Visit Diagnoses Diagnosis IUGR (intrauterine growth restriction) affecting care of mother, third trimester, fetus 1 documented in this encounter Care Teams Railway Station Manager Relationship Specialty Start Date End Date Provider, No Known [facility] [place] [address] PCP - General 09/05/25 documented as of this encounter
--- OUTSIDE RECORDS SUMMARY | 2025-09-21 08:15 | XMS_ITS | Encounter Summary ---
Author Organization [facility] Address [address] [place] [id number] Care Team Providers Care Firer Electric Locomotive Name Role Phone Provider, No Known Primary Care Provider Unavail able Reason for Referral * Diagnostic Imaging (Routine) - Authorized Specialty Diagnoses / Procedures Referred By Contac t Referred To Contact Radiology Diagnoses IUGR (intrauterine growth restriction) affecting care of mother, third trimester, fetus 1 Procedures [facility] Napoleon Pak MD [address] [place] [address] Phone: tel: fax: Referral ID Status Reason Start Date Expiration Date V isits Requested Visits Authorized [id number] Authorized 09/21/2025 12/21/2026 3 3 Reason for Visit * Reason Comments IUGR Encounter Details Date Type Department Care Team (Late st Contact Info) Description 09/21/2025 8:15 AM EST Office Visit [facility] MEDICINE [address] [place] [phone] Napoleon Pak MD [address] [place] [address] IUGR (intrauterine growth restriction) affecting care of [...] Date: 09/21/2025 Name: Shilpi Alatorre : 2000 YCNDI: Estimated Date of Delivery: 11/19/25 Referring Provider: [...] [facility]. Napoleon Pak MD, FACOG Maternal Medicine, [facility] [place] documented in this encounter Plan of Treatment Scheduled Orders Name Type Priority Associated Diagnoses Orde r Schedule [facility] [place] Imaging Routine IUGR (intrauterine growth restriction) affecting care of mother, third trimester, fetus 1 Every 2 Weeks for 3 Occurrences starting 09/21/2025 until 09/21/2026, 2 completed documented as of this encounter Results * [facility] (10/10/2025 8:33 AM EST) Anatomical Region Laterality Modality Ultrasound 10/10/2025 8:11 AM EST Narrative 10/10/2025 8:35 AM EST PAT NAME: SHILPI ALATORRE [facility] REC#: [id number] DA: [id number] PAT GEND: F PAT TYPE: O EXAM CARLOS: [id number] REF PHYS PATY FLORES Comparison Studies The [...] here in 1 week. Coding ====== Description: 75263-53 BPP without NST Description: 92597-22 Doppler Umbilical Artery Assistant Coach: Mine Pope RDMS Physician: Aman Otero MD, FACOG Electronically signed by: Aman Otero MD, FACOG at: 08:35 Procedure Note Dani Otreo MD - 10/10/2025 PAT NAME: SHILPI ALATORRE MED REC#: [id number] DA: 2000 PAT GEND: F PAT TYPE: O EXAM CARLOS: [id number] REF PHYS PATY FLOERS Comparison Studies The findings of this study are compared to the prior ultrasound studydated Patient Status Outpatient Indication ======== IUGR. Maternal Assessment Hilkyc253 cm Height (ft)5 ft Height (in)2 in Ydtzxk04 kg Weight (lb)130 lb BMI23.62 kg/m Method ======= Transabdominal ultrasound examination. View: Good view ========= Whittaker . Number of fetuses: 1 Dating ====== Method of dating:based on stated CYNDI GA by prior sjoyhyxcbb53 w + 2 d CYNDI by prior assessment:11/19/2025 Previous dating:based on stated CYNDI, selected on 09/21/2025 Agreed CYNDI of previous datin11/19/2025 Assigned:based on stated CYNDI, selected on 10/10/2025 Assigned GA34 w + 2 d Assigned CYNDI:11/19/2025 fericw135 d General Evaluation Cardiac activity present. FHR [...] scheduled here in 1 week. Coding ====== Description:42433-24 BPP without NST Description:95673-97 Doppler Umbilical Artery Assistant Coach: Mine Pope RDMS Physician: Aman Otero MD, FACOG Electronically signed by: Aman Otero MD, FACOG at: 08:35 Napoleon Pak MD IMG US ORDERABLES Final Res ult * [facility] (10/03/2025 9:37 AM EST) Anatomical Region Laterality Modality Ultrasound 10/03/2025 9:10 AM EST Narrative 10/03/2025 10:25 AM EST PAT NAME: SHILPI ALATORRE MED REC#: [id number] DA: 2000 PAT GEND: F PAT TYPE: O EXAM CARLOS: [id number] REF PHYS PATY FLORES Comparison Studies The [...] EFW (oz) 6 oz EFW by: Hadlock (CXQ-DR-XV-FL) Extended Cav. septi pel. tr 6.2 mm Va 5.0 mm Order Puller 3.5 mm CM 6.7 mm 31% Nicolaides [...] Normal Heart / Thorax 3-vessel view: Normal 1-lzhdpg-craxgce view: normal Cord insertion: Normal Stomach: Appears [...] NST in your office. Coding ======= Description: 05029-65 Follow Up Ultrasound Description: 12577-23 BPP with NST Description: 29509-85 Doppler Umbilical Artery Assistant Coach: Reba Richardson RDMS Physician: Nabil Robles MD, FACOG Electronically signed by: Nabil Robles MD, FACOG at: 10:25 Procedure Note Nabil Robles MD - 10/03/2025 PAT NAME: SHILPI ALATORRE MED REC#: [id number] DA: [id number] PAT GEND: F PAT TYPE: O EXAM CARLOS: [id number] REF PHYS RADHA FLORESLEY Comparison Studies The findings of this study are compared to the prior ultrasound studydated Patient Status Outpatient Indication ======== IUGR. Maternal Assessment Envtvl055 cm Height (ft)5 ft Height (in)2 in Cxzbtx33 kg Weight (lb)128 lb BMI23.23 kg/m Method ======= Transabdominal ultrasound examination. View: Good view ========= Whittaker . Number of fetuses: 1 Dating ====== GA by prior [id number] w + 2 d CYNDI by prior [...] GA33 w + 2 d Assigned CYNDI:11/19/2025 jytrno694 d Biometry Standard BPD75.3 mm 30w 1d <1% Hadlock OFD95.4 mm 30w 6d 5% So HC272.1 mm 29w 5d <1% Hadlock Cerebellum tr42.8 mm 33w 4d 37% Hill AC257.0 mm 29w 6d <1% Hadlock Femur59.4 mm 31w 0d 2% Hadlock Vouyewh67.6 mm 31w 1d 11% So HC / AC1.06 EFW1,534 g 29w 6d <1% Hadlock EFW (lb)3 lb EFW (oz)6 oz EFW by:Hadlock (LWI-VD-WT-FL) Extended Cav. septi pel. tr6.2 mm Va5.0 mm Vp3.5 mm CM6.7 mm 31% Nicolaides Head / Face / Neck Cephalic index0.79 36% Nicolaides Extremities / Bony Struc FL / BPD0.79 FL / HC0.22 FL / AC0.23 Other Structures CHK451 bpm General Evaluation Cardiac activity present. FHR [...] LVOT view:Normal Heart / Thorax 3-vessel view:Normal 7-zgjlil-pnhycki view:normal Cord insertion:Normal Stomach:Appears normal Kidneys:Appears normal [...] Weekly NST in your office. Coding ======= Description:07439-31 Follow Up Ultrasound Description:31282-70 BPP with NST Description:68407-60 Doppler Umbilical Artery Assistant Coach: Reba Richardson RDMS Physician: Nabil Robles MD, [...] 1 documented in this encounter Care Teams Fire[employer] Electric Locomotive Relationship Specialty Start Date End Date Provider, No Known [facility] [place] [address] PCP - General 09/05/25 documented as of this encounter
--- OUTSIDE RECORDS SUMMARY | 2025-10-03 08:47 | XMS_ITS | Encounter Summary ---
Author Organization [facility] Address [address] [place] [id number] Care Team Providers Care Map Editor Name Role Phone Provider, No Known Primary Care Provider Unavail able Reason for Referral * Diagnostic Imaging (Routine) - Authorized Specialty Diagnoses / Procedures Referred By Contac t Referred To Contact Radiology Diagnoses IUGR (intrauterine growth restriction) affecting care of mother, third trimester, fetus 1 Procedures US [facility] Napoleon Pak MD [address] [place] [address] Phone: tel: fax: Referral ID Status Reason Start Date Expiration Date V isits Requested Visits Authorized [id number] Authorized 09/21/2025 12/21/2026 3 3 Reason for Visit * Diagnostic Imaging (Routine) - Authorized Specialty Diagnoses / Procedures Referred By Contac t Referred To Contact Radiology Diagnoses IUGR (intrauterine growth restriction) affecting care of mother, third trimester, fetus 1 Procedures US [facility] Napoleon Pak MD [address] [place] [address] Phone: tel: fax: Referral ID Status Reason Start Date Expiration Date V isits Requested Visits Authorized [id number] Authorized 09/21/2025 12/21/2026 3 3 Encounter Details Date Type Department Care Team (Late st Contact Info) Description 10/03/2025 8:47 AM EST - 10/03/2025 11:59 PM EST Hospital Encounter [facility] US PER DIAG CTR [address] [place] [phone] Napoleon Pak MD 1700 [facility] [address] [place] [address] IUGR (intrauterine growth restriction) affecting care of [...] Comments [facility] Routine 10/03/2025 9:37 AM EST IUGR (intrauterine growth restriction) affecting care of mother, third trimester, fetus 1 documented in this encounter Results * [facility] (10/03/2025 9:37 AM EST) Anatomical Region Laterality Modality Ultrasound 10/03/2025 9:10 AM EST Narrative 10/03/2025 10:25 AM EST PAT NAME: SHILPI ALATORRE MED REC#: [id number] DA: 2000 PAT GEND: F PAT TYPE: O EXAM CARLOS: [id number] REF PHYS PATY RINCON Comparison Studies The [...] EFW (oz) 6 oz EFW by: Hadlock (VDQ-CH-YK-FL) Extended Cav. septi pel. tr 6.2 mm Va 5.0 mm Underwear Finisher 3.5 mm CM 6.7 mm 31% Nicolaides [...] Normal Heart / Thorax 3-vessel view: Normal 7-eeikup-kolabvh view: normal Cord insertion: Normal Stomach: Appears [...] NST in your office. Coding ======= Description: 53543-53 Follow Up Ultrasound Description: 12195-13 BPP with NST Description: 15712-56 Doppler Umbilical Artery Application Lead: Reba Richardson RDMS Physician: Nabil Robles MD, FACOG Electronically signed by: Nabil Robles MD, FACOG at: 10:25 Procedure Note Nabil Robles MD - 10/03/2025 PAT NAME: SHILPI ALATORRE MED REC#: [id number] DA: 2000 PAT GEND: F PAT TYPE: O EXAM CARLOS: [id number] REF PHYS PATY RINCON Comparison Studies The findings of this study are compared to the prior ultrasound studydated Patient Status Outpatient Indication ======== IUGR. Maternal Assessment Oqvlfz608 cm Height (ft)5 ft Height (in)2 in Jvnllm11 kg Weight (lb)128 lb BMI23.23 kg/m Method ======= Transabdominal ultrasound examination. View: Good view ========= Whittaker . Number of fetuses: 1 Dating ====== GA by prior ycpccrwhox30 w + 2 d CYNDI by prior [...] GA33 w + 2 d Assigned CYNDI:11/19/2025 d Biometry Standard BPD75.3 mm 30w 1d <1% Hadlock OFD95.4 mm 30w 6d 5% So HC272.1 mm 29w 5d <1% Hadlock Cerebellum tr42.8 mm 33w 4d 37% Hill AC257.0 mm 29w 6d <1% Hadlock Femur59.4 mm 31w 0d 2% Hadlock Temmahg32.6 mm 31w 1d 11% So HC / AC1.06 EFW1,534 g 29w 6d <1% Hadlock EFW (lb)3 lb EFW (oz)6 oz EFW by:Hadlock (YQU-WY-ET-FL) Extended Cav. septi pel. tr6.2 mm Va5.0 mm Vp3.5 mm CM6.7 mm 31% Nicolaides Head / Face / Neck Cephalic index0.79 36% Nicolaides Extremities / Bony Struc FL / BPD0.79 FL / HC0.22 FL / AC0.23 Other Structures SHE340 bpm General Evaluation Cardiac activity present. FHR [...] LVOT view:Normal Heart / Thorax 3-vessel view:Normal 1-anbsow-ilvcjto view:normal Cord insertion:Normal Stomach:Appears normal Kidneys:Appears normal Bladder:Appears normal Gender:female Wants to know gender:yes Maternal Structures Uterus / Cervix Cervical jyuahm33.7 mm Doppler Arterial Umbilical A PI1.02 76% [...] Weekly NST in your office. Coding ======= Description:69675-07 Follow Up Ultrasound Description:88940-19 BPP with NST Description:22328-95 Doppler Umbilical Artery Application Lead: Reba Richardson RDMS Physician: Nabil Robles MD, FACOG Electronically signed by: Nabil Robles MD, FACOG at: 10:25 us Napoleon Pak MD IMG US ORDERABLES Final Res ult documented in this encounter Visit Diagnoses Diagnosis IUGR (intrauterine growth restriction) affecting care of mother, third trimester, fetus 1 documented in this encounter Care Teams Map Editor Relationship Specialty Start Date End Date Provider, No Known [facility] [place] [address] PCP - General 09/05/25 documented as of this encounter
--- OUTSIDE RECORDS SUMMARY | 2025-10-03 09:15 | XMS_ITS | Encounter Summary ---
Author Organization [facility] Address [address] [place] [address] Care Team Providers Care Customer Management Specialist Name Role Phone Provider, No Known Primary Care Provider Unavail able Encounter Details Date Type Department Care Team (Late st Contact Info) Description 10/03/2025 9:15 AM EST Office Visit [facility] MATERNAL MEDICINE [address] [place] [phone] Nabil Robles MD [address] [facility] [address] [place] [address] IUGR (intrauterine growth restriction) affecting care of [...] Test Patient: Shilpi Alatorre : 2000 CSN: [id number] Date: 10/03/2025 Estimated Date of Delivery: 11/19/25 [...] CVS. Nabil Robles MD, FACOG Maternal Medicine, [facility] documented in this encounter Plan of Treatment Not on file documented as of this encounter Visit Diagnoses Diagnosis IUGR (intrauterine growth restriction) affecting care of mother, third trimester, fetus 1- Primary documented in this encounter Care Teams Customer Management Specialist Relationship Specialty Start Date End Date Provider, No Known [facility] [address] PCP - General 09/05/25 documented as of this encounter
--- OUTSIDE RECORDS SUMMARY | 2025-10-10 07:59 | XMS_ITS | Encounter Summary ---
Author Organization [facility] Address [address] [place] [id number] Care Team Providers Care Animal Handler Name Role Phone Provider, No Known Primary Care Provider Unavail able Reason for Referral * Diagnostic Imaging (Routine) - Authorized Specialty Diagnoses / Procedures Referred By Contac t Referred To Contact Radiology Diagnoses IUGR (intrauterine growth restriction) affecting care of mother, third trimester, fetus 1 Procedures US [facility] Napoleon Pak MD [address] [place] [address] Phone: tel: fax: Referral ID Status Reason Start Date Expiration Date V isits Requested Visits Authorized [id number] Authorized 09/21/2025 12/21/2026 3 3 Reason for Visit * Diagnostic Imaging (Routine) - Authorized Specialty Diagnoses / Procedures Referred By Contac t Referred To Contact Radiology Diagnoses IUGR (intrauterine growth restriction) affecting care of mother, third trimester, fetus 1 Procedures US [facility] Napoleon Pak MD [address] [place] [address] Phone: tel: fax: Referral ID Status Reason Start Date Expiration Date V isits Requested Visits Authorized [id number] Authorized 09/21/2025 12/21/2026 3 3 Encounter Details Date Type Department Care Team (Late st Contact Info) Description 10/10/2025 7:59 AM EST - 10/10/2025 11:59 PM EST Hospital Encounter [facility] US PER DIAG CTR [address] [place] [id number] Napoleon Pak MD 1700 [facility] [address] [place] [address] IUGR (intrauterine growth restriction) affecting care of [...] Name Priority Date/Time Associated Diagnosis Comments [facility] Routine 10/10/2025 8:33 AM EST IUGR (intrauterine growth restriction) affecting care of mother, third trimester, fetus 1 documented in this encounter Results * [facility] (10/10/2025 8:33 AM EST) Anatomical Region Laterality Modality Ultrasound 10/10/2025 8:11 AM EST Narrative 10/10/2025 8:35 AM EST PAT NAME: SHILPI ALATORRE MED REC#: [id number] DA: 2000 PAT GEND: F PAT TYPE: O EXAM CARLOS: [id number] REF PHYS PATY RINCON Comparison Studies The [...] here in 1 week. Coding ====== Description: 22180-91 BPP without NST Description: 63066-94 Doppler Umbilical Artery Transmission Superintendent: Mine Pope RDWY Physician: Aman Otero MD, FACOG Electronically signed by: Aman Otero MD, FACOG at: 08:35 Procedure Note Dani Otero MD - 10/10/2025 PAT NAME: SHILPI ALATORRE MED REC#: [id number] DA: [id number] PAT GEND: F PAT TYPE: O EXAM CARLOS: [id number] REF PHYS PATY RINCON Comparison Studies The findings of this study are compared to the prior ultrasound studydated Patient Status Outpatient Indication ======== IUGR. Maternal Assessment Pvyafn265 cm Height (ft)5 ft Height (in)2 in Bwrhji18 kg Weight (lb)130 lb BMI23.62 kg/m Method ======= Transabdominal ultrasound examination. View: Good view ========= Whittaker . Number of fetuses: 1 Dating ====== Method of dating:based on stated CYNDI GA by prior [id number] w + 2 d CYNDI by prior assessment:11/19/2025 Previous dating:based on stated CYNDI, selected on 09/21/2025 Agreed CYNDI of previous datin11/19/2025 Assigned:based on stated CYNDI, selected on 10/10/2025 Assigned GA34 w + 2 d Assigned CYNDI:11/19/2025 [id number] d General Evaluation Cardiac activity present. FHR [...] scheduled here in 1 week. Coding ====== Description:49223-24 BPP without NST Description:46687-00 Doppler Umbilical Artery Transmission Superintendent: Mine Pope RDMS Physician: Aman Otero MD, FACOG Electronically signed by: Aman Otero MD, FACOG at: 08:35 Napoleon Pak MD IMG US ORDERABLES Final Res ult documented in this encounter Visit Diagnoses Diagnosis IUGR (intrauterine growth restriction) affecting care of mother, third trimester, fetus 1 documented in this encounter Care Teams Animal Handler Relationship Specialty Start Date End Date Provider, [place] [address] PCP - General 09/05/25 documented as of this encounter
--- OUTSIDE RECORDS SUMMARY | 2025-10-10 08:15 | XMS_ITS | Encounter Summary ---
Author Organization [facility] Address [address] [place] [address] Care Team Providers Care School Photographer Name Role Phone Provider, No Known Primary Care Provider Unavail able Reason for Referral * Diagnostic Imaging (Routine) - Authorized Specialty Diagnoses / Procedures Referred By Contac t Referred To Contact Radiology Diagnoses IUGR (intrauterine growth restriction) affecting care of mother, third trimester, fetus 1 Placenta succenturiate lobe affecting fetus 34 weeks [address] of Procedures [facility] Dani Otero MD [facility] [facility] [address] [place] [address] Phone: tel: fax: Referral ID Status Reason Start Date Expiration Date V isits Requested Visits Authorized [id number] Authorized 10/10/2025 01/09/2027 1 1 Reason for Visit * Reason Comments IUGR Encounter Details Date Type Department Care Team (Late st Contact Info) Description 10/10/2025 8:15 AM EST Office Visit [facility] MATERNAL MEDICINE 17[address] [facility] [address] [place] [phone] Dani Otero MD [address] [facility] [address] [place] [address] IUGR (intrauterine growth restriction) affecting care of [...] Associated Diagnoses Orde r Schedule [facility] Diagnostic Center Imaging Routine IUGR [...] of documented in this encounter Care Teams School Photographer Relationship Specialty Start Date End Date Provider, [place] [address] PCP - General 09/05/25 documented as of this encounter
--- OUTSIDE RECORDS SUMMARY | 2025-10-29 19:12 | XMS_ITS | Encounter Summary ---
Author Organization [facility] Address [address] [place] [address] Care Team Providers Care Credit Report Checker Name Role Phone Provider, No Known Primary Care Provider Unavail able Encounter Details Date Type Department Care Team (Late st Contact Info) Description 10/18/2025 Telephone [facility]NAL MEDICINE [address] [facility] [address] [place] [phone] Dani Otero MD [address] [facility] [address] [place] [address] Social History Tobacco Use Types Packs/Day Years [...] on filedocumented in this encounter Care Teams Credit Report Checker Relationship Specialty Start Date End Date Provider, [place] [address] PCP - General 09/05/25 documented as of this encounter
--- OUTSIDE RECORDS SUMMARY | 2025-10-29 19:12 | XMS_ITS | Encounter Summary ---
Author Organization [facility] Address [address] [place] [address] Care Team Providers Care Underwriting Intern Name Role Phone Provider, No Known Primary [...] on filedocumented in this encounter Care Teams Underwriting Intern Relationship Specialty Start Date End Date Provider, [place] [address] PCP - General 09/05/25 documented as of this encounter
--- OUTSIDE RECORDS SUMMARY | 2025-10-29 19:12 | XMS_ITS | Clinical Summary ---
Author Organization [facility] Address [address] [place] [address] Phone Care Team Providers Care Pin Drafting Machine Operator Name Role Phone Unavailable Primary Care Provider [...]
--- OUTSIDE RECORDS SUMMARY | 2025-10-29 19:12 | XMS_ITS | Encounter Summary ---
Author Organization [facility] Address [address] [place] [address] Care Team Providers Care Halfway House Counselor Name Role Phone Provider, No Known Primary [...] on filedocumented in this encounter Care Teams Halfway House Counselor Relationship Specialty Start Date End Date Provider, [place] [address] PCP - General 09/05/25 documented as of this encounter
--- OUTSIDE RECORDS SUMMARY | 2025-10-29 19:12 | XMS_ITS | Clinical Summary ---
Author Organization [facility] Address [address] [place] [address] Care Team Providers Care Cutting Machine Operator Helper Name Role Phone Provider, No Known [...] Type Department Care Team Description 10/18/2025 Telephone [facility]ERNAL MEDICINE [address] [facility] [address] [place] [address] Dani Otero MD 10/10/2025 8:15 AM EST Office Visit [facility] MATERNAL MEDICINE [address] [facility] [address] [place] [address] Dani Otero MD IUGR (intrauterine growth restriction) affecting care of mother, third trimester, fetus 1 (Primary Dx); Placenta succenturiate lobe affecting fetus; 34 weeks gestation of 10/10/2025 7:59 AM EST - 10/10/2025 11:59 PM EST Hospital Encounter [facility] US PER DIAG CTR [address] [place] [address] Napoleon Pak MD IUGR (intrauterine growth restriction) affecting care of mother, third trimester, fetus 1 Discharge Disposition: Home or Self Care 10/10/2025 Travel 10/03/2025 9:15 AM EST Office Visit [facility] MATERNAL MEDICINE [address] [facility] [address] [place] [address] Nabil Robles MD IUGR (intrauterine growth restriction) affecting care of mother, third trimester, fetus 1 (Primary Dx) 10/03/2025 8:47 AM EST - 10/03/2025 11:59 PM EST Hospital Encounter [facility] US PER DIAG [facility] [address] [place] [address] Napoleon Pak MD IUGR (intrauterine growth restriction) affecting care of mother, third trimester, fetus 1 Discharge Disposition: Home or Self Care 10/03/2025 Travel 09/21/2025 8:15 AM EST - 09/21/2025 11:59 PM EST Hospital Encounter [facility] US PER DIAG CTR [address] [place] [address] Marissa Hadley MD IUGR (intrauterine growth restriction) affecting care of mother, third trimester, fetus 1 Discharge Disposition: Home or Self Care 09/21/2025 8:15 AM EST Office Visit [facility] MATERNAL MEDICINE [address] [facility] [address] [place] [address] Napoleon Pak MD IUGR (intrauterine growth restriction) affecting care of mother, third trimester, fetus 1 (Primary Dx); Placenta succenturiate lobe affecting fetus 09/21/2025 Travel 09/07/2025 8:00 AM EDT Office Visit [facility] MATERNAL MEDICINE [address] [facility] [address] [place] [address] Marissa Hadley MD IUGR (intrauterine growth restriction) affecting care of mother, third trimester, fetus 1 (Primary Dx); 29 weeks gestation of 09/07/2025 7:58 AM EDT - 09/07/2025 11:59 PM EDT Hospital Encounter [facility] US PER DIAG CTR [address] [place] [address] Paty Flores DO IUGR (intrauterine [...] ANNUAL PHYSICAL 09/05/2025 HEPATITIS C SCREENING 09/05/2025 TDAP/TD VACCINES (3 - Td or Tdap) 08/30/2035 08/30/2025, 07/19/2013 Pneumococcal Vaccine 0-49 Aged Out 2001, 02/28/2002, 2001 No longer eligible based on patient's age to complete this topic HPV VACCINES Completed 11/06/2016, 06/10/2016, 04/24/2016 MENINGOCOCCAL B VACCINE Aged Out No l onger eligible based on patient's age to complete this topic RSV Vaccine - Adults (No Dos es Required) Completed Procedures Procedure Name Priority Date/Time Associated Diagnosis Comments [facility] Routine 10/10/2025 8:33 AM EST IUGR (intrauterine growth restriction) affecting care of mother, third trimester, fetus 1 [facility] Routine 10/03/2025 9:37 AM EST IUGR (intrauterine growth restriction) affecting care of mother, third trimester, fetus 1 [facility] Routine 09/21/2025 8:44 AM EST IUGR (intrauterine growth restriction) affecting care of mother, third trimester, fetus 1 [facility] Routine 09/07/2025 11:09 AM EDT IUGR (intrauterine growth restriction) affecting care of mother, third trimester, fetus 1 , unspecified gestational age from Last 3 Months Results * [facility] (10/10/2025 8:33 AM EST) Only the most recent of4 resultswithin the time period is included. Anatomical Region Laterality Modality Ultrasound 10/10/2025 8:11 AM EST Narrative 10/10/2025 8:35 AM EST PAT NAME: SHILPI ALATORRE MED REC#: [id number] DA: 2000 PAT GEND: F PAT TYPE: O EXAM CARLOS: [id number] REF PHYS PATY FLORES Comparison Studies The [...] here in 1 week. Coding ====== Description: 75359-53 BPP without NST Description: 59113-92 Doppler Umbilical Artery Human Resources Coordinator: Mine Pope RDMS Physician: Aman Otero MD, FACOG Electronically signed by: Aman Otero MD, FACOG at: 08:35 Procedure Note Dani Otero MD - 10/10/2025 PAT NAME: SHILPI ALATORRE MED REC#: [id number] DA: [id number] PAT GEND: F PAT TYPE: O EXAM CARLOS: [id number] REF PHYS SERGEY PATY Comparison Studies The findings of this study are compared to the prior ultrasound studydated Patient Status Outpatient Indication ======== IUGR. Maternal Assessment [id number] cm Height (ft)5 ft Height (in)2 in Iknavz31 kg Weight (lb)130 lb BMI23.62 kg/m Method ======= Transabdominal ultrasound examination. View: Good view ========= Whittaker . Number of fetuses: 1 Dating ====== Method of dating:based on stated CYNDI GA by prior [id number] w + 2 d CYNDI by prior assessment:11/19/2025 Previous dating:based on stated CYNDI, selected on 09/21/2025 Agreed CYNDI of previous datin11/19/2025 Assigned:based on stated CYNDI, selected on 10/10/2025 Assigned [id number] w + 2 d Assigned CYNDI:11/19/2025 [id number] d General Evaluation Cardiac activity present. FHR [...] movements 2: tone 2: Amniotic fluid volume /8 Biophysical profile score Doppler Arterial Umbilical A [...] scheduled here in 1 week. Coding ====== Description:29144-60 BPP without NST Description:73819-61 Doppler Umbilical Artery Human Resources Coordinator: Mine Pope RDMS Physician: Aman Otero MD, FACOG Electronically signed by: Aman Otero MD, FACOG at: 08:35 us Napoleon Pak MD [facility] [place] Final Res ult from Last 3 Months Insurance [facility] PLAN OF [place] [facility] Care Teams Cutting Machine Operator Helper Relationship Specialty Start Date End Date Provider, No Known [facility] [place] [address] PCP - General 09/05/25
--- OUTSIDE RECORDS SUMMARY | 2025-10-29 19:13 | XMS_ITS | Encounter Summary ---
Author Organization [facility] Address [address] [place] [address] Care Team Providers Care Vp Marketing Name Role Phone Provider, No Known Primary [...] on filedocumented in this encounter Care Teams Vp Marketing Relationship Specialty Start Date End Date Provider, [place] [address] PCP - General 09/05/25 documented as of this encounter
--- OUTSIDE RECORDS SUMMARY | 2025-10-29 19:13 | XMS_ITS | Encounter Summary ---
Author Organization [facility] Address [address] [place] [address] Care Team Providers Care Fire Support Man Name Role Phone Provider, No Known Primary [...] on filedocumented in this encounter Care Teams Fire Support Man Relationship Specialty Start Date End Date Provider, [place] [address] PCP - General 09/05/25 documented as of this encounter
[2025-10-29 19:17] VITALS: BMI 25.4
[2025-10-29 19:30] VITALS: BP 137/88; PULSE 85; RESP 18; TEMP 36.6; O2SAT 98; BMI 25.4
[2025-10-29 19:46] LABS: Microscopic, Urine URINE MICROSCOPIC (MICROSCOPIC)
[2025-10-29 19:47] LABS: Bilirubin,Urine Negative (Negative); Color,Urine YELLOW (Yellow); Glucose,Urine (UA) Negative (Negative); Ketones,Urine Negative (Negative); Leukocyte Esterase,Urine Negative (Negative); PH,Urine 6.0 (5.0-8.5); Protein,Urine Negative (Negative); Specific Gravity, Urine 1.020 (1.005-1.030); Urobilinogen,Urine 0.2 EU/dl (0.2)
[2025-10-29 20:23] LABS: Bacteria,Urine 3+ /lpf
[2025-10-29 21:40] LABS: Hematocrit 36.0 % (37.0-47.0); Hemoglobin 12.6 g/dL (12.2-16.2); Immature Granulocytes % 0.6 %; Mean Corpuscular HGB Conc 35.0 g/dL (31.8-35.4); Mean Corpuscular Hemoglobin 29.3 pg (27.0-31.2); Mean Corpuscular Volume 83.7 fl (81-99); Nucleated Red Blood Cells % 0 %; Platelet Count 278 K/mm3 (142-424); Red Blood Count 4.30 M/mm3 (4.20-5.40); Red Cell Distribution Width-SD 35.4 fL; White Blood Count 15.0 K/mm3 (4.8-10.8)
[2025-10-29 21:51] LABS: Alanine Aminotransferase 14 U/L (12-78); Albumin Level 3.8 g/dl (3.5-5.0); Albumin/Globulin Ratio 1.3 (1.1-1.8); Alkaline Phosphatase 198 U/L (38-126); Anion Gap 8.9 mEq/L (5-15); Aspartate Amino Transferase 23 U/L (14-36); Bilirubin,Total 0.4 mg/dl (0.2-1.3); Blood Urea Nitrogen 11 mg/dl (7-17); Calcium 9.4 mg/dl (8.4-10.2); Carbon Dioxide 22 mmol/L (22.0-30.0); Chloride 106 mmol/L (98-107); Creatinine Clearance Estimated 140 mL/min (50-200); Creatinine,Serum 0.60 mg/dl (0.52-1.04); Estimated Glomerular Filt Rate 123 ml/min (>60); GFR (African American) 149 ML/MIN (>60); Globulin 3.0 g/dL (1.3-3.2); Glucose 77 mg/dl (74-100); Potassium 3.9 mmoL/L (3.5-5.1); Sodium 133 mmol/L (136-145); Total Protein,Serum 6.8 g/dl (6.3-8.2)
[2025-10-29] MEDS: BUTORPHANOL TARTRATE 1 MG/ML VIAL IV (23:18)
[2025-10-30 01:16] VITALS: BP 130/88; PULSE 74; RESP 16; TEMP 36.4; O2SAT 98
[2025-10-30 04:02] VITALS: BP 129/99; PULSE 85; RESP 18; TEMP 36.7; O2SAT 98
[2025-10-30] MEDS: DEXTROSE 5%-LACTATED RINGERS 1,000 ML 75 ML IV (04:35)
[2025-10-30] MEDS: OXYTOCIN/RINGERS LACTATE 30 UNITS/500 ML BAG IV (04:36)
[2025-10-30] MEDS: BUTORPHANOL TARTRATE 1 MG/ML VIAL IV (07:02)
[2025-10-30] MEDS: LACTATED RINGERS 1000ML 1,000 ML 500 ML IV (07:05)
--- NOTE | 2025-10-30 07:12 | P.HP_ITS ---
History of Present Illness *Admission Date: 10/30/25 *Reason for visit:: Labor *History of present illness: Shilpi Alatorre is a 25yo who presented with painful contractions last night and was admitted for labor management. She was scheduled for an induction secondary to severe IUGR, she was followed by [facility]. She has an CYNDI of 11/19/25 based on LMP consistent with 7 & 8 weeks US, giving a gestational age of 37w1d today. On presentation patient endorsed good movement and denies any leakage of fluid or vaginal bleeding. A-, antibody positive, hepatitis C negative, RPR negative, HIV negative 1 hour GTT: 83 GBS negative PFSH PFS Disclaimer: The information contained in this section may have been updated after the patient was seen, as this information can be updated by other users. Medical History SGA (small for gestational age), , affecting care of mother, antepartum Intrauterine growth restriction (IUGR) affecting care of mother, third trimester, single gestation Migraines Encounter for related examination in second trimester Vaginal bleeding affecting early Surgical History No significant past surgical history Family History Other No significant family history Social History (Updated 10/29/25 @ 20:34 by Danelle Samaniego RN) Smoking Status: Never smoker alcohol intake: never substance use type: marijuana current occupational status: unemployed Travel in the last 8 weeks?: None Have you lived/traveled outside US in past 30 days?: No Contact w/someone who lives/traveled outside US past 30 days?: No Exposure to someone with infectious disease in past 14 days?: No Do you have a fever (greater than 100.4 F or 38 C)?: No Have you tested positive for COVID-19?: No Exposed to someone with COVID-19 in past 14 days?: No Do you have a sore throat?: No Do you have a cough?: No Do you have any weakness?: No Are you experiencing any nausea/vomitting?: No Do you have any diarrhea?: No Are you experiencing any unusual bleeding?: No Do you have any muscle aches/pain?: No Do you have any abdominal pain?: No Are you experiencing loss of taste or smell?: No Other Medical History Have you received the Flu Vaccine for this season: No Have you received the Pneumonia Vaccine: No Review of Systems Review of Systems Review of systems (narrative): Review of Systems Constitutional: Denies fever, chills, and sweats Eyes: Denies vision change/ pain Respiratory: Denies cough and shortness of breath Cardiovascular: Denies chest pain and lightheadedness Gastrointestinal: Admits abdominal pain with contractions. Denies nausea, vomiting. Genitourinary: Denies dysuria and incontinence Musculoskeletal: Denies shoulder pain and back pain Neurological: Denies change in speech or headaches Meds Home Medications and Allergies Home Medications ?Medication ?Instructions ?Recorded ?Confirmed ?Type vits no.126-ferrous fum 1 tab PO DAILY 10/29/25 History 28 mg iron-folic acid 800 mcg tablet (Classic ) New Prescriptions to Start Prescriptions: Allergies Allergy/AdvReac Type Severity Reaction Status Date / Time No Known Allergies Allergy Verified 10/29/25 20:35 Exam Data for Last 24 hours Vital signs and Labs for Last 24 Hours: Temp Pulse Resp BP Pulse Ox O2 Del Method 98.1 F 85 18 129/99 H 98 Room Air 10/30/25 04:02 10/30/25 04:02 10/30/25 04:02 10/30/25 04:02 10/30/25 04:02 10/30/25 04:02 Laboratory Results - last 24 hr 10/29/25 19:27: Urine Color Yellow, Urine Appearance Clear, Urine pH 6.0, Ur Specific [place] 1.020, Urine Protein Negative, Urine Glucose (UA) Negative, Urine Ketones Negative, Urine Blood Negative, Urine Nitrate Negative, Urine Bilirubin Negative, Urine Urobilinogen 0.2, Ur Leukocyte Esterase Negative, Urine RBC None, Urine WBC 5-10, Ur Squamous Epith Cells 5-10, Urine Bacteria 3+ 10/29/25 21:24: WBC 15.0 H, RBC 4.30, Hgb 12.6, Hct 36.0 L, MCV 83.7, MCH 29.3, MCHC 35.0, RDW 11.8, Plt Count 278, MPV 10.1, Neut % (Auto) 68.2, Lymph % (Auto) 21.5, [place] % (Auto) 8.8, Eos % (Auto) 0.6, Baso % (Auto) 0.3, Neut # (Auto) 10.2 H, Lymph # (Auto) 3.2, [place] # (Auto) 1.3 H, Eos # (Auto) 0.1, Baso # (Auto) 0.1, Sodium 133 L, Potassium 3.9, Chloride 106, Carbon Dioxide 22, Anion Gap 8.9, BUN 11, Creatinine 0.60, Estimated Creat Clear 140, Estimated GFR 123, Est GFR ( Amer) 149, Glucose 77, Calcium 9.4, Total Bilirubin 0.4, AST 23, ALT 14, Alkaline Phosphatase 198 H, Total Protein 6.8, Albumin 3.8, Globulin 3.0, Albumin/Globulin Ratio 1.3, Blood Type A Negative, Antibody Screen Positive I & O for Last 24 hours: Intake & Output 10/27/25 10/28/25 10/29/25 10/30/25 23:59 23:59 23:59 23:59 Weight 135 lb 0.001 oz Narrative: General: patient is alert oriented in no acute distress and responds appropriately to questions. HEENT: NCAT, EOMI, moist mucous membranes, neck supple with full ROM Cardiovascular: RRR +S1/S2, no murmurs or rubs Pulmonary: Clear to auscultation bilaterally, nonlabored breathing, symmetric chest rise Abdominal: Gravid abdomen appropriate for gestation. No guarding, rebound, or tenderness noted. Extremities: trace edema, no tenderness or cyanosis noted Skin: Normal turgor, intact, warm. Negative for erythema, pallor, petechia, or lesions Neurologic: Negative for sensory or motor deficit Psychiatric: Normal affect, normal thought process, good judgment and insight, no depression or anxious mood appreciated. *Routine HEENT Exam Head: Present normocephalic and atraumatic Eye: Present EOMI, PERRL and normal accommodation; Absent conjunctival icterus, scleral injection, nystagmus or exophthalmos ENT: Present mucous membranes moist *Routine Respiratory Exam Respiratory: Present CTA bilaterally, normal respiratory effort, able to speak in complete sentences and symmetric chest movement; Absent accessory muscle use, decreased breath sounds, rales, respiratory distress, wheezes, distant breath sounds or diminished air movement *Routine Cardiovascular Exam Cardiovascular: Present RRR, Normal S1 and Normal S2; Absent murmur or gallop *Routine Abdominal Exam Abdominal: Present soft and normoactive bowel sounds; Absent tenderness, distended, rebound or guarding *Routine Rectal Exam Rectal:: deferred *Routine Genitalia Exam Genitalia:: normal female Assessment and Plan *Assessment and plan (1) Intrauterine growth restriction (IUGR) affecting care of mother, third tr imester, single gestation: Status: Acute Category: Medical Code(s): O36.5930 - Maternal care for other known or suspected poor growth, third trimester, not applicable or unspecified (2) 37 weeks gestation of : Status: Acute Category: Medical Code(s): Z3A.37 - 37 weeks gestation of Plan - Monitor vitals - Admit to L&D for labor monitoring and delivery - Plan for augmentation of labor with AROM and pitocin if required. - External FHR and TOCO monitor - Exam on admission: /-2 - GBS neg/ Blood type: A- - Hemoglobin: 12.6, Plt: 278 - Plan for epidural anesthesia - Anticipate vaginal delivery of female rubella and HBV labs not identified. Ordered this morning. AROM completed, thin meconium noted. Pt and infant tolerated well. Monitor FHT closely. plan for epidural
--- NOTE | 2025-10-30 07:56 | EXP.ANES.CKL ---
[facility] Disclaimer: The information contained in this section may have been updated after the patient was seen, as this information can be updated by other users. Medical History SGA (small for gestational age), , affecting care of mother, antepartum Intrauterine growth restriction (IUGR) affecting care of mother, third trimester, single gestation Migraines Encounter for related examination in second trimester Vaginal bleeding affecting early Surgical History No significant past surgical history Family History Other No significant family history Social History Smoking Status: Never smoker alcohol intake: never substance use type: marijuana current occupational status: unemployed Travel in the last 8 weeks?: None Have you lived/traveled outside US in past 30 days?: No Contact w/someone who lives/traveled outside US past 30 days?: No Exposure to someone with infectious disease in past 14 days?: No Do you have a fever (greater than 100.4 F or 38 C)?: No Have you tested positive for COVID-19?: No Exposed to someone with COVID-19 in past 14 days?: No Do you have a sore throat?: No Do you have a cough?: No Do you have any weakness?: No Are you experiencing any nausea/vomitting?: No Do you have any diarrhea?: No Are you experiencing any unusual bleeding?: No Do you have any muscle aches/pain?: No Do you have any abdominal pain?: No Are you experiencing loss of taste or smell?: No [facility] Anesthesia Checklist Patient Identification Patient Identification: Arm Band and Verbal (Name & ) Structural Data Admitted From: Inpatient Planned Operative Procedure/s: labor epidrual Consent for Planned Operative Procedure(s) Verified: Yes Verified Documents: Surgical Consent and History and Physical NPO Status Verified Time NPO: 00:00 Additional verifications Patient : Yes Anesthesia Reactions: No Airway Assessment Mallampati Score:: Class I Dentition: Good Dentition Neurological Assessment Level of Consciousness: Awake, Alert and Appropriate Anesthesia Plan Anesthesia Risk discussed: Yes Anesthesia Plan: Verified ASA Class: II Anesthesia Type: Epidural
[2025-10-30] MEDS: OXYTOCIN/RINGERS LACTATE 30 UNITS/500 ML BAG 999 UNITS IV (09:03)
[2025-10-30] MEDS: MORPHINE 2MG/ML SYRINGE 2 MG IV (09:11)
[2025-10-30 09:17] LABS: RPR W/RFX Titers Nonreactive (Nonreactive)
--- NOTE | 2025-10-30 09:57 | P.PCN_ITS ---
Delivery Note Delivery Date:: 10/30/25 Delivery Time:: 08:57 Anesthesia Type: Epidural Was labor medically induced?: Yes Induction method: per pitocin protocol Gestational age (weeks): 37 delivered prior to 39 weeks?: Yes Justification for early elective delivery:: IUGR Gender: Female at 1 minute: 8 at 5 minutes: 9 Delivery Procedure:: Preoperative diagnosis: 1. at 37.1 completed this weeks gestation, vertex 2. Rh positive 3. GBS negative 4. Severe intrauterine growth restriction Postoperative diagnosis: 1. at 37.1 completed this weeks gestation, vertex 2. Rh positive 3. GBS negative 4. Severe intrauterine growth restriction 5. Retained placenta, required manual extraction EBL: 50mL Specimen: 1. Cord blood 2. Arterial and venous cord gases 3. Placenta Findings: 1. Liveborn viable female : Amin. Apgars 8/9 at 1 and 5 minutes respectively. Weight: pending 2. Arterial cord pH: 7.18, base excess: -9.1. Venous cord pH: 7.28, base excess: -7.0 Complications: Retained placenta requiring manual extraction Procedure: Nonoperative spontaneous vaginal delivery Shilpi Alatorre is a 25-year-old G1, P0 who presented to labor and delivery with regular painful contractions and was admitted. She received Pitocin to a rate of about 3 and had AROM and subsequently rapidly progressed to complete. Her has been complicated by severe growth restriction, and followed by M. AROM occurred around 7 AM this morning and was significant for light meconium. She received an epidural for anesthesia. She progressed to complete. During pushing the patient had variable decelerations with co ntractions. They recovered to baseline in between contractions. The infant was noted to be in direct OA position. With effective maternal pushing there was a nonoperative spontaneous vaginal delivery at 0857. There was no nuchal cord. The anterior right shoulder delivered, followed by the posterior shoulder without dystocia. The body and lower extremities delivered without difficulty. The infant was crying immediately following delivery. The was placed on the maternal abdomen and greater than one minute was appreciated for delayed cord clamping. The umbilical cord was doubly clamped and cut. Cord gases were collected. Cord blood was collected and sent for routine testing. No cord lengthening or return of fluid or blood was noted. Pitocin was started. Aggressive uterine massage with cord traction was completed and there was no release of the placenta. The placenta was very adherent. After approximately 20 minutes the patient was counseled on the manual extraction. Sh e was given 2 mg of IV morphine. The placenta was manually extracted and suspected to be intact. A prophylactic dose of 1000 mcg of MS Cytotec was administered. 2 g of Ancef will be given secondary to manual extraction. The uterus was firm and bleeding was minimal. The perineum, vaginal moe, cervix, and paraurethral area were inspected thoroughly and noted to be hemostatic and free of laceration. This concluded the delivery. The patient was counseled regarding the events of the delivery. The patient tolerated the delivery well. All counts were correct by nursing. Mother and infant were doing well and bonding upon my leaving the delivery room. Placental Delivery Description: Manual Removal
[2025-10-30] MEDS: ACETAMINOPHEN 500MG TAB 1000 MG PO (10:12)
[2025-10-30] MEDS: IBUPROFEN 400 MG TABLET 800 MG PO ×2 (10:13→19:27)
[2025-10-30] MEDS: ONDANSETRON 4MG ODT 4 MG SL (12:59)
[2025-10-30] MEDS: LANOLIN CREAM 40GM TP (13:16)
[2025-10-30] MEDS: WITCH HAZEL 40 PADS/BOX 1 EACH TP (15:27)
[2025-10-30] MEDS: BENZOCAINE-MENTHOL SPRAY 56GM CAN TP (15:27)
[2025-10-30 16:58] VITALS: BP 153/69; PULSE 83; RESP 17; TEMP 36.9; O2SAT 97
[2025-10-30 17:35] VITALS: BP 128/83
[2025-10-30 19:46] VITALS: BP 122/79; PULSE 76; RESP 16; TEMP 37.3; O2SAT 98
[2025-10-30] MEDS: SENNA 8.6MG TABLET 8.6 MG PO (21:53)
[2025-10-31] MEDS: ACETAMINOPHEN 500MG TAB 1000 MG PO (01:22)
[2025-10-31 03:28] VITALS: BP 118/72; PULSE 73; RESP 18; TEMP 36.8; O2SAT 97
[2025-10-31 06:04] LABS: Hematocrit 33.6 % (37.0-47.0); Hemoglobin 11.6 g/dL (12.2-16.2); Immature Granulocytes % 0.8 %; Mean Corpuscular HGB Conc 34.5 g/dL (31.8-35.4); Mean Corpuscular Hemoglobin 29.7 pg (27.0-31.2); Mean Corpuscular Volume 86.2 fl (81-99); Nucleated Red Blood Cells % 0 %; Platelet Count 198 K/mm3 (142-424); Red Blood Count 3.90 M/mm3 (4.20-5.40); Red Cell Distribution Width-SD 37.5 fL; White Blood Count 13.0 K/mm3 (4.8-10.8)
--- NOTE | 2025-10-31 08:03 | SW/DCPLANNER ---
I received a consult on this patient regarding THC use during beginning of . Patient tested positive for THC on 04/19/25. Patient was negative on 10/24/25 and was not tested at admission. Infant UDS was negative at admission. female (Eloisa Pennington) was born . 's father (Mikhail Pennington) was present at the time of my visit. This is patient's first child. Patient, Mikhail and infant will reside at [address] [place] [address]. Patient's contact number is [phone]. Patient is established w/ WIC and has the following items at home: crib, car seat, clothing, diapers and will be breast feeding. PED MD will be Dr Ramirez and patient verified she will have transportation to all follow up appointments. Per OB nursing staff (Cecilia) patient is appropriate w/ . Patient and infant are expected to discharge tomorrow pending no setbacks.
[2025-10-31 08:14] LABS: Hepatitis B Surface Antigen Negative (Negative)
--- NOTE | 2025-10-31 09:17 | EXP.PN ---
Subjective *Date: 10/31/25 *Time: 09:17 Interval history: Nereyda Alatorre is a G1, P1 day #1 following a normal spontaneous vaginal delivery at 37 weeks and 1 days gestation. was complicated by IUGR - MFM followed and early term indicated delivery. Delivery complicated by retained placenta requiring manual extraction. Routine course. She is doing well, sitting up in bed, and visiting with family this morning. -Reports pain is well-controlled -Reports she is tolerating p.o. without nausea or vomiting. -Reports her lochia is scant. -She is breast-feeding her female infant -Ambulating, voiding difficulty or dysuria. Denies chest pain shortness of breath or pain in her legs. No further complaints at this time. Exam Data for Last 24 hours Vital signs and Labs for Last 24 Hours: Temp Pulse Resp BP Pulse Ox O2 Del Method 98.3 F 73 18 118/72 97 Room Air 10/31/25 03:28 10/31/25 03:28 10/31/25 03:28 10/31/25 03:28 10/31/25 03:28 10/31/25 03:28 Laboratory Results - last 24 hr 10/29/25 21:24: RPR w/Rflx to Titer Nonreactive, Hep Bs Antigen Negative, Antibody Identification Anti-D 10/30/25 09:00: Cord ABG pH 7.29 L 10/30/25 09:00: Cord ABG pH 7.19 L* 10/31/25 05:41: WBC 13.0 H, RBC 3.90 L, Hgb 11.6 L, Hct 33.6 L, MCV 86.2, MCH 29.7, MCHC 34.5, RDW 11.9, Plt Count 198 D, MPV 9.9, Neut % (Auto) 62.8, Lymph % (Auto) 26.0, [place] % (Auto) 9.0, Eos % (Auto) 1.2, Baso % (Auto) 0.2, Neut # (Auto) 8.1 H, Lymph # (Auto) 3.4, [place] # (Auto) 1.2 H, Eos # (Auto) 0.2, Baso # (Auto) 0.0, Screen Negative, Baby's Rh Status Positive I & O for Last 24 hours: Intake & Output 1210/29/25 10/30/25 10/31/25 23:59 23:59 23:59 23:59 Intake Total 1469.60 / 1469.60 Balance 1469.60 / 1469.60 Weight 135 lb 0.001 oz Microbiology Reports for the Last 24 Hours: Microbiology 10/29/25 19:27 Urine,Clean Catch Urine Culture - Final Multiple organisms, suggests contamination. Narrative: General: patient is alert oriented in no acute distress and responds appropriately to questions. Appears to be in minimal pain. Sitting up in the chair and doing well HEENT: NCAT, EOMI, moist mucous membranes, neck supple with full ROM Cardiovascular: RRR +S1/S2, no murmurs or rubs Pulmonary: Clear to auscultation bilaterally, nonlabored breathing, symmetric chest rise Abdominal: Fundus below the umbilicus, firm, and tenderness appropriate for the period. Extremities: trace edema, no tenderness or cyanosis noted Skin: Normal turgor, intact, warm. Negative for erythema, pallor, petechia, or lesions Neurologic: Negative for sensory or motor deficit Psychiatric: Normal affect, normal thought process, good judgment and insight, no depression or anxious mood appreciated. Assessment and Plan *Assessment and plan (1) 37 weeks gestation of : Status: Acute Category: Medical Code(s): Z3A.37 - 37 weeks gestation of (2) Intrauterine growth restriction (IUGR) affecting care of mother, third trimester, single gestation: Status: Acute Category: Medical Code(s): O36.5930 - Maternal care for other known or suspected poor growth, third trimester, not applicable or unspecified (3) (normal spontaneous vaginal delivery): Status: Acute Category: Medical Code(s): O80 - Encounter for full-term uncomplicated delivery Plan Stable. PPD#1 s/p -IP. -Doing well. VSS. Serial lochia and fundal checks. -Continue with perineal ice packs for discomfort -Hemoglobin: 12.6--> 11.6 - aymptomatic anemia noted. Vitals stable. Continue monitoring. DC with Fe -A-/antibody positive: Anti D. Rhogam studies indicated -, female infant -Contraception: undecided -Follow-up 2 weeks for routine visit -Dispo: home in 1-3 days pending mother/infant status
[2025-10-31 09:29] VITALS: BP 126/74; PULSE 81; RESP 17; TEMP 36.9; O2SAT 99
[2025-10-31 14:12] LABS: Rubella Antibodies, IgG 0.94 index (Immune >0.99)
[2025-10-31] MEDS: RHO(D) IMMUNE GLOBULIN 1,500 UNIT (300MCG) SYRINGE 300 MCG IM (16:55)
[2025-10-31 17:00] VITALS: BP 140/88; PULSE 66; RESP 17; TEMP 36.9; O2SAT 99
[2025-10-31] MEDS: IBUPROFEN 400 MG TABLET 800 MG PO (18:24)
[2025-11-01] MEDS: ACETAMINOPHEN 500MG TAB 1000 MG PO (01:57)
[2025-11-01] MEDS: IBUPROFEN 400 MG TABLET 800 MG PO (07:00)
[2025-11-01 08:34] VITALS: BP 137/89; PULSE 71; RESP 18; TEMP 36.8; O2SAT 97
[2025-11-01 13:02] LABS: Hematocrit 36.9 % (37.0-47.0); Hemoglobin 12.6 g/dL (12.2-16.2); Immature Granulocytes % 0.6 %; Mean Corpuscular HGB Conc 34.1 g/dL (31.8-35.4); Mean Corpuscular Hemoglobin 29.8 pg (27.0-31.2); Mean Corpuscular Volume 87.2 fl (81-99); Nucleated Red Blood Cells % 0 %; Platelet Count 256 K/mm3 (142-424); Red Blood Count 4.23 M/mm3 (4.20-5.40); Red Cell Distribution Width-SD 38.3 fL; White Blood Count 11.6 K/mm3 (4.8-10.8)
[2025-11-01] MEDS: BENZOCAINE-MENTHOL SPRAY 56GM CAN TP (13:02)
[2025-11-01 13:07] LABS: Albumin Level 3.8 g/dl (3.5-5.0); Chloride 107 mmol/L (98-107); Sodium 138 mmol/L (136-145)
[2025-11-01 13:08] LABS: Potassium 4.0 mmoL/L (3.5-5.1)
--- NOTE | 2025-11-01 13:08 | EXP.DC.SUM ---
General Admission date:: 10/29/25 Discharge date: 11/01/25 HPI HPI HPI: Shilpi Alatorre is a 25yo who presented with painful contractions last night and was admitted for labor management. She was scheduled for an induction secondary to severe IUGR, she was followed by [facility]. She has an CYNDI of 11/19/25 based on LMP consistent with 7 & 8 weeks US, giving a gestational age of 37w1d today. On presentation patient endorsed good movement and denies any leakage of fluid or vaginal bleeding. A-, antibody positive, hepatitis C negative, RPR negative, HIV negative 1 hour GTT: 83 GBS negative Hospital Course Hospital Course Hospital Course: Shilpi Alatorre is a pleasant 25-year-old G1, P1 day #2 from a normal spontaneous vaginal delivery. Delivered at 37 weeks and 1 day gestation secondary to growth restriction. Infant and mom had done great . Westley delivered a live viable female infant on 10/30/2025 at 08 57 weighing 4 pounds 5 ounces. Apgars were 8 and 9 at 1 and 5 minutes respectively. EBL was 50. The patient is breast-feeding. She has done well and has remained afebrile with her at her hospitalization. She is eating and drinking and ambulating. Her lochia is normal. She has A Rh- blood, she is rubella equivocal and was group B streptococcus negative. She will be discharged home to follow-up with Dr. Flores in 1 weeks time. She will continue with her vitamins. She will take ibuprofen as well. She was given the usual instructions with respect to limiting her activity, driving and sexual activity. She was given instructions with respect to wound care. Her condition on discharge is stable and improved. Today her blood pressure has been slightly elevated. We are keeping a close eye on it and repeating her labs. I had a long discussion with the patient, her significant other, and her mom. If her labs including her urine protein creatinine ratio are appropriate and within normal limits the patient will be discharged home with short interval follow-up. Strict instructions for return to care, preeclampsia signs and symptoms, and blood pressure monitoring were reviewed in detail. The patient and family voiced understanding and stated they had no further questions or concerns Exam Data for Last 24 hours Vital signs and Labs for Last 24 Hours: Temp Pulse Resp BP Pulse Ox O2 Del Method 98.3 F 71 18 137/89 97 Room Air 11/01/25 08:34 11/01/25 08:34 11/01/25 08:34 11/01/25 08:34 11/01/25 08:34 11/01/25 08:34 Laboratory Results - last 24 hr 10/29/25 21:24: Rubella IgG Antibody 0.94 L 11/01/25 12:50: WBC 11.6 H, RBC 4.23, Hgb 12.6, Hct 36.9 L, MCV 87.2, MCH 29.8, MCHC 34.1, RDW 11.9, Plt Count 256 D, MPV 9.6, Neut % (Auto) 66.5, Lymph % (Auto) 24.2, [place]ble % (Auto) 5.4, Eos % (Auto) 2.9, Baso % (Auto) 0.4, Neut # (Auto) 7.7, Lymph # (Auto) 2.8, Trimble # (Auto) 0.6, Eos # (Auto) 0.3, Baso # (Auto) 0.1 I & O for Last 24 hours: Intake & Output 10/29/25 10/30/25 10/31/25 11/01/25 23:59 23:59 23:59 23:59 Intake Total 1469.60 / 1469.60 Balance 1469.60 / 1469.60 Weight 135 lb 0.001 oz Results Data Completed and Pending Labs on day of discharge: Labs from last 24 hours 11/01/25 10/29/25 12:50 21:24 WBC 11.6 H RBC 4.23 Hgb 12.6 Hct 36.9 L MCV 87.2 MCH 29.8 MCHC 34.1 RDW 11.9 Plt Count 256 D MPV 9.6 Neut % (Auto) 66.5 Lymph % (Auto) 24.2 Trimble % (Auto) 5.4 Eos % (Auto) 2.9 Baso % (Auto) 0.4 Neut # (Auto) 7.7 Lymph # (Auto) 2.8 Trimble # (Auto) 0.6 Eos # (Auto) 0.3 Baso # (Auto) 0.1 Rubella IgG Antibody 0.94 L DS: Diagnosis Discharge Diagnosis (1) 37 weeks gestation of : Status: Acute Code(s): Z3A.37 - 37 weeks gestation of (2) Intrauterine growth restriction (IUGR) affecting care of mother, third trimester, single gestation: Status: Acute Code(s): O36.5930 - Maternal care for other known or suspected poor growth, third trimester, not applicable or unspecified (3) (normal spontaneous vaginal delivery): Status: Acute Code(s): O80 - Encounter for full-term uncomplicated delivery Meds Home Medications and Allergies Home Medications ?Medication ?Instructions ?Recorded ?Confirmed ?Type vits no.126-ferrous fum 1 tab PO DAILY 04/05/25 10/29/25 History 28 mg iron-folic acid 800 mcg tablet (Classic ) acetaminophen 500 mg tablet 500 mg PO Q6H PRN fever or pain 10/31/25 Rx #30 tabs ibuprofen 800 mg tablet 800 mg PO Q8H PRN pain #60 tabs 10/31/25 Rx New Prescriptions to Start Prescriptions: acetaminophen Lula Flores ibuprofen Lula Flores Allergies Allergy/AdvReac Type Severity Reaction Status Date / Time No Known Allergies Allergy Verified 10/29/25 20:35 Discharge Plan Disposition Patient Disposition: Home, Self-Care Discharge Order Discharge Orders: Discharge Order (Routine); Ordered 11/01/25 Ordered By: Lula Flores Follow up Plan Follow up with: Lula Flores DO [Staff Physician, [facility]] - 1 week Prescriptions/Medication Reconciliation: New ibuprofen 800 mg tablet 800 mg PO Q8H PRN (Reason: pain) Qty: 60 2RF acetaminophen 500 mg tablet 500 mg PO Q6H PRN (Reason: fever or pain) Qty: 30 3RF Continued Classic 28 mg iron- 800 mcg tablet 1 tab PO DAILY Problem Reconciliation Problems Reviewed?: Yes Patient Discharge Instructions ACTIVITY: Continue current activity DIET: regular diet Additional Instructions: Congratulations on the delivery of your sweet baby girl. It is my privilege to be your doctor and I am so thankful I could be a part of your special day. Discharge: -Take 800 mg Ibuprofen every 8 hours as needed for pain. You can also take 500-1000 mg of Tylenol in between doses, every 6-8 hours. -Colace can be taken 1-2 times per day as you need to soften your stool. Make sure to drink at least 8 cups of water per day. -Iron supplements can make you constipated. You can take iron tablets every other day if constipation is too bad. -Nothing in the vagina for 6 weeks - no intercourse, douching, tampons. No tub baths or swimming pools. -Do not lift greater than 20pounds for 2 weeks, this is the equivalent of 2 gallons of milk. -Reasons to return to L&D or call On-Call doctor - fever (greater than 100.4) - heavy vaginal bleeding (soaking through 1 pad in less than 2 hours or passing clots that are egg sized) - vaginal discharge (malodorous and/or purulent) - severe headaches, leg tenderness/edema, or any other symptoms that warrant immediate medical attention. depression/blues - Normal to feel anxious/overwhelmed for first 2 weeks - Talk to your doctor if: anxiety lasts over 2 weeks, trouble bonding with baby, withdrawing from other family members, thoughts of harming yourself or others Blood pressure and preeclampsia instructions - Please take your blood pressure twice daily. - Please call if greater than 2 values are higher than: 150 systolic (the top number) or 100 diastolic (the bottom number). - Please go to the emergency room or labor and delivery triage if any value is higher than: 160 systolic (the top number) or 110 diastolic (the bottom number). - Please call if unrelenting headache (does not go away with rest or Tylenol or ibuprofen), changes in vision (spots, floaters, flashes of light), chest pain, shortness of breath, or right upper quadrant (liver) abdominal pain. Lula Flores DO [facility] [phone] *Nothing in the Vagina for 6 weeks* *No strenuous activity* *No heavy lifting* *No tub baths until okay's by MD* Patient Instructions: Depression, Hemorrhage, DI for Labor and Delivery, Vaginal , DI for Pre-eclampsia, [facility] Post Discharge Instructions Print Language: Urdu Providers Primary Care Provider: Dawn Melchor Admit Provider: Paulina Trujillo Attending Provider: Paulina Trujillo
[2025-11-01 13:10] LABS: Alanine Aminotransferase 14 U/L (12-78); Albumin/Globulin Ratio 1.4 (1.1-1.8); Alkaline Phosphatase 145 U/L (38-126); Anion Gap 13.0 mEq/L (5-15); Aspartate Amino Transferase 30 U/L (14-36); Bilirubin,Total 0.2 mg/dl (0.2-1.3); Blood Urea Nitrogen 14 mg/dl (7-17); Calcium 9.9 mg/dl (8.4-10.2); Carbon Dioxide 22 mmol/L (22.0-30.0); Creatinine Clearance Estimated 140 mL/min (50-200); Creatinine,Serum 0.60 mg/dl (0.52-1.04); Estimated Glomerular Filt Rate 123 ml/min (>60); GFR (African American) 149 ML/MIN (>60); Globulin 2.8 g/dL (1.3-3.2); Glucose 94 mg/dl (74-100); Total Protein,Serum 6.6 g/dl (6.3-8.2)
[2025-11-01] MEDS: MEASLES,MUMPS,RUBELLA VACCINE VIAL 0.5 ML SUBCUT (14:29)
== END 2025-11-01 14:50 | disposition home or self-care (01) | DRG 807 ==
PROVIDERS: Obstetrics & Gynecology; Admitting Provider Obstetrics & Gynecology; PCP Nurse Practitioner; Visit Provider Obstetrics & Gynecology
DX: O36.5930 Maternal care for other known or suspected poor fetal growth, third trimester, not applicable or unspecified (principal); Z37.0 Single live birth; Z3A.37 37 weeks gestation of pregnancy; O26.893 Other specified pregnancy related conditions, third trimester; O77.0 Labor and delivery complicated by meconium in amniotic fluid; O73.0 Retained placenta without hemorrhage; O76 Abnormality in fetal heart rate and rhythm complicating labor and delivery; O90.81 Anemia of the puerperium; Z67.11 Type A blood, Rh negative; Z23 Encounter for immunization
CPT/HCPCS: 36415; 59025; 62323; 80053; 81001; 82570; 82800; 84156; 85025; 85461; 86592; 86762; 86787; 86850; 86870; 87086; 87340; 90460; 90707; 94761; J0595; J2270; J2790; J7120; J7121; Q0162